=== PATIENT | male | born 1940 | race Caucasian/White ===

== ENCOUNTER 2023-05-05 08:45 | Outpatient (OUT) | payer MEDICARE, SELFPAY ==
--- NOTE | 2023-05-05 | US_ITS ---
The [place] [id number] Patient Name: ILYA BENITEZ MRN: [id number] date: 1940 Sex: M Assigned Patient Location: Current Patient Location: Accession/Order Number: [id number] Exam Date: 05/05/2023 09:15 Report Date: 05/06/2023 00:21 At the request of: MONSTER OMAYRAClaude Procedure: US right upper quadrant EXAMINATION: US right upper quadrant HISTORY: Abnormal Weight Loss , night sweats COMPARISON: No relevant comparison available. TECHNIQUE: Transabdominal evaluation of the right upper quadrant. FINDINGS: LIVER: Normal size and echotexture. Color Doppler demonstrates patent hepatic veins. PORTAL VEIN: Duplex Doppler demonstrates normal hepatopetal flow pattern with flow velocity averaging 41 cm/s. GALLBLADDER: No visible gallstones, wall thickening, or pericholecystic free fluid. Negative sonographic Chang's sign. BILIARY: No abnormal dilation or stones. Common bile duct diameter is within normal limits. PANCREASE: Not well seen due to overlying bowel gas. No visible mass, abnormal atrophy, or duct dilation. KIDNEY: No hydronephrosis. No visible mass or stones. Size: 11.3 x 5.6 x 5.8 cm US/US right upper quadrant IMPRESSION: 1. No suspicious findings to account for patient's symptoms. 2. Mild renal cortical atrophy, likely age related. Electronically authenticated by: ANUEL COVINGTON Date: 05/06/2023 00:21
--- NOTE | 2023-05-05 09:21 | XR_ITS ---
The [address] [address] Patient Name: ILYA BENITEZ MRN: [id number] date: 1940 Sex: M Assigned Patient Location: [place] Current Patient Location: [place] Accession/Order Number: [id number] Exam Date: 05/05/2023 09:15 Report Date: 05/05/2023 09:45 At the request of: MONSTER BENITEZ Procedure: XR chest 2V EXAM: XR chest 2V HISTORY: Generalized Hyerhidrosis , Weight Loss R63.4 COMPARISON: None. TECHNIQUE: PA and lateral views of the chest. FINDINGS: The cardiomediastinal silhouette is normal. Airspace disease of the right middle lobe. Probable 6 mm pulmonary nodule of the right upper lobe and 8 mm pulmonary nodule of the left lower lobe. There is no pneumothorax. No pleural effusion is noted. The osseous structures are intact. XR/XR chest 2V IMPRESSION: Atelectasis or pneumonia at the right middle lobe. Pulmonary nodules as above. Further evaluation with CT is recommended. Electronically authenticated by: MESHA FUNES Date: 05/05/2023 09:45
== END 2023-05-05 08:46 | disposition home or self-care (01) ==
LOC: US 08:45
PROVIDERS: PCP Family Medicine; Visit Provider Family Medicine
DX: R61 Generalized hyperhidrosis (principal); R63.4 Abnormal weight loss; R91.8 Other nonspecific abnormal finding of lung field
CPT/HCPCS: 71046; 76705

== ENCOUNTER 2023-05-20 07:17 | Outpatient (OUT) | payer MEDICARE, SELFPAY ==
--- NOTE | 2023-05-20 | CT_ITS ---
[address] [address] Patient Name: ILYA BENITEZ MRN: [id number] date: 1940 Sex: M Assigned Patient Location: LAB Current Patient Location: LAB Accession/Order Number: [id number] Exam Date: 05/20/2023 07:50 Report Date: 05/20/2023 08:50 At the request of: MONSTER CUTLERClaude Procedure: CT chest w con EXAM: CT chest w con HISTORY: Lung nodules R 91.9, Prostate Cancer C 61 COMPARISON: 05/05/2023 TECHNIQUE: Axial CT images were obtained of the chest without and with intravenous contrast. Multiplanar reconstructions were performed. CHEST FINDINGS: Lungs/Pleura: The lungs are clear. There is a prominent solid pulmonary nodule with central calcification and cavitation measuring 2.2 x 1.8 x 1.6 cm in the right middle lobe. There is atelectasis or scarring adjacent to the lesion. A small calcified pulmonary nodules present in the right upper and left upper lobes, likely due to remote granulomatous disease. No pleural effusion or pneumothorax. Cardiovascular: Heart is enlarged. There are mild coronary artery calcifications. There are mild scattered atherosclerotic calcifications in the thoracic aorta. Pericardium: No effusion. Mediastinum: Unremarkable. Lymph Nodes: No lymph node enlargement by CT size criteria. Calcified mediastinal and hilar lymph nodes are present, likely due to remote granulomatous disease. Bones: No acute osseous abnormality. Multilevel degenerative changes are present in the visualized spine with flowing anterior enthesophytes. Soft tissues: Unremarkable. Upper Abdomen: Unremarkable. CT/CT chest w con IMPRESSION: 1. Prominent nodule in the right middle lobe measuring up to 2.2 cm with central calcification and cavitation. The lesion is favored to represent a benign entity such as a postinfectious lesion, however, a 3 month follow-up CT is recommended in the absence of prior imaging for comparison. 2. Evidence of remote granulomatous disease. 3. Cardiomegaly. Electronically authenticated by: BRIGHT CAPONE Date: 05/20/2023 08:50
--- OUTSIDE RECORDS SUMMARY | 2023-05-20 07:20 | XMS_ITS | CCD ---
Author Name Unknown Address [address] [place] [address] Organization [facility] Care Team Providers Care Medical Housekeeper Name Role Phone MONSTER LOPEZ Unavailable Unavailable NO FAMILY DOCTOR, NO FAMILY DOCTOR Unavailable Unavailable Monster Lopez Unavailable John, DO Monster Primary Care Provider John, DO Monster Attending Provider Kuns, DO Monster Primary Care Provider [phone] Andrewss, DO Monster Attending Provider Kuns, DO [place] Primary Care Provider [phone] Kuns, DO Monster Attending Provider LAKSHMIPATHY ., NARENDRANATH Consulting Josiane vailable DR MONSTER LOPEZ Primary Care Unavailable LAKSHMIPATHY ., NARENDRANATH Attending Josiane vailable LAKSHMIPATHY ., NARENDRANATH Admitting Josiane vailable LAKSHMIPATHY ., NARENDRANATH Admitting Josiane vailable DR MONSTER LOPEZ Primary Care Unavailable DR ANUEL COVINGTON Consulting Unavailable LAKSHMIPATHY ., NARENDRANATH Attending Josiane vailable LAKSHMIPATHY ., NARENDRANATH Consulting Josiane vailable LAKSHMIPATHY ., NARENDRANATH Admitting Josiane vailable DR MONSTER LOPEZ Primary Care Unavailable DR SERENA GILL V Consulting Unavailable LAKSHMIPATHY ., NARENDRANATH Attending Josiane vailable LAKSHMIPATHY ., NARENDRANATH Consulting Josiane vailable LAKSHMIPATHY ., NARENDRANATH Admitting Josiane vailable DR MONSTER LOPEZ Primary Care Unavailable LAKSHMIPATHY ., NARENDRANATH Consulting Josiane vailable LAKSHMIPATHY ., NARENDRANATH Attending Josiane vailable Monster Lopez Primary Care Unavailable John, Monster Admitting Unavailable Monster Lopez Attending Unavailable Monster Lopez Primary Care Unavailable Monster Lopez Admitting Unavailable Monster Lopez Attending Unavailable John, Monster Primary Care Unavailable John, Monster Admitting Unavailable John, Monster Attending Unavailable Medications Current Medications Medication Drug Class(es) Dates Sig (Normalized) Sig (Original) [id number] 200 actuat albuterol 0.09 mg/actuat metered dose inhaler (3 sources) beta2-Adrenergic Agonist Start: 9 take 1 puff(s) by inhalation every four to six hours Albuterol Sulfate (Proair Hfa) 90 mcg/actuation Hfa Aerosol Inhaler Active 2 PUFF INHALATION EVERY 4-6 HOURS July 29, 2018 1:00am amLODIPine 5 mg oral tablet (14 sources) Dihydropyridine Calcium Channel Brittanie Start: 8 take 1 tablet by mouth every twenty-four hours amLODIPine Besylate 5 MG 1 tablet Orally Once a day Oct, Active aspirin 81 mg delayed release oral tablet (3 sources) Platelet Aggregation Inhibitor, Nonsteroidal Anti-inflammatory Drug Start: 9 take 1 tablet by mouth once daily Aspirin (Aspir-81) 81 mg Tablet,Delayed Release (Dr/Ec) Active 81 MG PO Daily July 29, 2018 1:00am atorvastatin 10 mg oral tablet (14 sources) HMG-CoA Reductase Inhibitor Start: 7 take 1 tablet by mouth every twenty-four hours Atorvastatin Calcium 10 MG 1 tablet Orally Once a day Jan, Active azithromycin 250 mg oral tablet (2 sources) Macrolide Antimicrobial Start: 2 Zithromax Z-Seven 250 MG as directed Orally Mar, Active baclofen 10 mg oral tablet (1 source) gamma-Aminobutyric Acid-ergic Agonist Baclofen 10 MG 1/2 tab to 1 full tab Orally Twice a day as needed Active cetirizine hydrochloride 10 mg oral tablet (14 sources) Histamine-1 Receptor Antagonist Start: 9 take 1 tablet by mouth once daily Cetirizine (Zyrtec) 10 mg Tablet Active 10 MG PO Daily July 29, 2018 1:00am chlorpheniramine maleate 4 mg oral tablet (13 sources) Histamine-1 Receptor Antagonist take 1 tablet by mouth every six hours Chlorpheniramine Maleate 4 MG 1 tablet as needed Orally every 6 hrs Active cyclobenzaprine hydrochloride 10 mg oral tablet (1 source) Muscle Relaxant Start: 3 take 1 tablet by mouth every twenty-four hours Cyclobenzaprine HCl 10 MG 1 tablet at bedtime as needed Orally Once a day for 90 days Dec, Active esomeprazole 20 mg delayed release oral capsule (17 sources) Proton Pump Inhibitor Start: 9 take 1 capsule by mouth once daily Esomeprazole Magnesium (Nexium) 20 mg Capsule,Delayed Release(Dr/Ec) Active 20 MG PO Daily July 29, 2018 1:00am NexIUM 22.3 mg 1 cap(s) By Mouth As Directed Active ezetimibe 10 mg oral tablet (14 sources) Dietary Cholesterol Absorption Inhibitor Start: 08-10-2017 take 1 tablet by mouth every twenty-four hours Zetia 10 MG 1 tablet Orally Once a day Jul, Active ezetimibe 10 mg / simvastatin 20 mg oral tablet (3 sources) HMG-CoA Reductase Inhibitor, Dietary Cholesterol Absorption Inhibitor Start: 07-29-2018 take 1 tablet by mouth once daily Ezetimibe-Simvas tatin (Vytorin 10-20) 10-20 mg Tablet Active 1 TAB PO Daily July 29, 2018 1:00am fluticasone propionate 0.05 mg/actuat metered dose nasal spray (16 sources) Corticosteroid Start: 07-29-2018 Fluticasone Propionate Active 1 SPRAY INTRANASAL Daily July 29, 2018 1:00am take 1 spray(s) nasal route once daily Flonase Allergy Relief 50 MCG/ACT 1 spray in each nostril Nasally Once a day Active take 1 spray(s) nasal route once daily Flonase Allergy Relief 50 MCG/ACT 1 spray in each nostril Nasally Once a day Active fluticasone / vilanterol (14 sources) Corticosteroid, beta2-Adrenergic Agonist Start: 01-15-2018 take 1 puff(s) by inhalation once daily as needed BREO ELLIPTA 100 mcg/25 mcg 1 puff Inhalation daily PRN Dec, Active hydrOXYzine hydrochloride 25 mg oral tablet (4 sources) Antihistamine Start: 05-16-2023 take 1-2 tablets by mouth once daily at bedtime as needed hydrOXYzine HCl 25 MG 1-2 tablet at bedtime as needed Orally Once a day September, Active losartan potassium 50 mg oral tablet (3 sources) Angiotensin 2 Receptor Brittanie Start: 07-29-2018 take 50 mg by mouth once daily Losartan Active 50 MG PO Daily July 29, 2018 1:00am methylPREDNISolone 4 mg oral tablet (14 sources) Corticosteroid Start: 03-10-2022 Medrol 4 MG as directed Orally Mar, Active Start: 03-28-2013 SOLU-MEDROL 41 - 125 mg Mar, 125 mg Multi For Him 1 (14 sources) Multi For Him 1 1 tab(s) p.o. Daily Active [place] 7-Byo-Bkw-Fish Oil (Fish Oil) 1,000 mg (120 mg-180 mg) Capsule (3 sources) Start: 07-29-2018 take 1 capsule by mouth once daily [place] 1-Tra-Qth-Fish Oil (Fish Oil) 1,000 mg (120 mg-180 mg) Capsule Active 1 CAP PO Daily July 29, 2018 12:00am Start: 07-29-2018 take 1 capsule by mo [facility] once daily [place] 7-Ohs-Rwj-Fish Oil (Fish Oil) 1,000 mg (120 mg-180 mg) Capsule Active 1 CAP PO Daily July 29, 2018 1:00am psyllium 3400 mg powder for oral suspension (17 sources) Start: 07-29-2018 Psyllium Husk (Metamucil) 3.4 gram/5.4 gram Powder Active 1 TBSP PO As Directed July 29, 2018 1:00am Metamucil 30.9 % as directed Orally PRN Not-Taking Metamucil 30.9 % as directed Orally PRN Active Completed/Discontinued Medications Medication Drug Class(es) Dates Sig (Normalized) Sig (Original) Aspir-81 81 MG (11 sources) take 1 tablet by sharlene once daily Aspir-81 81 MG 1 tablet Orally Once a day Not-Taking take 1 tablet by mouth once ami y Aspir-81 81 MG 1 tablet Orally Once a day Active 120 actuat budesonide 0.16 mg/actuat / formoterol fumarate 0.0045 mg/actuat metered dose inhaler (4 sources) Corticosteroid, beta2-Adrenergic Agonist Start: 08-10-2017 take 2 puff(s) by inhalation twice daily as needed Symbicort 160-4.5 MCG/ACT 2 puffs Inhalation Twice a day PRN Jul, Not-Taking celecoxib 200 mg oral capsule (7 sources) Nonsteroidal Anti-inflammatory Drug Start: 01-14-2022 take 1 capsule by mouth every other day at mealtime Celecoxib 200 MG 1 capsule with food Orally every other day Dec, Not-Taking Start: 01-14-2022 take 1 capsule by mo ut every twenty-four hours Celecoxib 200 MG 1 capsule with food Orally Once a day Dec, Active Ketorolac (20 sources) Nonsteroidal Anti-inflammatory Drug, Cyclooxygenase Inhibitor Start: 04-15-2016 Toradol p er 15 mg Apr, 2 cc Start: 04-29-2013 Toradol per 15 mg Apr, 2 mL Start: 04-19-2013 Toradol per 15 mg Apr, 2 mL Start: 04-16-2013 Toradol per 15 mg Apr, 2ml Start: 04-12-2013 Toradol per 15 mg Apr, 2 ml Start: 04-11-2013 Toradol per 15 mg Apr, 2 mL Start: 04-06-2013 Toradol per 15 mg Apr, 2 mL Start: 04-04-2013 Toradol per 15 mg Apr, 2 mL Start: 04-02-2013 Toradol per 15 mg Apr, 2 mL Start: 11-25-2011 Toradol per 15 mg Oct, Toradol 30 mg/ml (12 sources) Start: 02-07-2021 Toradol 30 mg/ ml Jan, 60 mg Problems Active Problems Problem Classification Problem Date Documented Date Episodic/Chronic Abdominal hernia (17 sources) Inguinal hernia; Translations: [Unilateral inguinal hernia, without obstruction or gangrene, not specified as recurrent] Onset: 05-21-2021 Resolved: 09-03-2021 Episodic Cancer of prostate (15 sources) Malignant tumor of prostate; Translations: [Malignant neoplasm of prostate] Chronic Deficiency and other anemia (6 sources) Anemia; Translations: [Anemia, unspecified] Episodic Diabetes mellitus without complication (6 sources) Hyperglycemia; Translations: [Hyperglycemia, unspecified] Episodic Disorders of lipid metabolism (20 sources) Hyperlipidemia; Translations: [Hyperlipidemia, unspecified] Onset: 05-21-2021 Resolved: 09-03-2021 Chronic Esophageal disorders (14 sources) Gastroesophageal reflux disease; Translations: [Gastro-esophageal reflux disease without esophagitis] Chronic Essential hypertension (20 sources) Essential (primary) hypertension; Translations: [Hypertensive disorder] Onset: 05-13-2017 Resolved: 09-03-2021 Chronic Essential hypertension (2 sources) Essential hypertension Onset: 05-13-2017 Fluid and electrolyte disorders (6 sources) Hyperkalemia; Translations: [Hyperkalemia] Episodic Nonspecific chest pain (2 sources) Chest pain at rest; Translations: [Chest pain, unspecified] Episodic Osteoarthritis (20 sources) Localized, primary osteoarthritis of the shoulder region; Translations: [Primary osteoarthritis, 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 Other bone disease and musculoskeletal deformities (4 sources) Somatic dysfunction of rib; Translations: [Segmental and somatic dysfunction of rib cage] Episodic Other bone disease and musculoskeletal deformities (4 sources) Somatic dysfunction of thoracic region; Translations: [Segmental and somatic dysfunction of thoracic region] Episodic Other connective tissue disease (14 sources) History of total replacement of right hip joint; Translations: [Presence of right artificial hip joint] Chronic Other diseases of kidney and ureters (7 sources) Renal impairment; Translations: [Disorder of kidney and ureter, unspecified] Episodic Other diseases of kidney and ureters (7 sources) Abnormal renal function; Translations: [Disorder of kidney and ureter, unspecified] Episodic Other diseases of kidney and ureters (3 sources) Disorder of kidney and ureter, unspecified; Translations: [Disorder of kidney and ureter, unspecified] Onset: 10-06-2022 Episodic Other lower respiratory disease (14 sources) Dyspnea; Translations: [Shortness of breath] Episodic Other lower respiratory disease (4 sources) Shortness of breath Onset: 04-30-2021 Resolved: 09-03-2021 Episodic Other lower respiratory disease (1 source) Other nonspecific abnormal finding of lung field Episodic Other nervous system disorders (11 sources) Chronic pain; Translations: [Other chronic pain] Chronic Other nervous system disorders (1 source) Other chronic pain; Translations: [OTHER CHRONIC PAIN] Onset: 09-21-2022 Chronic Other nervous system disorders (6 sources) Skin sensation disturbance; Translations: [Other disturbances of skin sensation] Episodic Other non-epithelial cancer of skin (14 sources) Squamous cell carcinoma of skin; Translations: [Squamous cell carcinoma of skin, unspecified] Episodic Other non-traumatic joint disorders (14 sources) Joint pain; Translations: [Pain in unspecified joint] Episodic Other non-traumatic joint disorders (2 sources) Shoulder joint pain; Translations: [Pain in left shoulder] Episodic Other non-traumatic joint disorders (4 sources) Pain in left shoulder; Translations: [Left shoulder pain] Episodic Other nutritional; endocrine; and metabolic disorders (3 sources) Weight loss; Translations: [Abnormal weight loss] Episodic Other nutritional; endocrine; and metabolic disorders (2 sources) Abnormal weight loss Episodic Other screening for suspected conditions (not mental disorders or infectious disease) (20 sources) Blood chemistry abnormal; Translations: [Other specified abnormal findings of blood chemistry] Onset: 05-21-2021 Resolved: 05-21-2021 Episodic Other skin disorders (14 sources) Actinic keratosis; Translations: [Actinic keratosis] Episodic Other skin disorders (1 source) Generalized hyperhidrosis Episodic Other upper respiratory disease (10 sources) Seasonal allergic rhinitis; Translations: [Other seasonal allergic rhinitis] Chronic Other upper respiratory disease (2 sources) Congestion of nasal sinus; Translations: [Nasal congestion] Episodic Other upper respiratory disease (1 source) Nasal congestion Episodic Other upper respiratory disease (4 sources) Nasal discharge; Translations: [Other specified disorders of nose and nasal sinuses] Episodic Other upper respiratory disease (1 source) Other specified disorders of nose and nasal sinuses Episodic Peripheral and visceral atherosclerosis (14 sources) Peripheral vascular disease; Translations: [Peripheral vascular disease, unspecified] Chronic Residual codes; unclassified (4 sources) Edema; Translations: [Localized edema] Episodic Spondylosis; intervertebral disc disorders; other back problems (20 sources) Lumbosacral spondylosis without myelopathy; Translations: [Spondylosis without myelopathy or radiculopathy, lumbar region] Onset: 09-16-2022 Chronic Spondylosis; intervertebral disc disorders; other back problems (20 sources) Neck pain; Translations: [Cervicalgia] Onset: 09-03-2021 Resolved: 09-03-2021 Episodic Substance-related disorders (9 sources) Tobacco dependence syndrome; Translations: [Nicotine dependence, other tobacco product, with unspecified nicotine-induced disorders] Chronic Unclassified (1 source) Chest pain, unspecified / R07.9(ICD-9) Onset: 05-13-2017 Unclassified (1 source) Shortness of breath / R06.02(ICD-9) Onset: 05-13-2017 Unclassified (1 source) Pure hypercholesterolemia, unspecified / E78.00(ICD-9) Onset: 05-13-2017 Unclassified (1 source) Palpitations / R00.2(ICD-9) Onset: 05-13-2017 Unclassified (1 source) Nicotine dependence, unspecified, uncomplicated / F17.200(ICD-9) Onset: 05-13-2017 Viral infection (14 sources) Postherpetic neuralgia; Translations: [Other postherpetic nervous system involvement] Episodic Past or Other Problems Problem Classification Problem Date Documented Da te Episodic/Chronic Diseases of mouth; excluding dental (1 source) Diseases of lips Onset: 09-03-2021 Resolved: 09-03-2021 Episodic Other bone disease and musculoskeletal deformities (1 source) Segmental and somatic dysfunction of thoracic region Onset: 09-03-2021 Resolved: 09-03-2021 Episodic Other bone disease and musculoskeletal deformities (1 source) Segmental and somatic dysfunction of rib cage Onset: 09-03-2021 Resolved: 09-03-2021 Episodic Other skin disorders (1 source) Xerosis cutis Onset: 09-03-2021 Resolved: 09-03-2021 Episodic Results Test Name Value Interpretation Reference Range Facil ity Complete Blood Count Auto Di ffon 04-17-2023 Basophils (Bld) [#/Vol] 0.1 10*3/uL Normal 0.0-0.2 [facility] Comment on above: Order Comment: Reaso n for Exam Hyperlipidemia Result Comment: PERF ORMED BY: [place] [address] PATHOLOGIST GENERAL MANAGER FARM SERGEI HERNANDEZ M.D. Performed By: #### C BC #### [facility] [address] [place] [address] [place] Basophils/100 WBC (Bld) 0.9 % Normal . [facility] Comment on above: Order Comment: Reaso n for Exam Hyperlipidemia Performed By: #### C BC #### [facility] [address] [place] [id number] [place] Eosinophils (Bld) [#/Vol] 0.2 10*3/uL Normal 0.0-0.45 [facility] Comment on above: Order Comment: Reaso n for Exam Hyperlipidemia Performed By: #### C BC #### [facility] [address] [place] [address] [place] Eosinophils/100 WBC (Bld) 2.2 % Normal . [facility] Comment on above: Order Comment: Reaso n for Exam Hyperlipidemia Performed By: #### C BC #### [address] Erythrocyte distribution wid th (RBC) [Ratio] 13.6 % Normal 12.0-14.8 [facility] Comment on above: Order Comment: Reaso n for Exam Hyperlipidemia Performed By: #### C BC #### [address] Hematocrit (Bld) [Volume fraction] 43.3 % Normal 38.8-50.0 [facility] Comment on above: Order Comment: Reaso n for Exam Hyperlipidemia Performed By: #### C BC #### [address] Hemoglobin (Bld) [Mass/Vol] 14.4 g/dL Normal 13.0-17. 0 [facility] Comment on above: Order Comment: Reaso n for Exam Hyperlipidemia Performed By: #### C BC #### [address] Lymphocytes (Bld) [#/Vol] 2.0 10*3/uL Normal 1.00-4.8 [facility] Comment on above: Order Comment: Reaso n for Exam Hyperlipidemia Performed By: #### C BC #### [place] [address] [place] Lymphocytes/100 WBC (Bld) 28.0 % Normal . [facility] Comment on above: Order Comment: Reaso n for Exam Hyperlipidemia Performed By: #### C BC #### [address] MCH (RBC) [Entitic mass] 33.2 pg Normal 27.5-35.2 [facility] Comment on above: Order Comment: Reaso n for Exam Hyperlipidemia Performed By: #### C BC #### [facility] [address] MCV (RBC) [Entitic vol] 99.6 fL Normal 83.5-101 [facility] Comment on above: Order Comment: Reaso n for Exam Hyperlipidemia Performed By: #### C BC #### [address] Mean Corpuscular HGB Conc 33.3 g/dL Normal 32.5-35.6 [facility] Comment on above: Order Comment: Reaso n for Exam Hyperlipidemia Performed By: #### C BC #### [address] Monocytes (Bld) [#/Vol] 1.0 10*3/uL High 0.0-0.8 [facility] Comment on above: Order Comment: Reaso n for Exam Hyperlipidemia Performed By: #### C BC #### [place] [address] [place] Monocytes/100 WBC (Bld) 13.8 % Normal . [facility] Comment on above: Order Comment: Reaso n for Exam Hyperlipidemia Performed By: #### C BC #### [place] [address] [place] Neutrophils (Bld) [#/Vol] 3.9 10*3/uL Normal 1.8-7.7 [facility] Comment on above: Order Comment: Reaso n for Exam Hyperlipidemia Performed By: #### C BC #### [place] [address] [place] Neutrophils/100 WBC (Bld) 55.1 % Normal . [facility] Comment on above: Order Comment: Reaso n for Exam Hyperlipidemia Performed By: #### C BC #### [place] [address] [place] NRBC% 0.2 /100{WBC} Normal 0-0.5 [facility] Comment on above: Order Comment: Reaso n for Exam Hyperlipidemia Performed By: #### C BC #### [place] [id number] [place] Platelet mean volume (Bld) [Entitic vol] 8.8 fL Normal 6.6-10.1 [facility] Comment on above: Order Comment: Reaso n for Exam Hyperlipidemia Performed By: #### C BC #### [facility] [address] Platelets (Bld) [#/Vol] 293 10*3/uL Normal 150-450 [facility] Comment on above: Order Comment: Reaso n for Exam Hyperlipidemia Performed By: #### C BC #### [address] RBC (Bld) [#/Vol] 4.35 10*6/uL Normal 3.90-5.60 [facility] Comment on above: Order Comment: Reaso n for Exam Hyperlipidemia Performed By: #### C BC #### [address] WBC (Bld) [#/Vol] 7.0 10*3/uL Normal 4.1-10.5 [facility] Comment on above: Order Comment: Reaso n for Exam Hyperlipidemia Performed By: #### C BC #### [address] Comprehensive Metabolic Pane yovani 04-17-2023 Albumin [Mass/Vol] 4.1 g/dL Normal 3.5-5.7 [facility] Comment on above: Order Comment: Reaso n for Exam Hyperlipidemia Performed By: #### T SH3, LIPID, CMP #### [address] Albumin/Globulin [Mass ratio] 1.5 {ratio} Normal [facility] Comment on above: Order Comment: Reaso n for Exam Hyperlipidemia Performed By: #### T SH3, LIPID, CMP #### [address] ALP [Catalytic activity/Vol] 79 U/L Normal 34-104 [facility] Comment on above: Order Comment: Reaso n for Exam Hyperlipidemia Performed By: #### T SH3, LIPID, CMP #### [facility] [address] [place] [address] [place] ALT [Catalytic activity/Vol] 28 U/L Normal 7-52 [facility] Comment on above: Order Comment: Reaso n for Exam Hyperlipidemia Performed By: #### T SH3, LIPID, CMP #### [facility] [address] Anion gap [Moles/Vol] 10.9 mmol/L Normal 6.0-15.0 [facility] Comment on above: Order Comment: Reaso n for Exam Hyperlipidemia Performed By: #### T SH3, LIPID, CMP #### [facility] [address] AST [Catalytic activity/Vol] 32 U/L Normal 13-39 [facility] Comment on above: Order Comment: Reaso n for Exam Hyperlipidemia Performed By: #### T SH3, LIPID, CMP #### [facility] [address] [place] [address] Bilirubin [Mass/Vol] 0.8 mg/dL Normal 0.3-1.0 [facility] Comment on above: Order Comment: Reaso n for Exam Hyperlipidemia Performed By: #### T SH3, LIPID, CMP #### [facility] [address] [place] [address] [place] Calcium [Mass/Vol] 9.4 mg/dL Normal 8.6-10.3 [facility] Comment on above: Order Comment: Reaso n for Exam Hyperlipidemia Performed By: #### T SH3, LIPID, CMP #### [facility] [address] [place] [address] [place] Chloride [Moles/Vol] 105 mmol/L Normal 98-107 [facility] Comment on above: Order Comment: Reaso n for Exam Hyperlipidemia Performed By: #### T SH3, LIPID, CMP #### [facility] [address] [place] [address] [place] CO2 [Moles/Vol] 28.4 mmol/L Normal 21.0-31.0 [facility] Comment on above: Order Comment: Reaso n for Exam Hyperlipidemia Performed By: #### T SH3, LIPID, CMP #### [facility] [address] Creatinine [Mass/Vol] 1.49 mg/dL High 0.70-1.30 [facility] Comment on above: Order Comment: Reaso n for Exam Hyperlipidemia Performed By: #### T SH3, LIPID, CMP #### [address] GFR/1.73 sq M.predicted MDRD (S/P/Bld) [Vol rate/Area] 46.566 mL/min/{1.73_m2} Normal [facility] Comment on above: Order Comment: Reaso n for Exam Hyperlipidemia Performed By: #### T SH3, LIPID, CMP #### [address] Globulin (S) [Mass/Vol] 2.7 g/dL Normal [facility] Comment on above: Order Comment: Reaso n for Exam Hyperlipidemia Performed By: #### T SH3, LIPID, CMP #### [address] Glucose [Mass/Vol] 96 mg/dL Normal 70-100 [facility] Comment on above: Order Comment: Reaso n for Exam Hyperlipidemia Result Comment: [place] Glucose Reference Range is dependent on time and content of last meal. Glucose of more than 200 mg/dL in a nonstressed, ambulatory subject supports the diagnosis of Diabetes Mellitus. ADA recommended reference range Performed By: #### T SH3, LIPID, CMP #### [facility] [address] [place] [address] Potassium [Moles/Vol] 4.3 mmol/L Normal 3.5-5.1 [facility] Comment on above: Order Comment: Reaso n for Exam Hyperlipidemia Performed By: #### T SH3, LIPID, CMP #### [address] Protein [Mass/Vol] 6.8 g/dL Normal 6.4-8.9 [facility] Comment on above: Order Comment: Reaso n for Exam Hyperlipidemia Performed By: #### T SH3, LIPID, CMP #### [address] [place] [address] [place] Sodium [Moles/Vol] 140 mmol/L Normal 136-145 [facility] Comment on above: Order Comment: Reaso n for Exam Hyperlipidemia Performed By: #### T SH3, LIPID, CMP #### [facility] [address] [place] [address] [place] Urea nitrogen [Mass/Vol] 22 mg/dL Normal 7-25 [facility] Comment on above: Order Comment: Reaso n for Exam Hyperlipidemia Performed By: #### T SH3, LIPID, CMP #### [facility] [address] [id number] [facility] Lipid Panelon 04-17-2023 Cholesterol [Mass/Vol] 179 mg/dL Normal 140-200 [facility] Comment on above: Order Comment: Reaso n for Exam Hyperlipidemia Result Comment: Chol less than 200 mg/dl low risk Chol 201-239 mg/dl borderline risk Chol 240 mg/dl and greater high risk Performed By: #### T SH3, LIPID, CMP #### [facility] [address] [id number] [place] Cholesterol in HDL [Mass/Vol] 66 mg/dL Normal 23-92 [facility] Comment on above: Order Comment: Reaso n for Exam Hyperlipidemia Result Comment: HDL CHOL ATP-III CLASSIFICATION Cardiovascular Risk HDL > or equal to 60 mg/dL LOW HDL < 40 mg/dL HIGH Performed By: #### T SH3, LIPID, CMP #### [facility] [address] [id number] [place] Cholesterol.total/Cholestero l in HDL [Mass ratio] 2.7 {ratio} Normal <5.0 [facility] Comment on above: Order Comment: Reaso n for Exam Hyperlipidemia Performed By: #### T SH3, LIPID, CMP #### [facility] [address] [id number] [place] LDL Cholesterol,Calculated 97 mg/dL Normal 0-100 [facility] Comment on above: Order Comment: Reaso n for Exam Hyperlipidemia Result Comment: LDL ATP III CLASSIFICATION LDL less than 100 mg/dL Optimal LDL 100-129 mg/dL Near or above optimal LDL 130-159 mg/dL Borderline high LDL 160-189 mg/dL High LDL greater than 189 mg/dL Very high Performed By: #### T SH3, LIPID, CMP #### [facility] [address] Triglyceride w/Reflex 79 mg/dL Normal 0-149 [facility] Comment on above: Order Comment: Reaso n for Exam Hyperlipidemia Result Comment: TRIG ATP III CLASSIFICATION TRIG less than 150 mg/dL Normal TRIG 150-199 mg/dL Borderline high TRIG 200-500 mg/dL High TRIG greater than 500 mg/dL Very high Standard traceable to the Center for Disease Conrtrol and Prevention (CDC) test method. Performed By: #### T SH3, LIPID, CMP #### [address] VLDL CHOLESTEROL 15 mg/dL Normal [facility] Comment on above: Order Comment: Reaso n for Exam Hyperlipidemia Performed By: #### T SH3, LIPID, CMP #### [facility] [address] [place] [address] Thyroid Stimulating Hormoneo n 04-17-2023 TSH Qn 2.20 m[IU]/L Normal 0.45-5.33 [facility] Comment on above: Order Comment: Reaso n for Exam Hyperlipidemia Result Comment: PERF ORMED BY: [place] [address] PATHOLOGIST GENERAL MANAGER [employer] SERGEI HERNANDEZ M.D. Performed By: #### T SH3, LIPID, CMP #### [facility] [address] [place] [address] MRI LSPINE WO CONon 10-09-19 23 MRI LSPINE WO CON EXAMINATION: MRI LSP INE WO CON HISTORY: Lumbar post-laminectomy syndrome COMPARISON: No relevant comparison available. TECHNIQUE: A variety of imaging planes and parameters were utilized for visualization of suspected pathology. FINDINGS: For the purposes of numbering, sagittal T2 image # 9 extends from the T10 vertebral body superiorly to the S2-S3 level inferiorly. PARASPINAL AREA: Normal with no visible mass. BONES: Right sided L4-L5 transpedicular fusion with interbody spacer and resultant metallic susceptibility artifact. Heterogeneous marrow signal L2 and L3 vertebral bodies likely age-related changes. Moderate diffuse spondylosis and facet osteoarthropathy CORD/CAUDA EQUINA: Normal caliber, contour, and signal intensity. DISC LEVELS: 12-L1: Disc space narrowing and desiccation. No significant disc bulge or herniation. No central or foraminal stenosis L1-L2: Disc desiccation. Mild diffuse disc bulge. No central or foraminal stenosis L2-L3: Disc collapse. Moderate diffuse disc/osteophyte complex and facet osteoarthropathy. Mild central canal stenosis. Moderate bilateral foraminal stenosis L3-L4: Disc desiccation. Mild diffuse disc bulge. Severe ligamentum flavum hypertrophy and facet osteophytes arthropathy. Moderate to severe narrowing of the central canal down to 5 mm in AP dimension. Moderate right and no left foraminal stenosis L4-L5: Interbody spacer. Moderate left foraminal disc/osteophyte complex. No central canal or right foraminal stenosis. Mild to moderate narrowing of the left neural foramen L5-S1: Disc space narrowing and disc desiccation. Moderate diffuse disc/osteophyte complex. Facet osteoarthropathy. No central canal stenosis. Mild bilateral foraminal stenosis IMPRESSION: Right L4-L5 transpedicular fusion with interbody spacer Moderate diffuse degenerative changes with central and foraminal stenosis most significant at L3-L4 Electronically authenticated by: SERENA GILL Date: 2022-10-08 13:32 Normal [facility] Alanine aminotransferase [En zymatic activity/volume] in Serum or PlasmaOrdered By: Monster Lopez on 10-06-2022 ALT [Catalytic activity/Vol] 30 U/L 7-52 [facility] Albumin [Mass/volume] in Ser um or Plasma by Bromocresol green (BCG) dye binding methoOrdered By: Monster Lopez on 10-06-2022 Albumin BCG dye [Mass/Vol] 4.2 g/dL 3.5-5.7 [facility] Alkaline phosphatase [Enzyma tic activity/volume] in Serum or PlasmaOrdered By: Monster Lopez on 10-06-2022 ALP [Catalytic activity/Vol] 68 U/L 34-104 [facility] Aspartate aminotransferase [ Enzymatic activity/volume] in Serum or PlasmaOrdered By: Monster Lopez on 10-06-2022 AST [Catalytic activity/Vol] 34 U/L 13-39 [facility] Bilirubin.total [Mass/volume ] in Serum or PlasmaOrdered By: Monster Lopez on 10-06-2022 Bilirubin [Mass/Vol] 1.0 mg/dL 0.3-1.0 [facility] Calcium [Mass/volume] in Ser um or PlasmaOrdered By: Monster Lopez on 10-06-2022 Calcium [Mass/Vol] 9.1 mg/dL 8.6-10.3 [facility] Carbon dioxide, total [Moles /volume] in Serum or PlasmaOrdered By: Monster Lopez on 10-06-2022 CO2 [Moles/Vol] 30.8 mmol/L 21.0-31.0 [facility] Chloride [Moles/volume] in S bautista or PlasmaOrdered By: Monster Lopez on 10-06-2022 Chloride [Moles/Vol] 104 mmol/L 98-107 [facility] Comprehensive Metabolic Pane yovani 10-06-2022 Albumin [Mass/Vol] 4.2 g/dL Normal 3.5-5.7 [facility] Comment on above: Order Comment: Reaso n for Exam Abnormal renal function Performed By: #### C MP #### [facility] [address] Albumin/Globulin [Mass ratio] 1.7 {ratio} Normal [facility] Comment on above: Order Comment: Reaso n for Exam Abnormal renal function Performed By: #### C MP #### [facility] [address] [id number] [place] ALP [Catalytic activity/Vol] 68 U/L Normal 34-104 [facility] Comment on above: Order Comment: Reaso n for Exam Abnormal renal function Result Comment: PERF ORMED BY: [facility] [address] [place] [address] PATHOLOGIST GENERAL MANAGER [employer] HERNANDEZ M.D. Performed By: #### C MP #### [facility] [address] [id number] [place] ALT [Catalytic activity/Vol] 30 U/L Normal 7-52 [facility] Comment on above: Order Comment: Reaso n for Exam Abnormal renal function Performed By: #### C MP #### [facility] [address] Anion gap [Moles/Vol] 9.8 mmol/L Normal 6.0-15.0 [facility] Comment on above: Order Comment: Reaso n for Exam Abnormal renal function Performed By: #### C MP #### [facility] [address] AST [Catalytic activity/Vol] 34 U/L Normal 13-39 [facility] Comment on above: Order Comment: Reaso n for Exam Abnormal renal function Performed By: #### C MP #### [facility] [address] [place] [address] Bilirubin [Mass/Vol] 1.0 mg/dL Normal 0.3-1.0 [facility] Comment on above: Order Comment: Reaso n for Exam Abnormal renal function Performed By: #### C MP #### [facility] [address] [place] [address] Calcium [Mass/Vol] 9.1 mg/dL Normal 8.6-10.3 [facility] Comment on above: Order Comment: Reaso n for Exam Abnormal renal function Performed By: #### C MP #### [facility] [address] [place] [address] Chloride [Moles/Vol] 104 mmol/L Normal 98-107 [facility] Comment on above: Order Comment: Reaso n for Exam Abnormal renal function Performed By: #### C MP #### [facility] [address] [place] [address] CO2 [Moles/Vol] 30.8 mmol/L Normal 21.0-31.0 [facility] Comment on above: Order Comment: Reaso n for Exam Abnormal renal function Performed By: #### C MP #### [facility] [address] [place] [address] Creatinine [Mass/Vol] 1.48 mg/dL High 0.70-1.30 [facility] Comment on above: Order Comment: Reaso n for Exam Abnormal renal function Performed By: #### C MP #### [facility] [address] [place] [address] [place] GFR/1.73 sq M.predicted MDRD (S/P/Bld) [Vol rate/Area] 47.237 mL/min/{1.73_m2} Normal [facility] Comment on above: Order Comment: Reaso n for Exam Abnormal renal function Performed By: #### C MP #### [facility] [address] [id number] [place] Globulin (S) [Mass/Vol] 2.5 g/dL Normal [facility] Comment on above: Order Comment: Reaso n for Exam Abnormal renal function Performed By: #### C MP #### [facility] [address] Glucose [Mass/Vol] 92 mg/dL Normal 70-100 [facility] Comment on above: Order Comment: Reaso n for Exam Abnormal renal function Result Comment: [facility] Glucose Reference Range is dependent on time and content of last meal. Glucose of more than 200 mg/dL in a nonstressed, ambulatory subject supports the diagnosis of Diabetes Mellitus. ADA recommended reference range Performed By: #### C MP #### [facility] [address] [id number] [place] Potassium [Moles/Vol] 4.6 mmol/L Normal 3.5-5.1 [facility] Comment on above: Order Comment: Reaso n for Exam Abnormal renal function Performed By: #### C MP #### [facility] [address] [place] [address] [place] Protein [Mass/Vol] 6.7 g/dL Normal 6.4-8.9 [facility] Comment on above: Order Comment: Reaso n for Exam Abnormal renal function Performed By: #### C MP #### [facility] [address] [id number] [place] Sodium [Moles/Vol] 140 mmol/L Normal 136-145 [facility] Comment on above: Order Comment: Reaso n for Exam Abnormal renal function Performed By: #### C MP #### [facility] [address] [id number] [place] Urea nitrogen [Mass/Vol] 23 mg/dL Normal 7-25 [facility] Comment on above: Order Comment: Reaso n for Exam Abnormal renal function Performed By: #### C MP #### [facility] [address] Creatinine [Mass/volume] in Serum or PlasmaOrdered By: Monster Lopez on 10-06-2022 Creatinine [Mass/Vol] 1.48 mg/dL 0.70-1.30 [facility] Globulin Calc (S) [Mass/Vol] Ordered By: Monster Lopez on 10-06-2022 Globulin (S) [Mass/Vol] 2.5 g/dL [facility] Glucose [Mass/volume] in Ser um or PlasmaOrdered By: Monster Lopez on 10-06-2022 Glucose [Mass/Vol] 92 mg/dL 70-100 [facility] Comment on above: ADA recommended refe rence rangeRandom Glucose Reference Range is dependent on time and content of last meal. Glucose of more than 200 mg/dL in a nonstressed, ambulatory subject supports the diagnosis of Diabetes Mellitus. No Panel InformationOrdered By: Monster Lopez on 10-06-2022 Estimated GFR (CKD-EPI) 47.237 mL/Min [facility] Creatinine Clearanc e (Chem N/A [facility] Potassium [Moles/volume] in Serum or PlasmaOrdered By: Monster Lopez on 10-06-2022 Potassium [Moles/Vol] 4.6 mmol/L 3.5-5.1 [facility] Protein [Mass/volume] in Ser um or PlasmaOrdered By: Monster Lopez on 10-06-2022 Protein [Mass/Vol] 6.7 g/dL 6.4-8.9 [facility] Serum or plasma albumin/glob ulin mass ratioOrdered By: Monster Lopez on 10-06-2022 Albumin/Globulin [Mass ratio] 1.7 {ratio} [facility] Serum or plasma anion gap de terminationOrdered By: Monster Lopez on 10-06-2022 Anion gap [Moles/Vol] 9.8 mmol/L 6.0-15.0 [facility] Sodium [Moles/volume] in Ser um or PlasmaOrdered By: Monster Lopez on 10-06-2022 Sodium [Moles/Vol] 140 mmol/L 136-145 [facility] Urea nitrogen [Mass/volume] in Serum or PlasmaOrdered By: Monster Lopez on 10-06-2022 Urea nitrogen [Mass/Vol] 23 mg/dL 7-25 [facility] XR LSPINE 2_3 VIEWSon 2022 XR LSPINE 2_3 VIEWS EXAMINATION: XR LSPI NE 2_3 VIEWS HISTORY: Post-laminectomy syndrome COMPARISON: No relevant comparison available. FINDINGS: BONES: Posterior mechanical fusion L4-L5 via pedicle screws and erica (on right side only). Mild right convex curvature of thoracolumbar spine. Grade 1 retrolisthesis of L2 on 3. Multilevel degenerative endplate changes. Moderate degenerative facet arthropathy L2-L3 through L5-S1. DISC SPACES: Moderate narrowing L1-L2, L2-L3, L5-S1. Intervertebral spacer at L4-L5. PARASPINOUS: Negative. No paraspinous abnormality is seen. OTHER: Right hip replacement. IMPRESSION: 1. Moderate-marked degenerative changes of lumbar spine. 2. Surgical changes without evidence of hardware failure. Electronically authenticated by: ANUEL COVINGTON Date: 2022-09-16 16:02 Normal [facility] l Albumin [Mass/volume] in Ser um or PlasmaOrdered By: Monster Lopez on 07-09-2022 Albumin [Mass/Vol] 3.7 g/dL 3.2-5.5 [facility] Basophils Auto (Bld) [#/Vol] Ordered By: Monster Lopez on 07-09-2022 Basophils (Bld) [#/Vol] 0.0 10*3/uL 0.0-0.2 [facility] Basophils/100 WBC Auto (Bld) Ordered By: Monster Lopez on 07-09-2022 Basophils/100 WBC (Bld) 0.5 % . [facility] Cholesterol [Mass/volume] in Serum or PlasmaOrdered By: Monster Lopez on 07-09-2022 Cholesterol [Mass/Vol] 175 mg/dL 140-200 [facility] Comment on above: Chol less than 200 m g/dl low riskChol 201-239 mg/dl borderline riskChol 240 mg/dl and greater high risk Cholesterol in LDL Calc [Mas s/Vol]Ordered By: Monster Lopez on 07-09-2022 Cholesterol in LDL [Mass/Vol] 105 mg/dL 0-100 [facility] Comment on above: LDL ATP III CLASSIFI CATIONLDL less than 100 mg/dL OptimalLDL 100-129 mg/dL Near or above optimalLDL 130-159 mg/dL Borderline highLDL 160-189 mg/dL HighLDL greater than 189 mg/dL Very high Cholesterol in VLDL Calc [Ma ss/Vol]Ordered By: Monster Lopez on 07-09-2022 Cholesterol in VLDL [Mass/Vol] 14 mg/dL [facility] Complete Blood Count Auto Di ffon 07-09-2022 Basophils (Bld) [#/Vol] 0.0 10*3/uL Normal 0.0-0.2 [facility] Comment on above: Order Comment: Reaso n for Exam Hyperlipidemia Result Comment: PERF ORMED BY: [address] [place] [address] PATHOLOGIST GENERAL MANAGER [employer] HERNANDEZ M.D. Performed By: #### C BC #### [facility] [address] Basophils/100 WBC (Bld) 0.5 % Normal . [facility] Comment on above: Order Comment: Reaso n for Exam Hyperlipidemia Performed By: #### C BC #### [facility] [address] [place] [address] [place] Eosinophils (Bld) [#/Vol] 0.2 10*3/uL Normal 0.0-0.45 [facility] Comment on above: Order Comment: Reaso n for Exam Hyperlipidemia Performed By: #### C BC #### [facility] [address] [place] [address] [place] Eosinophils/100 WBC (Bld) 2.2 % Normal . [facility] Comment on above: Order Comment: Reaso n for Exam Hyperlipidemia Performed By: #### C BC #### [facility] [address] [place] [address] [place] Erythrocyte distribution wid th (RBC) [Ratio] 13.0 % Normal 12.0-14.8 [facility] Comment on above: Order Comment: Reaso n for Exam Hyperlipidemia Performed By: #### C BC #### [facility] [address] [place] [address] Hematocrit (Bld) [Volume fraction] 45.2 % Normal 38.8-50.0 [facility] Comment on above: Order Comment: Reaso n for Exam Hyperlipidemia Performed By: #### C BC #### [address] Hemoglobin (Bld) [Mass/Vol] 14.8 g/dL Normal 13.0-17. 0 [facility] Comment on above: Order Comment: Reaso n for Exam Hyperlipidemia Performed By: #### C BC #### [address] Lymphocytes (Bld) [#/Vol] 2.5 10*3/uL Normal 1.00-4.8 [facility] Comment on above: Order Comment: Reaso n for Exam Hyperlipidemia Performed By: #### C BC #### [address] Lymphocytes/100 WBC (Bld) 34.8 % Normal . [facility] Comment on above: Order Comment: Reaso n for Exam Hyperlipidemia Performed By: #### C BC #### [address] MCH (RBC) [Entitic mass] 32.4 pg Normal 27.5-35.2 [facility] Comment on above: Order Comment: Reaso n for Exam Hyperlipidemia Performed By: #### C BC #### [place] [address] [place] MCV (RBC) [Entitic vol] 98.9 fL Normal 83.5-101 [facility] Comment on above: Order Comment: Reaso n for Exam Hyperlipidemia Performed By: #### C BC #### [address] Mean Corpuscular HGB Conc 32.8 g/dL Normal 32.5-35.6 [facility] Comment on above: Order Comment: Reaso n for Exam Hyperlipidemia Performed By: #### C BC #### [facility] [address] [place] [address] [place] Monocytes (Bld) [#/Vol] 0.7 10*3/uL Normal 0.0-0.8 [facility] Comment on above: Order Comment: Reaso n for Exam Hyperlipidemia Performed By: #### C BC #### [facility] [address] [place] [address] [place] Monocytes/100 WBC (Bld) 10.3 % Normal . [facility] Comment on above: Order Comment: Reaso n for Exam Hyperlipidemia Performed By: #### C BC #### [facility] [address] [place] [address] Neutrophils (Bld) [#/Vol] 3.7 10*3/uL Normal 1.8-7.7 [facility] Comment on above: Order Comment: Reaso n for Exam Hyperlipidemia Performed By: #### C BC #### [address] Neutrophils/100 WBC (Bld) 52.2 % Normal . [facility] Comment on above: Order Comment: Reaso n for Exam Hyperlipidemia Performed By: #### C BC #### [address] NRBC% 0.1 /100{WBC} Normal 0-0.5 [facility] Comment on above: Order Comment: Reaso n for Exam Hyperlipidemia Performed By: #### C BC #### [place] [address] [place] Platelet mean volume (Bld) [Entitic vol] 8.8 fL Normal 6.6-10.1 [facility] Comment on above: Order Comment: Reaso n for Exam Hyperlipidemia Performed By: #### C BC #### [place] [address] [place] Platelets (Bld) [#/Vol] 279 10*3/uL Normal 150-450 [facility] Comment on above: Order Comment: Reaso n for Exam Hyperlipidemia Performed By: #### C BC #### [facility] [address] RBC (Bld) [#/Vol] 4.57 10*6/uL Normal 3.90-5.60 [facility] Comment on above: Order Comment: Reaso n for Exam Hyperlipidemia Performed By: #### C BC #### [facility] [address] [place] [address] WBC (Bld) [#/Vol] 7.2 10*3/uL Normal 4.1-10.5 [facility] Comment on above: Order Comment: Reaso n for Exam Hyperlipidemia Performed By: #### C BC #### [facility] [address] [place] [address] Comprehensive Metabolic Pane yovani 07-09-2022 Albumin [Mass/Vol] 3.7 g/dL Normal 3.2-5.5 [facility] Comment on above: Order Comment: Reaso n for Exam Hyperlipidemia Performed By: #### T SH3, CMP, LIPID #### [facility] [address] [place] [address] Albumin/Globulin [Mass ratio] 1.5 {ratio} Normal [facility] Comment on above: Order Comment: Reaso n for Exam Hyperlipidemia Performed By: #### T SH3, CMP, LIPID #### [address] ALP [Catalytic activity/Vol] 62 U/L Normal 32-92 [facility] Comment on above: Order Comment: Reaso n for Exam Hyperlipidemia Performed By: #### T SH3, CMP, LIPID #### [facility] [address] [place] [address] ALT [Catalytic activity/Vol] 29 U/L Normal 10-60 [facility] Comment on above: Order Comment: Reaso n for Exam Hyperlipidemia Performed By: #### T SH3, CMP, LIPID #### [facility] [address] [place] [address] Anion gap [Moles/Vol] 11.6 mmol/L Normal 6.0-15.0 [facility] Comment on above: Order Comment: Reaso n for Exam Hyperlipidemia Performed By: #### T SH3, CMP, LIPID #### [facility] [address] AST [Catalytic activity/Vol] 32 U/L Normal 10-42 [facility] Comment on above: Order Comment: Reaso n for Exam Hyperlipidemia Performed By: #### T SH3, CMP, LIPID #### [facility] [address] [place] [address] [place] Bilirubin [Mass/Vol] 0.8 mg/dL Normal 0.3-1.2 [facility] Comment on above: Order Comment: Reaso n for Exam Hyperlipidemia Performed By: #### T SH3, CMP, LIPID #### [facility] [address] Calcium [Mass/Vol] 9.5 mg/dL Normal 8.2-10.2 [facility] Comment on above: Order Comment: Reaso n for Exam Hyperlipidemia Performed By: #### T SH3, CMP, LIPID #### [facility] [address] Chloride [Moles/Vol] 103 mmol/L Normal 95-114 [facility] Comment on above: Order Comment: Reaso n for Exam Hyperlipidemia Performed By: #### T SH3, CMP, LIPID #### [facility] [address] CO2 [Moles/Vol] 29.0 mmol/L Normal 22.0-30.0 [facility] Comment on above: Order Comment: Reaso n for Exam Hyperlipidemia Performed By: #### T SH3, CMP, LIPID #### [facility] [address] [place] [address] [place] Creatinine [Mass/Vol] 1.61 mg/dL High 0.64-1.27 [facility] Comment on above: Order Comment: Reaso n for Exam Hyperlipidemia Performed By: #### T SH3, CMP, LIPID #### [facility] [address] [place] [address] [place] Estimated GFR ( [place] 50 Normal [facility] Comment on above: Order Comment: Reaso n for Exam Hyperlipidemia Result Comment: GFR estimated reference range: According to KDOQI guidelines, <60 ml/min/1.73m2 is sufficient to diagnose a patient with chronic kidney disease. Performed By: #### T SH3, CMP, LIPID #### [facility] [address] [place] [address] [place] Estimated GFR (Non- Am 41 Normal [facility] Comment on above: Order Comment: Reaso n for Exam Hyperlipidemia Performed By: #### T SH3, CMP, LIPID #### [facility] [address] Globulin (S) [Mass/Vol] 2.5 g/dL Normal [facility] Comment on above: Order Comment: Reaso n for Exam Hyperlipidemia Performed By: #### T SH3, CMP, LIPID #### [address] Glucose [Mass/Vol] 86 mg/dL Normal 70-100 [facility] [facility] Comment on above: Order Comment: Reaso n for Exam Hyperlipidemia Result Comment: [place] Glucose Reference Range is dependent on time and content of last meal. Glucose of more than 200 mg/dL in a nonstressed, ambulatory subject supports the diagnosis of Diabetes Mellitus. ADA recommended reference range Performed By: #### T SH3, CMP, LIPID #### [facility] [address] [place] [address] Potassium [Moles/Vol] 4.6 mmol/L Normal 3.5-5.1 [facility] Comment on above: Order Comment: Reaso n for Exam Hyperlipidemia Performed By: #### T SH3, CMP, LIPID #### [address] Protein [Mass/Vol] 6.2 g/dL Normal 6.1-7.9 [facility] Comment on above: Order Comment: Reaso n for Exam Hyperlipidemia Performed By: #### T SH3, CMP, LIPID #### [address] Sodium [Moles/Vol] 139 mmol/L Normal 136-146 [facility] Comment on above: Order Comment: Reaso n for Exam Hyperlipidemia Performed By: #### T SH3, CMP, LIPID #### [facility] [address] [id number] [place] Urea nitrogen [Mass/Vol] 21 mg/dL Normal 9-23 [facility] Comment on above: Order Comment: Shaio n for Exam Hyperlipidemia Performed By: #### T SH3, CMP, LIPID #### [facility] [address] [id number] [facility] Creatinine and Glomerular fi ltration rate.predicted panel (S/P/Bld)Ordered By: Monster Lopez on 07-09-2022 Creatinine [Mass/Vol] 1.61 mg/dL 0.64-1.27 [facility] Eosinophils Auto (Bld) [#/Vo l]Ordered By: Monster Lopez on 07-09-2022 Eosinophils (Bld) [#/Vol] 0.2 10*3/uL 0.0-0.45 [facility] Eosinophils/100 WBC Auto (Bl d)Ordered By: Monster Lopez on 07-09-2022 Eosinophils/100 WBC (Bld) 2.2 % . [facility] Erythrocyte distribution wid th Auto (RBC) [Ratio]Ordered By: Monster Lopez on 07-09-2022 Erythrocyte distribution wid th (RBC) [Ratio] 13.0 % 12.0-14.8 [facility] Estimated glomerular filtrat ion rate (GFR) non- AmericanOrdered By: Monster Lopez on 07-09-2022 GFR/1.73 sq M.predicted joseph g non-blacks MDRD (S/P/Bld) [Vol rate/Area] 41 mL/Min [facility] Globulin Calc (S) [Mass/Vol] Ordered By: Monster Lopez on 07-09-2022 Globulin (S) [Mass/Vol] 2.5 g/dL [facility] Hematocrit Auto (Bld) [Volum e fraction]Ordered By: Monster Lopez on 07-09-2022 Hematocrit (Bld) [Volume fraction] 45.2 % 3 8.8-50.0 [facility] Hemoglobin [Mass/volume] in BloodOrdered By: Monster Lopez on 07-09-2022 Hemoglobin (Bld) [Mass/Vol] 14.8 g/dL 13.0-17. 0 [facility] Leukocytes [#/volume] correc joseph for nucleated erythrocytes in Blood by Automated counOrdered By: Monster Lopez on 07-09-2022 WBC corrected for nucl RBC A uto (Bld) [#/Vol] 7.2 10*3/uL 4.1-10.5 [facility] Lipid Panelon 07-09-2022 Cholesterol [Mass/Vol] 175 mg/dL Normal 140-200 [facility] Comment on above: Order Comment: Reaso n for Exam Hyperlipidemia Result Comment: Chol less than 200 mg/dl low risk Chol 201-239 mg/dl borderline risk Chol 240 mg/dl and greater high risk Performed By: #### T SH3, CMP, LIPID #### [facility] [address] [id number] [facility] Cholesterol in HDL [Mass/Vol] 56 mg/dL Normal 29-71 [facility] Comment on above: Order Comment: Reaso n for Exam Hyperlipidemia Result Comment: HDL CHOL ATP-III CLASSIFICATION Cardiovascular Risk HDL > or equal to 60 mg/dL LOW HDL < 40 mg/dL HIGH Performed By: #### T SH3, CMP, LIPID #### [facility] [address] [place] [address] [place] Cholesterol.total/Cholestero l in HDL [Mass ratio] 3.1 {ratio} Normal <5.0 [facility] Comment on above: Order Comment: Reaso n for Exam Hyperlipidemia Performed By: #### T SH3, CMP, LIPID #### [facility] [address] [place] [address] [place] LDL Cholesterol,Calculated 105 mg/dL High 0-100 [facility] Comment on above: Order Comment: Reaso n for Exam Hyperlipidemia Result Comment: LDL ATP III CLASSIFICATION LDL less than 100 mg/dL Optimal LDL 100-129 mg/dL Near or above optimal LDL 130-159 mg/dL Borderline high LDL 160-189 mg/dL High LDL greater than 189 mg/dL Very high Performed By: #### T SH3, CMP, LIPID #### [facility] [address] [place] [address] [place] Triglyceride w/Reflex 70 mg/dL Normal 35-149 [facility] Comment on above: Order Comment: Reaso n for Exam Hyperlipidemia Result Comment: TRIG ATP III CLASSIFICATION TRIG less than 150 mg/dL Normal TRIG 150-199 mg/dL Borderline high TRIG 200-500 mg/dL High TRIG greater than 500 mg/dL Very high Standard traceable to the Center for Disease Conrtrol and Prevention (CDC) test method. Performed By: #### T SH3, CMP, LIPID #### [facility] [address] VLDL CHOLESTEROL 14 mg/dL Normal [facility] Comment on above: Order Comment: Reaso n for Exam Hyperlipidemia Performed By: #### T SH3, CMP, LIPID #### [facility] [address] [phone] [place] Lymphocytes Auto (Bld) [#/Vo l]Ordered By: Monster Lopez on 07-09-2022 Lymphocytes (Bld) [#/Vol] 2.5 10*3/uL 1.00-4.8 [facility] Lymphocytes/100 WBC Auto (Bl d)Ordered By: Monster Lopez on 07-09-2022 Lymphocytes/100 WBC (Bld) 34.8 % . [facility] MCH Auto (RBC) [Entitic mass ]Ordered By: Monster Lopez on 07-09-2022 MCH (RBC) [Entitic mass] 32.4 pg 27.5-35.2 [facility] MCHC Auto (RBC) [Mass/Vol]Or dered By: Monster Lopez on 07-09-2022 MCHC (RBC) [Mass/Vol] 32.8 g/dL 32.5-35.6 [facility] MCV Auto (RBC) [Entitic vol] Ordered By: Monster Lopez on 07-09-2022 MCV (RBC) [Entitic vol] 98.9 fL 83.5-101 [facility] Monocytes Auto (Bld) [#/Vol] Ordered By: Monster Lopez on 07-09-2022 Monocytes (Bld) [#/Vol] 0.7 10*3/uL 0.0-0.8 [facility] Monocytes/100 WBC Auto (Bld) Ordered By: Monster Lopez on 07-09-2022 Monocytes/100 WBC (Bld) 10.3 % . [facility] Neutrophils Auto (Bld) [#/Vo l]Ordered By: Monster Lopez on 07-09-2022 Neutrophils (Bld) [#/Vol] 3.7 10*3/uL 1.8-7.7 [facility] Neutrophils/100 WBC Auto (Bl d)Ordered By: Monster Lopez on 07-09-2022 Neutrophils/100 WBC (Bld) 52.2 % . [facility] No Panel InformationOrdered By: Monster Lopez on 07-09-2022 Estimated GFR () 50 mL/Min [facility] Comment on above: GFR estimated refere nce range: According to KDOQI guidelines, <60 ml/min/1.73m2 is sufficient to diagnose a patient with chronic kidney disease. Pharmacy Creatinine Clearanc e (Chem N/A [facility] Prostate Specific Antigen Screen < 0.008 ng/mL 0.000-4.000 [facility] Nucleated erythrocytes [Pres ence] in Blood by Automated countOrdered By: Monster Lopez on 07-09-2022 Nucleated RBC Auto Ql (Bld) 0.1 /100{WBC} 0-0.5 [facility] PSA Screen (Yearly Only)on 0 07-09-2022 PSA Screen (Yearly Only) < 0.008 Normal 0.000-4.000 [facility] Comment on above: Order Comment: Reaso n for Exam Screening for prostate cancer Is patient <50 yrs? Medicare does not pay <50.: N What is the date of the last PSA Screen?: [id number] Is Medicare the insurance?: Y Did you verify eligibility (Dx Time) check TestViewGp: YES TO ALL Result Comment: PERF ORMED BY: [place] [address] PATHOLOGIST GENERAL MANAGER [employer]I HERNANDEZ M.D. Performed By: #### P SAS #### [address] Platelet mean volume Auto (B ld) [Entitic vol]Ordered By: Monster Lopez on 07-09-2022 Platelet mean volume (Bld) [Entitic vol] 8.8 fL 6.6-10.1 [facility] Platelets Auto (Bld) [#/Vol] Ordered By: Monster Lopez on 07-09-2022 Platelets (Bld) [#/Vol] 279 10*3/uL 150-450 [facility] Protein [Mass/volume] in Ser um or PlasmaOrdered By: Monster Lopez on 07-09-2022 Protein [Mass/Vol] 6.2 g/dL 6.1-7.9 [facility] RBC Auto (Bld) [#/Vol]Ordere d By: Monster Lopez on 07-09-2022 RBC (Bld) [#/Vol] 4.57 10*6/uL 3.90-5.60 [facility] Serum or plasma alanine vasques otransferase measurement without P-5'-P (enzymatic activiOrdered By: Monster Lopez on 07-09-2022 ALT No additional P-5'-P [Ca talytic activity/Vol] 29 U/L 10-60 [facility] Serum or plasma albumin/glob ulin mass ratioOrdered By: Monster Lopez on 07-09-2022 Albumin/Globulin [Mass ratio] 1.5 {ratio} [facility] Serum or plasma alkaline oliver sphatase measurement (enzymatic activity/volume)Ordered By: Monster Lopez on 07-09-2022 ALP [Catalytic activity/Vol] 62 U/L 32-92 [facility] Serum or plasma anion gap de terminationOrdered By: Monster Lopez on 07-09-2022 Anion gap [Moles/Vol] 11.6 mmol/L 6.0-15.0 [facility] Serum or plasma aspartate am inotransferase measurement (enzymatic activity/volume)Ordered By: Monster Lopez on 07-09-2022 AST [Catalytic activity/Vol] 32 U/L 10-42 [facility] Serum or plasma calcium alexis urement (mass/volume)Ordered By: Monster Lopez on 07-09-2022 Calcium [Mass/Vol] 9.5 mg/dL 8.2-10.2 [facility] Serum or plasma chloride damaris surement (moles/volume)Ordered By: Monster Lopez on 07-09-2022 Chloride [Moles/Vol] 103 mmol/L 95-114 [facility] Serum or plasma glucose alexis urement (mass/volume)Ordered By: Monster Lopez on 07-09-2022 Glucose [Mass/Vol] 86 mg/dL 70-100 [facility] Comment on above: ADA recommended refe rence rangeRandom Glucose Reference Range is dependent on time and content of last meal. Glucose of more than 200 mg/dL in a nonstressed, ambulatory subject supports the diagnosis of Diabetes Mellitus. Serum or plasma high density lipoprotein (HDL) cholesterol measurementOrdered By: Monster Lopez on 07-09-2022 Cholesterol in HDL [Mass/Vol] 56 mg/dL 29-71 [facility] Comment on above: HDL CHOL ATP-III CLA SSIFICATION Cardiovascular RiskHDL > or equal to 60 mg/dL LOWHDL < 40 mg/dL HIGH Serum or plasma potassium me asurement (moles/volume)Ordered By: Monster Lopez on 07-09-2022 Potassium [Moles/Vol] 4.6 mmol/L 3.5-5.1 [facility] Serum or plasma sodium measu rement (moles/volume)Ordered By: Monster Lopez on 07-09-2022 Sodium [Moles/Vol] 139 mmol/L 136-146 [facility] Serum or plasma total biliru bin measurement (mass/volume)Ordered By: Monster Lopez on 07-09-2022 Bilirubin [Mass/Vol] 0.8 mg/dL 0.3-1.2 [facility] Serum or plasma total carbon dioxide measurement (moles/volume)Ordered By: Monster Lopez on 07-09-2022 CO2 [Moles/Vol] 29.0 mmol/L 22.0-30.0 [facility] Serum or plasma total choles terol/high density lipoprotein (HDL) cholesterol mass ratOrdered By: Monster Lopez on 07-09-2022 Cholesterol.total/Cholestero l in HDL [Mass ratio] 3.1 {ratio} <5.0 [facility] Serum or plasma urea nitroge n measurement (mass/volume)Ordered By: Monster Lopez on 07-09-2022 Urea nitrogen [Mass/Vol] 21 mg/dL 9- [facility] TSH DL <= 0.005 mIU/L QnOrde red By: Monster Lopez on 07-09-2022 TSH Qn 2.82 m[IU]/L 0.45-5.33 [facility] Thyroid Stimulating Hormoneo n 07-09-2022 TSH Qn 2.82 m[IU]/L Normal 0.45-5.33 [facility] Comment on above: Order Comment: Reaso n for Exam Hyperlipidemia Result Comment: PERF ORMED BY: [place] [address] PATHOLOGIST GENER[employer] MANAGER [employer] HERNANDEZ M.D. Performed By: #### T SH3, CMP, LIPID #### [address] Triglyceride [Mass/volume] i n Serum or PlasmaOrdered By: Monster Lopez on 07-09-2022 Triglyceride [Mass/Vol] 70 mg/dL 35-149 [facility] Comment on above: TRIG ATP III CLASSIF ICATIONTRIG less than 150 mg/dL NormalTRIG 150-199 mg/dL Borderline highTRIG 200-500 mg/dL High TRIG greater than 500 mg/dL Very highStandard traceable to the Center for Disease Conrtrol and Prevention (CDC) test method. WBC Auto (Bld) [#/Vol]Ordere d By: Monster Lopez on 07-09-2022 WBC (Bld) [#/Vol] 7.2 10*3/uL 4.1-10.5 [facility] COVID Quick Testingon 2021 Result Negative [facility] [employer] Other Basophils Auto (Bld) [#/Vol] Ordered By: Monster Lopez on 01-06-2022 Basophils (Bld) [#/Vol] 0.0 10*3/uL 0.0-0.2 [facility] Basophils/100 WBC Auto (Bld) Ordered By: Monster Lopez on 01-06-2022 Basophils/100 WBC (Bld) 0.8 % . [facility] Blood hemoglobin measurement (mass/volume)Ordered By: Monster Lopez on 01-06-2022 Hemoglobin (Bld) [Mass/Vol] 14.7 g/dL 13.0-17. 0 [facility] Blood leukocytes automated c ount (number/volume)Ordered By: Monster Lopez on 01-06-2022 WBC (Bld) [#/Vol] 6.1 10*3/uL 4.5-11.0 [facility] Body fluid albumin measureme nt (mass/volume)Ordered By: Monster Lopez on 01-06-2022 Albumin (Body fld) [Mass/Vol] 3.7 g/dL 3.2-5. 5 [facility] Cholesterol [Mass/volume] in Serum or PlasmaOrdered By: Monster Lopez on 01-06-2022 Cholesterol [Mass/Vol] 170 mg/dL 140-200 [facility] Comment on above: Chol less than 200 m g/dl low risk Chol 201-239 mg/dl borderline risk Chol 240 mg/dl and greater high risk Cholesterol in LDL Calc [Mas s/Vol]Ordered By: Monster Lopez on 01-06-2022 Cholesterol in LDL [Mass/Vol] 98 mg/dL 0-100 [facility] Comment on above: LDL ATP III CLASSIFI CATION LDL less than 100 mg/dL Optimal LDL 100-129 mg/dL Near or above optimal LDL 130-159 mg/dL Borderline high LDL 160-189 mg/dL High LDL greater than 189 mg/dL Very high Cholesterol in VLDL Calc [Ma ss/Vol]Ordered By: Monster Lopez on 01-06-2022 Cholesterol in VLDL [Mass/Vol] 9 mg/dL [facility] Creatinine and Glomerular fi ltration rate.predicted panel (S/P/Bld)Ordered By: Monster Lopez on 01-06-2022 Creatinine [Mass/Vol] 1.41 mg/dL 0.64-1.27 [facility] Eosinophils Auto (Bld) [#/Vo l]Ordered By: Monster Lopez on 01-06-2022 Eosinophils (Bld) [#/Vol] 0.2 10*3/uL 0.0-0.45 [facility] Eosinophils/100 WBC Auto (Bl d)Ordered By: Monster Lopez on 01-06-2022 Eosinophils/100 WBC (Bld) 3.8 % . [facility] Erythrocyte distribution wid th Auto (RBC) [Ratio]Ordered By: Monster Lopez on 01-06-2022 Erythrocyte distribution wid th (RBC) [Ratio] 13.8 % 12.0-14.8 [facility] Estimated glomerular filtrat ion rate (GFR) non- AmericanOrdered By: Monster Lopez on 01-06-2022 GFR/1.73 sq M.predicted joseph g non-blacks MDRD (S/P/Bld) [Vol rate/Area] 48 mL/Min [facility] Globulin Calc (S) [Mass/Vol] Ordered By: Monster Lopez on 01-06-2022 Globulin (S) [Mass/Vol] 2.7 g/dL [facility] Hematocrit Auto (Bld) [Volum e fraction]Ordered By: Monster Lopez on 01-06-2022 Hematocrit (Bld) [Volume fraction] 44.7 % 3 8.8-50.0 [facility] Laboratory - Hematology and Cell countsOrdered By: Monster Lopez on 01-06-2022 Nucleated RBC/100 WBC (Bld) [Ratio] 0.2 % 0-0.5 [facility] Lymphocytes Auto (Bld) [#/Vo l]Ordered By: Monster Lopez on 01-06-2022 Lymphocytes (Bld) [#/Vol] 1.6 10*3/uL 1.00-4.8 [facility] Lymphocytes/100 WBC Auto (Bl d)Ordered By: Monster Lopez on 01-06-2022 Lymphocytes/100 WBC (Bld) 25.9 % . [facility] MCH Auto (RBC) [Entitic mass ]Ordered By: Monster Lopez on 01-06-2022 MCH (RBC) [Entitic mass] 32.6 pg 27.5-35.2 [facility] MCHC Auto (RBC) [Mass/Vol]Or dered By: Monster Lopez on 01-06-2022 MCHC (RBC) [Mass/Vol] 33.0 g/dL 32.5-35.6 [facility] MCV Auto (RBC) [Entitic vol] Ordered By: Monster Lopez on 01-06-2022 MCV (RBC) [Entitic vol] 98.7 fL 83.5-101 [facility] Monocytes Auto (Bld) [#/Vol] Ordered By: Monster Lopez on 01-06-2022 Monocytes (Bld) [#/Vol] 0.8 10*3/uL 0.0-0.8 [facility] Monocytes/100 WBC Auto (Bld) Ordered By: Monster Lopez on 01-06-2022 Monocytes/100 WBC (Bld) 14.0 % . [facility] Neutrophils Auto (Bld) [#/Vo l]Ordered By: Monster Lopez on 01-06-2022 Neutrophils (Bld) [#/Vol] 3.4 10*3/uL 1.8-7.7 [facility] Neutrophils/100 WBC Auto (Bl d)Ordered By: Monster Lopez on 01-06-2022 Neutrophils/100 WBC (Bld) 55.5 % . [facility] No Panel InformationOrdered By: Monster Lopez on 01-06-2022 Estimated GFR () 59 mL/Min [facility] Comment on above: GFR estimated refere nce range: According to KDOQI guidelines, <60 ml/min/1.73m2 is sufficient to diagnose a patient with chronic kidney disease. Pharmacy Creatinine Clearance (Chem N/A [facility] Platelet mean volume Auto (B ld) [Entitic vol]Ordered By: Monster Lopez on 01-06-2022 Platelet mean volume (Bld) [Entitic vol] 9.3 fL 6.6-10.1 [facility] Platelets Auto (Bld) [#/Vol] Ordered By: Monster Lopez on 01-06-2022 Platelets (Bld) [#/Vol] 277 10*3/uL 150-450 [facility] Protein [Mass/volume] in Ser um or PlasmaOrdered By: Monster Lopez on 01-06-2022 Protein [Mass/Vol] 6.4 g/dL 6.1-7.9 [facility] RBC Auto (Bld) [#/Vol]Ordere d By: Monster Lopez on 01-06-2022 RBC (Bld) [#/Vol] 4.53 10*6/uL 3.90-5.60 [facility] Serum or plasma alanine vasques otransferase measurement without P-5'-P (enzymatic activiOrdered By: Monster Lopez on 01-06-2022 ALT No additional P-5'-P [Ca talytic activity/Vol] 28 U/L 10-60 [facility] Serum or plasma albumin/glob ulin mass ratioOrdered By: Monster Lopez on 01-06-2022 Albumin/Globulin [Mass ratio] 1.4 {ratio} [facility] Serum or plasma alkaline oliver sphatase measurement (enzymatic activity/volume)Ordered By: Monster Lopez on 01-06-2022 ALP [Catalytic activity/Vol] 59 U/L 32-92 [facility] Serum or plasma aspartate am inotransferase measurement (enzymatic activity/volume)Ordered By: Monster Lopez on 01-06-2022 AST [Catalytic activity/Vol] 31 U/L 10-42 [facility] Serum or plasma calcium alexis urement (mass/volume)Ordered By: Monster Lopez on 01-06-2022 Calcium [Mass/Vol] 9.5 mg/dL 8.2-10.2 [facility] Serum or plasma chloride damaris surement (moles/volume)Ordered By: Monster Lopez on 01-06-2022 Chloride [Moles/Vol] 101 mmol/L 95-114 [facility] Serum or plasma glucose alexis urement (mass/volume)Ordered By: Monster Lopez on 01-06-2022 Glucose [Mass/Vol] 94 mg/dL 70-100 [facility] Comment on above: ADA recommended refe rence range Random Glucose Reference Range is dependent on time and content of last meal. Glucose of more than 200 mg/dL in a nonstressed, ambulatory subject supports the diagnosis of Diabetes Mellitus. Serum or plasma high density lipoprotein (HDL) cholesterol measurementOrdered By: Monster Lopez on 01-06-2022 Cholesterol in HDL [Mass/Vol] 63 mg/dL 29-71 [facility] Comment on above: HDL CHOL ATP-III CLA SSIFICATION Cardiovascular Risk HDL > or equal to 60 mg/dL LOW HDL < 40 mg/dL HIGH Serum or plasma potassium me asurement (moles/volume)Ordered By: Monster Lopez on 01-06-2022 Potassium [Moles/Vol] 4.2 mmol/L 3.5-5.1 [facility] Serum or plasma sodium measu rement (moles/volume)Ordered By: Monster Lopez on 01-06-2022 Sodium [Moles/Vol] 138 mmol/L 136-146 [facility] Serum or plasma total biliru bin measurement (mass/volume)Ordered By: Monster Lopez on 01-06-2022 Bilirubin [Mass/Vol] 0.9 mg/dL 0.3-1.2 [facility] Serum or plasma total carbon dioxide measurement (moles/volume)Ordered By: Monster Lopez on 01-06-2022 CO2 [Moles/Vol] 26.1 mmol/L 22.0-30.0 [facility] Serum or plasma total choles terol/high density lipoprotein (HDL) cholesterol mass ratOrdered By: Monster Lopez on 01-06-2022 Cholesterol.total/Cholestero l in HDL [Mass ratio] 2.7 {ratio} <5.0 [facility] Serum or plasma urea nitroge n measurement (mass/volume)Ordered By: Monster Lopez on 01-06-2022 Urea nitrogen [Mass/Vol] 15 mg/dL 9-23 [facility] TSH DL <= 0.005 mIU/L QnOrde red By: Monster Lopez on 01-06-2022 TSH Qn 2.18 m[IU]/L 0.45-5.33 [facility] Triglyceride [Mass/volume] i n Serum or PlasmaOrdered By: Monster Lopez on 01-06-2022 Triglyceride [Mass/Vol] 47 mg/dL 35-149 [facility] Comment on above: TRIG ATP III CLASSIF ICATION TRIG less than 150 mg/dL Normal TRIG 150-199 mg/dL Borderline high TRIG 200-500 mg/dL High TRIG greater than 500 mg/dL Very high Standard traceable to the Center for Disease Conrtrol and Prevention (CDC) test method. RAD - MISCon 08-12-2021 RAD - MISC [id number] D:127 Normal [facility] Ambulatory Visit Summaryon 0 08-06-2021 Ambulatory Visit Summary ILYA LOPEZ :1940 Visit Date:08/06/2021 Ambulatory Visit Instructions Your Care Team Attending Physician - Chung LATIF MD Primary Care Physician - MONSTER LOPEZ DO This Is Your Medications List Contact prescribing physician if questions or concerns amlodipine (amLODIPine 5 mg Tab) aspirin (aspirin 81 mg Oral EC Tab) atorvastatin (atorvastatin 10 mg Tab) cetirizine (cetirizine 10 mg Tab) esomeprazole (Nexium 20 mg Cap-DR) ezetimibe (Zetia 10 mg Tab) fluticasone nasal (Flonase 0.05 mg/inh nasal spray) fluticasone-vilanterol (Breo Ellipta 100 mcg-25 mcg inhalation powder) multivitamin (Multi Vitamins oral tablet) Procedures Performed Colonoscopy (11/2010), Arthroplasty of right hip joint, Excision of lesion of ear, History of lumbar spine surgery, Prostate, Repair of right inguinal hernia. Discharge Vitals Temperature (Temporal Artery) 36.3 ?C Heart Rate (Peripheral) 72 Respiratory Rate 16 Blood Pressure 126/62 Height 175.26 cm Height 175.3 cm Weight 97.5 kg Weight 97.5 kg BMI 31.74 Medications What How Much When Instructions Unchanged amlodipine (amLODIPine 5 mg Tab) 1 Tablets By Mouth Every day Contact prescribing physician if questions or concerns Unchanged aspirin (aspirin 81 mg Oral EC Tab) 1 Tablets By Mouth Every day Contact prescribing physician if questions or concerns Unchanged atorvastatin (atorvastatin 10 mg Tab) 1 Tablets By Mouth Every day Contact prescribing physician if questions or concerns Unchanged cetirizine (cetirizine 10 mg Tab) 1 Tablets By Mouth Every day Contact prescribing physician if questions or concerns Unchanged esomeprazole (Nexium 20 mg Cap-DR) 1 Capsules By Mouth Every day Contact prescribing physician if questions or concerns Unchanged ezetimibe (Zetia 10 mg Tab) 1 Tablets By Mouth Every day Contact prescribing physician if questions or concerns Unchanged fluticasone nasal (Flonase 0.05 mg/ inh nasal spray) 1 Sprays Nasal Inhalation 2 times a day Contact prescribing physician if questions or concerns Unchanged fluticasone-vilanterol (Breo Ellipta 100 mcg-25 mcg inhalation powder) 1 Puffs Inhalation Every day Contact prescribing physician if questions or concerns Unchanged multivitamin (Multi Vitamins oral tablet) 1 Tablets By Mouth Every day Contact prescribing physician if questions or concerns Medications and Immunizations Administered Not Given influenza virus vaccine, inactivated, Patient Refuses Allergies No Known Allergies No Known Medication Allergies Problems Ongoing - Any problem that you are currently receiving treatment for. Anemia BMI 31.0-31.9,adult GERD (gastroesophageal reflux disease) History of prostate cancer History of squamous cell carcinoma HTN (hypertension) Hyperglycemia Hyperkalemia Hyperlipidemia Lumbar spondylosis PVD (peripheral vascular disease) Renal insufficiency [facility] Historical Records Officeon 07-26-2021 Historical Records Office [id number]:127 Normal [facility] Physician Referralon 022 Physician Referral [id number]:127 Normal [facility] Vital Signs Date Time Vital Sign Value Performing Clinician Facility 04-21-2023 09:00-0500 Body height 175.26 cm Monster Lopez Other [facility] Other 04-21-2023 09:00-0500 Body mass index (BMI) [Ratio] 30.48 kg/m2 Monster Lopez Other [facility] Other 04-21-2023 09:00-0500 Body weight 93.62 kg Monster Lopez Other [facility] Other 04-21-2023 09:00-0500 Diastolic blood pressure 64 mm[Hg] Monster Lopez Other [facility] Other 04-21-2023 09:00-0500 Respiratory rate 16 /min Monster Lopez Other [facility] Other 04-21-2023 09:00-0500 SaO2% (BldA) [Mass fraction] 96 % Monster Kuns Other [facility] Other 04-21-2023 09:00-0500 Systolic blood pressure 112 mm[Hg] Monster Kuns Other [facility] Other 07-17-2022 10:00-0500 Body height 175.26 cm Monster Kuns Other [facility] Other 07-17-2022 10:00-0500 Body mass index (BMI) [Ratio] 31.45 kg/m2 Monster Kuns Other [facility] Other 07-17-2022 10:00-0500 Body weight 96.62 kg Monster Kuns Other [facility] Other 07-17-2022 10:00-0500 Diastolic blood pressure 82 mm[Hg] Monster Kuns Other [facility] Other 07-17-2022 10:00-0500 Respiratory rate 16 /min Monster Kuns Other [facility] Other 07-17-2022 10:00-0500 SaO2% (BldA) [Mass fraction] 98 % Monster Kuns Other [facility] Other 07-17-2022 10:00-0500 Systolic blood pressure 128 mm[Hg] Monster Kuns Other [facility] Other 09-03-2021 10:30-0400 Body height 175.26 cm Monster Kuns Other [facility] Other 09-03-2021 10:30-0400 Body mass index (BMI) [Ratio] 31.45 kg/m2 Monster Kuns Other [facility] Other 09-03-2021 10:30-0400 Body weight 96.62 kg Monster Kuns Other [facility] Other 09-03-2021 10:30-0400 Diastolic blood pressure 70 mm[Hg] Monster Kuns Other [facility] Other 09-03-2021 10:30-0400 Respiratory rate 16 /min Monster Kuns Other [facility] Other 09-03-2021 10:30-0400 SaO2% (BldA) [Mass fraction] 97 % Monster Kuns Other [facility] Other 09-03-2021 10:30-0400 Systolic blood pressure 116 mm[Hg] Monster Kuns Other [facility] Other 05-21-2021 11:30-0500 Body height 175.26 cm Monster Kuns Other [facility] Other 05-21-2021 11:30-0500 Body mass index (BMI) [Ratio] 31.16 kg/m2 Monster Kuns Other [facility] Other 05-21-2021 11:30-0500 Body weight 95.71 kg Monster Kuns Other [facility] Other 05-21-2021 11:30-0500 Diastolic blood pressure 76 mm[Hg] Monster Kuns Other [facility] Other 05-21-2021 11:30-0500 Respiratory rate 16 /min Monster Kuns Other [facility] Other 05-21-2021 11:30-0500 SaO2% (BldA) [Mass fraction] 96 % Monster Kuns Other [facility] Other 05-21-2021 11:30-0500 Systolic blood pressure 152 mm[Hg] Monster Kuns Other [facility] Other Encounters Encounter Date Encounter Type Care Provider Facility Start: 05-14-2023 End: 05-14-2023 ambulatory Monster Kuns Other [facility] Other Start: 05-14-2023 Telephone encounter [facility] Kuns [facility] Start: 05-06-2023 End: 05-06-2023 ambulatory Monster Kuns Other [facility] Other Start: 05-06-2023 Telephone encounter Monster Kuns [facility] Start: 04-21-2023 End: 04-21-2023 ambulatory Monster Kuns Other [facility] Other Start: 04-21-2023 Office outpatient visit 25 minutes Monster Kuns [facility] Start: 04-17-2023 End: 04-17-2023 ambulatory Monster Kuns Facility:[facility] Start: 02-16-2023 End: 02-16-2023 ambulatory Monster Kuns Other [facility] Other Start: 02-16-2023 Telephone encounter Monster Kuns [facility] [place] Start: 10-14-2022 End: 10-15-2022 ambulatory NARENDRANATH LAKSHMIPATHY . Facility: Start: 10-08-2022 End: 10-09-2022 ambulatory NARENDRANATH LAKSHMIPATHY . Facility:[facility] Start: 10-06-2022 End: 10-06-2022 ambulatory Monster Kuns Facility:[facility] Start: 10-06-2022 End: 10-06-2022 ambulatory DO Monster Kuns Work Phone: [facility] Work Phone: Start: 10-06-2022 End: 10-06-2022 Patient encounter procedure DO Monster Kuns Work Phone: [facility] [place] Work Phone: Start: 10-02-2022 End: 10-02-2022 ambulatory Monster Kuns Other [facility] Other Start: 10-02-2022 Telephone encounter Monster Kuns [facility] Start: 09-16-2022 End: 09-17-2022 ambulatory NARENDRANATH LAKSHMIPATHY . Facility: Start: 09-16-2022 End: 09-17-2022 ambulatory NARENDRANATH LAKSHMIPATHY . Facility: Start: 08-22-2022 End: 08-22-2022 ambulatory Monster Kuns Other [facility] Other Start: 08-22-2022 Telephone encounter Monster Kuns [facility] Start: 07-17-2022 End: 07-17-2022 ambulatory Monster Kuns Other [facility] Other Start: 07-17-2022 Patient encounter procedure Monster Kuns [facility] Start: 07-09-2022 End: 07-09-2022 ambulatory Monster Kuns Facility:[facility] Start: 07-09-2022 End: 07-09-2022 ambulatory DO Monster Kuns Work Phone: [facility] Work Phone: Start: 07-09-2022 End: 07-09-2022 Patient encounter procedure DO Monster Kuns Work Phone: [facility] [place] Work Phone: Start: 05-07-2022 End: 05-07-2022 ambulatory Monster Kuns Other [facility] Other Start: 05-07-2022 Telephone encounter Monster Kuns [facility] [place] Start: 03-10-2022 End: 03-10-2022 ambulatory Monster Kuns Other [facility] Other Start: 03-10-2022 Nursing evaluation o f patient and report Monster Kuns [facility] [place] Start: 03-10-2022 Telephone encounter Monster Kuns [facility] [place] Start: 01-06-2022 End: 01-06-2022 Patient encounter procedure DO Monster Kuns Work Phone: [facility] [place] Start: 09-03-2021 End: 09-03-2021 ambulatory Monster Kuns Other [facility] Other Start: 09-03-2021 Office outpatient visit 25 minutes Monster Kuns [facility] [place] Start: 07-25-2021 End: 07-25-2021 ambulatory Monster Kuns Other [facility] Other Start: 07-25-2021 Telephone encounter Monster Kuns [facility] [place] Start: 05-21-2021 End: 05-21-2021 ambulatory Monster Kuns Other [facility] Other Start: 05-21-2021 Annual wellness visit Monster Bowers ns Other [facility] Other Start: 05-21-2021 Patient encounter procedure Monster Kuns [facility] Start: 04-30-2021 End: 04-30-2021 ambulatory Monster Kuns Other [facility] Other Start: 04-30-2021 Telephone encounter Monster Lopez [facility] Start: 05-13-2017 Ambulatory MONSTER KUNS Facility:[id number] Start: 05-13-2017 Ambulatory Facility:[id number] Immunizations Immunization Date Immunization Notes Care Provider Fa cility 04-17-2022 influenza, seasonal, injectable Monster Kuns Other [facility] Other 05-20-2021 COVID-19 Vaccine Moderna - Documentation Purposes Only Monster Kuns Other [facility] Other 05-20-2021 influenza, seasonal, injectable Monster Kuns Other [facility] Other 03-20-2020 zoster vaccine recombinant Monster Kuns Other [facility] Other 03-20-2020 influenza, seasonal, injectable Monster Kuns Other [facility] Other 12-27-2019 zoster vaccine recombinant Monster Kuns Other [facility] Other 12-27-2019 pneumococcal conjugate vaccine, 13 valent Monster Kuns Other [facility] Other 12-27-2019 tetanus toxoid, reduced diphtheria toxoid, and acellular pertussis vaccine, adsorbed Monster Kuns Other [facility] Other 05-09-2019 influenza, seasonal, injectable Monster Kuns Other [facility] Other 05-17-2018 influenza, high dose seasonal, preservative-free Monster Kuns Other [facility] Other 04-09-2017 influenza, high dose seasonal, preservative-free Monster Kuns Other [facility] Other 04-03-2016 influenza, high dose seasonal, preservative-free Monster Kuns Other [facility] Other 05-21-2015 influenza, seasonal, injectable Monster Kuns Other [facility] Other 03-18-2010 pneumococcal polysaccharide vaccine, 23 valent Monster Kuns Other [facility] Other 03-14-1999 pneumococcal polysaccharide vaccine, 23 valent Monster Kuns Other [facility] Other NEGATED: Highlighted row has not occurred! 9 pneumococcal polysaccharide vaccine, 23 valent Patient Objection Monster Kuns Other [facility] Other NEGATED: Highlighted row has not occurred! 9 pneumococcal conjugate vaccine, 13 valent Patient Objection Monster Kuns Other [facility] Other NEGATED: Highlighted row has not occurred! 9 pneumococcal polysaccharide vaccine, 23 valent Patient Objection Monster Kuns Other [facility] Other Payers Date Payer Category Payer Self-pay [id number] Private Health Insurance [id number] 1940 Unknown [id number] 2.16.84 [id number] 1940 Unknown [id number] 2.16.84 [id number] 1940 Unknown [id number] 2.16.84 [id number] 1941 Unknown [id number] 2.16.84 [id number] Unknown [id number] 2.16.8 [id number] Unknown [id number] 2.16.8 [id number] Unknown [id number] 2.16.8 [id number] Social History Date Type Detail Facility Unknown if ever smoked [facility] Other Sex Assigned At Sex Assigned At Bir th [facility] Other Start: 1940 Sex Assigned At Male F [facility] Clinical Notes 11-04-2011 to 05-06-2023 Note Date & Type Note Facility 05-06-2023 Evaluation note Encounter Date Diagnosis Assessment Notes May, Lung nodules (ICD-10 - R91.8) May, Prostate CA (ICD-10 - C61) May, 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 Pt is to continue with the above medication and we will continue to monitor. Apr, Hyperlipidemia (ICD-10 - E78.5) Cholesterol findings are stable upon review of blood work results. Pt is to continue with the above medication and continue watching their diet and increase their exercise regimen. Apr, Nasal drainage (ICD-10 - J34.89) I am in agreement the patients nasal spray would work better if he uses it.He reports nasal drainage keeps waking him up. Encouraged to continue current medication regimen. Apr, Abnormal renal function (ICD-10 - N28.9) Kidney functions are up a little bit although improved compared to previous findings. We will continue to monitor. Apr, Night sweats (ICD-10 - R61) The patient complains of intermittent night sweats over the summer months, he is asymptomatic at this time. Blood work results reviewed with normal blood counts. The patient advised if symptoms come back to return to the office, and we will further evaluate with imaging to rule out cancer.The patient has also had weight loss therefore at this time I recommend a chest x-ray and abdominal ultrasound. The patient is in agreement and prefers [facility], orders faxed. The patient advised he may call the office for results. Apr, Weight loss (ICD-10 - R63.4) [facility] Other 09-18-2023 Evaluation note* Encounter Date Diagnosis Assessment Notes Treatment Notes Treatment Clinical Notes Jan, Hyperlipidemia (ICD-10 - E78.5) [facility] Other 04-18-2023 NoteCONSULTATION CONSULTATION DATE: 09/16/2022 TO: Monster Lopez D.O. CHIEF COMPLAINT: Includes severe left groin pain. HISTORY OF PRESENT ILLNESS: Review of systems, past medical/surgical history were obtained and documented on the health questionnaire and is available upon request. He is an 82-year-old male who reports having pain in the above mentioned area, starting two years ago. This occurred spontaneously and increased gradually to its present state. Since the onset of symptoms, he has tried various nonsteroidal agents, most recently Aleve. He takes two pills three times a day. He has been doing some type of nonsteroidal therapy for the last six months or longer. He has also undergone activity modification, and he has been ruled out for what appears to be an inguinal hernia. He reports, in general, the pain is rated 5-7/10 pain, sharp in character, increases with activities such as standing, walking and performing transitioning maneuvers. He feels most comfortable in the semi-recumbent position. He has been complaining of progressive weakness of his left lower extremity with numbness as well, mainly in his left thigh. EXAM: His examination is notable for the patient having depressed left patella reflex, weakness of his left psoas muscle, hypoesthesia along the left L1-L2 dermatome, possibly in the left T12 dermatome. He has associated myofascial spasm of the lumbar paravertebral muscles on the left side, as well as severe pain with lumbar facet joint loading maneuvers on the left side as well. 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 RECOMMENDATIONS: I have recommended he obtain lumbosacral spine films, flexion/extension views. Also, obtain lumbosacral MRI without contrast to determine if there is a mechanical etiology to his neurogenic symptoms. I have placed him on baclofen, 10 mg pills, half a pill to one pill b.i.d. as tolerated and aquatic therapy. We will see the patient back in the office in four weeks' time or sooner if needed. As part of providing excellent, safe, comprehensive care, the following was completed at our patient's visit: 1. A medication reconciliation and review to ensure accurate knowledge of current/active medications, including asking our patients to inform us about any [id number] medications or herbal remedies/nutritional supplements/alternative remedies. 2. A review to specifically ensure our patients have had annual screening for: elevated body mass index (BMI, see intake chart for exact total), tobacco use, screening for depression, and screening for unhealthy alcohol use. When screening is concerning, patients are provided with education and the specific recommendation to discuss the concerning health issue and treatment options with their primary care provider.[id number] note * Encounter Date Diagnosis Assessment Notes Treatment Notes Treatment Clinical Notes Jul, Medicare annual wellness visit, subsequent (ICD-10 - Z00.00) Personalized health advice was given to the beneficiary including a written plan for screenings discussed and provided. Advanced care planning reviewed and/or information given as requested. The above visit was performed by Paola Woodruff LPN, under direct supervision of Dr. Monster Lopez. Document reviewed and amended by provider signed below. Jul, Left inguinal hernia (ICD-10 - K40.90) The patient complains that his hernia has been bothering him more frequently. A general surgeon referral was initiated today to re-evaluate. Jul, Hyperlipidemia (ICD-10 - E78.5) Cholesterol findings appear to be stable upon review of blood work results. Pt is to continue with the above medication and continue watching their diet and increase their exercise regimen. Jul, Hypertension (ICD-10 - I10) Blood pressure is within normal limits today in the office. Pt is to continue with the above medication and we will continue to monitor. Jul, Screening for colon cancer (ICD-10 - Z12.11) The patient advised to discuss if a screening colnoscopy would be recommended with the general surgeon we refered him to today. The patient voices understanding. The patient does have a history of diverticulitis , denies any recent bowel problems or changes. Previous colonoscopy was in 2010. Jul, Shortness of breath (ICD-10 - R06.02) Pt is to continue with the above medication and we will continue to monitor. Jul, Screening for prostate cancer (ICD-10 - Z12.5) Review of PSA level which was WNL, therefore, we will continue to monitor. Pt denies any urinary issues at this time. Jul, Abnormal renal function (ICD-10 - N28.9) Kidney functions are elevated upon review of blood work results. Upon review of medications discussion was has Celebrex could be the cause of the elevation. The patient is unsure if he is taking this . I recommend he check his medications when he gets home and if he is taking the medication to decrease it to every other day and we will recheck blood work in three months. Jul, Osteoarthritis, unspecified osteoarthritis type, unspecified site (ICD-10 - M19.90) The patient advised to decrease the above medication to every other day due to decreased renal functions. Blood work ordered to re-evaluate in three months. 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 Discussed risks of smoking and health benefits of quitting. Provided patient with all possible options for tobacco cessation. Encouraged patient to continue with their efforts. [facility] Other 12-07-2022 Evaluation note* Encounter Date Diagnosis Assessment Notes Treatment Notes Treatment Clinical Notes May, Hypertension (ICD-10 - I10) [facility] Other 10-10-2022 Evaluation note* Encounter Date Diagnosis Assessment Notes Treatment Notes Treatment Clinical Notes Mar, Sinus congestion (ICD-10 - R09.81) In house covid test was negative. [facility] Other 04-05-2022 Evaluation note* Encounter Date Diagnosis Assessment Notes Treatment Notes Treatment Clinical Notes Aug, Hypertension (ICD-10 - I10) Blood pressure appears to be well controlled at this time. Pt is to continue with the above medication and we will continue to monitor. Aug, Inguinal hernia (ICD-10 - K40.90) Per patient he consulted with general surgeon , hernia surgery is not recommended at this time. The patient states he was advised the increased pain may be related to sciatica pain irritating the nerve roots. Aug, Shortness of breath (ICD-10 - R06.02) Pt is to continue with the above medication and we will continue to monitor. Aug, Lumbar pain (ICD-10 - M54.5) The patient has a history of lumbar sugery with hardware in place. Aug, Dry skin (ICD-10 - L85.3) I recommend he apply OTC 1 % Hydrocortisone cream to the cracks in the skin of his hands. Aug, Chapped lips (ICD-10 - K13.0) Aug, Pain in thoracic spine (ICD-10 - M54.6) I did provide a gentle OMT to the thoracic spine region with little movement , the patient is very tight today . Discussion was had his pain is likely arthritis related . The patient advised I will avoid the lumbar region due to surgery history. Physical therapy referral offered, the patient states now that the weather is warming up pain is more tolerable then it was in May /June. The patient encourted to continue Tylenol/Motrin regimen. Aug, Hyperlipidemia (ICD-10 - E78.5) Aug, Somatic dysfunction of thoracic region (ICD-10 - M99.02) Aug, Somatic dysfunction of rib cage region (ICD-10 - M99.08) [facility] Other 03-08-2022 NoteChief Complaint consultation for [facility] HPI Staff 81 year old male presents on consultation from Dr. Lopez for left inguinal hernia. CT ABD/pelvis completed 05/2016 with small fat containing hernia. 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 on baby asa daily, no NSAIDs. no tobacco use. Review of Systems PHQ Score Initial Depression Screen Score: 0 ROS - Provider Constitutional: no fever, no sweats, no weight loss. Eyes: no glasses, no blurred vision, no visual loss. ENMT: no dentures, no hoarseness, no swallowing difficulties, no hearing loss, no ear infection(s),no nose bleeds. Cardiovascular: normal blood pressure, no chest pain, regular heartbeat, no heart murmur. Respiratory: no shortness of breath, no cough, no asthma, no wheezing. Gastrointestinal: no nausea, no vomiting, no diarrhea, no constipation, no blood in stool, no change in bowel habits, yes abdominal pain, no hepatitis. Genitourinary: no kidney stones, no urine infection, no dysuria. Musculoskeletal: no pain, no weakness. Skin: no changing moles, no rash, no skin lumps. Neurologic: no seizures, no epilepsy, no headache. Psychiatric: no emotional or psychiatric problem. Heme/Lymph: no bleeding problems, no anemia, no blood clots, no transfusions. Allergy/Immunologic: no swollen lymph nodes/glands, no IV drug abuse. Other: Additional ROS info: Except as noted in the above Review of Systems and in the History of Present Illness, all other systems have been reviewed and are negative or noncontributory. Physical Exam Vitals & Measurements T: 36.3 ?C(Temporal Artery) HR: 72(Peripheral) RR: 16 BP: 126/62 HT: 175.26 cm HT: 175.3 cm WT: 97.5 kg WT: 97.5 kg BMI: 31.74 HEENT: normal conjunctiva, sclera clear, no scleral icterus, EOM intact, PERRLA, oral mucosa moist without lesions. Neck: trachea midline, no mass, symmetric, no thyromegaly or nodules, no adenopathy Respiratory: lungs CTA, respirations non labored. Cardiovascular: regular rate and rhythm, no murmur, no pedal edema or varicosities. Gastrointestinal: obese, soft, non distended,well-healed RLQ and umbilical scars; mild tenderness, left inguinal area, no skin changes; no masses, small reducible left inguinal hernia, diastasis recti no, no hepatosplenomegaly; normal bs Lymphatic: no cervical adenopathy, no inguinal adenopathy. Musculoskeletal: normal gait, digits and nails without infection, nodes, cyanosis, clubbing. Skin: no rashes, no lesions, no ulcers, no subcutaneous nodules, induration. Psychiatric/Neuro: oriented to time, place, person, judgement normal, affect appropriate for age, insight intact, no focal deficits. Tests: review of old records completed, Discussed surgical options, risks, and possible complications with patient. Assessment/Plan 1. Inguinal hernia, left (K40.90: Unilateral inguinal hernia, without obstruction or gangrene, not specified as recurrent) small, reducible, unlikely to be causing patient's pain; suspect arthritis or lower back issues; recommend evaluation by pain management, possible injection; monitor hernia for increase in size, if enlarges, or develops bowel involvement, would recommend repair; call with problems/questions. signs/symptoms of incarceration/strangulation of hernia explained in detail, and patient understands that he should seek prompt medical evaluation if they were to occur. 2. Left groin pain (R10.32: Left lower quadrant pain) see # 1 Follow-up No qualifying data available Problem List/Past Medical History Ongoing Anemia BMI 31.0-31.9,adult GERD (gastroesophageal reflux disease) History of prostate cancer History of squamous cell carcinoma HTN (hypertension) Hyperglycemia Hyperkalemia Hyperlipidemia Inguinal hernia, left Left groin pain Lumbar spondylosis PVD (peripheral vascular disease) Renal insufficiency Historical No qualifying data Procedure/Surgical History Colonoscopy (11/2010), Arthroplasty of right hip joint, Excision of lesion of ear, History of lumbar spine surgery, Prostate, Repair of right inguinal hernia. Medications amLODIPine 5 mg Tab, 5 mg= 1 tab(s), Oral, Daily aspirin 81 mg Oral EC Tab, 81 mg= 1 tab(s), Oral, Daily atorvastatin 10 mg Tab, 10 mg= 1 tab(s), Oral, Daily Breo Ellipta 100 mcg-25 mcg inhalation powder, 1 pu (more content not included)...[facility] HospitalComment on above:Result Comment: Electronically Signed By: SALOMON RODRIGUEZ, Chung Ervin\Date and Time Signed: 08/06/21 17:01 [id number] Evaluation note* Encounter Date Diagnosis Assessment Notes Treatment Notes Treatment Clinical Notes May, Medicare annual wellness visit, initial (ICD-10 - Z00.00) Personalized health advice was given to the beneficiary including a written plan for screenings discussed and provided. Advanced care planning reviewed and/or information given as requested. Additional counseling was provided here today . The above visit was performed by ( Zhanna Vance LPN), under direct supervision of ( Monster Lopez). Document reviewed and amended by provider signed below. May, Hyperlipidemia (ICD-10 - E78.5) Blood work reviewed with the patient. No signs of anemia or leukemia. Kidney functions have improved , liver enzymes are within normal limtis. Cholesterol has stayed essentially the same. Pt is to continue with the above medication and continue watching their diet and increase their exercise regimen. May, Hypertension (ICD-10 - I10) Blood pressure is slightly elevated in the office today .I recommend he check his blood pressure on ocassion at home and keep a log of the findings. Pt is to continue with the above medication and we will continue to monitor. May, Screening for prostate cancer (ICD-10 - Z12.5) Review of PSA level which was WNL, therefore, we will continue to monitor. Pt denies any urinary issues at this time. May, Inguinal hernia (ICD-10 - K40.90) The patient complains of increased and more frequent pain in his left sided inguinal hernia . The patient consults with general surgeon who has recommended surgery , per patient he will likely contact after the first of the year. May, Shortness of breath (ICD-10 - R06.02) Pt is to continue with the above medication and we will continue to monitor. [facility] Other 11-30-2021 Evaluation note* Encounter Date Diagnosis Assessment Notes Treatment Notes Treatment Clinical Notes Apr, Shortness of breath (ICD-10 - R06.02) [facility] Other 06-05-2012 History general Narrative - Reported* Type Description Date Medical History Path Report (11-04-11) Medical History Colonoscopy - dr reveles (11/2010 ) Medical History X-ray lumbar (03/2013) Medical History stress test, echocardiogram 12/31 015 Medical History 11/2016 AAA, Carotid Medical History 12/13/2019 PSA ( .008) Surgical History RIGHT HIP SURGERY Surgical History PROSTATE SURGERY Surgical History lumbar surgery 04/2013 Surgical History right ear lesion excision with flap closure 08/02/18 Hospitalization History SEE ABOVE [facility] Other Evaluation noteNo InformationNort Nugget[place] Other Evaluation noteNo assessment information available [facility] Work Phone: Summary Purpose Family History No Family History Records FoundNo Family History Records FoundNo Family History Records FoundNo Family History Records FoundNo Family History Records Found Advance Directives Advance Directive Response Recorded Date/ Time Advance Directives Yes July 31 3:41pm Advance Directive Response Recorded Date/ Time Advance Directives Yes July 31 2:41pm Chief Complaint and Reason for Visit Chief Complaint Hyperlipidemia Reason for Referral Reason 07/28/22 @ 10:00am consult and treat with Dr.Todd Sinclair in [place] Diagnosis 1 Left inguinal hernia (K40.90) Referral Organization [facility] Referring Provider First Name Monster Referring Provider Last Name John Referring Provider Specialty Family Prac tomás Referred Organization [facility] Referred Provider Julien Sinclair Referred Address [address] [place], [place],[address] Referred Provider Specialty Surgery Referral Priority Routine Referral Appointment Date 2022-07-28 General Notes Jackelyn Huerta 023 10:32:29 AM >Received today and waiting for office notes to be locked before sending referral Jackelyn Huerta 07/18/2022 10:58:26 AM >Referral was fax. They will review and call patient [facility] 07/25/2022 08:58:28 AM >Fax letter for appt update [facility] 07/25/2022 10:00:37 AM >Received letter back with appt [facility] 07/30/2022 09:59:04 AM >Fax letter for appt update or consult notes [facility] 07/30/2022 12:53:38 PM >Received consult notes Clinical Notes Office [phone] Additional Source Comments (unrecognized sect ion and content) No Status Records FoundNo Status Records FoundNo Status Records FoundNo Status Records FoundNo Status Records Found INFORMATION SOURCE (unrecogn ized section and content) DATE CREATED AUTHOR 11/24/2017 [facility] DATE CREATED AUTHOR AUTHOR'S ORGANIZ ATION 11/24/2017 [facility] DATE CREATED AUTHOR AUTHOR'S ORGANIZ ATION 08/18/2021 [facility] DATE CREATED AUTHOR AUTHOR'S ORGANIZ ATION 10/15/2022 [facility] DATE CREATED AUTHOR AUTHOR'S ORGANIZ ATION 04/22/2023 [facility] REASON FOR VISIT (unrecogniz ed section and content) refillmedicare wellnessClini cal4 month f/u HTNClinicalCOVID test-[employer] congestion,cough,sore throatRefillmedicare wellness SUBreferralmedical recordsRefillsreview labs- lipidsimagingclinical Care Teams (unrecognized sec tion and content) Team Status: Active Member Role Status Dates Monster Lopez DO Primary Care Provider Active Team Status: Inactive Member Role Status Dates Monster Lopez DO Primary Care Provider, Attending [employer] Active Goals (unrecognized section and content) Goals may be documented in a n alternate section FOR RECORDS PERTAINING TO PATIENTS WHO ARE OR HAVE BEEN ENROLLED IN A CHEMICAL DEPENDENCY/SUBSTANCEABUSE PROGRAM, SOME INFORMATION MAY BE OMITTED. This clinical summary was aggregated from multiple sources. Caution should be exercised in using it in the provision of clinical care. This summary normalizes information from multiple sources, and as a consequence, information in this document may materially change the coding, format and clinical context of patient data. In addition, data may be omitted in some cases. CLINICAL DECISIONS SHOULD BE BASED ON THE PRIMARY CLINICAL RECORDS. [facility] [employer] [facility]. provides no warranty or guarantee of the accuracy or completeness of information in this document.
[2023-05-20 07:44] LABS: Alanine Aminotransferase 40 U/L (16-63); Albumin Level 3.6 g/dL (3.4-5.0); Alkaline Phosphatase 86 U/L (46-116); Anion Gap 13.4; Aspartate Amino Transferase 31 U/L (15-37); BUN Creatinine Ratio 16.9; Bilirubin Total 0.7 mg/dL (0.2-1.0); Calcium 9.3 mg/dL (8.5-10.1); Carbon Dioxide 30.2 mmol/L (21.0-32.0); Chloride 102 mmol/L (98-107); Estimated GFR (African America 46 (>=60); Estimated GFR (Non-African Ame 38 (>=60); Globulin 3.5 g/dL; Glucose 97 mg/dL (74-106); Potassium 4.6 mmol/L (3.5-5.1); Sodium 141 mmol/L (136-145); Total Protein 7.1 g/dL (6.4-8.2)
== END 2023-05-20 07:18 | disposition home or self-care (01) ==
LOC: LAB 07:17
PROVIDERS: PCP Family Medicine; Visit Provider Family Medicine
DX: R91.8 Other nonspecific abnormal finding of lung field (principal); C61 Malignant neoplasm of prostate; F17.299 Nicotine dependence, other tobacco product, with unspecified nicotine-induced disorders; R63.4 Abnormal weight loss; I51.7 Cardiomegaly
CPT/HCPCS: 36415; 71260; 80053; Q9966

== ENCOUNTER 2024-01-13 09:21 | Outpatient (OUT) | payer MEDICARE, SELFPAY ==
--- OUTSIDE RECORDS SUMMARY | 2024-01-13 09:44 | XMS_ITS | CCD ---
Author Organization [facility] [place] Care Team Providers Care Ground Instructor Advanced Name Role Phone MONSTER LOPEZ Unavailable Unavailable NO FAMILY DOCTOR, NO FAMILY DOCTOR Unavailable Unavailable Monster Lopez Unavailable Kuns, DO Monster Primary Care Provider Kunсветлана, DO Hook Attending Provider Kuns, DO Monster Primary Care Provider Kuns, DO Monster Attending Provider [phone] Kuns, DO Hook Primary Care Provider [phone] Kunсветлана, DO Hook Attending Provider [phone] LAKSHMIPATHY ., NARENDRANATH Consulting Josiane vailable DR MONSTER LOPEZ Primary Care Unavailable LAKSHMIPATHY ., NARNATALYATH Attending Josiane vailable LAKSHMIPATHY ., NARENDRANATH Admitting Josiane vailable LAKSHMIPATHY ., NARENDRANATH Admitting Josiane vailable JOHN, DR HOOK Primary Care Unavailable DR ANUEL COVINGTON Consulting Unavailable LAKSHMIPATHY ., NARENDRANATH Attending Josiane vailable LAKSHMIPATHY ., NARENDRANATH Consulting Josiane vailable LAKSHMIPATHY ., NARENDRANATH Admitting Josiane vailable JOHN, DR HOOK Primary Care Unavailable BRIDGET, DR SERENA Lima Consulting Unavailable LAKSHMIPATHY ., NARENDRANATH Attending Josiane vailable LAKSHMIPATHY ., NARENDRANATH Consulting Josiane vailable LAKSHMIPATHY ., NARENDRANATH Admitting Josiane vailable JOHN, DR HOOK Primary Care Unavailable LAKSHMIPATHY ., NARENDRANATH Consulting Josiane vailable LAKSHMIPATHY ., NARENDJUSTINATH Attending Josiane vailable KunDO Monster sotomayor Primary Care Provider [phone] DO Monster Lopez Attending Provider MD Clovis Singh Attending Provider MD Omayra Ricketts Referring Provider SHANNON ZAPATA Attending Unavailable MIKEY ZHU Referring Unavailable SHANNON ZAPATA Attending Unavailable Monster Lopez Primary Care Unavailable Omayra Ricketts Referring Unavailable Clovis Singh Admitting Unavai lable Francisco, Clovis Pinto Attending Unavai labMonster Colbert Admitting Unavailable Monster Lopez Primary Care Unavailable Monster Lopez Attending Unavailable Monster Lopez Primary Care Unavailable Monster Lopez Attending Unavailable Monster Lopez Admitting Unavailable Monster Lopez Primary Care Unavailable Clovis Singh Admitting Unavai lable Korommiguel, Clovis Pinto Attending Josianevakenyon labbing Medications Current Medications Medication Drug Class(es) Dates Sig (Normalized) Sig (Original) amLODIPine 5 mg oral tablet (20 sources) Dihydropyridine Calcium Channel Brittanie Start: 07-22-2023 End: 07-22-2023 take 1 tablet by mouth once daily Amlodipine Active 5 MG PO Daily July 22, 2023 10:20am FreeTextSi tablet Orally Once a day; Note: Source Status: Taking; Provider: John Fry Start: 11-03-2017 take 1 tablet by sharlene th every twenty-four hours amLODIPine Besylate 5 MG 1 tablet Orally Once a day Oct, Active atorvastatin 10 mg oral tablet (20 sources) HMG-CoA Reductase Inhibitor Start: 10-05-2023 take 1 tablet by mouth two times weekly Atorvastatin Active 10 MG PO Daily October 05, 2023 11:24am takes one tablet twice weekly Start: 07-22-2023 End: 10-05-2023 take 1 tablet by mouth once daily Atorvastatin Discontinued 1 TAB PO Daily July 22, 2023 1:00am October 05, 2023 11:26am FreeTextSi tablet Orally Once a day; Note: Source Status: Taking; Provider: John Fry Start: 02-03-2017 take 1 tablet by sharlene th every twenty-four hours Atorvastatin Calcium 10 MG 1 tablet Orally Once a day Jan, Active azithromycin 250 mg oral tablet (2 sources) Macrolide Antimicrobial Start: 03-10-2022 Zithromax Z-Seven 250 MG as directed Orally Mar, Active baclofen 10 mg oral tablet (1 source) gamma-Aminobutyric Acid-ergic Agonist Baclofen 10 MG 1/2 tab to 1 full tab Orally Twice a day as needed Active augmented betamethasone 0.0005 mg/mg topical ointment (7 sources) Corticosteroid Start: 08-20-2023 Betamethasone, Augmented (Diprolene (Augmented)) 0.05 % ointment Active 1 APPLIC TOPICAL Daily August 20, 2023 12:00am cetirizine hydrochloride 10 mg oral capsule (20 sources) Histamine-1 Receptor Antagonist Start: 10-05-2023 take 1 capsule by mouth once daily Cetirizine (Zyrtec) 10 mg capsule Active 10 MG PO Daily October 05, 2023 12:00am Start: 07-29-2018 End: 07-22-2023 take 1 tablet by mouth once daily Cetirizine (Zyrtec) 10 mg Tablet Discontinued 10 MG PO Daily July 29, 2018 1:00am July 22, 2023 9:10am cyclobenzaprine hydrochloride 10 mg oral tablet (1 source) Muscle Relaxant Start: 01-15-2023 take 1 tablet by mouth every twenty-four hours Cyclobenzaprine HCl 10 MG 1 tablet at bedtime as needed Orally Once a day for 90 days Dec, Active esomeprazole 20 mg delayed release oral capsule (20 sources) Proton Pump Inhibitor Start: 07-29-2018 End: 07-22-2023 take 1 capsule by mouth once daily Esomeprazole Magnesium (Nexium) 20 mg capsule,delayed release(DR/EC) Active 20 MG PO Daily July 22, 2023 1:00am FreeTextSi cap(s) By Mouth As Directed; Note: Source Status: Taking; Provider: John Fry NexIUM 22.3 mg 1 cap(s) By Mouth As Directed Active ezetimibe 10 mg oral tablet (20 sources) Dietary Cholesterol Absorption Inhibitor Start: 10-05-2023 take 1 tablet by mouth two times weekly Ezetimibe (Zetia) 10 mg tablet Active 10 MG PO Daily October 05, 2023 11:24am takes one tablet twice weekly Start: 07-22-2023 End: 10-05-2023 take 1 tablet by mouth once daily Ezetimibe (Zetia) 10 mg tablet Discontinued 1 TAB PO Daily July 22, 2023 1:00am October 05, 2023 11:26am FreeTextSi tablet Orally Once a day; Note: Source Status: Taking; Refills: 3; Qty: 90 Tablet; Provider: John Fry Start: 08-10-2017 take 1 tablet by sharlene every twenty-four hours Zetia 10 MG 1 tablet Orally Once a day Jul, Active fluticasone propionate 0.05 mg/actuat metered dose nasal spray (20 sources) Corticosteroid Start: 07-29-2018 End: 07-22-2023 take 1 spray(s) nasal route once daily Fluticasone Propionate (Flonase Allergy Relief) 50 mcg/actuation spray,suspension Active 1 SPRAY INTRANASAL Daily July 22, 2023 1:00am FreeTextSi spray in each nostril Nasally Once a day; Note: Source Status: Taking; Provider: John Fry take 1 spray(s) nasal route once daily Flonase Allergy Relief 50 MCG/ACT 1 spray in each nostril Nasally Once a day Active take 1 spray(s) nasal route once daily Flonase Allergy Relief 50 MCG/ACT 1 spray in each nostril Nasally Once a day Active 24 hr metoprolol succinate 25 mg extended release oral tablet (5 sources) beta-Adrenergic Brittanie Start: 10-05-2023 take 1 tablet by mouth once daily Metoprolol Succinate Active 25 MG PO Daily October 05, 2023 12:00am FreeTextSig: Take 1 tablet by mouth once daily; Note: Source Status: Start; Refills: 2; Qty: 30 Tablet; Provider: Jamarcus Cutler ( ) Multi For Him 1 (16 sources) Multi For Him 1 1 tab(s) p.o. Daily Active Multivitamin preparation (7 sources) Start: 07-22-2023 take 1 tablet by mouth once daily Multivitamin Active 1 TAB PO Daily July 22, 2023 1:00am psyllium 3400 mg powder for oral suspension (20 sources) Start: 07-29-2018 Psyllium Husk (Metamucil) 3.4 gram/5.4 gram Powder Active 1 TBSP PO As Directed July 29, 2018 1:00am Metamucil 30.9 % as directed Orally PRN Not-Taking Metamucil 30.9 % as directed Orally PRN Active rivaroxaban 20 mg oral tablet (5 sources) Factor Xa Inhibitor Start: 10-05-2023 take 1 tablet by mouth once daily at dinner Rivaroxaban (Xarelto) 20 mg tablet Active 20 MG PO Every evening October 05, 2023 12:00am must administer with evening meal Completed/Discontinued Medications Medication Drug Class(es) Dates Sig (Normalized) Sig (Original) [id number] 200 actuat albuterol 0.09 mg/actuat metered dose inhaler (10 sources) beta2-Adrenergic Agonist Start: 07-29-2018 End: 07-22-2023 take 1 puff(s) by inhalation every four to six hours Albuterol Sulfate (Proair Hfa) 90 mcg/actuation Hfa Aerosol Inhaler Discontinued 2 PUFF INHALATION EVERY 4-6 HOURS July 29, 2018 1:00am July 22, 2023 9:09am Aspir-81 81 MG (11 sources) take 1 tablet by mouth once daily Aspir-81 81 MG 1 tablet Orally Once a day Not-Taking take 1 tablet by mouth once ami y Aspir-81 81 MG 1 tablet Orally Once a day Active aspirin 81 mg delayed release oral tablet (10 sources) Platelet Aggregation Inhibitor, Nonsteroidal Anti-inflammatory Drug Start: 07-29-2018 End: 07-22-2023 take 1 tablet by mouth once daily Aspirin (Aspir-81) 81 mg Tablet,Delayed Release (Dr/Ec) Discontinued 81 MG PO Daily July 29, 2018 1:00am July 22, 2023 9:09am 120 actuat budesonide 0.16 mg/actuat / formoterol fumarate 0.0045 mg/actuat metered dose inhaler (4 sources) Corticosteroid, beta2-Adrenergic Agonist Start: 08-10-2017 take 2 puff(s) by inhalation twice daily as needed Symbicort 160-4.5 MCG/ACT 2 puffs Inhalation Twice a day PRN Jul, Not-Taking celecoxib 200 mg oral capsule (7 sources) Nonsteroidal Anti-inflammatory Drug Start: 08-16-2022 take 1 capsule by mouth every other day at mealtime Celecoxib 200 MG 1 capsule with food Orally every other day Dec, Not-Taking Start: 01-14-2022 take 1 capsule by mo [facility] every twenty-four hours Celecoxib 200 MG 1 capsule with food Orally Once a day Dec, Active chlorpheniramine maleate 4 mg oral tablet (20 sources) Histamine-1 Receptor Antagonist Start: 07-22-2023 End: 08-20-2023 take 4 mg by mouth every four hours Chlorpheniramine Maleate Discontinued 4 MG PO Every 4 hours July 22, 2023 1:00am August 20, 2023 10:17am [facility] Chlorpheniramine Maleate 4 MG 1 tablet a s needed Orally every 6 hrs Active ezetimibe 10 mg / simvastatin 20 mg oral tablet (10 sources) HMG-CoA Reductase Inhibitor, Dietary Cholesterol Absorption Inhibitor Start: 07-29-2018 End: 07-22-2023 take 1 tablet by mouth once daily Ezetimibe-Simvastatin (Vytorin 10-20) 10-20 mg Tablet Discontinued 1 TAB PO Daily July 29, 2018 1:00am July 22, 2023 9:09am 30 actuat fluticasone furoate 0.1 mg/actuat / vilanterol 0.025 mg/actuat dry powder inhaler (20 sources) Corticosteroid, beta2-Adrenergic Agonist Start: 08-26-2023 End: 11-03-2023 Fluticasone Furoate-Vilanterol (Breo Ellipta) 100-25 mcg/dose blister with device Discontinued 1 EACH INHALATION Daily 60 August 26, 2023 12:56pm November 03, 2023 11:45am Start: 07-22-2023 End: 08-26-2023 take 1 puff(s) by inhalation once daily Fluticasone Furoate-Vilanterol (Breo Ellipta) 100-25 mcg/dose blister with device Discontinued 1 PUFF INHALATION Daily July 22, 2023 1:00am August 26, 2023 12:57pm FreeTextSi puff Inhalation daily; Note: Source Status: TakingPRN; Refills: 3; Provider: John Fry Start: 01-15-2018 take 1 puff(s) by in halation once daily as needed BREO ELLIPTA 100 mcg/25 mcg 1 puff Inhalation daily PRN Dec, Active hydrOXYzine hydrochloride 25 mg oral tablet (13 sources) Antihistamine Start: 07-22-2023 End: 08-20-2023 take 1-2 tablets by mouth once daily at bedtime as needed Hydroxyzine Hcl Discontinued MG PO July 22, 2023 1:00am August 20, 2023 10:17am FreeTextSi-2 tablet at bedtime as needed Orally Once a day; Note: Source Status: Taking; Refills: 0; Provider: John Fry Start: 10-14-2022 take 1-2 tablets by mouth once daily at bedtime as needed hydrOXYzine HCl 25 MG 1-2 tablet at bedtime as needed Orally Once a day September, Active Ketorolac (20 sources) Nonsteroidal Anti-inflammatory Drug, [...] Start: 11-25-2011 Toradol per 15 mg Oct, losartan potassium 50 mg oral tablet (10 sources) Angiotensin 2 Receptor Brittanie Start: 07-29-2018 End: 07-22-2023 take 50 mg by mouth once daily Losartan Discontinued 50 MG PO Daily July 29, 2018 1:00am July 22, 2023 9:11am methylPREDNISolone 4 mg oral tablet (20 sources) Corticosteroid Start: 08-20-2023 End: 10-05-2023 take 1 tablet by mouth once Methylprednisolone (Medrol (Seven)) 4 mg tablets,dose pack Discontinued 0 PO per package directions August 20, 2023 12:00am October 05, 2023 11:25am orally per package directions; PO PER PKG DIR Start: 03-10-2022 Medrol 4 MG as directed Orally Mar, Active Start: 03-28-2013 SOLU-MEDROL 41 - 125 mg Mar, 125 mg [place] 1-Fkc-Lxq-Fish Oil (Fish Oil) 1,000 mg (120 mg-180 mg) Capsule (10 sources) Start: 07-29-2018 End: 07-22-2023 take 1 capsule by mouth once daily [place] 3-Lvp-Mjc-Fish Oil (Fish Oil) 1,000 mg (120 mg-180 mg) Capsule Discontinued 1 CAP PO Daily July 29, 2018 1:00am July 22, 2023 9:11am Start: 07-29-2018 take 1 capsule by mo ut once daily [place] 8-Blv-Ypg-Fish Oil (Fish Oil) 1,000 mg (120 mg-180 mg) Capsule Active 1 CAP PO Daily July 29, 2018 12:00am Start: 07-29-2018 take 1 capsule by mo ut once daily [place] 3-Tui-Iny-Fish Oil (Fish Oil) 1,000 mg (120 mg-180 mg) Capsule Active 1 CAP PO Daily July 29, 2018 1:00am Toradol 30 mg/ml (14 sources) Start: 02-07-2021 Toradol 30 mg/ ml Jan, 60 mg Problems Active Problems Problem Classification Problem Date Documented Date Episodic/Chronic Abdominal hernia (19 sources) Inguinal hernia; Translations: [Unilateral inguinal hernia, without obstruction or gangrene, not specified as recurrent] Onset: 1 Resolved: 2 Episodic Anxiety disorders (9 sources) Anxiety; Translations: [Other specified anxiety disorders] Chronic Cancer of prostate (20 sources) Malignant tumor of prostate; Translations: [Malignant neoplasm of prostate] Chronic Cardiac dysrhythmias (14 sources) Atrial fibrillation; Translations: [Unspecified atrial fibrillation] Onset: 4 10-05-2023 Chronic Deficiency and other anemia (6 sources) Anemia; Translations: [Anemia, unspecified] Episodic Diabetes mellitus without complication (6 sources) Hyperglycemia; Translations: [Hyperglycemia, unspecified] Episodic Diseases of white blood cells (6 sources) Granulomatous disorder; 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] 10-08-2023 Chronic Disorders of lipid metabolism (20 sources) Hyperlipidemia; Translations: [Hyperlipidemia, unspecified] Onset: 1 Resolved: 2 Chronic Esophageal disorders (20 sources) Gastroesophageal reflux disease; Translations: [Gastro-esophageal reflux disease without esophagitis] 08-19-2023 Chronic Essential hypertension (20 sources) Essential (primary) hypertension; Translations: [Hypertensive disorder] Onset: 7 Resolved: 2 Chronic Essential hypertension (2 sources) Essential hypertension Onset: 7 Fluid and electrolyte disorders (6 sources) Hyperkalemia; Translations: [Hyperkalemia] Episodic Nonspecific chest pain (17 sources) Chest pain at rest; Translations: [Chest pain, unspecified] Onset: 4 10-05-2023 Episodic Osteoarthritis (20 sources) Localized, primary osteoarthritis of the shoulder region; Translations: [Primary osteoarthritis, 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 Other and ill-defined heart disease (7 sources) Cardiomegaly; Translations: [Cardiomegaly] 08-20-2023 Chronic Other and ill-defined heart disease (8 sources) Cardiomegaly; Translations: [Cardiomegaly] Onset: 4 08-20-2023 Chronic Other bone disease and musculoskeletal deformities (13 sources) Somatic dysfunction of rib; Translations: [Segmental and somatic dysfunction of rib cage] 08-19-2023 Episodic Other bone disease and musculoskeletal deformities (13 sources) Somatic dysfunction of thoracic region; Translations: [Segmental and somatic dysfunction of thoracic region] 08-19-2023 Episodic Other connective tissue disease (16 sources) History of total replacement of right hip joint; Translations: [Presence of right artificial hip joint] Chronic Other diseases of kidney and ureters (7 sources) Renal impairment; Translations: [Disorder of kidney and ureter, unspecified] Episodic Other diseases of kidney and ureters (16 sources) Abnormal renal function; Translations: [Disorder of kidney and ureter, unspecified] 08-19-2023 Episodic Other diseases of kidney and ureters (3 sources) Disorder of kidney and ureter, unspecified Episodic Other lower respiratory disease (16 sources) Dyspnea; Translations: [Shortness of breath] Episodic Other lower respiratory disease (15 sources) Shortness of breath; Translations: [Shortness of breath] Onset: 1 Resolved: 2 Episodic Other lower respiratory disease (7 sources) Other nonspecific abnormal finding of lung field; Translations: [Ground glass opacity present on imaging of lung] Episodic Other lower respiratory disease (7 sources) Dyspnea on exertion; Translations: [Shortness of breath] 08-20-2023 Episodic Other lower respiratory disease (7 sources) Nodule of lung; Translations: [Solitary pulmonary nodule] 08-20-2023 Episodic Other lower respiratory disease (11 sources) Solitary pulmonary nodule; Translations: [Solitary pulmonary nodule] Onset: 4 08-20-2023 Episodic Other nervous system disorders (20 sources) Chronic pain; Translations: [Other chronic pain] 08-19-2023 Chronic Other nervous system disorders (1 source) Other chronic pain; Translations: [OTHER CHRONIC PAIN] Onset: 3 Chronic Other nervous system disorders (6 sources) Skin sensation disturbance; Translations: [Other disturbances of skin sensation] Episodic Other non-epithelial cancer of skin (20 sources) Squamous cell carcinoma of skin; Translations: [Squamous cell carcinoma of skin, unspecified] 08-19-2023 Episodic Other non-traumatic joint disorders (16 sources) Joint pain; Translations: [Pain in unspecified joint] Episodic Other non-traumatic joint disorders (2 sources) Shoulder joint pain; Translations: [Pain in left shoulder] Episodic Other non-traumatic joint disorders (6 sources) Pain in left shoulder; Translations: [Left shoulder pain] Episodic Other nutritional; endocrine; and metabolic disorders (5 sources) Weight loss; Translations: [Abnormal weight loss] Episodic Other nutritional; endocrine; and metabolic disorders (2 sources) Abnormal weight loss Episodic Other screening for suspected conditions (not mental disorders or infectious disease) (20 sources) Blood chemistry abnormal; Translations: [Other specified abnormal findings of blood chemistry] Onset: 1 Resolved: 1 Episodic Other skin disorders (16 sources) Actinic keratosis; Translations: [Actinic keratosis] Episodic Other skin disorders (1 source) Generalized hyperhidrosis Episodic Other skin disorders (7 sources) Eruption; Translations: [Rash and other nonspecific skin eruption] 08-20-2023 Episodic Other skin disorders (7 sources) Rash and other nonspecific skin eruption; Translations: [Rash and other nonspecific skin eruption] 08-20-2023 Episodic Other upper respiratory disease (12 sources) Seasonal allergic rhinitis; Translations: [Other seasonal allergic rhinitis] Chronic Other upper respiratory disease (2 sources) Congestion of nasal sinus; Translations: [Nasal congestion] Episodic Other upper respiratory disease (8 sources) Nasal congestion; Translations: [Other disease of nasal cavity and sinuses] Episodic Other upper respiratory disease (6 sources) Nasal discharge; Translations: [Other specified disorders of nose and nasal sinuses] Episodic Other upper respiratory disease (1 source) Other specified disorders of nose and nasal sinuses Episodic Other upper respiratory disease (7 sources) Nasal congestion; Translations: [Nasal congestion] 08-20-2023 Episodic Peripheral and visceral atherosclerosis (20 sources) Peripheral vascular disease; Translations: [Peripheral vascular disease, unspecified] 08-19-2023 Chronic Residual codes; unclassified (6 sources) Edema; Translations: [Localized edema] Episodic Residual codes; unclassified (7 sources) Edema of lower extremity; Translations: [Localized edema] 08-19-2023 Episodic Spondylosis; intervertebral disc disorders; other back problems (20 sources) Lumbosacral spondylosis without myelopathy; Translations: [Spondylosis without myelopathy or radiculopathy, lumbar region] Onset: 3 Chronic Spondylosis; intervertebral disc disorders; other back problems (20 sources) Neck pain; Translations: [Cervicalgia] Onset: 2 Resolved: 2 Episodic Substance-related disorders (18 sources) Tobacco dependence syndrome; Translations: [Nicotine dependence, other tobacco product, with unspecified nicotine-induced disorders] Chronic Unclassified (1 source) Chest pain, unspecified / R07.9(ICD-9) Onset: 7 Unclassified (1 source) Shortness of breath / R06.02(ICD-9) Onset: 7 Unclassified (1 source) Pure hypercholesterolemia, unspecified / E78.00(ICD-9) Onset: 7 Unclassified (1 source) Palpitations / R00.2(ICD-9) Onset: 7 Unclassified (1 source) Nicotine dependence, unspecified, uncomplicated / F17.200(ICD-9) Onset: 7 Viral infection (20 sources) Postherpetic neuralgia; Translations: [Other postherpetic nervous system involvement] 08-19-2023 Episodic Past or Other Problems Problem Classification [...] Results Test Name Value Interpretation Reference Range Facility NM lesvia perf SPECT rest stron 10-23-2023 NM lesvia perf SPECT rest str [facility] [place] [address] Nuclear Medicine Report Signed Patient: Ilya Lopez MR#: [id number] 6 : 1940 Acct:[id number] Age/Sex: 83 / M ADM Date: 10/22/23 Loc: Room: Type: [facility] Attending Dr: Clovis Singh MD Copies to: MD Omayra Sanchez MD Ordering Provider: Clovis Singh MD Date of Service: 10/22/23 NM/NM lesvia perf SPECT rest str: CHEST PAIN NUCLEAR MYOCARDIAL PERFUSION DATE OF PROCEDURE: 10/23/2023 PROCEDURE: The patient received a stress dose of Lexiscan and was then injected with 28.8 millicuries of Technetium 99M Sestamibi. For rest images the patient was injected with 28.1 millicuries of Technetium 99M Sestamibi. FINDINGS: The raw cine images were reviewed. The post stress and rest perfusion images were reviewed as well as the computer quantification.? There was uniform uptake of the radiotracer with no perfusion defects identified.? On the gated portion of the study, there was uniform thickening with an overall ejection fraction calculated at 55%.? TID score was within normal limits (0.89). CONCLUSION: 1. Gated spect Sestamibi study is within normal limits. 2. Left ventricular function was preserved. Impression dictated by: Omayra Ricketts M.D.10/23/2023 4:03 PM Dictation Location: [place] [address] Transcribed By: [facility] 10/23/23 1603 Dictated By: Omayra Ricketts MD 10/23/23 1559 Signed By: 10/23/23 1601 Normal [facility] echo transthoracicon [facility] echo transthoracic [facility] [place] [address] Echocardiogram Signed Patient: Ilya Lopez MR#: [id number] 6 : 1940 Acct:[id number] Age/Sex: 83 / M ADM Date: 10/22/23 Loc: Room: Type: [facility] Attending Dr: Clovis Singh MD Ordering Provider: Clovis Singh MD Date of Service: 10/22/23 [facility] transthoracic: R07.9 - Chest pain, unspecified Copies to: Clovis Singh MD P 11:38 AM Patient Location: : 1940 Gender: Male (MM/DD/YYYY) Age: 83 Years Ordering Physician: Clovis Singh Height: 70 in Referring Physician: Omayra Ricketts Weight: 200 lb Performed By: BRITTANY Madrigal BSA: 2.09 m2 BP: 147 / 83 mmHg HR: 77 bpm Reason For Study: R07.9 - Chest pain, unspecified History: HTN, HLD, Smokes a pipe, COPD + + Interpretation Summary Ejection Fraction = 55-60%. Mild to moderate concentric left ventricular hypertrophy. A variety of Doppler measurements indicate normal left ventricular diastolic function. The left atrium appears mildly dilated. The right atrium is mildly dilated. There is mild to moderate tricuspid regurgitation. There is no comparison study available. Procedure/Quality: A two-dimensional transthoracic echocardiogram with color flow, Doppler and injection of contrast agent Definity was performed. The study was technically good in quality. Left Ventricle: The left ventricular size is normal. Mild to moderate concentric left ventricular hypertrophy. Ejection Fraction = 55-60%. A variety of Doppler measurements indicate normal left ventricular diastolic function. Left Atrium: The left atrium appears mildly dilated. Right Atrium: The right atrium is mildly dilated. Right Ventricle: The right ventricle is normal in size and function. Aortic Valve: The aortic valve is trileaflet. The aortic valve is normal in structure. No hemodynamically significant valvular aortic stenosis. No aortic regurgitation is present. Mitral Valve: The mitral valve is normal in structure. No significant mitral valve stenosis. There is no mitral regurgitation noted. Tricuspid Valve: The tricuspid valve is normal in structure. There is mild to moderate tricuspid regurgitation. Pulmonic Valve: The pulmonic valve is not well visualized. Mild pulmonic valvular regurgitation. Arteries: Mild aortic root dilatation. Pericardium/Pleura: No pericardial effusion seen. There is no pleural effusion. IVC/Hepatic Veins: The inferior vena cava is normal in size, with a normal collapsibility index. MMode/2D Measurements Calculations IVSd (0.7-1.1 cm): 1.56 cm LVIDd (3.7-5.4 cm): 4.5 cm LVPWd (0.7-1.1 cm): 1.36 cm LVIDs (2.3-3.6 cm): 2.8 cm LA dimension (2.3-4.0 cm): 5.0 Ao root diam (2.0-3.2 cm): 3.6 cm cm FS: 36.6 % Ao root area: 10.4 cm2 EDV(Teich): 90.8 ml LVOT diam: 2.32 cm ESV(Teich): 30.4 ml LVOT area: 4.2 cm2 EF(Teich): 66.5 % LAV(MOD-sp2): 69.0 ml LAV(MOD-sp4): 45.7 ml LA A2 area: 23.3 cm2 LA A4 area: 18.3 cm2 LA length (vol): 5.8 cm LA vol: 62.0 ml LA vol index: 29.7 ml/m2 Doppler Measurements Calculations MV E max dilan: 105.0 cm/sec Ao V2 max: 241.3 cm/sec MV A max dilan: 56.1 cm/sec Ao max P.3 mmHg MR max dilan: 466.3 cm/sec Ao mean P.8 mmHg MV dec time: 0.26 sec Ao V2 mean: 175.5 cm/sec MV dec slope: 409.7 cm/sec?? Ao V2 VTI: 57.9 cm E/E' lat: 6.5 JULIEN(I,D): 1.90 cm2 E/E' med: 8.9 JULIEN(V,D): 2.22 cm2 TV max P.0 mmHg LV V1 max: 127.3 cm/sec TR max dilan: 370.9 cm/sec LV V1 max P.5 mmHg TR max P.0 mmHg LV V1 mean: 84.7 cm/sec RAP systole: 10.0 mmHg LV V1 mean P.4 mmHg LV V1 VTI: 26.2 cm + + + + + ------+ + : Electronically : : signed by: Clovis : : : : Francisco : : : : on: 10/23/2023, : : : : 12:23 AM : + ------+ + Transcribed By: DIDIER Performed At: 10/22/23 1138 Signed By: Clovis Singh MD 10/23/23 0023 Normal [facility] FPG ECG *OFFICE ONLY*on FPG ECG *OFFICE ONLY* [facility] [place] [address] Electrocardiograph Report Signed Patient: Ilya Lopez MR#: [id number] 6 : 1940 Acct:[id number] Age/Sex: 83 / M ADM Date: 10/05/23 Loc: EKGCARDIO Room: Type: [facility] Attending Dr: Clovis Singh MD Ordering Provider: Clovis Singh MD Date of Service: 10/05/2311/22/1121 ECG/FPG ECG *OFFICE ONLY*: I51.7 - Cardiomegaly Copies to: Test Reason : Blood Pressure : / mmHG Vent. Rate : 081 BPM Atrial Rate : 000 BPM P-R Int : 000 ms QRS Dur : 114 ms QT Int : 402 ms P-R-T Axes : 000 -69 092 degrees QTc Int : 466 ms Atrial fibrillation with premature ventricular or aberrantly conducted complexes Left anterior fascicular block Minimal voltage criteria for LVH, may be normal variant ( [place] product ) Septal infarct , age undetermined Abnormal ECG When compared with ECG of 14-APR-2013 08:51, Atrial fibrillation has replaced Sinus rhythm QRS duration has increased Septal infarct is now present Confirmed by Clovis Singh ([id number]) on 10/05/2023 1:19:00 PM Referred By: Electronically Signed By:Clovis Singh Transcribed By: MUS Signed By Clovis Singh MD 10/05/23 1319 Normal [facility] CT chest w conon 09-04-2023 CT chest w con [facility] Main [address] [address] [address] Scan Report Signed Patient: Ilya Lopez MR#: [id number] 6 : 1940 Acct:[id number] Age/Sex: 83 / M ADM Date: 09/04/23 Loc: CT Room: Type: [facility] Attending Dr: Monster Lopez DO Copies to: Monster Lopez DO Ordering Provider: Monster Lopez DO Date of Service: 09/04/23 CT/CT chest w con: R91.1 - Solitary pulmonary nodule CT CHEST WITH INTRAVENOUS CONTRAST: CLINICAL HISTORY: Follow-up lung nodule COMPARISON: Chest 02/20/2021. CT chest 12/27/2010 TECHNIQUE: Spiral images were obtained through the chest following intravenous administration of IV contrast. This CT exam was performed using one or more following dose reduction techniques: Automated exposure control, adjustment of the mA and/or kV according to patient size, or use of iterative reconstruction technique. FINDINGS: Mediastinum:Thoracic aorta appears normal in caliber. Pulmonary trunk appears dilated at 4.6 cm suspicious for underlying pulmonary hypertension. No pericardial effusion. Calcified mediastinal and right hilar lymph nodes. The esophagus is grossly unremarkable. Lungs:Calcified granulomas. There appears to be consolidative changes surrounding a calcified granuloma involving the right middle lobe new since 2010. Additional area of new groundglass is seen involving the lingula. No pneumothorax. No pleural effusion. Abd:No acute findings. Soft tissues/Bones: Soft tissues demonstrate no acute findings. Osseous structures demonstrate degenerative change. CT/CT chest w con IMPRESSION: Consolidative changes are seen surrounding a calcified granuloma involving the right middle lobe new since 2010. Additional new area of groundglass are seen involving the lingula. Findings may relate to an infectious or inflammatory process. Repeat CT is recommended after therapy to ensure resolution. Evidence of old granulomatous disease. No suspicious pulmonary nodule is noted. Impression dictated by: Kaleb Aguilar Jr., DTacosOTacos09/04/2023 10:16 AM Dictation Location: [place] [address] Transcribed By: [facility] 09/04/23 1016 Dictated By: Kaleb Aguilar Jr, DO 09/04/23 1002 Signed By: 09/04/23 1016 Normal [facility] ISTAT XRay CREon 09-04-2023 ISTAT GFR 39.752 Normal [facility] Comment on above: Result Comment: PERF ORMED BY: [place] [address] PATHOLOGIST TECHNICAL MARKETING CONSULTANT SERGEI HERNANDEZ M.D. Performed By: #### I SCRE #### [address] No Panel InformationOrdered By: Monster Lopez on 09-04-2023 Bedside Estimated GFR (eGFR) 39.752 [facility] Whole blood creatinine measu rementOrdered By: Monster Lopez on 09-04-2023 Creatinine [Mass/Vol] 1.7 mg/dL High 0.6-1.3 [facility] Comment on above: ER/ESD physician is notified/shown all ISTAT results.Critical values may be confirmed by laboratory testing ifdeemed necessary by ER attending doctor. Result Comment: ER/E SD physician is notified/shown all ISTAT results. Critical values may be confirmed by laboratory testing if deemed necessary by ER attending doctor. Performed By: #### I SCRE #### [address] Comprehensive Metabolic Pane yovani 05-20-2023 Albumin [Mass/Vol] 3.522792 g/dL Normal 3.4-5.0 g/dL N [facility] [employer] Other ALP [Catalytic activity/Vol] 86 U/L Normal 46-116 U/L [employer] Other ALT [Catalytic activity/Vol] 40 U/L Normal 16-63 U/L [facility] [employer] Other Anion gap [Moles/Vol] 13.4 mmol/L No rt [employer] Other AST [Catalytic activity/Vol] 31 U/L Normal 15-37 U/L [facility] Other Bilirubin [Mass/Vol] 0.5970170 mg/dL Normal 0.2- 1.0 mg/dL [facility] [employer] Other Calcium [Mass/Vol] 9.1514616 mg/dL Normal 8.5-10 .1 mg/dL [employer] [employer] Other Chloride [Moles/Vol] 102 mmol/L Normal 98-107 mmol/L [employer] Other CO2 [Moles/Vol] 30.45297232 mmol/L Normal 21.0-3 2.0 mmol/L [place] [employer] Other Creatinine [Mass/Vol] 1.31244677 mg/dL High 0. 70-1.30 mg/dL [place] [facility] Other Glucose [Mass/Vol] 97 mg/dL Normal 74-106 mg/dL [place] [facility] Other Potassium [Moles/Vol] 4.91463494 mmol/L Normal 3 .5-5.1 mmol/L [place] [employer] Other Protein [Mass/Vol] 7.441707 g/dL Normal 6.4-8.2 g/dL N [facility] [employer] Other Sodium [Moles/Vol] 141 mmol/L Normal 136-145 mmol/L [employer] Other Urea nitrogen [Mass/Vol] 29.9496850 mg/dL High 7.0-18.0 mg/dL [employer] Other Urea nitrogen/Creatinine [Mass ratio] 16.9 mg/mg [employer] [employer] Other Comprehensive Metabolic Panel 3.5 g/dL [facility] [employer] Other Comprehensive Metabolic Panel 1.0 [facility] [employer] Other Comprehensive Metabolic Panel see note [employer] Other Comprehensive Metabolic Panel 38 Low >=60 [employer] Other Comprehensive Metabolic Panel 46 Low >=60 [employer] [employer] Other Complete Blood Count Auto Di ffon 04-17-2023 Basophils (Bld) [#/Vol] 0.1 10*3/uL Normal 0.0-0.2 [facility] Comment on above: Order Comment: Reaso n for Exam Hyperlipidemia Result Comment: PERF ORMED BY: [place] [address] PATHOLOGIST TECHNICAL MARKETING CONSULTANT SERGEI HERNANDEZ M.D. Performed By: #### C BC #### [address] Basophils/100 WBC (Bld) 0.9 % Normal . T he [facility] Comment on above: Order Comment: Reaso n for Exam Hyperlipidemia Performed By: #### C BC #### [place] [address] [place] Eosinophils (Bld) [#/Vol] 0.2 10*3/uL Normal 0.0-0.45 [facility] Comment on above: Order Comment: Reaso n for Exam Hyperlipidemia Performed By: #### C BC #### [place] [address] [place] Eosinophils/100 WBC (Bld) 2.2 % Normal . The [facility] Comment on above: Order Comment: Reaso n for Exam Hyperlipidemia Performed By: #### C BC #### [place] [address] [place] Erythrocyte distribution width (RBC) [Ratio] 13.6 % Normal 12.0-14.8 [facility] Comment on above: Order Comment: Reaso n for Exam Hyperlipidemia Performed By: #### C BC #### [place] [address] [place] Hematocrit (Bld) [Volume fraction] 43.3 % Normal 38.8-50.0 [facility] Comment on above: Order Comment: Reaso n for Exam Hyperlipidemia Performed By: #### C BC #### [place] [address] [place] Hemoglobin (Bld) [Mass/Vol] 14.4 g/dL Normal 13.0-17.0 The [facility] Comment on above: Order Comment: Reaso n for Exam Hyperlipidemia Performed By: #### C BC #### [place] [address] [place] Lymphocytes (Bld) [#/Vol] 2.0 10*3/uL Normal 1.00-4.8 The [facility] Comment on above: Order Comment: Reaso n for Exam Hyperlipidemia Performed By: #### C BC #### [address] Lymphocytes/100 WBC (Bld) 28.0 % Normal . [facility] Comment on above: Order Comment: Reaso n for Exam Hyperlipidemia Performed By: #### C BC #### [address] MCH (RBC) [Entitic mass] 33.2 pg Normal 27.5-35.2 [facility] Comment on above: Order Comment: Reaso n for Exam Hyperlipidemia Performed By: #### C BC #### [address] MCV (RBC) [Entitic vol] 99.6 fL Normal 83.5-101 [facility] Comment on above: Order Comment: Reaso n for Exam Hyperlipidemia Performed By: #### C BC #### [address] Mean Corpuscular HGB Conc 33.3 g/dL Normal 32.5-35.6 [facility] Comment on above: Order Comment: Reaso n for Exam Hyperlipidemia Performed By: #### C BC #### [address] Monocytes (Bld) [#/Vol] 1.0 10*3/uL High 0.0-0.8 [facility] Comment on above: Order Comment: Reaso n for Exam Hyperlipidemia Performed By: #### C BC #### [place] [address] [place] Monocytes/100 WBC (Bld) 13.8 % Normal . T [facility] Comment on above: Order Comment: Reaso n for Exam Hyperlipidemia Performed By: #### C BC #### [address] Neutrophils (Bld) [#/Vol] 3.9 10*3/uL Normal 1.8-7.7 [facility] Comment on above: Order Comment: Reaso n for Exam Hyperlipidemia Performed By: #### C BC #### [facility] [address] Neutrophils/100 WBC (Bld) 55.1 % Normal . [facility] Comment on above: Order Comment: Reaso n for Exam Hyperlipidemia Performed By: #### C BC #### [facility] [address] NRBC% 0.2 /100{WBC} Normal 0-0.5 The [facility] Comment on above: Order Comment: Reaso n for Exam Hyperlipidemia Performed By: #### C BC #### [address] Platelet mean volume (Bld) [Entitic vol] 8.8 fL Normal 6.6-10.1 The [facility] Comment on above: Order Comment: Reaso n for Exam Hyperlipidemia Performed By: #### C BC #### [address] Platelets (Bld) [#/Vol] 293 10*3/uL Normal 150-450 [facility] Comment on above: Order Comment: Reaso n for Exam Hyperlipidemia Performed By: #### C BC #### [address] RBC (Bld) [#/Vol] 4.35 10*6/uL Normal 3.90-5.60 The [facility] Comment on above: Order Comment: Reaso n for Exam Hyperlipidemia Performed By: #### C BC #### [address] WBC (Bld) [#/Vol] 7.0 10*3/uL Normal 4.1-10.5 The [facility] Comment on above: Order Comment: Reaso n for Exam Hyperlipidemia Performed By: #### C BC #### [address] Comprehensive Metabolic Pane yovani 04-17-2023 Albumin [Mass/Vol] 4.1 g/dL Normal 3.5-5.7 The [facility] Comment on above: Order Comment: Reaso n for Exam Hyperlipidemia Performed By: #### T SH3, LIPID, CMP #### [facility] [address] [place] [address] [place] Albumin/Globulin [Mass ratio] 1.5 {ratio} Normal [facility] Comment on above: Order Comment: Reaso n for Exam Hyperlipidemia Performed By: #### T SH3, LIPID, CMP #### [facility] [address] [place] [id number] [place] ALP [Catalytic activity/Vol] 79 U/L Normal 34-104 [facility] Comment on above: Order Comment: Reaso n for Exam Hyperlipidemia Performed By: #### T SH3, LIPID, CMP #### [address] ALT [Catalytic activity/Vol] 28 U/L Normal 7-52 [facility] Comment on above: Order Comment: Reaso n for Exam Hyperlipidemia Performed By: #### T SH3, LIPID, CMP #### [address] Anion gap [Moles/Vol] 10.9 mmol/L Normal 6.0-15.0 Th [facility] Comment on above: Order Comment: Reaso n for Exam Hyperlipidemia Performed By: #### T SH3, LIPID, CMP #### [place] [id number] [place] AST [Catalytic activity/Vol] 32 U/L Normal 13-39 The [facility] Comment on above: Order Comment: Reaso n for Exam Hyperlipidemia Performed By: #### T SH3, LIPID, CMP #### [facility] [address] [place], [place] [id number] [place] Bilirubin [Mass/Vol] 0.8 mg/dL Normal 0.3-1.0 The [facility] Comment on above: Order Comment: Reaso n for Exam Hyperlipidemia Performed By: #### T SH3, LIPID, CMP #### [place] [address] [place] Calcium [Mass/Vol] 9.4 mg/dL Normal 8.6-10.3 The [facility] Comment on above: Order Comment: Reaso n for Exam Hyperlipidemia Performed By: #### T SH3, LIPID, CMP #### [facility] [address] [place] [address] [place] Chloride [Moles/Vol] 105 mmol/L Normal 98-107 The [facility] Comment on above: Order Comment: Reaso n for Exam Hyperlipidemia Performed By: #### T SH3, LIPID, CMP #### [facility] [address] [place] [address] [place] CO2 [Moles/Vol] 28.4 mmol/L Normal 21.0-31.0 The [facility] Comment on above: Order Comment: Reaso n for Exam Hyperlipidemia Performed By: #### T SH3, LIPID, CMP #### [place] [address] [place] Creatinine [Mass/Vol] 1.49 mg/dL High 0.70-1.30 The [facility] Comment on above: Order Comment: Reaso n for Exam Hyperlipidemia Performed By: #### T SH3, LIPID, CMP #### [address] GFR/1.73 sq M.predicted MDRD (S/P/Bld) [Vol rate/Area] 46.566 mL/min/{1.73_m2} Normal The [facility] Comment on above: Order Comment: Reaso n for Exam Hyperlipidemia Performed By: #### T SH3, LIPID, CMP #### [facility] [address] [place] [address] [place] Globulin (S) [Mass/Vol] 2.7 g/dL Normal T [facility] Comment on above: Order Comment: Reaso n for Exam Hyperlipidemia Performed By: #### T SH3, LIPID, CMP #### [facility] [address] [place] [address] [place] Glucose [Mass/Vol] 96 mg/dL Normal 70-100 The [facility] Comment on above: Order Comment: Reaso n for Exam Hyperlipidemia Result Comment: [place] Glucose Reference Range is dependent on time and content of last meal. Glucose of more than 200 mg/dL in a nonstressed, ambulatory subject supports the diagnosis of Diabetes Mellitus. ADA recommended reference range Performed By: #### T SH3, LIPID, CMP #### [facility] [address] [place] [address] Potassium [Moles/Vol] 4.3 mmol/L Normal 3.5-5.1 The [facility] Comment on above: Order Comment: Reaso n for Exam Hyperlipidemia Performed By: #### T SH3, LIPID, CMP #### [address] Protein [Mass/Vol] 6.8 g/dL Normal 6.4-8.9 The [facility] Comment on above: Order Comment: Reaso n for Exam Hyperlipidemia Performed By: #### T SH3, LIPID, CMP #### [address] Sodium [Moles/Vol] 140 mmol/L Normal 136-145 The [facility] Comment on above: Order Comment: Reaso n for Exam Hyperlipidemia Performed By: #### T SH3, LIPID, CMP #### [address] Urea nitrogen [Mass/Vol] 22 mg/dL Normal 7-25 The [facility] Comment on above: Order Comment: Reaso n for Exam Hyperlipidemia Performed By: #### T SH3, LIPID, CMP #### [address] Lipid Panelon 04-17-2023 Cholesterol [Mass/Vol] 179 mg/dL Normal 140-200 Th e [facility] Comment on above: Order Comment: Reaso n for Exam Hyperlipidemia Result Comment: Chol less than 200 mg/dl low risk Chol 201-239 mg/dl borderline risk Chol 240 mg/dl and greater high risk Performed By: #### T SH3, LIPID, CMP #### [address] Cholesterol in HDL [Mass/Vol] 66 mg/dL Normal 23-92 The [facility] Comment on above: Order Comment: Reaso n for Exam Hyperlipidemia Result Comment: HDL CHOL ATP-III CLASSIFICATION Cardiovascular Risk HDL > or equal to 60 mg/dL LOW HDL < 40 mg/dL HIGH Performed By: #### T SH3, LIPID, CMP #### [address] [place] [address] [place] Cholesterol.total/[place] sterol in HDL [Mass ratio] 2.7 {ratio} Normal <5.0 The [facility] Comment on above: Order Comment: Reaso n for Exam Hyperlipidemia Performed By: #### T SH3, LIPID, CMP #### [facility] [address] LDL Cholesterol,Calculated 97 mg/dL Normal 0-100 [facility] Comment on above: Order Comment: Reaso n for Exam Hyperlipidemia Result Comment: LDL ATP III CLASSIFICATION LDL less than 100 mg/dL Optimal LDL 100-129 mg/dL Near or above optimal LDL 130-159 mg/dL Borderline high LDL 160-189 mg/dL High LDL greater than 189 mg/dL Very high Performed By: #### T SH3, LIPID, CMP #### [address] Triglyceride w/Reflex 79 mg/dL Normal 0-149 The [facility] Comment on above: Order Comment: Reaso n for Exam Hyperlipidemia Result Comment: TRIG ATP III CLASSIFICATION TRIG less than 150 mg/dL Normal TRIG 150-199 mg/dL Borderline high TRIG 200-500 mg/dL High TRIG greater than 500 mg/dL Very high Standard traceable to the Center for Disease Conrtrol and Prevention (CDC) test method. Performed By: #### T SH3, LIPID, CMP #### [address] VLDL CHOLESTEROL 15 mg/dL Normal The [facility] Comment on above: Order Comment: Reaso n for Exam Hyperlipidemia Performed By: #### T SH3, LIPID, CMP #### [address] Thyroid Stimulating Hormoneo n 04-17-2023 TSH Qn 2.20 m[IU]/L Normal 0.45-5.33 The [facility] Comment on above: Order Comment: Reaso n for Exam Hyperlipidemia Result Comment: PERF ORMED BY: [place] [address] PATHOLOGIST TECHNICAL MARKETING CONSULTANT SERGEI HERNANDEZ M.D. Performed By: #### T SH3, LIPID, CMP #### [facility] [address] [place] [address] [facility] MRI LSPINE WO CONon 10-09-19 MRI LSPINE WO CON EXAMINATION: MRI LSPINE WO CON HISTORY: Lumbar post-laminectomy syndrome COMPARISON: [...] by: SERENA GILL Date: 2022-10-08 13:[address] [facility] Alanine aminotransferase [En zymatic activity/volume] in Serum or PlasmaOrdered By: Monster Lopez on 10-06-2022 ALT [Catalytic activity/Vol] 30 U/L 7-52 [facility] Albumin [Mass/volume] in Ser um or Plasma by Bromocresol green (BCG) dye binding methoOrdered By: Monster Lopez on 10-06-2022 Albumin BCG dye [Mass/Vol] 4.2 g/dL 3.5-5.7 [facility] Alkaline phosphatase [Enzyma tic activity/volume] in Serum or PlasmaOrdered By: Monster Lopez on 10-06-2022 ALP [Catalytic activity/Vol] 68 U/L 34-104 [facility] Aspartate aminotransferase [ Enzymatic activity/volume] in Serum or PlasmaOrdered By: Monster Lopez on 10-06-2022 AST [Catalytic activity/Vol] 34 U/L 13-39 [facility] Bilirubin.total [Mass/volume ] in Serum or PlasmaOrdered By: Monster Lopez on 10-06-2022 Bilirubin [Mass/Vol] 1.0 mg/dL 0.3-1.0 [facility] Calcium [Mass/volume] in Ser um or PlasmaOrdered By: Monster Lopez on 10-06-2022 Calcium [Mass/Vol] 9.1 mg/dL 8.6-10.3 [facility] Carbon dioxide, total [Moles /volume] in Serum or PlasmaOrdered By: Monster Lopez on 10-06-2022 CO2 [Moles/Vol] 30.8 mmol/L 21.0-31.0 [facility] Chloride [Moles/volume] in S bautista or PlasmaOrdered By: Monster Lopez on 10-06-2022 Chloride [Moles/Vol] 104 mmol/L 98-107 [facility] Creatinine [Mass/volume] in Serum or PlasmaOrdered By: Monster Lopez on 10-06-2022 Creatinine [Mass/Vol] 1.48 mg/dL 0.70-1.30 [facility] Globulin Calc (S) [Mass/Vol] Ordered By: Monster Lopez on 10-06-2022 Globulin (S) [Mass/Vol] 2.5 g/dL [facility] Glucose [Mass/volume] in Ser um or PlasmaOrdered By: Monster Lopez on 10-06-2022 Glucose [Mass/Vol] 92 mg/dL 70-100 [facility] Comment on above: ADA recommended refe rence rangeRandom Glucose Reference Range is dependent on time and content of last meal. Glucose of more than 200 mg/dL in a nonstressed, ambulatory subject supports the diagnosis of Diabetes Mellitus. No Panel InformationOrdered By: Monster Lopez on 10-06-2022 Estimated GFR (CKD-EPI) 47.237 mL/Min [facility] Creatinine Clearance (Chem N/A [facility] Potassium [Moles/volume] in Serum or PlasmaOrdered By: Monster Lopez on 10-06-2022 Potassium [Moles/Vol] 4.6 mmol/L 3.5-5.1 [facility] Protein [Mass/volume] in Ser um or PlasmaOrdered By: Monster Lopez on 10-06-2022 Protein [Mass/Vol] 6.7 g/dL 6.4-8.9 [facility] Serum or plasma albumin/glob ulin mass ratioOrdered By: Monster Lopez on 10-06-2022 Albumin/Globulin [Mass ratio] 1.7 {ratio} [facility] Serum or plasma anion gap de terminationOrdered By: Monster Lopez on 10-06-2022 Anion gap [Moles/Vol] 9.8 mmol/L 6.0-15.0 [facility] Sodium [Moles/volume] in Ser um or PlasmaOrdered By: Monster Lopez on 10-06-2022 Sodium [Moles/Vol] 140 mmol/L 136-145 [facility] Urea nitrogen [Mass/volume] in Serum or PlasmaOrdered By: Monster Lopez on 10-06-2022 Urea nitrogen [Mass/Vol] 23 mg/dL 7-25 [facility] XR LSPINE 2_3 VIEWSon 2022 XR LSPINE 2_3 VIEWS EXAMINATION: XR LSPINE 2_3 VIEWS HISTORY: Post-laminectomy syndrome COMPARISON: No [...] by: ANUEL COVINGTON Date: 2022-09-16 16:[address] [facility] Albumin [Mass/volume] in Ser um or PlasmaOrdered By: Monster Lopez on 07-09-2022 Albumin [Mass/Vol] 3.7 g/dL 3.2-5.5 [facility] Basophils Auto (Bld) [#/Vol] Ordered By: Monster Lopez on 07-09-2022 Basophils (Bld) [#/Vol] 0.0 10*3/uL 0.0-0.2 [facility] Basophils/100 WBC Auto (Bld) Ordered By: Monster Lopez on 07-09-2022 Basophils/100 WBC (Bld) 0.5 % . [facility] Cholesterol [Mass/volume] in Serum or PlasmaOrdered By: Monster Lopez on 07-09-2022 Cholesterol [Mass/Vol] 175 mg/dL 140-200 [facility] Comment on above: Chol less than 200 m g/dl low riskChol 201-239 mg/dl borderline riskChol 240 mg/dl and greater high risk Cholesterol in LDL Calc [Mas s/Vol]Ordered By: Monster Lopez on 07-09-2022 Cholesterol in LDL [Mass/Vol] 105 mg/dL 0-100 [facility] Comment on above: LDL ATP III CLASSIFI CATIONLDL less than 100 mg/dL OptimalLDL 100-129 mg/dL Near or above optimalLDL 130-159 mg/dL Borderline highLDL 160-189 mg/dL HighLDL greater than 189 mg/dL Very high Cholesterol in VLDL Calc [Ma ss/Vol]Ordered By: Monster Lopez on 07-09-2022 Cholesterol in VLDL [Mass/Vol] 14 mg/dL [facility] Creatinine and Glomerular fi ltration rate.predicted panel (S/P/Bld)Ordered By: Monster Lopez on 07-09-2022 Creatinine [Mass/Vol] 1.61 mg/dL 0.64-1.27 [facility] Eosinophils Auto (Bld) [#/Vo l]Ordered By: Monster Lopez on 07-09-2022 Eosinophils (Bld) [#/Vol] 0.2 10*3/uL 0.0-0.45 [facility] Eosinophils/100 WBC Auto (Bl d)Ordered By: Monster Lopez on 07-09-2022 Eosinophils/100 WBC (Bld) 2.2 % . [facility] Erythrocyte distribution wid th Auto (RBC) [Ratio]Ordered By: Monster Lopez on 07-09-2022 Erythrocyte distribution width (RBC) [Ratio] 13.0 % 12.0-14.8 [facility] Estimated glomerular filtrat ion rate (GFR) non- AmericanOrdered By: Monster Lopez on 07-09-2022 GFR/1.73 sq M.predicted among non-blacks MDRD (S/P/Bld) [Vol rate/Area] 41 mL/Min [facility] Globulin Calc (S) [Mass/Vol] Ordered By: Monster Lopez on 07-09-2022 Globulin (S) [Mass/Vol] 2.5 g/dL [facility] Hematocrit Auto (Bld) [Volum e fraction]Ordered By: Monster Lopez on 07-09-2022 Hematocrit (Bld) [Volume fraction] 45.2 % 38.8-50.0 [facility] Hemoglobin [Mass/volume] in BloodOrdered By: Monster Lopez on 07-09-2022 Hemoglobin (Bld) [Mass/Vol] 14.8 g/dL 13.0-17.0 [facility] Leukocytes [#/volume] correc joseph for nucleated erythrocytes in Blood by Automated counOrdered By: Monster Lopez on 07-09-2022 WBC corrected for nucl RBC Auto (Bld) [#/Vol] 7.2 10*3/uL 4.1-10.5 [facility] Lymphocytes Auto (Bld) [#/Vo l]Ordered By: Monster Lopez on 07-09-2022 Lymphocytes (Bld) [#/Vol] 2.5 10*3/uL 1.00-4.8 [facility] Lymphocytes/100 WBC Auto (Bl d)Ordered By: Monster Lopez on 07-09-2022 Lymphocytes/100 WBC (Bld) 34.8 % . [facility] MCH Auto (RBC) [Entitic mass ]Ordered By: Monster Lopez on 07-09-2022 MCH (RBC) [Entitic mass] 32.4 pg 27.5-35.2 [facility] MCHC Auto (RBC) [Mass/Vol]Or dered By: Monster Lopez on 07-09-2022 MCHC (RBC) [Mass/Vol] 32.8 g/dL 32.5-35.6 [facility] MCV Auto (RBC) [Entitic vol] Ordered By: Monster Lopez on 07-09-2022 MCV (RBC) [Entitic vol] 98.9 fL 83.5-101 [facility] Monocytes Auto (Bld) [#/Vol] Ordered By: Monster Lopez on 07-09-2022 Monocytes (Bld) [#/Vol] 0.7 10*3/uL 0.0-0.8 [facility] Monocytes/100 WBC Auto (Bld) Ordered By: Monster Lopez on 07-09-2022 Monocytes/100 WBC (Bld) 10.3 % . [facility] Neutrophils Auto (Bld) [#/Vo l]Ordered By: Monster Lopez on 07-09-2022 Neutrophils (Bld) [#/Vol] 3.7 10*3/uL 1.8-7.7 [facility] Neutrophils/100 WBC Auto (Bl d)Ordered By: Monster Lopez on 07-09-2022 Neutrophils/100 WBC (Bld) 52.2 % . [facility] No Panel InformationOrdered By: Monster Lopez on 07-09-2022 Estimated GFR () 50 mL/Min [facility] Comment on above: GFR estimated refere nce range: According to KDOQI guidelines, <60 ml/min/1.73m2 is sufficient to diagnose a patient with chronic kidney disease. Pharmacy Creatinine Clearance (Chem N/A [facility] Prostate Specific Antigen Screen < 0.008 ng/mL 0.000-4.000 [facility] Nucleated erythrocytes [Pres ence] in Blood by Automated countOrdered By: Monster Lopez on 07-09-2022 Nucleated RBC Auto Ql (Bld) 0.1 /100{WBC} 0-0.5 [facility] Platelet mean volume Auto (B ld) [Entitic vol]Ordered By: Monster Lopez on 07-09-2022 Platelet mean volume (Bld) [Entitic vol] 8.8 fL 6.6-10.1 [facility] Platelets Auto (Bld) [#/Vol] Ordered By: Monster Lopez on 07-09-2022 Platelets (Bld) [#/Vol] 279 10*3/uL 150-450 [facility] Protein [Mass/volume] in Ser um or PlasmaOrdered By: Monster Lopez on 07-09-2022 Protein [Mass/Vol] 6.2 g/dL 6.1-7.9 [facility] RBC Auto (Bld) [#/Vol]Ordere d By: Monster Lopez on 07-09-2022 RBC (Bld) [#/Vol] 4.57 10*6/uL 3.90-5.60 [facility] Serum or plasma alanine vasques otransferase measurement without P-5'-P (enzymatic activiOrdered By: Monster Lopez on 07-09-2022 ALT No additional P-5'-P [Catalytic activity/Vol] 29 U/L 10-60 [facility] Serum or plasma albumin/glob ulin mass ratioOrdered By: Monster Lopez on 07-09-2022 Albumin/Globulin [Mass ratio] 1.5 {ratio} [facility] Serum or plasma alkaline oliver sphatase measurement (enzymatic activity/volume)Ordered By: Monster Lopez on 07-09-2022 ALP [Catalytic activity/Vol] 62 U/L 32-92 [facility] Serum or plasma anion gap de terminationOrdered By: Monster Lopez on 07-09-2022 Anion gap [Moles/Vol] 11.6 mmol/L 6.0-15.0 [facility] Serum or plasma aspartate am inotransferase measurement (enzymatic activity/volume)Ordered By: Monster Lopez on 07-09-2022 AST [Catalytic activity/Vol] 32 U/L 10-42 [facility] Serum or plasma calcium alexis urement (mass/volume)Ordered By: Monster Lopez on 07-09-2022 Calcium [Mass/Vol] 9.5 mg/dL 8.2-10.2 [facility] Serum or plasma chloride damaris surement (moles/volume)Ordered By: Monster Lopez on 07-09-2022 Chloride [Moles/Vol] 103 mmol/L 95-114 [facility] Serum or plasma glucose alexis urement (mass/volume)Ordered By: Monster Lopez on 07-09-2022 Glucose [Mass/Vol] 86 mg/dL 70-100 [facility] Comment on above: ADA recommended refe rence rangeRandom Glucose Reference Range is dependent on time and content of last meal. Glucose of more than 200 mg/dL in a nonstressed, ambulatory subject supports the diagnosis of Diabetes Mellitus. Serum or plasma high density lipoprotein (HDL) cholesterol measurementOrdered By: Monster Lopez on 07-09-2022 Cholesterol in HDL [Mass/Vol] 56 mg/dL 29-71 [facility] Comment on above: HDL CHOL ATP-III CLA SSIFICATION Cardiovascular RiskHDL > or equal to 60 mg/dL LOWHDL < 40 mg/dL HIGH Serum or plasma potassium me asurement (moles/volume)Ordered By: Monster Lopez on 07-09-2022 Potassium [Moles/Vol] 4.6 mmol/L 3.5-5.1 [facility] Serum or plasma sodium measu rement (moles/volume)Ordered By: Monster Lopez on 07-09-2022 Sodium [Moles/Vol] 139 mmol/L 136-146 [facility] Serum or plasma total biliru bin measurement (mass/volume)Ordered By: Monster Lopez on 07-09-2022 Bilirubin [Mass/Vol] 0.8 mg/dL 0.3-1.2 [facility] Serum or plasma total carbon dioxide measurement (moles/volume)Ordered By: Monster Lopez on 07-09-2022 CO2 [Moles/Vol] 29.0 mmol/L 22.0-30.0 [facility] Serum or plasma total choles terol/high density lipoprotein (HDL) cholesterol mass ratOrdered By: Monster Lopez on 07-09-2022 Cholesterol.total/Aubree sterol in HDL [Mass ratio] 3.1 {ratio} <5.0 [facility] Serum or plasma urea nitroge n measurement (mass/volume)Ordered By: Monster Lopez on 07-09-2022 Urea nitrogen [Mass/Vol] 21 mg/dL 9-23 [facility] TSH DL <= 0.005 mIU/L QnOrde red By: Monster Lopez on 07-09-2022 TSH Qn 2.82 m[IU]/L 0.45-5.33 [facility] Triglyceride [Mass/volume] i n Serum or PlasmaOrdered By: Monster Lopez on 07-09-2022 Triglyceride [Mass/Vol] 70 mg/dL 35-149 [facility] Comment on above: TRIG ATP III CLASSIF ICATIONTRIG less than 150 mg/dL NormalTRIG 150-199 mg/dL Borderline highTRIG 200-500 mg/dL High TRIG greater than 500 mg/dL Very highStandard traceable to the Center for Disease Conrtrol and Prevention (CDC) test method. WBC Auto (Bld) [#/Vol]Ordere d By: Monster Lopez on 07-09-2022 WBC (Bld) [#/Vol] 7.2 10*3/uL 4.1-10.5 [facility] COVID Quick Testingon 2021 Result Negative [facility] [facility] Other Basophils Auto (Bld) [#/Vol] Ordered By: Monster Lopez on 01-06-2022 Basophils (Bld) [#/Vol] 0.0 10*3/uL 0.0-0.2 [facility] Basophils/100 WBC Auto (Bld) Ordered By: Monster Lopez on 01-06-2022 Basophils/100 WBC (Bld) 0.8 % . [facility] Blood hemoglobin measurement (mass/volume)Ordered By: Monster Lopez on 01-06-2022 Hemoglobin (Bld) [Mass/Vol] 14.7 g/dL 13.0-17.0 [facility] Blood leukocytes automated c ount (number/volume)Ordered By: Monster Lopez on 01-06-2022 WBC (Bld) [#/Vol] 6.1 10*3/uL 4.5-11.0 [facility] Body fluid albumin measureme nt (mass/volume)Ordered By: Monster Lopez on 01-06-2022 Albumin (Body fld) [Mass/Vol] 3.7 g/dL 3.2-5.5 [facility] Cholesterol [Mass/volume] in Serum or PlasmaOrdered By: Monster Lopez on 01-06-2022 Cholesterol [Mass/Vol] 170 mg/dL 140-200 [facility] Comment on above: Chol less than 200 m g/dl low risk Chol 201-239 mg/dl borderline risk Chol 240 mg/dl and greater high risk Cholesterol in LDL Calc [Mas s/Vol]Ordered By: Monster Lopez on 01-06-2022 Cholesterol in LDL [Mass/Vol] 98 mg/dL 0-100 [facility] Comment on above: LDL ATP III CLASSIFI CATION LDL less than 100 mg/dL Optimal LDL 100-129 mg/dL Near or above optimal LDL 130-159 mg/dL Borderline high LDL 160-189 mg/dL High LDL greater than 189 mg/dL Very high Cholesterol in VLDL Calc [Ma ss/Vol]Ordered By: Monster Lopez on 01-06-2022 Cholesterol in VLDL [Mass/Vol] 9 mg/dL [facility] Creatinine and Glomerular fi ltration rate.predicted panel (S/P/Bld)Ordered By: Monster Lopez on 01-06-2022 Creatinine [Mass/Vol] 1.41 mg/dL 0.64-1.27 [facility] Eosinophils Auto (Bld) [#/Vo l]Ordered By: Monster Lopez on 01-06-2022 Eosinophils (Bld) [#/Vol] 0.2 10*3/uL 0.0-0.45 [facility] Eosinophils/100 WBC Auto (Bl d)Ordered By: Monster Lopez on 01-06-2022 Eosinophils/100 WBC (Bld) 3.8 % . [facility] Erythrocyte distribution wid th Auto (RBC) [Ratio]Ordered By: Monster Lopez on 01-06-2022 Erythrocyte distribution width (RBC) [Ratio] 13.8 % 12.0-14.8 [facility] Estimated glomerular filtrat ion rate (GFR) non- AmericanOrdered By: Monster Lopez on 01-06-2022 GFR/1.73 sq M.predicted among non-blacks MDRD (S/P/Bld) [Vol rate/Area] 48 mL/Min [facility] Globulin Calc (S) [Mass/Vol] Ordered By: Monster Lopez on 01-06-2022 Globulin (S) [Mass/Vol] 2.7 g/dL [facility] Hematocrit Auto (Bld) [Volum e fraction]Ordered By: Monster Lopez on 01-06-2022 Hematocrit (Bld) [Volume fraction] 44.7 % 38.8-50.0 [facility] Laboratory - Hematology and Cell countsOrdered By: Monster Lopez on 01-06-2022 Nucleated RBC/100 WBC (Bld) [Ratio] 0.2 % 0-0.5 [facility] Lymphocytes Auto (Bld) [#/Vo l]Ordered By: Monster Lopez on 01-06-2022 Lymphocytes (Bld) [#/Vol] 1.6 10*3/uL 1.00-4.8 [facility] Lymphocytes/100 WBC Auto (Bl d)Ordered By: Monster Lopez on 01-06-2022 Lymphocytes/100 WBC (Bld) 25.9 % . [facility] MCH Auto (RBC) [Entitic mass ]Ordered By: Monster Lopez on 01-06-2022 MCH (RBC) [Entitic mass] 32.6 pg 27.5-35.2 [facility] MCHC Auto (RBC) [Mass/Vol]Or dered By: Monster Lopez on 01-06-2022 MCHC (RBC) [Mass/Vol] 33.0 g/dL 32.5-35.6 [facility] MCV Auto (RBC) [Entitic vol] Ordered By: Monster Lopez on 01-06-2022 MCV (RBC) [Entitic vol] 98.7 fL 83.5-101 [facility] Monocytes Auto (Bld) [#/Vol] Ordered By: Monster Lopez on 01-06-2022 Monocytes (Bld) [#/Vol] 0.8 10*3/uL 0.0-0.8 [facility] Monocytes/100 WBC Auto (Bld) Ordered By: Monster Lopez on 01-06-2022 Monocytes/100 WBC (Bld) 14.0 % . [facility] Neutrophils Auto (Bld) [#/Vo l]Ordered By: Monster Lopez on 01-06-2022 Neutrophils (Bld) [#/Vol] 3.4 10*3/uL 1.8-7.7 [facility] Neutrophils/100 WBC Auto (Bl d)Ordered By: Monster Lopez on 01-06-2022 Neutrophils/100 WBC (Bld) 55.5 % . [facility] No Panel InformationOrdered By: Monster Lopez on 01-06-2022 Estimated GFR () 59 mL/Min [facility] Comment on above: GFR estimated refere nce range: According to KDOQI guidelines, <60 ml/min/1.73m2 is sufficient to diagnose a patient with chronic kidney disease. Pharmacy Creatinine Clearance (Chem N/A [facility] Platelet mean volume Auto (B ld) [Entitic vol]Ordered By: Monster Lopez on 01-06-2022 Platelet mean volume (Bld) [Entitic vol] 9.3 fL 6.6-10.1 [facility] Platelets Auto (Bld) [#/Vol] Ordered By: Monster Lopez on 01-06-2022 Platelets (Bld) [#/Vol] 277 10*3/uL 150-450 [facility] Protein [Mass/volume] in Ser um or PlasmaOrdered By: Monster Lopez on 01-06-2022 Protein [Mass/Vol] 6.4 g/dL 6.1-7.9 [facility] RBC Auto (Bld) [#/Vol]Ordere d By: Monster Lopez on 01-06-2022 RBC (Bld) [#/Vol] 4.53 10*6/uL 3.90-5.60 [facility] Serum or plasma alanine vasques otransferase measurement without P-5'-P (enzymatic activiOrdered By: Monster Lopez on 01-06-2022 ALT No additional P-5'-P [Catalytic activity/Vol] 28 U/L 10-60 [facility] Serum or plasma albumin/glob ulin mass ratioOrdered By: Monster Lopez on 01-06-2022 Albumin/Globulin [Mass ratio] 1.4 {ratio} [facility] Serum or plasma alkaline oliver sphatase measurement (enzymatic activity/volume)Ordered By: Monster Lopez on 01-06-2022 ALP [Catalytic activity/Vol] 59 U/L 32-92 [facility] Serum or plasma aspartate am inotransferase measurement (enzymatic activity/volume)Ordered By: Monster Lopez on 01-06-2022 AST [Catalytic activity/Vol] 31 U/L 10-42 [facility] Serum or plasma calcium alexis urement (mass/volume)Ordered By: Monster Lopez on 01-06-2022 Calcium [Mass/Vol] 9.5 mg/dL 8.2-10.2 [facility] Serum or plasma chloride damaris surement (moles/volume)Ordered By: Monster Lopez on 01-06-2022 Chloride [Moles/Vol] 101 mmol/L 95-114 [facility] Serum or plasma glucose alexis urement (mass/volume)Ordered By: Monster Lopez on 01-06-2022 Glucose [Mass/Vol] 94 mg/dL 70-100 [facility] Comment on above: ADA recommended refe rence range Random Glucose Reference Range is dependent on time and content of last meal. Glucose of more than 200 mg/dL in a nonstressed, ambulatory subject supports the diagnosis of Diabetes Mellitus. Serum or plasma high density lipoprotein (HDL) cholesterol measurementOrdered By: Monster Lopez on 01-06-2022 Cholesterol in HDL [Mass/Vol] 63 mg/dL 29-71 [facility] Comment on above: HDL CHOL ATP-III CLA SSIFICATION Cardiovascular Risk HDL > or equal to 60 mg/dL LOW HDL < 40 mg/dL HIGH Serum or plasma potassium me asurement (moles/volume)Ordered By: Monster Lopez on 01-06-2022 Potassium [Moles/Vol] 4.2 mmol/L 3.5-5.1 [facility] Serum or plasma sodium measu rement (moles/volume)Ordered By: Monster Lopez on 01-06-2022 Sodium [Moles/Vol] 138 mmol/L 136-146 [facility] Serum or plasma total biliru bin measurement (mass/volume)Ordered By: Monster Lopez on 01-06-2022 Bilirubin [Mass/Vol] 0.9 mg/dL 0.3-1.2 [facility] Serum or plasma total carbon dioxide measurement (moles/volume)Ordered By: Monster Lopez on 01-06-2022 CO2 [Moles/Vol] 26.1 mmol/L 22.0-30.0 [facility] Serum or plasma total choles terol/high density lipoprotein (HDL) cholesterol mass ratOrdered By: Monster Lopez on 01-06-2022 Cholesterol.total/Aubree sterol in HDL [Mass ratio] 2.7 {ratio} <5.0 [facility] Serum or plasma urea nitroge n measurement (mass/volume)Ordered By: Monster Lopez on 01-06-2022 Urea nitrogen [Mass/Vol] 15 mg/dL 9-23 [facility] TSH DL <= 0.005 mIU/L QnOrde red By: Monster Lopez on 01-06-2022 TSH Qn 2.18 m[IU]/L 0.45-5.33 [facility] Triglyceride [Mass/volume] i n Serum or PlasmaOrdered By: Monster Lopez on 01-06-2022 Triglyceride [Mass/Vol] 47 mg/dL 35-149 [facility] Comment on above: TRIG ATP III CLASSIF ICATION TRIG less than 150 mg/dL Normal TRIG 150-199 mg/dL Borderline high TRIG 200-500 mg/dL High TRIG greater than 500 mg/dL Very high Standard traceable to the Center for Disease Conrtrol and Prevention (CDC) test method. RAD - MISCon 08-12-2021 RAD - MISC [id number]# 1.00CD:127 Normal [facility] Ambulatory Visit Summaryon 0 08-06-2021 Ambulatory Visit Summary ILYA LOPEZ :1940 Visit Date:08/06/2021 Ambulatory Visit Instructions Your Care Team Attending Physician - SALOMON RODRIGUEZ, Chung [place] Primary Care Physician - MONSTER LOPEZ DO This Is Your Medications List Contact prescribing physician if questions or concerns amlodipine (amLODIPine 5 mg Tab) aspirin (aspirin 81 mg Oral EC Tab) atorvastatin (atorvastatin 10 mg Tab) cetirizine (cetirizine 10 mg Tab) esomeprazole (Nexium 20 mg Cap-DR) ezetimibe (Zetia 10 mg Tab) fluticasone nasal (Flonase 0.05 mg/inh nasal spray) fluticasone-vilantero l (Breo Ellipta 100 mcg-25 mcg inhalation powder) [...] prescribing physician if questions or concerns Unchanged fluticasone-vilantero l (Breo Ellipta 100 mcg-25 mcg inhalation powder) [...] PVD (peripheral vascular disease) Renal insufficiency Normal [facility] Historical Records Officeon 07-26-2021 Historical Records Office [id number] .[id number]:127 Normal [facility] Physician Referralon Physician Referral [id number] .00CD:127 Normal [facility] Vital Signs Date Time Vital Sign Value Performing Clinician Facility 11-03-2023 11:47-0400 Body height 177.8 cm DO [employer] Work Phone: [facility] 11-03-2023 11:47-0400 Body mass index (BMI) [Ratio] 29.4 kg/m2 DO [employer] Work Phone: [facility] 11-03-2023 11:47-0400 Body weight 92.98 kg DO [employer] Work Phone: [facility] 11-03-2023 11:47-0400 Diastolic blood pressure 70 mm[Hg] DO [employer] Work Phone: [facility] 11-03-2023 11:47-0400 Heart rate 83 /min DO [employer] Work Phone: [facility] 11-03-2023 11:47-0400 Respiratory rate 18 /min DO [employer] Work Phone: [facility] 11-03-2023 11:47-0400 SaO2% (BldA) [Mass fraction] 97 % DO [employer] Work Phone: [facility] 11-03-2023 11:47-0400 Systolic blood pressure 136 mm[Hg] DO [employer] Work Phone: [facility] 10-22-2023 10:18-0400 Diastolic blood pressure 88 mm[Hg] DO [employer] Work Phone: [facility] 10-22-2023 10:18-0400 Heart rate 70 /min DO [employer] Work Phone: [facility] 10-22-2023 10:18-0400 Systolic blood pressure 144 mm[Hg] DO [employer] Work Phone: [facility] 10-22-2023 10:16-0400 Body height 177.8 cm DO [employer] Work Phone: [facility] 10-22-2023 10:16-0400 Body weight 90.71 kg DO [employer] Work Phone: [facility] 10-08-2023 14:13-0400 Body height 175.26 cm DO [employer] Work Phone: [facility] 10-08-2023 14:13-0400 Body mass index (BMI) [Ratio] 30.4 kg/m2 DO [employer] Work Phone: [facility] 10-08-2023 14:13-0400 Body weight 93.44 kg DO [employer] Work Phone: [facility] 10-08-2023 14:13-0400 Diastolic blood pressure 80 mm[Hg] DO [employer] Work Phone: [facility] 10-08-2023 14:13-0400 Heart rate 79 /min DO [employer] Work Phone: [facility] 10-08-2023 14:13-0400 Respiratory rate 20 /min DO [employer] Work Phone: [facility] 10-08-2023 14:13-0400 SaO2% (BldA) [Mass fraction] 96 % DO [employer] Work Phone: [facility] 10-08-2023 14:13-0400 Systolic blood pressure 130 mm[Hg] DO [employer] Work Phone: [facility] 10-05-2023 11:29-0400 Body height 175.26 cm DO [employer] Work Phone: [facility] 10-05-2023 11:29-0400 Body mass index (BMI) [Ratio] 30.2 kg/m2 DO [employer] Work Phone: [facility] 10-05-2023 11:29-0400 Body weight 92.98 kg DO [employer] Work Phone: [facility] 10-05-2023 11:29-0400 Diastolic blood pressure 82 mm[Hg] DO [employer] Work Phone: [facility] 10-05-2023 11:29-0400 Heart rate 81 /min DO [employer] Work Phone: [facility] 10-05-2023 11:29-0400 Respiratory rate 18 /min DO [employer] Work Phone: [facility] 10-05-2023 11:29-0400 SaO2% (BldA) [Mass fraction] 98 % DO [employer] Work Phone: [facility] 10-05-2023 11:29-0400 Systolic blood pressure 138 mm[Hg] DO [employer] Work Phone: [facility] 08-20-2023 10:15-0400 Body height 175.26 cm [facility] 08-20-2023 10:15-0400 Body mass index (BMI) [Ratio] 30.5 kg/m2 [facility] 08-20-2023 10:15-0400 Body weight 93.89 kg [facility] 08-20-2023 10:15-0400 Diastolic blood pressure 84 mm[Hg] [facility] 08-20-2023 10:15-0400 Heart rate 86 /min [facility] 08-20-2023 10:15-0400 Respiratory rate 16 /min [facility] 08-20-2023 10:15-0400 SaO2% (BldA) [Mass fraction] 96 % [facility] 08-20-2023 10:15-0400 Systolic blood pressure 138 mm[Hg] [facility] 04-21-2023 09:00-0500 Body height 175.26 cm [employer] Other [facility] [employer] Other 04-21-2023 09:00-0500 Body mass index (BMI) [Ratio] 30.48 kg/m2 [employer] Other [facility] [facility] Other 04-21-2023 09:00-0500 Body weight 93.62 kg [employer] Other [facility] Other 04-21-2023 09:00-0500 Diastolic blood pressure 64 mm[Hg] [employer] Other [facility] [facility] Other 04-21-2023 09:00-0500 Respiratory rate 16 /min [employer] Other [facility] [facility] Other 04-21-2023 09:00-0500 SaO2% (BldA) [Mass fraction] 96 % [employer] Other [facility] [facility] Other 04-21-2023 09:00-0500 Systolic blood pressure 112 mm[Hg] [employer] Other [facility] Other 07-17-2022 10:00-0500 Body height 175.26 cm [employer] Other [facility] Other 07-17-2022 10:00-0500 Body mass index (BMI) [Ratio] 31.45 kg/m2 [employer] Other [facility] Other 07-17-2022 10:00-0500 Body weight 96.62 kg [employer] Other [facility] Other 07-17-2022 10:00-0500 Diastolic blood pressure 82 mm[Hg] [employer] Other [facility] Other 07-17-2022 10:00-0500 Respiratory rate 16 /min [employer] Other [facility] Other 07-17-2022 10:00-0500 SaO2% (BldA) [Mass fraction] 98 % [employer] Other [facility] Other 07-17-2022 10:00-0500 Systolic blood pressure 128 mm[Hg] [employer] Other [facility] Other 09-03-2021 10:30-0400 Body height 175.26 cm [employer] Other [facility] Other 09-03-2021 10:30-0400 Body mass index (BMI) [Ratio] 31.45 kg/m2 [employer] Other [facility] Other 09-03-2021 10:30-0400 Body weight 96.62 kg [employer] Other [facility] Other 09-03-2021 10:30-0400 Diastolic blood pressure 70 mm[Hg] [employer] Other [facility] Other 09-03-2021 10:30-0400 Respiratory rate 16 /min [employer] Other [facility] [facility] Other 09-03-2021 10:30-0400 SaO2% (BldA) [Mass fraction] 97 % [employer] Other [facility] [facility] Other 09-03-2021 10:30-0400 Systolic blood pressure 116 mm[Hg] [employer] Other [facility] Other 05-21-2021 11:30-0500 Body height 175.26 cm [employer] Other [facility] [facility] Other 05-21-2021 11:30-0500 Body mass index (BMI) [Ratio] 31.16 kg/m2 [employer] Other [facility] [facility] Other 05-21-2021 11:30-0500 Body weight 95.71 kg Monster Kuns Other [facility] Other 05-21-2021 11:30-0500 Diastolic blood pressure 76 mm[Hg] Monster Kuns Other [facility] Other 05-21-2021 11:30-0500 Respiratory rate 16 /min Monster Kuns Other [facility] Other 05-21-2021 11:30-0500 SaO2% (BldA) [Mass fraction] 96 % Monster Kuns Other [facility] Other 05-21-2021 11:30-0500 Systolic blood pressure 152 mm[Hg] Monster Kuns Other [facility] Other Encounters Encounter Date Encounter Type Care Provider Facility Start: 11-13-2023 End: 11-13-2023 ambulatory SHANNON ZAPATA Not Available Start: 11-03-2023 End: 11-03-2023 ambulatory DO Monster Kuns Work Phone: [facility] Work Phone: Start: 11-03-2023 End: 11-03-2023 Patient encounter procedure DO Monster Kuns Work Phone: [facility] Work Phone: Start: 10-27-2023 End: 10-27-2023 ambulatory SHANNON ZAPATA Not Available Start: 10-22-2023 End: 10-22-2023 Patient encounter procedure DO Monster Kuns Work Phone: [facility] Work Phone: Start: 10-22-2023 End: 10-22-2023 ambulatory DO Monster Kuns Work Phone: [facility] Work Phone: Start: 10-08-2023 End: 10-08-2023 ambulatory DO Monster Kuns Work Phone: [facility] Work Phone: Start: 10-08-2023 End: 10-08-2023 Patient encounter procedure DO Monster Kuns Work Phone: [facility] [place] Work Phone: Start: 10-05-2023 End: 10-05-2023 ambulatory DO Monster Kuns Work Phone: [facility] Work Phone: Start: 10-05-2023 End: 10-05-2023 Patient encounter procedure DO Monster Kuns Work Phone: [facility] Work Phone: Start: 09-04-2023 End: 09-04-2023 Patient encounter procedure DO Monster Kuns Work Phone: [facility] [place] Work Phone: Start: 09-04-2023 End: 09-04-2023 ambulatory DO Monster Kuns Work Phone: [facility] Work Phone: Start: 08-20-2023 End: 08-20-2023 ambulatory [facility] Work Phone: Start: 08-20-2023 End: 08-20-2023 Patient encounter procedure [facility] Family [facility] Work Phone: Start: 07-22-2023 Non-patient / Non-visit [facility] Work Phone: Start: 06-02-2023 End: 06-02-2023 ambulatory Monster Kuns Other [facility] Other Start: 06-02-2023 Telephone encounter Monster Kuns [facility] Start: 05-15-2023 End: 05-15-2023 ambulatory Monster Kuns Other [facility] Other Start: 05-15-2023 Telephone encounter Monster Kuns [facility] Start: 05-14-2023 End: 05-14-2023 ambulatory Monster Kuns Other [facility] Other Start: 05-14-2023 Telephone encounter Monster Kuns [facility] Start: 05-06-2023 End: 05-06-2023 ambulatory Monster Kuns Other [facility] Other Start: 05-06-2023 Telephone encounter Monster Kuns [facility] Start: 04-21-2023 End: 04-21-2023 ambulatory Monster Kuns Other [facility] Other Start: 04-21-2023 Office outpatient visit 25 minutes Monster Kuns [facility] Start: 04-17-2023 End: 04-17-2023 ambulatory Monster Kuns Facility:[facility] Start: 02-16-2023 End: 02-16-2023 ambulatory Monster Kuns Other [facility] Other Start: 02-16-2023 Telephone encounter Monster Kuns [facility] Start: 10-14-2022 End: 10-15-2022 ambulatory NARENDRANATH LAKSHMIPATHY . Facility:[facility] Start: 10-08-2022 End: 10-09-2022 ambulatory NARENDRANATH LAKSHMIPATHY . Facility:[facility] Start: 10-06-2022 End: 10-06-2022 ambulatory DO Monster Kuns Work Phone: [facility] Work Phone: Start: 10-06-2022 End: 10-06-2022 Patient encounter procedure DO Monster Kuns Work Phone: [facility] [place] Work Phone: Start: 10-02-2022 End: 10-02-2022 ambulatory Monster Kuns Other [facility] Other Start: 10-02-2022 Telephone encounter Monster Kuns [facility] Start: 09-16-2022 End: 09-17-2022 ambulatory NARENDRANATH LAKSHMIPATHY . Facility:[facility] Start: 09-16-2022 End: 09-17-2022 ambulatory NARENDRANATH LAKSHMIPATHY . Facility:[facility] Start: 08-22-2022 End: 08-22-2022 ambulatory Monster Kuns Other [facility] Other Start: 08-22-2022 Telephone encounter Monster Kuns [facility] Start: 07-17-2022 End: 07-17-2022 ambulatory Monster Kuns Other [facility] Other Start: 07-17-2022 Patient encounter procedure Monster Kuns [facility] Start: 07-09-2022 End: 07-09-2022 ambulatory DO Monster Kuns Work Phone: [facility] Work Phone: Start: 07-09-2022 End: 07-09-2022 Patient encounter procedure DO Monster Kuns Work Phone: [facility] [place] Work Phone: Start: 05-07-2022 End: 05-07-2022 ambulatory Monster Kuns Other [facility] Other Start: 05-07-2022 Telephone encounter Monster Kuns [facility] Start: 03-10-2022 End: 03-10-2022 ambulatory Monster Kuns Other [facility] Other Start: 03-10-2022 Nursing evaluation o f patient and report Monster Kuns [facility] Start: 03-10-2022 Telephone encounter [facility] Start: 01-06-2022 End: 01-06-2022 Patient encounter procedure DO Monster Kuns Work Phone: [facility] [place] Start: 09-03-2021 End: 09-03-2021 ambulatory Monster Kuns Other [facility] Other Start: 09-03-2021 Office outpatient visit 25 minutes Monster Kuns [facility] Start: 07-25-2021 End: 07-25-2021 ambulatory Monster Lopez Other [facility] Other Start: 07-25-2021 Telephone encounter Monstermalachi Lopez [facility] Start: 05-21-2021 End: 05-21-2021 ambulatory Monster Lopez Other [facility] Other Start: 05-21-2021 Annual wellness visit Monster Robinson sotomayor Other [facility] Other Start: 05-21-2021 Patient encounter procedure Monstermalachi Lopez [facility] Start: 04-30-2021 End: 04-30-2021 ambulatory Monster Lopez Other [facility] Other Start: 04-30-2021 Telephone encounter Monstermalachi Lopez [facility] Start: 05-13-2017 Ambulatory MONSTER LOPEZ Facility:[id number] Start: 05-13-2017 Ambulatory Facility:[id number] Procedures Date Procedure Procedure Detail Performing Clinician Start: 10-22-2023 Radionuclide myocard ial perfusion stress study DO Monster Lopez Work Phone: Start: 09-04-2023 CT of thorax with contrast DO Monster Lopez Work Phone: Plan of Treatment Date Care Activity Detail Author Start: 10-22-2023 Radionuclide myocard ial perfusion stress study NM lesvia perf SPECT rest & str [facility] Start: 10-22-2023 SPECT Heart perfusio n at rest and W stress and W radionuclide IV [facility] Start: 10-05-2023 [facility] Start: 08-20-2023 Patient referral [facility] Work Phone: Comprehensive metabo lic 2000 panel - Serum or Plasma [facility] CT Chest W contrast IV [facility] Patient referral [facility] Work Phone: US Heart Transthoracic [facility] XR Chest 2 Views [facility] Immunizations Immunization Date Immunization Notes Care Provider Fa cility 04-17-2022 COVID-19 mRNA Bivalent Booster (Moderna) DO Monster Kuns Work Phone: [facility] 04-17-2022 influenza, injectable, quadrivalent, preservative free DO Monster Kuns Work Phone: [facility] 04-17-2022 influenza, seasonal, injectable Monster Kuns Other [facility] 05-20-2021 COVID-19 Vaccine Moderna - Documentation Purposes Only Monster Kuns Other [facility] 05-20-2021 Influenza vaccine, quadrivalent, adjuvanted DO Monster Kuns Work Phone: [facility] 05-20-2021 influenza, seasonal, injectable Monster Kuns Other [facility] 08-03-2020 COVID-19 mRNA-1273 (Moderna) DO Monster Kuns Work Phone: [facility] 07-06-2020 COVID-19 mRNA-1273 (Moderna) DO Monster Kuns Work Phone: [facility] 03-20-2020 Influenza vaccine, quadrivalent, adjuvanted DO Monster Kuns Work Phone: [facility] 03-20-2020 zoster vaccine recombinant Monster Kuns Other [facility] 03-20-2020 influenza, seasonal, injectable Monster Kuns Other [facility] 12-27-2019 zoster vaccine recombinant Monster Kuns Other [facility] 12-27-2019 pneumococcal conjugate vaccine, 13 valent Monster Kuns Other [facility] 12-27-2019 tetanus toxoid, reduced diphtheria toxoid, and acellular pertussis vaccine, adsorbed Monster Kuns Other [facility] 05-09-2019 influenza, seasonal, injectable Monster Kuns Other [facility] 05-17-2018 influenza virus vaccine, unspecified formulation [facility] 05-17-2018 influenza, high dose seasonal, preservative-free Monster Kuns Other [facility] 04-09-2017 influenza virus vaccine, unspecified formulation [facility] 04-09-2017 influenza, high dose seasonal, preservative-free Monster Kuns Other [facility] 04-03-2016 influenza virus vaccine, unspecified formulation [facility] 04-03-2016 influenza, high dose seasonal, preservative-free Monster Kuns Other [facility] 05-21-2015 influenza, seasonal, injectable Monster Kuns Other [facility] 03-18-2010 pneumococcal polysaccharide vaccine, 23 valent Monster Kuns Other [facility] 03-14-1999 pneumococcal polysaccharide vaccine, 23 valent Monster Kuns Other [facility] 03-14-1999 TD(adult) unspecifie d formulation DO Monster Kuns Work Phone: [facility] NEGATED: Highlighted row has not occurred!04-05-2019 pneumococcal polysaccharide vaccine, 23 valent Patient Objection Monster Kuns Other [facility] NEGATED: Highlighted row has not occurred!11-16-2018 pneumococcal conjugate vaccine, 13 valent Patient Objection Monster Kuns Other [facility] NEGATED: Highlighted row has not occurred!11-16-2018 pneumococcal polysaccharide vaccine, 23 valent Patient Objection Monster Kuns Other [facility] Payers Date Payer Category Payer Self-pay [id number] 1958 Private Health Insurance [id number] 1940 Unknown [id number] 2.16.84 [id number] 1940 Unknown [id number] 2.16.84 [id number] 1941 Unknown [id number] 2.16.84 [id number] 1941 Unknown [id number] 2.16.84 [id number] 1941 Unknown [id number] 2.16.84 [id number] 1941 Unknown [id number] 2.16.84 [id number] Unknown [id number] 2.16.8 [id number] Unknown [id number] 2.16.8 [id number] Unknown [id number] 2.16.8 [id number] Unknown [id number] 2.16.8 [id number] Social History Date Type Detail Facility Unknown if ever smoked [facility] Other Sex Assigned At Sex Assigned At Bir th [facility] Other Start: 1940 Sex Assigned At Male F [facility] Start: 07-17-2018 End: 11-03-2023 Tobacco smoking status NHIS Smoker (finding) [facility] Clinical Notes 11-04-2011 to 08-20-2023 Note Date & Type Note Facility 08-20-2023 Evaluation note Authored August 20, 2023 11:06am The above note written by Lona Woodruff LPN, acting as human recorder, note dictated by Dr. Monster Lopez. [facility] Work Phone: 1(943) 865-143603-21-2024 Evaluation note* Author Paola Woodruff [facility] Authored August 20, 2023 11: 06am The above note written by Lona Woodruff LPN, acting as human recorder, note dictated by Dr. Monster Lopez. Author Rhona Babb [facility] Authored October 08, 2023 3:04pm Sooner if needed, ER if conc erns. The above note was written by Rhona Babb LPN , acting as human recorder, note dictated by Dr. Monster Lopez. [facility] Work Phone: 1(314) 282-166001-02-2024 Evaluation note* Encounter Date Diagnosis Assessment Notes Treatment Notes Treatment Clinical Notes Jun, Situational anxiety (ICD-10 - F41.8) [facility] Other 12-15-2023 Evaluation note* Encounter Date Diagnosis Assessment Notes Treatment Notes Treatment Clinical Notes May, Renal insufficiency (ICD-10 - N28.9) [facility] Other 12-06-2023 Evaluation note* Encounter Date Diagnosis Assessment Notes Treatment Notes Treatment Clinical Notes May, Lung nodules (ICD-10 - R91.8) May, Prostate CA (ICD-10 - C61) May, 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 The patient advised he may call the office for results. Apr, Weight loss (ICD-10 - R63.4) [facility] Other 09-18-2023 Evaluation note* Encounter Date Diagnosis Assessment Notes Treatment Notes Treatment Clinical Notes Jan, Hyperlipidemia (ICD-10 - E78.5) [facility] Other 04-18-2023 NoteCONSULTATION CONSULTATION DATE: 09/16/2022 TO: [...] our patients to inform us about any [id number] medications or herbal remedies/nutritional supplements/alternative remedies. 2. [...] treatment options with their primary care provider.[id number] Evaluation note * Encounter Date Diagnosis Assessment Notes Treatment Notes Treatment Clinical Notes Jul, Medicare annual wellness visit, subsequent (ICD-10 - Z00.00) Personalized health advice was given to the beneficiary including a written plan for screenings discussed and provided. Advanced care planning reviewed and/or information given as requested. The above visit was performed by Paoal Woodruff LPN, under direct supervision of Dr. [...] Encouraged patient to continue with their efforts. [facility] Other 12-07-2022 Evaluation note* Encounter Date Diagnosis Assessment Notes Treatment Notes Treatment Clinical Notes May, Hypertension (ICD-10 - I10) [facility] Other 10-10-2022 Evaluation note* Encounter Date Diagnosis Assessment Notes Treatment Notes Treatment Clinical Notes Mar, Sinus congestion (ICD-10 - R09.81) In house covid test was negative. [facility] Other 04-05-2022 Evaluation note* Encounter Date Diagnosis [...] is more tolerable then it was in May. The patient encourted to continue Tylenol/Motrin regimen. 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 [facility] Other 11-30-2021 Evaluation note* Encounter Date Diagnosis Assessment Notes Treatment Notes Treatment Clinical Notes Apr, Shortness of breath (ICD-10 - R06.02) [facility] Other 06-05-2012 History general Narrative - Reported* [...] flap closure 08/02/18 Hospitalization History SEE ABOVE [facility] Other Evaluation noteNo InformationNortCro[facility] Other Evaluation noteNo assessment information available [facility] Work Phone: Evaluation note* Author Paola Woodruff [facility] Authored August 20, 2023 11: 06am The above note written by Lona Woodruff LPN, acting as human recorder, note dictated by Dr. Monster Lopez. [facility] Work Phone: Hospital Discharge instructionsAmbulatory Orders* Referral to Cardiology Location: None Selected [facility] Work Phone: Summary Purpose Family History No Family History Records Found Relationship Condition Age at Onset Recorded Date/T jaycee father Multiple myeloma Unknown Unknown Not Specified Unknown Relationship Condition Age at Onset Recorded Date/T jaycee father Multiple myeloma Unknown Unknown Not Specified Unknown Heart disease Unknown Advance Directives No Advanced Directives Records Found Advance Directive Response Recorded Date/ Time Advance Directives Yes July 31 3:41pm Advance Directive Response Recorded Date/ Time Advance Directives Yes July 31 2:41pm Advance Directive Response Recorded Date/ Time Advance Directives Yes June 23, 2023 11:52am Chief Complaint and Reason for Visit Chief Complaint Hyperlipidemia Chief Complaint Amb Documentation review ct scan Reason for Visit Cardiomegaly Exertional shortness of breath Lung nodule Nasal congestion Rash and other nonspecific skin eruption Chief Complaint Amb Documentation review ct scan r91.1 Reason for Visit Cardiomegaly Exertional shortness of breath Lung nodule Nasal congestion Rash and other nonspecific skin eruption Chief Complaint Amb Documentation review ct scan r91.1 SOB, Cardiomegaly Reason for Visit Cardiomegaly Exertional shortness of breath Lung nodule Nasal congestion Rash and other nonspecific skin eruption Chief Complaint Amb Documentation review ct scan r91.1 SOB, Cardiomegaly Reason for Visit Cardiomegaly Exertional shortness of breath Lung nodule Nasal congestion Rash and other nonspecific skin eruption Atypical chest pain Essential (primary) hypertension New onset atrial fibrillation Chief Complaint Amb Documentation review ct scan r91.1 SOB, Cardiomegaly 6 week f/u Reason for Visit Cardiomegaly Exertional shortness of breath Lung nodule Nasal congestion Rash and other nonspecific skin eruption Atypical chest pain Essential (primary) hypertension New onset atrial fibrillation Essential (primary) hypertension Exertional shortness of breath Granulomatous disease Ground glass opacity present on imaging of lung Hyperlipidemia Lung nodule New onset atrial fibrillation Chief Complaint review ct scan r91.1 SOB, Cardiomegaly 6 week f/u R06.02 Reason for Visit Cardiomegaly Exertional shortness of breath Lung nodule Nasal congestion Rash and other nonspecific skin eruption Atypical chest pain Essential (primary) hypertension New onset atrial fibrillation Essential (primary) hypertension Exertional shortness of breath Granulomatous disease Ground glass opacity present on imaging of lung Hyperlipidemia Lung nodule New onset atrial fibrillation Chief Complaint review ct scan r91.1 SOB, Cardiomegaly 6 week f/u R06.02 1 month Reason for Visit Cardiomegaly Exertional shortness of breath Lung nodule Nasal congestion Rash and other nonspecific skin eruption Atypical chest pain Essential (primary) hypertension New onset atrial fibrillation Essential (primary) hypertension Exertional shortness of breath Granulomatous disease Ground glass opacity present on imaging of lung Hyperlipidemia Lung nodule New onset atrial fibrillation Atypical chest pain Essential (primary) hypertension New onset atrial fibrillation Reason for Referral Reason 07/28/22 @ 10:00am consult and treat with Dr.Todd Sinclair in [place] Diagnosis 1 Left inguinal hernia (K40.90) Referral Organization [facility] [place] Referring Provider First Name Monster Referring Provider Last Name John Referring Provider Specialty Family Prac tomás Referred Organization [facility] Referred Provider Julien Sinclair Referred Address [address] [place], [place],[address] Referred Provider Specialty Surgery Referral Priority Routine Referral Appointment Date 2022-07-28 General Notes Nasra Huertan 023 10:32:29 AM >Received today and waiting for office notes to be locked before sending referral Jackelyn Huerta 07/18/2022 10:58:26 AM >[facility] was fax. [facility] 08:58:28 AM >Fax letter for appt update [facility] 07/25/2022 10:00:37 AM >[facility] 07/30/2022 09:59:04 AM >Fax letter for appt update or consult notes [facility] Jackelyn 07/30/2022 12:53:38 PM >Received consult notes Clinical Notes Office [phone] Additional Source Comments (unrecognized sect ion and content) No Status Records FoundNo Status Records FoundNo Status Records FoundNo Status Records FoundNo Status Records FoundNo Status Records Found INFORMATION SOURCE (unrecogn ized section and content) DATE CREATED AUTHOR 11/24/2017 [facility] DATE CREATED AUTHOR AUTHOR'S ORGANIZ ATION 11/24/2017 [facility] DATE CREATED AUTHOR AUTHOR'S ORGANIZ ATION 08/18/2021 [facility] DATE CREATED AUTHOR AUTHOR'S ORGANIZ ATION 10/15/[address] [facility] DATE CREATED AUTHOR AUTHOR'S ORGANIZ ATION 11/14/2023 [facility] DATE CREATED AUTHOR AUTHOR'S ORGANIZ ATION 11/18/2023 [facility] REASON FOR VISIT (unrecogniz ed section and content) refillmedicare wellnessClini cal4 month f/u HTNClinicalCOVID test-[employer] STAFF [employer]BMAR[employer] OFFICER congestion,cough,sore throatRefillmedicare wellness SUBreferralmedical recordsRefillsreview labs- lipidsimagingclinicalClinicalClinical Care Teams (unrecognized sec tion and content) Team Status: Active Member Role Status James Lopez DO Primary Care Provider Active Team Status: Active Member Role Status James Lopez DO Primary Care Provider Active Sta rt: July 22, 2023 MONA De León Attending Provider Active Start: July 22, 2023 Team Status: Inactive Member Role Status James Lopez DO Primary Care Provide r, Attending Provider Active Start: August 20, 2023 End: August 20, 2023 Team Status: Inactive Member Role Status James Lopez DO Primary Care Provider, Attending Provi viki Active Team Status: Inactive Member Role Status James Lopez DO Primary Care Provide r, Attending Provider Active Start: September 04, 2023 End: September 04, 2023 Team Status: Inactive Member Role Status James Lopez DO Primary Care Provide r, Referring Provider Active Start: October 05, 2023 End: October 05, 2023 Clovis Singh MD Attending Provider Activ e Start: October 05, 2023 End: October 05, 2023 Team Status: Active Member Role Status James Lopez DO Primary Care Provider Active Sta rt: October 05, 2023 Clovis Singh MD Attending Provider Activ e Start: October 05, 2023 Team Status: Inactive Member Role Status James Lopez DO Primary Care Provider Active Sta rt: October 05, 2023 End: October 05, 2023 Clovis Singh MD Attending Provider Activ e Start: October 05, 2023 End: October 05, 2023 Team Status: Active Member Role Status James Singh MD Specialist Active Monster Lopez DO Primary Care Provider Active Team Status: Inactive Member Role Status James Lopez DO Primary Care Provide r, Attending Provider Active Start: October 08, 2023 End: October 08, 2023 Team Status: Inactive Member Role Status James Lopez DO Primary Care Provider Active Sta rt: October 22, 2023 End: October 22, 2023 Clovis Singh MD Attending Provider Activ e Start: October 22, 2023 End: October 22, 2023 Omayra Ricketts MD Referring Provider Active Sta rt: October 22, 2023 End: October 22, 2023 Team Status: Active Member Role Status Dates Clovis Singh MD Dehairing Machine Tender Active Monster Lopez DO Primary Care Provider Active Team Status: Inactive Member Role Status Dates Monster Lopez DO Primary Care Provider Active Sta rt: November 03, 2023 End: November 03, 2023 Clovis Singh MD Attending Provider Activ e Start: November 03, 2023 End: November 03, 2023 Goals (unrecognized section and content) Goals may [...] BE BASED ON THE PRIMARY CLINICAL RECORDS. [facility]. provides no warranty or guarantee of the accuracy or completeness of information in this document.
--- NOTE | 2024-01-13 09:47 | XR_ITS ---
The [address] [address] Patient Name: ILYA BENITEZ MRN: [id number] date: 1940 Sex: M Assigned Patient Location: [facility] Current Patient Location: Accession/Order Number: [id number] Exam Date: 01/13/2024 09:40 Report Date: 01/14/2024 10:23 At the request of: MONSTER BENITEZ Procedure: XR chest 2V PROCEDURE: XR chest 2V DATE: 01/13/2024 8:40 AM CDT COMPARISONS: Chest x-ray from 05/05/2023. CT chest from 05/20/2023 CLINICAL INDICATION: 83 years Male Granulomatous Disease D71 FINDINGS: The heart is mildly prominent and stable. Scattered subcentimeter granulomas are again identified. There is a mass of the right middle lobe not as well-visualized today as on the previous CT.. On the previous CT of the chest from 05/20/2023 this was felt to possibly be a chronic process because of some ossification. A follow-up CT was recommended. There is no evidence of a follow-up CT was carried out. There is no evidence of pleural effusion or pneumothorax. XR/XR chest 2V IMPRESSION: Mass of the right middle lobe appears smaller on today's exam than on 05/05/2023. This mass was well documented on the CT of 05/20/2023. Based on the recommendation of that CT, I feel follow-up CT is appropriate to further characterize this 2.2 cm mass. Electronically authenticated by: RICK ALEXANDRA Date: 01/14/2024 10:23
== END 2024-01-13 09:22 | disposition home or self-care (01) ==
LOC: RAD 09:24
PROVIDERS: PCP Family Medicine; Visit Provider Family Medicine
DX: D71 Functional disorders of polymorphonuclear neutrophils (principal); E78.5 Hyperlipidemia, unspecified; R91.8 Other nonspecific abnormal finding of lung field
CPT/HCPCS: 71046

== ENCOUNTER 2024-02-15 07:03 | Outpatient (OUT) | payer MEDICARE, SELFPAY ==
--- NOTE | 2024-02-15 | CT_ITS ---
[address] [address] Patient Name: ILYA BENITEZ MRN: [id number] date: 1940 Sex: M Assigned Patient Location: LAB Current Patient Location: Accession/Order Number: [id number] Exam Date: 02/15/2024 08:00 Report Date: 02/16/2024 08:08 At the request of: MONSTER OMAYRAClaude Procedure: CT chest w con EXAMINATION: CT chest w con HISTORY: Granulomatous disease, lung nodule COMPARISON: No relevant comparison available. TECHNIQUE: Multi-planar CT images were created with IV contrast. Axial, Coronal, and Sagittal images. Dose reduction techniques were achieved by using automated exposure control and/or adjustment of mA and/or kV according to patient size and/or use of iterative reconstruction technique. FINDINGS: LUNGS: Stable spiculated centrally calcified 2.2 cm right upper lobe nodule with a tail extending to the pleura best seen on axial image #63, stable. Additional scattered calcified pulmonary nodules throughout both lungs stable both in number and size from the prior exam. Minimal biapical pleural parenchymal scarring. PLEURA: No mass, effusion, or pneumothorax. VASCULATURE: Prominent pulmonary trunk with rapid tapering, stable. No filling defect to suggest a pulmonary embolus SHAJI: Calcified right hilar lymph nodes MEDIASTINUM: Calcified subcarinal lymph nodes CARDIAC: Moderate global cardiomegaly. No pericardial effusion Coronary arteries: Mild calcifications AORTA: No aneurysm or dissection. CHEST WALL: No mass or axillary adenopathy. BONES: No bone lesion or fracture. LIMITED ABDOMEN: No suspicious findings. Limited images of the upper abdomen. OTHER: Negative. CT/CT chest w con IMPRESSION: Stable exam with scattered calcified lung nodules and calcified lymphadenopathy Electronically authenticated by: SERENA GILL Date: 02/16/2024 08:08
--- OUTSIDE RECORDS SUMMARY | 2024-02-15 07:07 | XMS_ITS | CCD ---
Author Organization [facility] Care Team Providers Care Treasury Associate Name Role Phone MONSTER BENITEZ Unavailable Unavailable NO FAMILY DOCTOR, NO FAMILY DOCTOR Unavailable Unavailable Monster Benitez Unavailable Kunсветлана, DO Monster Primary Care Provider [phone] John, DO Monster Attending Provider Kuns, DO Monster Primary Care Provider [phone] Kuns, DO Monster Attending Provider Kuns, DO Thorpe Primary Care Provider Kuns, DO Monster Attending Provider [phone] LAKSHMIPATHY ., NARENDRANATH Consulting Josiane vailable DR MONSTER BENITEZ Primary Care Unavailable LAKSHMIPATHY ., NARENDRANATH Attending Josiane vailable LAKSHMIPATHY ., NARENDRANATH Admitting Josiane vailable LAKSHMIPATHY ., NARENDRANATH Admitting Josiane vailable DR MONSTER BENITEZ Primary Care Unavailable DR ANUEL COVINGTON Consulting Unavailable LAKSHMIPATHY ., NARENDRANATH Attending Josiane vailable LAKSHMIPATHY ., NARENDRANATH Consulting Josiane vailable LAKSHMIPATHY ., NARENDRANATH Admitting Josiane vailable DR MONSTER BENITEZ Primary Care Unavailable DR SERENA GILL V Consulting Unavailable LAKSHMIPATHY ., NARENDRANATH Attending Josiane vailable LAKSHMIPATHY ., NARENDRANATH Consulting Josiane vailable LAKSHMIPATHY ., NARENDRANATH Admitting Josiane vailable DR MONSTER BENITEZ Primary Care Unavailable LAKSHMIPATHY ., NARENDRANATH Consulting Josiane vailable LAKSHMIPATHY ., NARENDRANATH Attending Josiane vailable DO Monster Benitez Primary Care Provider [phone] DO Monster Benitez Attending Provider [phone] MD Clovis Singh Attending Provider MD Omayra Ricketts Referring Provider [phone] SHANNON ZAPATA Attending Unavailable MIKEY ZHU Referring Unavailable SHANNON ZAPATA Attending Unavailable DO Monster Benitez Primary Care Provider DO Monster Benitez Attending Provider Andrewss, Monster Attending Unavailable Kuns, Monster Admitting Unavailable Kuns, Monster Primary Care Unavailable Andrewss, Monster Primary Care Unavailable Andrewss, Monster Attending Unavailable Andrewss, Monster Admitting Unavailable Kuns, Monster Attending Unavailable Andrewss, Monster Admitting Unavailable Andrewss, Monster Primary Care Unavailable Clovis Singh Admitting Unavai mariam Singh, Clovis Pinto Attending Unavai Monster Craft Primary Care Unavailable Omayra Ricketts Referring Unavailable Clovis Singh Admitting Unavai labbing Singh, Clovis Pinto Attending Unavai labbing Benitez, Monster Primary Care Unavailable Medications Current Medications Medication Drug Class(es) [...] Start: 02-03-2017 take 1 tablet by sharlene every twenty-four hours Atorvastatin Calcium 10 MG [...] Active augmented betamethasone 0.0005 mg/mg topical ointment (9 sources) Corticosteroid Start: 08-20-2023 Betamethasone, Augmented (Diprolene (Augmented)) 0.05 % ointment Active 1 APPLIC TOPICAL Daily 50 August 20, 2023 12:00am cefdinir 300 mg oral capsule (1 source) Cephalosporin Antibacterial Start: 01-27-2024 take 300 mg by mouth twice daily Cefdinir Active 300 MG PO Twice daily 20 03January 27, 2024 12:00am cetirizine hydrochloride 10 mg oral capsule [...] daily Esomeprazole Magnesium (Nexium) 20 mg capsule,delayed release(/EC) Active 20 MG PO Daily July 22, [...] Start: 08-10-2017 take 1 tablet by sharlene th every twenty-four hours Zetia 10 MG 1 [...] succinate 25 mg extended release oral tablet (9 sources) beta-Adrenergic Brittanie Start: 10-05-2023 End: 11-03-2023 take 1 tablet by mouth once daily Metoprolol Succinate Active 25 MG PO Daily 90 90 November 03, 2023 12:14pm FreeTextSig: Take 1 tablet by mouth once daily; Note: Source Status: Start; Refills: 2; Qty: 30 Tablet; Provider: Jamarcus Cutler ( ) Multi For Him 1 (16 sources) Multi For Him 1 1 tab(s) p.o. Daily Active Multivitamin preparation (9 sources) Start: 07-22-2023 take 1 tablet by [...] PRN Active rivaroxaban 20 mg oral tablet (9 sources) Factor Xa Inhibitor Start: 10-05-2023 End: 11-03-2023 take 1 tablet by mouth once daily at dinner Rivaroxaban (Xarelto) 20 mg tablet Active 20 MG PO Every evening 90 90 November 03, 2023 12:14pm must administer with evening meal Completed/Discontinued Medications Medication Drug Class(es) Dates Sig (Normalized) Sig (Original) [id number] 200 actuat albuterol 0.09 mg/actuat metered dose inhaler (12 sources) beta2-Adrenergic Agonist Start: 07-29-2018 End: 07-22-2023 [...] aspirin 81 mg delayed release oral tablet (12 sources) Platelet Aggregation Inhibitor, Nonsteroidal Anti-inflammatory Drug [...] Start: 01-14-2022 take 1 capsule by mo [facility] every twenty-four hours Celecoxib 200 MG 1 capsule with food Orally Once a day Dec, Active chlorpheniramine maleate 4 mg oral tablet (20 sources) Histamine-1 Receptor Antagonist Start: 07-22-2023 End: 08-20-2023 take 4 mg by mouth every four hours Chlorpheniramine Maleate Discontinued 4 MG PO Every 4 hours July 22, 2023 1:00am August 20, 2023 10:17am take 1 tablet by sharlene every six hours Chlorpheniramine Maleate 4 MG 1 tablet a s needed Orally every 6 hrs Active ezetimibe 10 mg / simvastatin 20 mg oral tablet (12 sources) HMG-CoA Reductase Inhibitor, Dietary Cholesterol Absorption [...] Active hydrOXYzine hydrochloride 25 mg oral tablet (15 sources) Antihistamine Start: 07-22-2023 End: 08-20-2023 take [...] Oct, losartan potassium 50 mg oral tablet (12 sources) Angiotensin 2 Receptor Brittanie Start: 07-29-2018 [...] 41 - 125 mg Mar, 125 mg [place] 9-Pud-Nnv-Fish Oil (Fish Oil) 1,000 mg (120 mg-180 mg) Capsule (12 sources) Start: 07-29-2018 End: 07-22-2023 take 1 capsule by mouth once daily [place] 1-Gin-Ipb-Fish Oil (Fish Oil) 1,000 mg (120 mg-180 mg) Capsule Discontinued 1 CAP PO Daily July 29, 2018 1:00am July 22, 2023 9:11am Start: 07-29-2018 take 1 capsule by [facility] once daily [place] 9-Ufh-Pif-Fish Oil (Fish Oil) 1,000 mg (120 mg-180 mg) Capsule Active 1 CAP PO Daily July 29, 2018 12:00am Start: 07-29-2018 take 1 capsule by [facility] once daily [place] 4-Ocz-Emx-Fish Oil (Fish Oil) 1,000 mg (120 mg-180 [...] Onset: 1 Resolved: 2 Episodic Anxiety disorders (11 sources) Anxiety; Translations: [Other specified anxiety disorders] Chronic Cancer of prostate (20 sources) Malignant tumor of prostate; Translations: [Malignant neoplasm of prostate] Chronic Cardiac dysrhythmias (19 sources) Atrial fibrillation; Translations: [Unspecified atrial fibrillation] Onset: 4 10-05-2023 Chronic Deficiency and other anemia (6 sources) Anemia; Translations: [Anemia, unspecified] Episodic Diabetes mellitus without complication (6 sources) Hyperglycemia; Translations: [Hyperglycemia, unspecified] Episodic Diseases of white blood cells (9 sources) Granulomatous disorder; Translations: [Functional disorders of [...] Hyperkalemia; Translations: [Hyperkalemia] Episodic Nonspecific chest pain (20 sources) Chest pain at rest; Translations: [Chest pain, unspecified] Onset: 4 10-05-2023 Episodic Osteoarthritis (20 sources) Localized, primary osteoarthritis of the shoulder region; Translations: [Primary osteoarthritis, 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 Other and ill-defined heart disease (9 sources) Cardiomegaly; Translations: [Cardiomegaly] 08-20-2023 Chronic Other and ill-defined heart disease (9 sources) Cardiomegaly; Translations: [Cardiomegaly] Onset: 4 08-20-2023 Chronic Other bone disease and musculoskeletal deformities (15 sources) Somatic dysfunction of rib; Translations: [Segmental and somatic dysfunction of rib cage] 08-19-2023 Episodic Other bone disease and musculoskeletal deformities (15 sources) Somatic dysfunction of thoracic region; Translations: [Segmental and somatic dysfunction of thoracic region] 08-19-2023 Episodic Other connective tissue disease (16 sources) History of total replacement of right hip joint; Translations: [Presence of right artificial hip joint] Chronic Other diseases of kidney and ureters (7 sources) Renal impairment; Translations: [Disorder of kidney and ureter, unspecified] Episodic Other diseases of kidney and ureters (18 sources) Abnormal renal function; Translations: [Disorder of kidney and ureter, unspecified] 08-19-2023 Episodic Other diseases of kidney and ureters (4 sources) Disorder of kidney and ureter, unspecified; Translations: [Unspecified disorder of kidney and ureter] Episodic Other lower respiratory disease (16 sources) Dyspnea; Translations: [Shortness of breath] Episodic Other lower respiratory disease (15 sources) Shortness of breath; Translations: [Shortness of breath] Onset: 1 Resolved: 2 Episodic Other lower respiratory disease (10 sources) Other nonspecific abnormal finding of lung field; Translations: [Ground glass opacity present on imaging of lung] Episodic Other lower respiratory disease (9 sources) Dyspnea on exertion; Translations: [Shortness of breath] 08-20-2023 Episodic Other lower respiratory disease (9 sources) Nodule of lung; Translations: [Solitary pulmonary nodule] 08-20-2023 Episodic Other lower respiratory disease (12 sources) Solitary pulmonary nodule; Translations: [Solitary pulmonary [...] source) Generalized hyperhidrosis Episodic Other skin disorders (9 sources) Eruption; Translations: [Rash and other nonspecific [...] nasal sinuses Episodic Other upper respiratory disease (9 sources) Nasal congestion; Translations: [Nasal congestion] 08-20-2023 Episodic Peripheral and visceral atherosclerosis (20 sources) Peripheral vascular disease; Translations: [Peripheral vascular disease, unspecified] 08-19-2023 Chronic Residual codes; unclassified (6 sources) Edema; Translations: [Localized edema] Episodic Residual codes; unclassified (9 sources) Edema of lower extremity; Translations: [Localized edema] 08-19-2023 Episodic Spondylosis; intervertebral disc disorders; other back problems (20 sources) Lumbosacral spondylosis without myelopathy; Translations: [Spondylosis without myelopathy or radiculopathy, lumbar region] Onset: 3 Chronic Spondylosis; intervertebral disc disorders; other back problems (20 sources) Neck pain; Translations: [Cervicalgia] Onset: 2 Resolved: 2 Episodic Substance-related disorders (20 sources) Tobacco dependence syndrome; Translations: [Nicotine dependence, [...] Test Name Value Interpretation Reference Range Facility Alanine aminotransferase [En zymatic activity/volume] in Serum or PlasmaOrdered By: Monster Benitez on 01-15-2024 ALT [Catalytic activity/Vol] 30 U/L 7-52 [facility] Comment on above: Performed By: #### T SH3, LIPID, CMP #### [address] Albumin [Mass/volume] in Ser um or Plasma by Bromocresol green (BCG) dye binding methoOrdered By: Monster Benitez on 01-15-2024 Albumin BCG dye [Mass/Vol] 4.2 g/dL 3.5-5.7 [facility] Alkaline phosphatase [Enzyma tic activity/volume] in Serum or PlasmaOrdered By: Monster Benitez on 01-15-2024 ALP [Catalytic activity/Vol] 74 U/L 34-104 [facility] Comment on above: Performed By: #### T SH3, LIPID, CMP #### [address] Aspartate aminotransferase [ Enzymatic activity/volume] in Serum or PlasmaOrdered By: Monster Benitez on 01-15-2024 AST [Catalytic activity/Vol] 35 U/L 13-39 [facility] Comment on above: Performed By: #### T SH3, LIPID, CMP #### [address] Automated basophil %Ordered By: Monster Benitez on 01-15-2024 Basophils/100 WBC (Bld) 0.8 % . F [facility] Comment on above: Performed By: #### C BC, PSAS, TSH3, CMP, LIPID #### [address] Automated basophil countOrde red By: Monster Benitez on 01-15-2024 Basophils (Bld) [#/Vol] 0.1 10*3/uL 0.0-0.2 [facility] Comment on above: Result Comment: PERF ORMED BY: [place] [address] PATHOLOGIST BENZENE STILL UTILITY OPERATOR SERGEI HERNANDEZ M.D. Performed By: #### C BC, PSAS, TSH3, CMP, LIPID #### [address] Automated blood monocyte cou ntOrdered By: Monster Benitez on 01-15-2024 Monocytes (Bld) [#/Vol] 0.9 10*3/uL High 0.0-0.8 [facility] Comment on above: Performed By: #### C BC, PSAS, TSH3, CMP, LIPID #### [address] Automated eosinophil %Ordere d By: Monster Benitez on 01-15-2024 Eosinophils/100 WBC (Bld) 3.2 % . [facility] Comment on above: Performed By: #### C BC, PSAS, TSH3, CMP, LIPID #### [facility] [address] Automated eosinophil countOr dered By: Monster Benitez on 01-15-2024 Eosinophils (Bld) [#/Vol] 0.2 10*3/uL 0.0-0.45 [facility] Comment on above: Performed By: #### C BC, PSAS, TSH3, CMP, LIPID #### [address] Automated monocyte %Ordered By: Monster Benitez on 01-15-2024 Monocytes/100 WBC (Bld) 12.5 % . F [facility] Comment on above: Performed By: #### C BC, PSAS, TSH3, CMP, LIPID #### [address] Automated neutrophil %Ordere d By: Monster Benitez on 01-15-2024 Neutrophils/100 WBC (Bld) 42.3 % . [facility] Comment on above: Performed By: #### C BC, PSAS, TSH3, CMP, LIPID #### [address] Bilirubin.total [Mass/volume ] in Serum or PlasmaOrdered By: Monster Benitez on 01-15-2024 Bilirubin [Mass/Vol] 0.9 mg/dL 0.3-1.0 [facility] Comment on above: Performed By: #### T SH3, LIPID, CMP #### [address] Calcium [Mass/volume] in Ser um or PlasmaOrdered By: Monster Benitez on 01-15-2024 Calcium [Mass/Vol] 9.6 mg/dL 8.6-10.3 [facility] Comment on above: Performed By: #### T SH3, LIPID, CMP #### [address] Carbon dioxide, total [Moles /volume] in Serum or PlasmaOrdered By: Monster Benitez on 01-15-2024 CO2 [Moles/Vol] 29.5 mmol/L 21.0-31.0 [facility] Comment on above: Performed By: #### T SH3, LIPID, CMP #### [facility] [address] [place] [address] [place] Chloride [Moles/volume] in S bautista or PlasmaOrdered By: Monster Benitez on 01-15-2024 Chloride [Moles/Vol] 104 mmol/L 98-107 [facility] Comment on above: Performed By: #### T SH3, LIPID, CMP #### [facility] [address] [place] [address] [place] Cholesterol [Mass/volume] in Serum or PlasmaOrdered By: Monster Benitez on 01-15-2024 Cholesterol [Mass/Vol] 181 mg/dL 140-200 [facility] Comment on above: Chol less than 200 m g/dl low riskChol 201-239 mg/dl borderline riskChol 240 mg/dl and greater high risk Result Comment: Chol less than 200 mg/dl low risk Chol 201-239 mg/dl borderline risk Chol 240 mg/dl and greater high risk Performed By: #### T SH3, LIPID, CMP #### [facility] [address] Cholesterol in LDL Calc [Mas s/Vol]Ordered By: Monster Benitez on 01-15-2024 Cholesterol in LDL [Mass/Vol] 105 mg/dL High 0-100 [facility] Comment on above: LDL ATP III CLASSIFI CATIONLDL less than 100 mg/dL OptimalLDL 100-129 mg/dL Near or above optimalLDL 130-159 mg/dL Borderline highLDL 160-189 mg/dL HighLDL greater than 189 mg/dL Very high Cholesterol in VLDL Calc [Ma ss/Vol]Ordered By: Monster Benitez on 01-15-2024 Cholesterol in VLDL [Mass/Vol] 16 mg/dL [facility] Complete Blood Count Auto Di ffon 01-15-2024 Mean Corpuscular HGB Conc 33.2 g/dL Normal 32.5-35.6 [facility] Comment on above: Performed By: #### C BC, PSAS, TSH3, CMP, LIPID #### [facility] [address] NRBC% 0.2 /100{WBC} Normal 0-0.5 [facility] Comment on above: Performed By: #### C BC, PSAS, TSH3, CMP, LIPID #### [address] Comprehensive Metabolic Pane yovani 01-15-2024 Albumin [Mass/Vol] 4.2 g/dL Normal 3.5-5.7 [facility] Comment on above: Performed By: #### T SH3, LIPID, CMP #### [address] GFR/1.73 sq M.predicted MDRD (S/P/Bld) [Vol rate/Area] 36.151 mL/min/{1.73_m2} Normal [facility] Comment on above: Performed By: #### T SH3, LIPID, CMP #### [address] Creatinine [Mass/volume] in Serum or PlasmaOrdered By: Monster Benitez on 01-15-2024 Creatinine [Mass/Vol] 1.84 mg/dL High 0.70-1.30 [facility] Comment on above: Performed By: #### T SH3, LIPID, CMP #### [address] Erythrocyte distribution wid th [Ratio] by Automated countOrdered By: Monster Benitez on 01-15-2024 Erythrocyte distribution width (RBC) [Ratio] 14.1 % 12.0-14.8 [facility] Comment on above: Performed By: #### C BC, PSAS, TSH3, CMP, LIPID #### [address] Erythrocytes [#/volume] in B lood by Automated countOrdered By: Monster Benitez on 01-15-2024 RBC (Bld) [#/Vol] 4.59 10*6/uL 3.90-5.60 [facility] Comment on above: Performed By: #### C BC, PSAS, TSH3, CMP, LIPID #### [facility] [address] Glucose [Mass/volume] in Ser um or PlasmaOrdered By: Monster Benitez on 01-15-2024 Glucose [Mass/Vol] 90 mg/dL 70-100 [facility] Comment on above: ADA recommended refe rence rangeRandom Glucose Reference Range is dependent on time and content of last meal. Glucose of more than 200 mg/dL in a nonstressed, ambulatory subject supports the diagnosis of Diabetes Mellitus. Result Comment: [place] om Glucose Reference Range is dependent on time and content of last meal. Glucose of more than 200 mg/dL in a nonstressed, ambulatory subject supports the diagnosis of Diabetes Mellitus. ADA recommended reference range Performed By: #### T SH3, LIPID, CMP #### [address] Hematocrit [Volume Fraction] of Blood by Automated countOrdered By: Monster Benitez on 01-15-2024 Hematocrit (Bld) [Volume fraction] 45.2 % 38.8-50.0 [facility] Comment on above: Performed By: #### C BC, PSAS, TSH3, CMP, LIPID #### [address] Hemoglobin [Mass/volume] in BloodOrdered By: Monster Benitez on 01-15-2024 Hemoglobin (Bld) [Mass/Vol] 15.0 g/dL 13.0-17.0 [facility] Comment on above: Performed By: #### C BC, PSAS, TSH3, CMP, LIPID #### [address] Leukocytes [#/volume] correc joseph for nucleated erythrocytes in Blood by Automated counOrdered By: Monster Benitez on 01-15-2024 WBC corrected for nucl RBC Auto (Bld) [#/Vol] 7.5 10*3/uL 4.1-10.5 [facility] Leukocytes [#/volume] in Blo od by Automated countOrdered By: Monster Benitez on 01-15-2024 WBC (Bld) [#/Vol] 7.5 10*3/uL 4.1-10.5 [facility] Comment on above: Performed By: #### C BC, PSAS, TSH3, CMP, LIPID #### [facility] [address] Lipid Panelon 01-15-2024 LDL Cholesterol,Calculated 105 mg/dL High 0-100 [facility] Comment on above: Result Comment: LDL ATP III CLASSIFICATION LDL less than 100 mg/dL Optimal LDL 100-129 mg/dL Near or above optimal LDL 130-159 mg/dL Borderline high LDL 160-189 mg/dL High LDL greater than 189 mg/dL Very high Performed By: #### T SH3, LIPID, CMP #### [address] Triglyceride w/Reflex 83 mg/dL Normal 0-149 [facility] Comment on above: Result Comment: TRIG ATP III CLASSIFICATION TRIG less than 150 mg/dL Normal TRIG 150-199 mg/dL Borderline high TRIG 200-500 mg/dL High TRIG greater than 500 mg/dL Very high Standard traceable to the Center for Disease Conrtrol and Prevention (CDC) test method. Performed By: #### T SH3, LIPID, CMP #### [address] VLDL CHOLESTEROL 16 mg/dL Normal [facility] Comment on above: Performed By: #### T SH3, LIPID, CMP #### [address] Lymphocytes [#/volume] in Bl ood by Automated countOrdered By: Monster Benitez on 01-15-2024 Lymphocytes (Bld) [#/Vol] 3.1 10*3/uL 1.00-4.8 [facility] Comment on above: Performed By: #### C BC, PSAS, TSH3, CMP, LIPID #### [place] [address] [place] Lymphocytes/100 leukocytes i n Blood by Automated countOrdered By: Monster Benitez on 01-15-2024 Lymphocytes/100 WBC (Bld) 41.2 % . [facility] Comment on above: Performed By: #### C BC, PSAS, TSH3, CMP, LIPID #### [facility] [address] MCH [Entitic mass] by Automa joseph countOrdered By: Monster Benitez on 01-15-2024 MCH (RBC) [Entitic mass] 32.6 pg 27.5-35.2 [facility] Comment on above: Performed By: #### C BC, PSAS, TSH3, CMP, LIPID #### [facility] [address] MCHC Auto (RBC) [Mass/Vol]Or dered By: Monster Benitez on 01-15-2024 MCHC (RBC) [Mass/Vol] 33.2 g/dL 32.5-35.6 [facility] MCV [Entitic volume] by Auto mated countOrdered By: Monster Benitez on 01-15-2024 MCV (RBC) [Entitic vol] 98.4 fL 83.5-[address] [facility] Comment on above: Performed By: #### C BC, PSAS, TSH3, CMP, LIPID #### [facility] [address] [place] [address] Neutrophils [#/volume] in Bl ood by Automated countOrdered By: Monster Benitez on 01-15-2024 Neutrophils (Bld) [#/Vol] 3.2 10*3/uL 1.8-7.7 [facility] Comment on above: Performed By: #### C BC, PSAS, TSH3, CMP, LIPID #### [facility] [address] [place] [address] No Panel InformationOrdered By: Monster Benitez on 01-15-2024 Estimated GFR (CKD-EPI) 36.151 mL/Min [facility] Creatinine Clearance (Chem N/A [facility] Nucleated erythrocytes [Pres ence] in Blood by Automated countOrdered By: Monster Benitez on 01-15-2024 Nucleated RBC Auto Ql (Bld) 0.2 /100{WBC} 0-0.5 [facility] PSA Screen (Yearly Only)on 0 01-15-2024 PSA Screen (Yearly Only) < 0.008 Normal 0.000-4.000 [facility] Comment on above: Order Comment: Reaso n for Exam Hyperlipidemia Result Comment: Seri al tumor marker results determined by assays using different manufacturers or methods may not be comparable. [facility] sales team member and method: [employer] DXI, CHEMILUMINESCENT IMMUNOASSAY. PERFORMED BY: [place] [address] PATHOLOGIST BENZENE STILL UTILITY OPERATOR SERGEI HERNANDEZ M.D. Performed By: #### T SH3, LIPID, CMP #### [place] [address] [place] Platelet mean volume [Entiti c volume] in Blood by Automated countOrdered By: Monster Benitez on 01-15-2024 Platelet mean volume (Bld) [Entitic vol] 9.1 fL 6.6-10.1 [facility] Comment on above: Performed By: #### C BC, PSAS, TSH3, CMP, LIPID #### [place] [address] [place] Platelets [#/volume] in Bloo d by Automated countOrdered By: Monster Benitez on 01-15-2024 Platelets (Bld) [#/Vol] 274 10*3/uL 150-450 [facility] Comment on above: Performed By: #### C BC, PSAS, TSH3, CMP, LIPID #### [place] [address] [place] Potassium [Moles/volume] in Serum or PlasmaOrdered By: Monster Benitez on 01-15-2024 Potassium [Moles/Vol] 4.9 mmol/L 3.5-5.1 [facility] Comment on above: Performed By: #### T SH3, LIPID, CMP #### [place] [address] [place] Prostate specific Ag [Mass/v olume] in Serum or PlasmaOrdered By: Monster Benitez on 01-15-2024 Prostate specific Ag [Mass/Vol] ng/mL 0.000-4.000 [facility] Comment on above: Serial tumor marker results determined by assays using different manufacturers or methods may not be comparable.[facility] sales team member and method:[employer] DXI, CHEMILUMINESCENT IMMUNOASSAY. Protein [Mass/volume] in Ser um or PlasmaOrdered By: Monster Benitez on 01-15-2024 Protein [Mass/Vol] 6.7 g/dL 6.4-8.9 [facility] Comment on above: Performed By: #### T SH3, LIPID, CMP #### [facility] [address] [place] [address] Serum globulin measurement b y calculation (mass/volume)Ordered By: Monster Benitez on 01-15-2024 Globulin (S) [Mass/Vol] 2.5 g/dL [facility] Comment on above: Performed By: #### T SH3, LIPID, CMP #### [address] Serum or plasma albumin/glob ulin mass ratioOrdered By: Monster Benitez on 01-15-2024 Albumin/Globulin [Mass ratio] 1.7 {ratio} [facility] Comment on above: Performed By: #### T SH3, LIPID, CMP #### [address] Serum or plasma anion gap de terminationOrdered By: Monster Benitez on 01-15-2024 Anion gap [Moles/Vol] 11.4 mmol/L 6.0-15.0 [facility] Comment on above: Performed By: #### T SH3, LIPID, CMP #### [facility] [address] [place] [address] Serum or plasma high density lipoprotein (HDL) cholesterol measurementOrdered By: Monster Benitez on 01-15-2024 Cholesterol in HDL [Mass/Vol] 59 mg/dL 23-92 [facility] Comment on above: HDL CHOL ATP-III CLA SSIFICATION Cardiovascular RiskHDL > or equal to 60 mg/dL LOWHDL < 40 mg/dL HIGH Result Comment: HDL CHOL ATP-III CLASSIFICATION Cardiovascular Risk HDL > or equal to 60 mg/dL LOW HDL < 40 mg/dL HIGH Performed By: #### T SH3, LIPID, CMP #### [facility] [address] [place] [address] Serum or plasma total choles terol/high density lipoprotein (HDL) cholesterol mass ratOrdered By: Monster Benitez on 01-15-2024 Cholesterol.total/Aubree sterol in HDL [Mass ratio] 3.1 {ratio} <5.0 [facility] Comment on above: Performed By: #### T SH3, LIPID, CMP #### [address] Sodium [Moles/volume] in Ser um or PlasmaOrdered By: Monster Benitez on 01-15-2024 Sodium [Moles/Vol] 140 mmol/L 136-145 [facility] Comment on above: Performed By: #### T SH3, LIPID, CMP #### [address] Thyrotropin [Units/volume] i n Serum or PlasmaOrdered By: Monster Benitez on 01-15-2024 TSH Qn 1.53 m[IU]/L 0.45-5.33 [facility] Comment on above: Result Comment: PERF ORMED BY: [place] [address] PATHOLOGIST [employer]ILITY OPERATOR SERGEI HERNANDEZ M.D. Performed By: #### T SH3, LIPID, CMP #### [address] Triglyceride [Mass/volume] i n Serum or PlasmaOrdered By: Monster Benitez on 01-15-2024 Triglyceride [Mass/Vol] 83 mg/dL 0-149 [facility] Comment on above: TRIG ATP III CLASSIF ICATIONTRIG less than 150 mg/dL NormalTRIG 150-199 mg/dL Borderline highTRIG 200-500 mg/dL High TRIG greater than 500 mg/dL Very highStandard traceable to the Center for Disease Conrtrol and Prevention (CDC) test method. Urea nitrogen [Mass/volume] in Serum or PlasmaOrdered By: Monster Benitez on 01-15-2024 Urea nitrogen [Mass/Vol] 24 mg/dL 7-25 [facility] Comment on above: Performed By: #### T SH3, LIPID, CMP #### [place] [id number] [place] lesvia perf SPECT rest stron 10-23-2023 [place] lesvia perf SPECT rest [place] [address] Nuclear Medicine Report Signed Patient: Ilya Benitez MR#: [id number] 6 : 1940 Acct:[id number] Age/Sex: 83 / M ADM Date: 10/22/23 Loc: Room: Type: [facility] Attending Dr: Clovis Singh MD Copies to: [...] Omayra Ricketts M.D.10/23/2023 4:03 PM Dictation Location: [place] [address] Transcribed By: [facility] 10/23/23 1603 Dictated By: Omayra Ricketts MD 10/23/23 1550 Signed By: 10/23/23 1603 Normal [facility] ECH echo transthoracicon ECH echo transthoracic [facility] [place] [address] Echocardiogram Signed Patient: Ilya Benitez MR#: [id number] 6 : 1940 Acct:[id number] Age/Sex: 83 / M ADM Date: 10/22/23 Loc: Room: Type: [facility] Attending Dr: Clovis Singh MD Ordering Provider: Clovis Singh MD Date of Service: 10/22/23 [facility] echo transthoracic: R07.9 - Chest pain, unspecified [...] V2 max: 241.3 cm/sec MV A max dialn: 56.1 cm/sec Ao max P.3 mmHg MR [...] AM : + ------+ + Transcribed By: SCV Performed At: 10/22/23 1138 Signed By: Clovis Singh MD 10/23/23 0023 Normal [facility] FPG ECG *OFFICE ONLY*on FPG ECG *OFFICE ONLY* [place] [address] Electrocardiograph Report Signed Patient: Ilya Benitez MR#: [id number] 6 : 1940 Acct:[id number] Age/Sex: 83 / M ADM Date: 10/05/23 Loc: EKGCARDIO Room: Type: [facility] Attending Dr: Clovis Singh MD Ordering Provider: [...] for LVH, may be normal variant ( Enoc product ) Septal infarct , age undetermined Abnormal ECG When compared with ECG of 14-APR-2013 08:51, Atrial fibrillation has replaced Sinus rhythm QRS duration has increased Septal infarct is now present Confirmed by Clovis Singh ([id number]) on 10/05/2023 1:19:00 PM Referred By: Electronically Signed By:Clovis Singh Transcribed By: MUS Signed By Clovis Singh MD 10/05/23 1319 Normal [facility] CT chest w conon 09-04-2023 CT chest w [place] [address] CT Scan Report Signed Patient: Ilya Benitez MR#: [id number] 6 : 1940 Acct:[id number] Age/Sex: 83 / M ADM Date: 09/04/23 Loc: [facility]: [facility] Dr: Monster Benitez DO Copies to: Monster Benitez DO Ordering Provider: Monster Benitez DO Date of Service: 09/04/23 CT/CT chest [...] noted. Impression dictated by: Kaleb Aguilar Jr., Alessandro09/04/2023 10:16 AM Dictation Location: [place] [address] Transcribed By: [facility] 09/04/23 1016 Dictated By: Kaleb Aguilar Jr, DO 09/04/23 1002 Signed By: 09/04/23 1016 Normal [facility] ISTAT XRay CREon 09-04-2023 ISTAT GFR 39.752 Normal [facility] Comment on above: Result Comment: PERF ORMED BY: [place] [address] PATHOLOGIST [employer]ENE [employer] UTILITY OPERATOR SERGEI HERNANDEZ M.D. Performed By: #### I SCRE #### [address] No Panel InformationOrdered By: Monster Benitez on 09-04-2023 Bedside Estimated GFR (eGFR) 39.752 [facility] Whole blood creatinine measu rementOrdered By: Monster Benitez on 09-04-2023 Creatinine [Mass/Vol] 1.7 mg/dL High 0.6-1.3 [facility] Comment on above: ER/ESD physician is notified/shown all ISTAT results.Critical values may be confirmed by laboratory testing ifdeemed necessary by ER attending doctor. Result Comment: ER/E SD physician is notified/shown all ISTAT results. Critical values may be confirmed by laboratory testing if deemed necessary by ER attending doctor. Performed By: #### I SCRE #### [facility] [address] Comprehensive Metabolic Pane [facility] 05-20-2023 Albumin [Mass/Vol] 3.784246 g/dL Normal 3.4-5.0 g/dL N [facility] [employer] Other ALP [Catalytic activity/Vol] 86 U/L Normal 46-116 U/L [place] [facility] [employer] Other ALT [Catalytic activity/Vol] 40 U/L Normal 16-63 U/L [place] [employer] Other Anion gap [Moles/Vol] 13.4 mmol/L [facility] Other AST [Catalytic activity/Vol] 31 U/L Normal 15-37 U/L [place] [employer] Other Bilirubin [Mass/Vol] 0.1231038 mg/dL Normal 0.2- 1.0 mg/dL [employer] Other Calcium [Mass/Vol] 9.6641398 mg/dL Normal 8.5-10 .1 mg/dL [employer] Other Chloride [Moles/Vol] 102 mmol/L Normal 98-107 mmol/L [employer] Other CO2 [Moles/Vol] 30.78059247 mmol/L Normal 21.0-3 2.0 mmol/L [employer] Other Creatinine [Mass/Vol] 1.34451973 mg/dL High 0. 70-1.30 mg/dL [employer] Other Glucose [Mass/Vol] 97 mg/dL Normal 74-106 mg/dL [place] [facility] Other Potassium [Moles/Vol] 4.43433630 mmol/L Normal 3 .5-5.1 mmol/L [employer] Other Protein [Mass/Vol] 7.811426 g/dL Normal 6.4-8.2 g/dL N [employer] Other Sodium [Moles/Vol] 141 mmol/L Normal 136-145 mmol/L [employer] Other Urea nitrogen [Mass/Vol] 29.4845324 mg/dL High 7.0-18.0 mg/dL [employer] Other Urea nitrogen/Creatinine [Mass ratio] 16.9 mg/mg [facility] Other Comprehensive Metabolic Panel 3.5 g/dL [facility] Other Comprehensive Metabolic Panel 1.0 [facility] Other Comprehensive Metabolic Panel see note [facility] Other Comprehensive Metabolic Panel 38 Low >=60 [facility] Other Comprehensive Metabolic Panel 46 Low >=60 [employer] Other Complete Blood Count Auto Di ffon 04-17-2023 Basophils (Bld) [#/Vol] 0.1 10*3/uL Normal 0.0-0.2 [facility] Comment on above: Order Comment: Reaso n for Exam Hyperlipidemia Result Comment: PERF ORMED BY: [facility] [address] [place] [address] PATHOLOGIST [employer]EN[employer] UTILITY OPERATOR SERGEI HERNANDEZ M.D. Performed By: #### C BC #### [facility] [address] [place] [id number] [place] Basophils/100 WBC (Bld) 0.9 % Normal . [facility] Comment on above: Order Comment: Reaso n for Exam Hyperlipidemia Performed By: #### C BC #### [facility] [address] [place] [address] [place] Eosinophils (Bld) [#/Vol] 0.2 10*3/uL Normal 0.0-0.45 [facility] Comment on above: Order Comment: Reaso n for Exam Hyperlipidemia Performed By: #### C BC #### [facility] [address] [place] [address] [place] Eosinophils/100 WBC (Bld) 2.2 % Normal . [facility] Comment on above: Order Comment: Reaso n for Exam Hyperlipidemia Performed By: #### C BC #### [address] Erythrocyte distribution width (RBC) [Ratio] 13.6 % Normal 12.0-14.8 [facility] Comment on above: Order Comment: Reaso n for Exam Hyperlipidemia Performed By: #### C BC #### [address] Hematocrit (Bld) [Volume fraction] 43.3 % Normal 38.8-50.0 [facility] Comment on above: Order Comment: Reaso n for Exam Hyperlipidemia Performed By: #### C BC #### [address] Hemoglobin (Bld) [Mass/Vol] 14.4 g/dL Normal 13.0-17.0 [facility] Comment on above: Order Comment: Reaso n for Exam Hyperlipidemia Performed By: #### C BC #### [place] [id number] [place] Lymphocytes (Bld) [#/Vol] 2.0 10*3/uL Normal 1.00-4.8 [facility] Comment on above: Order Comment: Reaso n for Exam Hyperlipidemia Performed By: #### C BC #### [place] [id number] [place] Lymphocytes/100 WBC (Bld) 28.0 % Normal . [facility] Comment on above: Order Comment: Reaso n for Exam Hyperlipidemia Performed By: #### C BC #### [place] [id number] [facility] MCH (RBC) [Entitic mass] 33.2 pg Normal 27.5-35.2 [facility] Comment on above: Order Comment: Reaso n for Exam Hyperlipidemia Performed By: #### C BC #### [address] MCV (RBC) [Entitic vol] 99.6 fL Normal 83.5-101 T [facility] Comment on above: Order Comment: Reaso n for Exam Hyperlipidemia Performed By: #### C BC #### [address] Mean Corpuscular HGB Conc 33.3 g/dL Normal 32.5-35.6 [facility] Comment on above: Order Comment: Reaso n for Exam Hyperlipidemia Performed By: #### C BC #### [address] Monocytes (Bld) [#/Vol] 1.0 10*3/uL High 0.0-0.8 [facility] Comment on above: Order Comment: Reaso n for Exam Hyperlipidemia Performed By: #### C BC #### [address] Monocytes/100 WBC (Bld) 13.8 % Normal . [facility] Comment on above: Order Comment: Reaso n for Exam Hyperlipidemia Performed By: #### C BC #### [address] Neutrophils (Bld) [#/Vol] 3.9 10*3/uL Normal 1.8-7.7 [facility] Comment on above: Order Comment: Reaso n for Exam Hyperlipidemia Performed By: #### C BC #### [place] [address] [place] Neutrophils/100 WBC (Bld) 55.1 % Normal . [facility] Comment on above: Order Comment: Reaso n for Exam Hyperlipidemia Performed By: #### C BC #### [address] NRBC% 0.2 /100{WBC} Normal 0-0.5 [facility] Comment on above: Order Comment: Reaso n for Exam Hyperlipidemia Performed By: #### C BC #### [facility] [address] Platelet mean volume (Bld) [Entitic vol] 8.8 fL Normal 6.6-10.1 [facility] Comment on above: Order Comment: Reaso n for Exam Hyperlipidemia Performed By: #### C BC #### [facility] [address] [place] [id number] [facility] Platelets (Bld) [#/Vol] 293 10*3/uL Normal 150-450 [facility] Comment on above: Order Comment: Reaso n for Exam Hyperlipidemia Performed By: #### C BC #### [address] RBC (Bld) [#/Vol] 4.35 10*6/uL Normal 3.90-5.60 [facility] Comment on above: Order Comment: Reaso n for Exam Hyperlipidemia Performed By: #### C BC #### [address] WBC (Bld) [#/Vol] 7.0 10*3/uL Normal 4.1-10.5 [facility] Comment on above: Order Comment: Reaso n for Exam Hyperlipidemia Performed By: #### C BC #### [address] Comprehensive Metabolic Pane yovani 04-17-2023 Albumin [Mass/Vol] 4.1 g/dL Normal 3.5-5.7 [facility] Comment on above: Order Comment: Reaso n for Exam Hyperlipidemia Performed By: #### T SH3, LIPID, CMP #### [address] Albumin/Globulin [Mass ratio] 1.5 {ratio} Normal [facility] Comment on above: Order Comment: Reaso n for Exam Hyperlipidemia Performed By: #### T SH3, LIPID, CMP #### [address] ALP [Catalytic activity/Vol] 79 U/L Normal 34-104 [facility] Comment on above: Order Comment: Reaso n for Exam Hyperlipidemia Performed By: #### T SH3, LIPID, CMP #### [facility] [address] [place] [address] [place] ALT [Catalytic activity/Vol] 28 U/L Normal 7-52 [facility] Comment on above: Order Comment: Reaso n for Exam Hyperlipidemia Performed By: #### T SH3, LIPID, CMP #### [facility] [address] [place] [address] Anion gap [Moles/Vol] 10.9 mmol/L Normal 6.0-15.0 [facility] Comment on above: Order Comment: Reaso n for Exam Hyperlipidemia Performed By: #### T SH3, LIPID, CMP #### [facility] [address] [place] [address] AST [Catalytic activity/Vol] 32 U/L Normal 13-39 [facility] Comment on above: Order Comment: Reaso n for Exam Hyperlipidemia Performed By: #### T SH3, LIPID, CMP #### [place] [address] [place] Bilirubin [Mass/Vol] 0.8 mg/dL Normal 0.3-1.0 [facility] Comment on above: Order Comment: Reaso n for Exam Hyperlipidemia Performed By: #### T SH3, LIPID, CMP #### [address] Calcium [Mass/Vol] 9.4 mg/dL Normal 8.6-10.3 [facility] Comment on above: Order Comment: Reaso n for Exam Hyperlipidemia Performed By: #### T SH3, LIPID, CMP #### [place] [address] [place] Chloride [Moles/Vol] 105 mmol/L Normal 98-107 [facility] Comment on above: Order Comment: Reaso n for Exam Hyperlipidemia Performed By: #### T SH3, LIPID, CMP #### [place] [address] [place] CO2 [Moles/Vol] 28.4 mmol/L Normal 21.0-31.0 [facility] Comment on above: Order Comment: Reaso n for Exam Hyperlipidemia Performed By: #### T SH3, LIPID, CMP #### [facility] [address] Creatinine [Mass/Vol] 1.49 mg/dL High 0.70-1.30 [facility] Comment on above: Order Comment: Reaso n for Exam Hyperlipidemia Performed By: #### T SH3, LIPID, CMP #### [address] GFR/1.73 sq M.predicted MDRD (S/P/Bld) [Vol rate/Area] 46.566 mL/min/{1.73_m2} Normal [facility] Comment on above: Order Comment: Reaso n for Exam Hyperlipidemia Performed By: #### T SH3, LIPID, CMP #### [address] Globulin (S) [Mass/Vol] 2.7 g/dL Normal [facility] Comment on above: Order Comment: Reaso n for Exam Hyperlipidemia Performed By: #### T SH3, LIPID, CMP #### [address] Glucose [Mass/Vol] 96 mg/dL Normal 70-100 [facility] Comment on above: Order Comment: Reaso n for Exam Hyperlipidemia Result Comment: [place] Glucose Reference Range is dependent on time and content of last meal. Glucose of more than 200 mg/dL in a nonstressed, ambulatory subject supports the diagnosis of Diabetes Mellitus. ADA recommended reference range Performed By: #### T SH3, LIPID, CMP #### [address] Potassium [Moles/Vol] 4.3 mmol/L Normal 3.5-5.1 [facility] Comment on above: Order Comment: Reaso n for Exam Hyperlipidemia Performed By: #### T SH3, LIPID, CMP #### [address] Protein [Mass/Vol] 6.8 g/dL Normal 6.4-8.9 [facility] Comment on above: Order Comment: Reaso n for Exam Hyperlipidemia Performed By: #### T SH3, LIPID, CMP #### [facility] [address] [place] [address] [place] Sodium [Moles/Vol] 140 mmol/L Normal 136-145 [facility] Comment on above: Order Comment: Reaso n for Exam Hyperlipidemia Performed By: #### T SH3, LIPID, CMP #### [facility] [address] [place] [address] [place] Urea nitrogen [Mass/Vol] 22 mg/dL Normal 7-25 [facility] Comment on above: Order Comment: Reaso n for Exam Hyperlipidemia Performed By: #### T SH3, LIPID, CMP #### [facility] [address] [place] [address] [facility] Lipid Panelon 04-17-2023 Cholesterol [Mass/Vol] 179 mg/dL Normal 140-200 [facility] Comment on above: Order Comment: Reaso n for Exam Hyperlipidemia Result Comment: Chol less than 200 mg/dl low risk Chol 201-239 mg/dl borderline risk Chol 240 mg/dl and greater high risk Performed By: #### T SH3, LIPID, CMP #### [facility] [address] [place] [id number] [place] Cholesterol in HDL [Mass/Vol] 66 mg/dL Normal 23-92 [facility] Comment on above: Order Comment: Reaso n for Exam Hyperlipidemia Result Comment: HDL CHOL ATP-III CLASSIFICATION Cardiovascular Risk HDL > or equal to 60 mg/dL LOW HDL < 40 mg/dL HIGH Performed By: #### T SH3, LIPID, CMP #### [facility] [address] [place] [address] [place] Cholesterol.total/Aubree sterol in HDL [Mass ratio] 2.7 {ratio} Normal <5.0 [facility] Comment on above: Order Comment: Reaso n for Exam Hyperlipidemia Performed By: #### T SH3, LIPID, CMP #### [facility] [address] [place] [id number] [place] LDL Cholesterol,Calculated 97 mg/dL Normal 0-100 [facility] Comment on above: Order Comment: Reaso n for Exam Hyperlipidemia Result Comment: LDL ATP III CLASSIFICATION LDL less than 100 mg/dL Optimal LDL 100-129 mg/dL Near or above optimal LDL 130-159 mg/dL Borderline high LDL 160-189 mg/dL High LDL greater than 189 mg/dL Very high Performed By: #### T SH3, LIPID, CMP #### [address] Triglyceride w/Reflex 79 mg/dL Normal 0-149 [facility] Comment on above: Order Comment: Reaso n for Exam Hyperlipidemia Result Comment: TRIG ATP III CLASSIFICATION TRIG less than 150 mg/dL Normal TRIG 150-199 mg/dL Borderline high TRIG 200-500 mg/dL High TRIG greater than 500 mg/dL Very high Standard traceable to the Center for Disease Conrtrol and Prevention (CDC) test method. Performed By: #### T SH3, LIPID, CMP #### [address] VLDL CHOLESTEROL 15 mg/dL Normal [facility] Comment on above: Order Comment: Reaso n for Exam Hyperlipidemia Performed By: #### T SH3, LIPID, CMP #### [address] Thyroid Stimulating Hormoneo n 04-17-2023 TSH Qn 2.20 m[IU]/L Normal 0.45-5.33 [facility] Comment on above: Order Comment: Reaso n for Exam Hyperlipidemia Result Comment: PERF ORMED BY: [place] [address] PATHOLOGIST BENZENE ST[employer] UTILITY OPERATOR SERGEI HERNANDEZ M.D. Performed By: #### T SH3, LIPID, CMP #### [address] MRI LSPINE WO CONon 10-09-19 23 MRI LSPINE WO CON EXAMINATION: MRI LSPINE [...] by: SERENA GILL Date: 2022-10-08 13:32 Normal [facility] Alanine aminotransferase [En zymatic activity/volume] in Serum or PlasmaOrdered By: Monster Benitez on 10-06-2022 ALT [Catalytic activity/Vol] 30 U/L 7-52 [facility] Albumin [Mass/volume] in Ser um or Plasma by Bromocresol green (BCG) dye binding methoOrdered By: Monster Benitez on 10-06-2022 Albumin BCG dye [Mass/Vol] 4.2 g/dL 3.5-5.7 [facility] Alkaline phosphatase [Enzyma tic activity/volume] in Serum or PlasmaOrdered By: Monster Benitez on 10-06-2022 ALP [Catalytic activity/Vol] 68 U/L 34-104 [facility] Aspartate aminotransferase [ Enzymatic activity/volume] in Serum or PlasmaOrdered By: Monster Benitez on 10-06-2022 AST [Catalytic activity/Vol] 34 U/L 13-39 [facility] Bilirubin.total [Mass/volume ] in Serum or PlasmaOrdered By: Monster Benitez on 10-06-2022 Bilirubin [Mass/Vol] 1.0 mg/dL 0.3-1.0 [facility] Calcium [Mass/volume] in Ser um or PlasmaOrdered By: Monster Benitez on 10-06-2022 Calcium [Mass/Vol] 9.1 mg/dL 8.6-10.3 [facility] Carbon dioxide, total [Moles /volume] in Serum or PlasmaOrdered By: Monster Benitez on 10-06-2022 CO2 [Moles/Vol] 30.8 mmol/L 21.0-31.0 [facility] Chloride [Moles/volume] in S bautista or PlasmaOrdered By: Monster Benitez on 10-06-2022 Chloride [Moles/Vol] 104 mmol/L 98-107 [facility] Creatinine [Mass/volume] in Serum or PlasmaOrdered By: Monster Benitez on 10-06-2022 Creatinine [Mass/Vol] 1.48 mg/dL 0.70-1.30 [facility] Globulin Calc (S) [Mass/Vol] Ordered By: Monster Benitez on 10-06-2022 Globulin (S) [Mass/Vol] 2.5 g/dL [facility] Glucose [Mass/volume] in Ser um or PlasmaOrdered By: Monster Benitez on 10-06-2022 Glucose [Mass/Vol] 92 mg/dL 70-100 [facility] Comment on above: ADA recommended refe rence rangeRandom Glucose Reference Range is dependent on time and content of last meal. Glucose of more than 200 mg/dL in a nonstressed, ambulatory subject supports the diagnosis of Diabetes Mellitus. No Panel InformationOrdered By: Monster Benitez on 10-06-2022 Estimated GFR (CKD-EPI) 47.237 mL/Min [facility] Creatinine Clearance (Chem N/A [facility] Potassium [Moles/volume] in Serum or PlasmaOrdered By: Monster Benitez on 10-06-2022 Potassium [Moles/Vol] 4.6 mmol/L 3.5-5.1 [facility] Protein [Mass/volume] in Ser um or PlasmaOrdered By: Monster Benitez on 10-06-2022 Protein [Mass/Vol] 6.7 g/dL 6.4-8.9 [facility] Serum or plasma albumin/glob ulin mass ratioOrdered By: Monster Benitez on 10-06-2022 Albumin/Globulin [Mass ratio] 1.7 {ratio} [facility] Serum or plasma anion gap de terminationOrdered By: Monster Benitez on 10-06-2022 Anion gap [Moles/Vol] 9.8 mmol/L 6.0-15.0 [facility] Sodium [Moles/volume] in Ser um or PlasmaOrdered By: Monster Benitez on 10-06-2022 Sodium [Moles/Vol] 140 mmol/L 136-145 [facility] Urea nitrogen [Mass/volume] in Serum or PlasmaOrdered By: Monster Benitez on 10-06-2022 Urea nitrogen [Mass/Vol] 23 mg/dL 7-25 [facility] XR LSPINE 2_3 VIEWSon 2022 XR LSPINE [...] ANUEL COVINGTON Date: 2022-09-16 16:02 Normal [facility] Albumin [Mass/volume] in Ser um or PlasmaOrdered By: Monster Benitez on 07-09-2022 Albumin [Mass/Vol] 3.7 g/dL 3.2-5.5 [facility] Basophils Auto (Bld) [#/Vol] Ordered By: Monster Benitez on 07-09-2022 Basophils (Bld) [#/Vol] 0.0 10*3/uL 0.0-0.2 [facility] Basophils/100 WBC Auto (Bld) Ordered By: Monster Benitez on 07-09-2022 Basophils/100 WBC (Bld) 0.5 % . F [facility] Cholesterol [Mass/volume] in Serum or PlasmaOrdered By: Monster Benitez on 07-09-2022 Cholesterol [Mass/Vol] 175 mg/dL 140-200 Fi [facility] Comment on above: Chol less than 200 m g/dl low riskChol 201-239 mg/dl borderline riskChol 240 mg/dl and greater high risk Cholesterol in LDL Calc [Mas s/Vol]Ordered By: Monster Benitez on 07-09-2022 Cholesterol in LDL [Mass/Vol] 105 mg/dL 0-100 [facility] Comment on above: LDL ATP III CLASSIFI CATIONLDL less than 100 mg/dL OptimalLDL 100-129 mg/dL Near or above optimalLDL 130-159 mg/dL Borderline highLDL 160-189 mg/dL HighLDL greater than 189 mg/dL Very high Cholesterol in VLDL Calc [Ma ss/Vol]Ordered By: Monster Benitez on 07-09-2022 Cholesterol in VLDL [Mass/Vol] 14 mg/dL [facility] Creatinine and Glomerular fi ltration rate.predicted panel (S/P/Bld)Ordered By: Monster Benitez on 07-09-2022 Creatinine [Mass/Vol] 1.61 mg/dL 0.64-1.27 [facility] Eosinophils Auto (Bld) [#/Vo l]Ordered By: Monster Benitez on 07-09-2022 Eosinophils (Bld) [#/Vol] 0.2 10*3/uL 0.0-0.45 [facility] Eosinophils/100 WBC Auto (Bl d)Ordered By: Monster Beintez on 07-09-2022 Eosinophils/100 WBC (Bld) 2.2 % . [facility] Erythrocyte distribution wid th Auto (RBC) [Ratio]Ordered By: Monster Benitez on 07-09-2022 Erythrocyte distribution width (RBC) [Ratio] 13.0 % 12.0-14.8 [facility] Estimated glomerular filtrat ion rate (GFR) non- AmericanOrdered By: Monster Benitez on 07-09-2022 GFR/1.73 sq M.predicted among non-blacks MDRD (S/P/Bld) [Vol rate/Area] 41 mL/Min [facility] Globulin Calc (S) [Mass/Vol] Ordered By: Monster Benitez on 07-09-2022 Globulin (S) [Mass/Vol] 2.5 g/dL F [facility] Hematocrit Auto (Bld) [Volum e fraction]Ordered By: Monster Benitez on 07-09-2022 Hematocrit (Bld) [Volume fraction] 45.2 % 38.8-50.0 [facility] Hemoglobin [Mass/volume] in BloodOrdered By: Monster Benitez on 07-09-2022 Hemoglobin (Bld) [Mass/Vol] 14.8 g/dL 13.0-17.0 [facility] Leukocytes [#/volume] correc joseph for nucleated erythrocytes in Blood by Automated counOrdered By: Monster Benitez on 07-09-2022 WBC corrected for nucl RBC Auto (Bld) [#/Vol] 7.2 10*3/uL 4.1-10.5 [facility] Lymphocytes Auto (Bld) [#/Vo l]Ordered By: Monster Benitez on 07-09-2022 Lymphocytes (Bld) [#/Vol] 2.5 10*3/uL 1.00-4.8 [facility] Lymphocytes/100 WBC Auto (Bl d)Ordered By: Monster Benitez on 07-09-2022 Lymphocytes/100 WBC (Bld) 34.8 % . [facility] MCH Auto (RBC) [Entitic mass ]Ordered By: Monster Benitez on 07-09-2022 MCH (RBC) [Entitic mass] 32.4 pg 27.5-35.2 [facility] MCHC Auto (RBC) [Mass/Vol]Or dered By: Monster Benitez on 07-09-2022 MCHC (RBC) [Mass/Vol] 32.8 g/dL 32.5-35.6 [facility] MCV Auto (RBC) [Entitic vol] Ordered By: Monster Benitez on 07-09-2022 MCV (RBC) [Entitic vol] 98.9 fL 83.5-[address] [facility] Monocytes Auto (Bld) [#/Vol] Ordered By: Monster Benitez on 07-09-2022 Monocytes (Bld) [#/Vol] 0.7 10*3/uL 0.0-0.8 [facility] Monocytes/100 WBC Auto (Bld) Ordered By: Monster Benitez on 07-09-2022 Monocytes/100 WBC (Bld) 10.3 % . F [facility] Neutrophils Auto (Bld) [#/Vo l]Ordered By: Monster Benitez on 07-09-2022 Neutrophils (Bld) [#/Vol] 3.7 10*3/uL 1.8-7.7 [facility] Neutrophils/100 WBC Auto (Bl d)Ordered By: Monster Benitez on 07-09-2022 Neutrophils/100 WBC (Bld) 52.2 % . [facility] No Panel InformationOrdered By: Monster Benitez on 07-09-2022 Estimated GFR () 50 mL/Min [facility] Comment on above: GFR estimated refere nce range: According to KDOQI guidelines, <60 ml/min/1.73m2 is sufficient to diagnose a patient with chronic kidney disease. Pharmacy Creatinine Clearance (Chem N/A [facility] Prostate Specific Antigen Screen < 0.008 ng/mL 0.000-4.000 [facility] Nucleated erythrocytes [Pres ence] in Blood by Automated countOrdered By: Monster Benitez on 07-09-2022 Nucleated RBC Auto Ql (Bld) 0.1 /100{WBC} 0-0.5 [facility] Platelet mean volume Auto (B ld) [Entitic vol]Ordered By: Monster Benitez on 07-09-2022 Platelet mean volume (Bld) [Entitic vol] 8.8 fL 6.6-10.1 [facility] Platelets Auto (Bld) [#/Vol] Ordered By: Monster Benitez on 07-09-2022 Platelets (Bld) [#/Vol] 279 10*3/uL 150-450 [facility] Protein [Mass/volume] in Ser um or PlasmaOrdered By: Monster Benitez on 07-09-2022 Protein [Mass/Vol] 6.2 g/dL 6.1-7.9 [facility] RBC Auto (Bld) [#/Vol]Ordere d By: Monster Benitez on 07-09-2022 RBC (Bld) [#/Vol] 4.57 10*6/uL 3.90-5.60 [facility] Serum or plasma alanine vasques otransferase measurement without P-5'-P (enzymatic activiOrdered By: Monster Benitez on 07-09-2022 ALT No additional P-5'-P [Catalytic activity/Vol] 29 U/L 10-60 [facility] Serum or plasma albumin/glob ulin mass ratioOrdered By: Monster Benitez on 07-09-2022 Albumin/Globulin [Mass ratio] 1.5 {ratio} [facility] Serum or plasma alkaline olvier sphatase measurement (enzymatic activity/volume)Ordered By: Monster Benitez on 07-09-2022 ALP [Catalytic activity/Vol] 62 U/L 32-92 [facility] Serum or plasma anion gap de terminationOrdered By: Monster Benitez on 07-09-2022 Anion gap [Moles/Vol] 11.6 mmol/L 6.0-15.0 [facility] Serum or plasma aspartate am inotransferase measurement (enzymatic activity/volume)Ordered By: Monster Benitez on 07-09-2022 AST [Catalytic activity/Vol] 32 U/L 10-42 [facility] Serum or plasma calcium alexis urement (mass/volume)Ordered By: Monster Benitez on 07-09-2022 Calcium [Mass/Vol] 9.5 mg/dL 8.2-10.2 [facility] Serum or plasma chloride damaris surement (moles/volume)Ordered By: Monster Benitez on 07-09-2022 Chloride [Moles/Vol] 103 mmol/L 95-114 [facility] Serum or plasma glucose alexis urement (mass/volume)Ordered By: Monster Benitez on 07-09-2022 Glucose [Mass/Vol] 86 mg/dL 70-100 [facility] Comment on above: ADA recommended refe rence rangeRandom Glucose Reference Range is dependent on time and content of last meal. Glucose of more than 200 mg/dL in a nonstressed, ambulatory subject supports the diagnosis of Diabetes Mellitus. Serum or plasma high density lipoprotein (HDL) cholesterol measurementOrdered By: Monster Benitez on 07-09-2022 Cholesterol in HDL [Mass/Vol] 56 mg/dL 29-71 [facility] Comment on above: HDL CHOL ATP-III CLA SSIFICATION Cardiovascular RiskHDL > or equal to 60 mg/dL LOWHDL < 40 mg/dL HIGH Serum or plasma potassium me asurement (moles/volume)Ordered By: Monster Benitez on 07-09-2022 Potassium [Moles/Vol] 4.6 mmol/L 3.5-5.1 [facility] Serum or plasma sodium measu rement (moles/volume)Ordered By: Monster Benitez on 07-09-2022 Sodium [Moles/Vol] 139 mmol/L 136-146 [facility] Serum or plasma total biliru bin measurement (mass/volume)Ordered By: Monster Benitez on 07-09-2022 Bilirubin [Mass/Vol] 0.8 mg/dL 0.3-1.2 [facility] Serum or plasma total carbon dioxide measurement (moles/volume)Ordered By: Monster Benitez on 07-09-2022 CO2 [Moles/Vol] 29.0 mmol/L 22.0-30.0 [facility] Serum or plasma total choles terol/high density lipoprotein (HDL) cholesterol mass ratOrdered By: Monster Benitez on 07-09-2022 Cholesterol.total/Aubree sterol in HDL [Mass ratio] 3.1 {ratio} <5.0 [facility] Serum or plasma urea nitroge n measurement (mass/volume)Ordered By: Monster Benitez on 07-09-2022 Urea nitrogen [Mass/Vol] 21 mg/dL 9-23 [facility] TSH DL <= 0.005 mIU/L QnOrde red By: Monster Benitez on 07-09-2022 TSH Qn 2.82 m[IU]/L 0.45-5.33 [facility] Triglyceride [Mass/volume] i n Serum or PlasmaOrdered By: Monster Benitez on 07-09-2022 Triglyceride [Mass/Vol] 70 mg/dL 35-[address] [facility] Comment on above: TRIG ATP III CLASSIF ICATIONTRIG less than 150 mg/dL NormalTRIG 150-199 mg/dL Borderline highTRIG 200-500 mg/dL High TRIG greater than 500 mg/dL Very highStandard traceable to the Center for Disease Conrtrol and Prevention (CDC) test method. WBC Auto (Bld) [#/Vol]Ordere d By: Monster Benitez on 07-09-2022 WBC (Bld) [#/Vol] 7.2 10*3/uL 4.1-10.5 [facility] COVID Quick Testingon 2021 Result Negative [employer] Other Basophils Auto (Bld) [#/Vol] Ordered By: Monster Benitez on 01-06-2022 Basophils (Bld) [#/Vol] 0.0 10*3/uL 0.0-0.2 [facility] Basophils/100 WBC Auto (Bld) Ordered By: Monster Benitez on 01-06-2022 Basophils/100 WBC (Bld) 0.8 % . F [facility] Blood hemoglobin measurement (mass/volume)Ordered By: Monster Benitez on 01-06-2022 Hemoglobin (Bld) [Mass/Vol] 14.7 g/dL 13.0-17.0 [facility] Blood leukocytes automated c ount (number/volume)Ordered By: Monster Benitez on 01-06-2022 WBC (Bld) [#/Vol] 6.1 10*3/uL 4.5-11.0 [facility] Body fluid albumin measureme nt (mass/volume)Ordered By: Monster Benitez on 01-06-2022 Albumin (Body fld) [Mass/Vol] 3.7 g/dL 3.2-5.5 [facility] Cholesterol [Mass/volume] in Serum or PlasmaOrdered By: Monster Benitez on 01-06-2022 Cholesterol [Mass/Vol] 170 mg/dL 140-200 [facility] Comment on above: Chol less than 200 m g/dl low risk Chol 201-239 mg/dl borderline risk Chol 240 mg/dl and greater high risk Cholesterol in LDL Calc [Mas s/Vol]Ordered By: Monster Benitez on 01-06-2022 Cholesterol in LDL [Mass/Vol] 98 mg/dL 0-100 [facility] Comment on above: LDL ATP III CLASSIFI CATION LDL less than 100 mg/dL Optimal LDL 100-129 mg/dL Near or above optimal LDL 130-159 mg/dL Borderline high LDL 160-189 mg/dL High LDL greater than 189 mg/dL Very high Cholesterol in VLDL Calc [Ma ss/Vol]Ordered By: Monster Benitez on 01-06-2022 Cholesterol in VLDL [Mass/Vol] 9 mg/dL [facility] Creatinine and Glomerular fi ltration rate.predicted panel (S/P/Bld)Ordered By: Monster Benitez on 01-06-2022 Creatinine [Mass/Vol] 1.41 mg/dL 0.64-1.27 [facility] Eosinophils Auto (Bld) [#/Vo l]Ordered By: Monster Benitez on 01-06-2022 Eosinophils (Bld) [#/Vol] 0.2 10*3/uL 0.0-0.45 [facility] Eosinophils/100 WBC Auto (Bl d)Ordered By: Monster Benitez on 01-06-2022 Eosinophils/100 WBC (Bld) 3.8 % . [facility] Erythrocyte distribution wid th Auto (RBC) [Ratio]Ordered By: Monster Benitez on 01-06-2022 Erythrocyte distribution width (RBC) [Ratio] 13.8 % 12.0-14.8 [facility] Estimated glomerular filtrat ion rate (GFR) non- AmericanOrdered By: Monster Benitez on 01-06-2022 GFR/1.73 sq M.predicted among non-blacks MDRD (S/P/Bld) [Vol rate/Area] 48 mL/Min [facility] Globulin Calc (S) [Mass/Vol] Ordered By: Monster Benitez on 01-06-2022 Globulin (S) [Mass/Vol] 2.7 g/dL F [facility] Hematocrit Auto (Bld) [Volum e fraction]Ordered By: Monster Benitez on 01-06-2022 Hematocrit (Bld) [Volume fraction] 44.7 % 38.8-50.0 [facility] Laboratory - Hematology and Cell countsOrdered By: Monster Benitez on 01-06-2022 Nucleated RBC/100 WBC (Bld) [Ratio] 0.2 % 0-0.5 [facility] Lymphocytes Auto (Bld) [#/Vo l]Ordered By: Monster Benitez on 01-06-2022 Lymphocytes (Bld) [#/Vol] 1.6 10*3/uL 1.00-4.8 [facility] Lymphocytes/100 WBC Auto (Bl d)Ordered By: Monster Benitez on 01-06-2022 Lymphocytes/100 WBC (Bld) 25.9 % . [facility] MCH Auto (RBC) [Entitic mass ]Ordered By: Monster Benitez on 01-06-2022 MCH (RBC) [Entitic mass] 32.6 pg 27.5-35.2 [facility] MCHC Auto (RBC) [Mass/Vol]Or dered By: Monster Benitez on 01-06-2022 MCHC (RBC) [Mass/Vol] 33.0 g/dL 32.5-35.6 [facility] MCV Auto (RBC) [Entitic vol] Ordered By: Monster Benitez on 01-06-2022 MCV (RBC) [Entitic vol] 98.7 fL 83.5-[address] [facility] Monocytes Auto (Bld) [#/Vol] Ordered By: Monster Benitez on 01-06-2022 Monocytes (Bld) [#/Vol] 0.8 10*3/uL 0.0-0.8 [facility] Monocytes/100 WBC Auto (Bld) Ordered By: Monster Benitez on 01-06-2022 Monocytes/100 WBC (Bld) 14.0 % . F [facility] Neutrophils Auto (Bld) [#/Vo l]Ordered By: Monster Benitez on 01-06-2022 Neutrophils (Bld) [#/Vol] 3.4 10*3/uL 1.8-7.7 [facility] Neutrophils/100 WBC Auto (Bl d)Ordered By: Monster Benitez on 01-06-2022 Neutrophils/100 WBC (Bld) 55.5 % . [facility] No Panel InformationOrdered By: Monster Benitez on 01-06-2022 Estimated GFR () 59 mL/Min [facility] Comment on above: GFR estimated refere nce range: According to KDOQI guidelines, <60 ml/min/1.73m2 is sufficient to diagnose a patient with chronic kidney disease. Pharmacy Creatinine Clearance (Chem N/A [facility] Platelet mean volume Auto (B ld) [Entitic vol]Ordered By: Monster Benitez on 01-06-2022 Platelet mean volume (Bld) [Entitic vol] 9.3 fL 6.6-10.1 [facility] Platelets Auto (Bld) [#/Vol] Ordered By: Monster Benitez on 01-06-2022 Platelets (Bld) [#/Vol] 277 10*3/uL 150-450 [facility] Protein [Mass/volume] in Ser um or PlasmaOrdered By: Monster Benitez on 01-06-2022 Protein [Mass/Vol] 6.4 g/dL 6.1-7.9 [facility] RBC Auto (Bld) [#/Vol]Ordere d By: Monster Benitez on 01-06-2022 RBC (Bld) [#/Vol] 4.53 10*6/uL 3.90-5.60 [facility] Serum or plasma alanine vasques otransferase measurement without P-5'-P (enzymatic activiOrdered By: Monster Benitez on 01-06-2022 ALT No additional P-5'-P [Catalytic activity/Vol] 28 U/L 10-60 [facility] Serum or plasma albumin/glob ulin mass ratioOrdered By: Monster Benitez on 01-06-2022 Albumin/Globulin [Mass ratio] 1.4 {ratio} [facility] Serum or plasma alkaline oliver sphatase measurement (enzymatic activity/volume)Ordered By: Monster Benitez on 01-06-2022 ALP [Catalytic activity/Vol] 59 U/L 32-92 [facility] Serum or plasma aspartate am inotransferase measurement (enzymatic activity/volume)Ordered By: Monster Benitez on 01-06-2022 AST [Catalytic activity/Vol] 31 U/L 10-42 [facility] Serum or plasma calcium alexis urement (mass/volume)Ordered By: Monster Benitez on 01-06-2022 Calcium [Mass/Vol] 9.5 mg/dL 8.2-10.2 [facility] Serum or plasma chloride damaris surement (moles/volume)Ordered By: Monster Benitez on 01-06-2022 Chloride [Moles/Vol] 101 mmol/L 95-114 [facility] Serum or plasma glucose alexis urement (mass/volume)Ordered By: Monster Benitez on 01-06-2022 Glucose [Mass/Vol] 94 mg/dL 70-100 [facility] Comment on above: ADA recommended refe rence range Random Glucose Reference Range is dependent on time and content of last meal. Glucose of more than 200 mg/dL in a nonstressed, ambulatory subject supports the diagnosis of Diabetes Mellitus. Serum or plasma high density lipoprotein (HDL) cholesterol measurementOrdered By: Monster Benitez on 01-06-2022 Cholesterol in HDL [Mass/Vol] 63 mg/dL 29-71 [facility] Comment on above: HDL CHOL ATP-III CLA SSIFICATION Cardiovascular Risk HDL > or equal to 60 mg/dL LOW HDL < 40 mg/dL HIGH Serum or plasma potassium me asurement (moles/volume)Ordered By: Monster Benitez on 01-06-2022 Potassium [Moles/Vol] 4.2 mmol/L 3.5-5.1 [facility] Serum or plasma sodium measu rement (moles/volume)Ordered By: Monster Benitez on 01-06-2022 Sodium [Moles/Vol] 138 mmol/L 136-146 [facility] Serum or plasma total biliru bin measurement (mass/volume)Ordered By: Monster Benitez on 01-06-2022 Bilirubin [Mass/Vol] 0.9 mg/dL 0.3-1.2 [facility] Serum or plasma total carbon dioxide measurement (moles/volume)Ordered By: Monster Benitez on 01-06-2022 CO2 [Moles/Vol] 26.1 mmol/L 22.0-30.0 [facility] Serum or plasma total choles terol/high density lipoprotein (HDL) cholesterol mass ratOrdered By: Monster Benitez on 01-06-2022 Cholesterol.total/Aubree sterol in HDL [Mass ratio] 2.7 {ratio} <5.0 [facility] Serum or plasma urea nitroge n measurement (mass/volume)Ordered By: Monster Benitez on 01-06-2022 Urea nitrogen [Mass/Vol] 15 mg/dL 9-23 [facility] TSH DL <= 0.005 mIU/L QnOrde red By: Monster Benitez on 01-06-2022 TSH Qn 2.18 m[IU]/L 0.45-5.33 [facility] Triglyceride [Mass/volume] i n Serum or PlasmaOrdered By: Monster Benitez on 01-06-2022 Triglyceride [Mass/Vol] 47 mg/dL 35-[address] [facility] Comment on above: TRIG ATP III CLASSIF ICATION TRIG less than 150 mg/dL Normal TRIG 150-199 mg/dL Borderline high TRIG 200-500 mg/dL High TRIG greater than 500 mg/dL Very high Standard traceable to the Center for Disease Conrtrol and Prevention (CDC) test method. RAD - MISCon 08-12-2021 RAD - MISC [id number]# 1.00CD:127 Normal [facility] Ambulatory Visit Summaryon 0 08-06-2021 Ambulatory Visit Summary ILYA BENITEZ :1940 Visit Date:08/06/2021 Ambulatory Visit Instructions Your Care Team Attending Physician - SALOMON RODRIGUEZ, Chung Fry Primary Care Physician - MONSTER BENITEZ DO This Is Your Medications List Contact [...] PVD (peripheral vascular disease) Renal insufficiency Normal [facility] Historical Records Officeon 07-26-2021 Historical Records Office [id number] .00CD:127 Normal [facility] Physician Referralon 022 Physician Referral [id number] .[id number]:127 Normal [facility] Vital Signs Date Time Vital Sign Value Performing Clinician Facility 01-27-2024 14:17-0400 Body height 177.8 cm DO Monster Kuns Work Phone: [facility] 01-27-2024 14:17-0400 Body mass index (BMI) [Ratio] 29.2 kg/m2 DO Monster Kuns Work Phone: [facility] 01-27-2024 14:17-0400 Body weight 92.53 kg DO Monster Kuns Work Phone: [facility] 01-27-2024 14:17-0400 Diastolic blood pressure 65 mm[Hg] DO Monster Kuns Work Phone: [facility] 01-27-2024 14:17-0400 Heart rate 71 /min DO Monster Kuns Work Phone: [facility] 01-27-2024 14:17-0400 Respiratory rate 16 /min DO Monster Kuns Work Phone: [facility] 01-27-2024 14:17-0400 SaO2% (BldA) [Mass fraction] 95 % DO Monster Kuns Work Phone: [facility] 01-27-2024 14:17-0400 Systolic blood pressure 120 mm[Hg] DO Monster Kuns Work Phone: [facility] 11-03-2023 11:47-0400 Body height 177.8 cm DO Monster Kuns Work Phone: [facility] 11-03-2023 11:47-0400 Body mass index (BMI) [Ratio] 29.4 kg/m2 DO Monster Kuns Work Phone: [facility] 11-03-2023 11:47-0400 Body weight 92.98 kg DO Monster Kuns Work Phone: [facility] 11-03-2023 11:47-0400 Diastolic blood pressure 70 mm[Hg] DO Monster Kuns Work Phone: [facility] 11-03-2023 11:47-0400 Heart rate 83 /min DO Monster Kuns Work Phone: [facility] 11-03-2023 11:47-0400 Respiratory rate 18 /min DO Monster Kuns Work Phone: [facility] 11-03-2023 11:47-0400 SaO2% (BldA) [Mass fraction] 97 % DO Monster Kuns Work Phone: [facility] 11-03-2023 11:47-0400 Systolic blood pressure 136 mm[Hg] DO Monster Kuns Work Phone: [facility] 10-22-2023 10:18-0400 Diastolic blood pressure 88 mm[Hg] DO Monster Kuns Work Phone: [facility] 10-22-2023 10:18-0400 Heart rate 70 /min DO Monster Kuns Work Phone: [facility] 10-22-2023 10:18-0400 Systolic blood pressure 144 mm[Hg] DO Monster Kuns Work Phone: [facility] 10-22-2023 10:16-0400 Body height 177.8 cm DO Monster Kuns Work Phone: [facility] 10-22-2023 10:16-0400 Body weight 90.71 kg DO Monster Kuns Work Phone: [facility] 10-08-2023 14:13-0400 Body height 175.26 cm DO Monster Kuns Work Phone: [facility] 10-08-2023 14:13-0400 Body mass index (BMI) [Ratio] 30.4 kg/m2 DO Monster Kuns Work Phone: [facility] 10-08-2023 14:13-0400 Body weight 93.44 kg DO Omnster Kuns Work Phone: [facility] 10-08-2023 14:13-0400 Diastolic blood pressure 80 mm[Hg] DO Monster Kuns Work Phone: [facility] 10-08-2023 14:13-0400 Heart rate 79 /min DO Monster Kuns Work Phone: [facility] 10-08-2023 14:13-0400 Respiratory rate 20 /min DO Mosnter Kuns Work Phone: [facility] 10-08-2023 14:13-0400 SaO2% (BldA) [Mass fraction] 96 % DO Monster Kuns Work Phone: [facility] 10-08-2023 14:13-0400 Systolic blood pressure 130 mm[Hg] DO Monster Kuns Work Phone: [facility] 10-05-2023 11:29-0400 Body height 175.26 cm DO Monster Kuns Work Phone: [facility] 10-05-2023 11:29-0400 Body mass index (BMI) [Ratio] 30.2 kg/m2 DO Monster Kuns Work Phone: [facility] 10-05-2023 11:29-0400 Body weight 92.98 kg DO Monster Kuns Work Phone: [facility] 10-05-2023 11:29-0400 Diastolic blood pressure 82 mm[Hg] DO Monster Kuns Work Phone: [facility] 10-05-2023 11:29-0400 Heart rate 81 /min DO Monster Kuns Work Phone: [facility] 10-05-2023 11:29-0400 Respiratory rate 18 /min DO Monster Kuns Work Phone: [facility] 10-05-2023 11:29-0400 SaO2% (BldA) [Mass fraction] 98 % DO [employer] Work Phone: [facility] 10-05-2023 11:29-0400 Systolic blood pressure 138 mm[Hg] DO Monster [employer] Work Phone: [facility] 08-20-2023 10:15-0400 Body height 175.26 cm [facility] 08-20-2023 10:15-0400 Body mass index (BMI) [Ratio] 30.5 kg/m2 [facility] 08-20-2023 10:15-0400 Body weight 93.89 kg [facility] 08-20-2023 10:15-0400 Diastolic blood pressure 84 mm[Hg] [facility] 08-20-2023 10:15-0400 Heart rate 86 /min [facility] 08-20-2023 10:15-0400 Respiratory rate 16 /min [facility] 08-20-2023 10:15-0400 SaO2% (BldA) [Mass fraction] 96 % [facility] 08-20-2023 10:15-0400 Systolic blood pressure 138 mm[Hg] [facility] 04-21-2023 09:00-0500 Body height 175.26 cm [employer] Other [facility] [employer] Other 04-21-2023 09:00-0500 Body mass index (BMI) [Ratio] 30.48 kg/m2 [employer] Other [facility] [employer] Other 04-21-2023 09:00-0500 Body weight 93.62 kg [employer] Other [employer] [facility] [employer] Other 04-21-2023 09:00-0500 Diastolic blood pressure 64 mm[Hg] [employer] Other [employer] [facility] [employer] Other 04-21-2023 09:00-0500 Respiratory rate 16 /min Monster Kuns Other [employer] Other 04-21-2023 09:00-0500 SaO2% (BldA) [Mass fraction] 96 % Monster Kuns Other [employer] Other 04-21-2023 09:00-0500 Systolic blood pressure 112 mm[Hg] Monster Kuns Other [employer] Other 07-17-2022 10:00-0500 Body height 175.26 cm Monster Kuns Other [employer] Other 07-17-2022 10:00-0500 Body mass index (BMI) [Ratio] 31.45 kg/m2 Monster Kuns Other [employer] Other 07-17-2022 10:00-0500 Body weight 96.62 kg Monster Kuns Other Voices Other 07-17-2022 10:00-0500 Diastolic blood pressure 82 mm[Hg] Monster Kuns Other Voices Other 07-17-2022 10:00-0500 Respiratory rate 16 /min Monster Kuns Other Voices Other 07-17-2022 10:00-0500 SaO2% (BldA) [Mass fraction] 98 % Monster Kuns Other Voices Other 07-17-2022 10:00-0500 Systolic blood pressure 128 mm[Hg] Monster Kuns Other Voices Other 09-03-2021 10:30-0400 Body height 175.26 cm Monster Kuns Other Voices Other 09-03-2021 10:30-0400 Body mass index (BMI) [Ratio] 31.45 kg/m2 Monster Kuns Other Voices Other 09-03-2021 10:30-0400 Body weight 96.62 kg Monster Kuns Other Voices Other 09-03-2021 10:30-0400 Diastolic blood pressure 70 mm[Hg] Monster Kuns Other Voices Other 09-03-2021 10:30-0400 Respiratory rate 16 /min Monster Kuns Other Voices Other 09-03-2021 10:30-0400 SaO2% (BldA) [Mass fraction] 97 % Monster Kuns Other Voices Other 09-03-2021 10:30-0400 Systolic blood pressure 116 mm[Hg] Monster Kuns Other Voices Other 05-21-2021 11:30-0500 Body height 175.26 cm Monster Kuns Other Voices Other 05-21-2021 11:30-0500 Body mass index (BMI) [Ratio] 31.16 kg/m2 Monster Kuns Other Voices Other 05-21-2021 11:30-0500 Body weight 95.71 kg Monster Kuns Other Voices Other 05-21-2021 11:30-0500 Diastolic blood pressure 76 mm[Hg] Monster Andrewss Other Voices Other 05-21-2021 11:30-0500 Respiratory rate 16 /min Monster Andrewss Other Voices Other 05-21-2021 11:30-0500 SaO2% (BldA) [Mass fraction] 96 % Monster Andrewss Other Voices Other 05-21-2021 11:30-0500 Systolic blood pressure 152 mm[Hg] Monster Kuns Other Voices Other Encounters Encounter Date Encounter Type Care Provider Facility Start: 01-27-2024 End: 01-27-2024 ambulatory DO Monster Kuns Work Phone: [facility] Work Phone: Start: 01-27-2024 End: 01-27-2024 Patient encounter procedure DO Monster Kuns Work Phone: [facility] [place] Work Phone: Start: 01-15-2024 End: 01-15-2024 Patient encounter procedure DO Monster Kuns Work Phone: [facility] [place] Work Phone: Start: 01-15-2024 End: 01-15-2024 ambulatory DO Monster Kuns Work Phone: [facility] Work Phone: Start: 11-13-2023 End: 11-13-2023 ambulatory SHANNON ZAPATA Not Available Start: 11-05-2023 Non-patient / Non-visit DO Monster Kuns Work Phone: [facility] Cardiology Work Phone: Start: 11-03-2023 End: 11-03-2023 ambulatory DO Monster Kuns Work Phone: [facility] Work Phone: Start: 11-03-2023 End: 11-03-2023 Patient encounter procedure DO Monster Kuns Work Phone: [facility] Work Phone: Start: 10-27-2023 End: 10-27-2023 ambulatory SHANNON ZAPATA Not Available Start: 10-22-2023 End: 10-22-2023 Patient encounter procedure DO Monster Kuns Work Phone: [facility]ro[facility] Work Phone: Start: 10-22-2023 End: 10-22-2023 ambulatory DO Monster Kuns Work Phone: [facility] Work Phone: Start: 10-22-2023 Non-patient / Non-visit DO Monster Kuns Work Phone: [facility] Card[facility] Work Phone: Start: 10-08-2023 End: 10-08-2023 ambulatory DO Monster Kuns Work Phone: [facility] Work Phone: Start: 10-08-2023 End: 10-08-2023 Patient encounter procedure DO Monster Kuns Work Phone: [facility] [place] Work Phone: Start: 10-05-2023 End: 10-05-2023 ambulatory DO Monster Kuns Work Phone: [facility] Work Phone: Start: 10-05-2023 End: 10-05-2023 Patient encounter procedure DO Monster Kuns Work Phone: [facility] Cardiology Work Phone: Start: 09-04-2023 End: 09-04-2023 Patient encounter procedure DO Monster Kuns Work Phone: [facility] [place] Work Phone: Start: 09-04-2023 End: 09-04-2023 ambulatory DO Monster Kuns Work Phone: [facility] Work Phone: Start: 08-20-2023 End: 08-20-2023 ambulatory [facility] Work Phone: Start: 08-20-2023 End: 08-20-2023 Patient encounter procedure [facility] [place] Work Phone: Start: 07-22-2023 Non-patient / Non-visit [facility] Work Phone: Start: 06-02-2023 End: 06-02-2023 ambulatory Monster Kuns Other Voices Other Start: 06-02-2023 Telephone encounter Monster Kuns [facility] [place] Start: 05-15-2023 End: 05-15-2023 ambulatory Monster Kuns Other Voices Other Start: 05-15-2023 Telephone encounter Monster Kuns [facility] [place] Start: 05-14-2023 End: 05-14-2023 ambulatory Monster Kuns Other Voices Other Start: 05-14-2023 Telephone encounter Monster Kuns [facility] [place] Start: 05-06-2023 End: 05-06-2023 ambulatory Monster Kuns Other Voices Other Start: 05-06-2023 Telephone encounter Monster Kuns [facility] Start: 04-21-2023 End: 04-21-2023 ambulatory Monster Kuns Other Voices Other Start: 04-21-2023 Office outpatient visit 25 minutes Monster Kuns [facility] Start: 04-17-2023 End: 04-17-2023 ambulatory Monster Kuns Facility:[facility] Start: 02-16-2023 End: 02-16-2023 ambulatory Monster Kuns Other Voices Other Start: 02-16-2023 Telephone encounter Monster Kuns [facility] Start: 10-14-2022 End: 10-15-2022 ambulatory NARENDRANATH LAKSHMIPATHY . Facility:[facility] Start: 10-08-2022 End: 10-09-2022 ambulatory NARENDRANATH LAKSHMIPATHY . Facility:[facility] Start: 10-06-2022 End: 10-06-2022 ambulatory DO Monster Kuns Work Phone: [facility] Work Phone: Start: 10-06-2022 End: 10-06-2022 Patient encounter procedure DO Monster Kuns Work Phone: [facility] [place] Work Phone: Start: 10-02-2022 End: 10-02-2022 ambulatory Monster Kuns Other Voices Other Start: 10-02-2022 Telephone encounter Monster Kuns [facility] Start: 09-16-2022 End: 09-17-2022 ambulatory NARENDRANATH LAKSHMIPATHY . Facility:[facility] Start: 09-16-2022 End: 09-17-2022 ambulatory NARENDRANATH LAKSHMIPATHY . Facility:[facility] Start: 08-22-2022 End: 08-22-2022 ambulatory Monster Kuns Other Voices Other Start: 08-22-2022 Telephone encounter Monster Kuns [facility] [place] Start: 07-17-2022 End: 07-17-2022 ambulatory Monster Kuns Other Voices Other Start: 07-17-2022 Patient encounter procedure Monster Kuns [facility] [place] Start: 07-09-2022 End: 07-09-2022 ambulatory DO Monster Kuns Work Phone: [facility] Work Phone: Start: 07-09-2022 End: 07-09-2022 Patient encounter procedure DO Monster Kuns Work Phone: [facility] [place] Work Phone: Start: 05-07-2022 End: 05-07-2022 ambulatory Monster Kuns Other Voices Other Start: 05-07-2022 Telephone encounter Monster Kuns [facility] [place] Start: 03-10-2022 End: 03-10-2022 ambulatory Monster Kuns Other Voices Other Start: 03-10-2022 Nursing evaluation o f patient and report Monster Kuns [facility] [place] Start: 03-10-2022 Telephone encounter Monster Kuns [facility] [place] Start: 01-06-2022 End: 01-06-2022 Patient encounter procedure DO Monster Kuns Work Phone: [facility] [place] Start: 09-03-2021 End: 09-03-2021 ambulatory Monster Kuns Other Voices Other Start: 09-03-2021 Office outpatient visit 25 minutes Monster Kuns [facility] [place] Start: 07-25-2021 End: 07-25-2021 ambulatory Monster Benitez Other Voices Other Start: 07-25-2021 Telephone encounter Monster Benitez [facility] Start: 05-21-2021 End: 05-21-2021 ambulatory Monster Benitez Other Voices Other Start: 05-21-2021 Annual wellness visit Monster Ku bran Other Voices Other Start: 05-21-2021 Patient encounter procedure Monstermalachi Benitez [facility] Start: 04-30-2021 End: 04-30-2021 ambulatory Monster Benitez Other Voices Other Start: 04-30-2021 Telephone encounter Monstermalachi Benitez [facility] Start: 05-13-2017 Ambulatory MONSTER BENITEZ Facility:[id number] Start: 05-13-2017 Ambulatory Facility:[id number] Procedures Date Procedure Procedure Detail Performing Clinician Start: 10-22-2023 Radionuclide myocard ial perfusion stress study DO Monster Benitez Work Phone: Start: 09-04-2023 CT of thorax with contrast DO Monster Benitez Work Phone: Plan of Treatment Date Care Activity Detail Author Start: 10-22-2023 Radionuclide myocard ial perfusion stress study NM lesvia perf SPECT rest & str [facility] Start: 10-22-2023 SPECT Heart perfusio n at rest and W stress and W radionuclide IV [facility] Start: 10-05-2023 [facility] Start: 08-20-2023 Patient referral [facility] Work Phone: Comprehensive metabo lic 1999 panel - Serum or Plasma [facility] Comprehensive metabo lic 1999 panel - Serum or Plasma [facility] CT Chest W contrast IV [facility] CT Chest W contrast IV [facility] Patient referral [facility] Work Phone: US Heart Transthoracic [facility] XR Chest 2 Views [facility] Immunizations Immunization Date Immunization Notes Care Provider Fa cility 04-17-2022 COVID-19 mRNA Bivalent Booster (Moderna) DO Monster Kuns Work Phone: [facility] 04-17-2022 influenza, injectable, quadrivalent, preservative free DO Monster Kuns Work Phone: [facility] 04-17-2022 influenza, seasonal, injectable Monster Kuns Other [facility] 05-20-2021 COVID-19 Vaccine Moderna - Documentation Purposes Only Monster Kuns Other [facility] 05-20-2021 Influenza vaccine, quadrivalent, adjuvanted DO Monster Kuns Work Phone: [facility] 05-20-2021 influenza, seasonal, injectable Monster Kuns Other [facility] 08-03-2020 COVID-19 mRNA-1273 (Moderna) DO Monster Kuns Work Phone: [facility] 07-06-2020 COVID-19 mRNA-1273 (Moderna) DO Monster Kuns Work Phone: [facility] 03-20-2020 Influenza vaccine, quadrivalent, adjuvanted DO Monster Kuns Work Phone: [facility] 03-20-2020 zoster vaccine recombinant Monster Kuns Other [facility] 03-20-2020 influenza, seasonal, injectable Monster Kuns Other [facility] 12-27-2019 zoster vaccine recombinant Monster Kuns Other [facility] 12-27-2019 pneumococcal conjugate vaccine, 13 valent Monster Kuns Other [facility] 12-27-2019 tetanus toxoid, reduced diphtheria toxoid, and acellular pertussis vaccine, adsorbed Monster Kuns Other [facility] 05-09-2019 influenza, seasonal, injectable Monster Kuns Other [facility] 05-17-2018 influenza virus vaccine, unspecified formulation [facility] 05-17-2018 influenza, high dose seasonal, preservative-free Monster Kuns Other [facility] 04-09-2017 influenza virus vaccine, unspecified formulation [facility] 04-09-2017 influenza, high dose seasonal, preservative-free Monster Kuns Other [facility] 04-03-2016 influenza virus vaccine, unspecified formulation [facility] 04-03-2016 influenza, high dose seasonal, preservative-free Monster Kuns Other [facility] 05-21-2015 influenza, seasonal, injectable Monster Kuns Other [facility] 03-18-2010 pneumococcal polysaccharide vaccine, 23 valent Monster Kuns Other [facility] 03-14-1999 pneumococcal polysaccharide vaccine, 23 valent Monster Kuns Other [facility] 03-14-1999 TD(adult) unspecifie d formulation DO Monster Kuns Work Phone: [facility] NEGATED: Highlighted row has not occurred!04-05-2019 pneumococcal polysaccharide vaccine, 23 valent Patient Objection Monster Kuns Other [facility] NEGATED: Highlighted row has not occurred!11-16-2018 pneumococcal conjugate vaccine, 13 valent Patient Objection Monster Kuns Other [facility] NEGATED: Highlighted row has not occurred!11-16-2018 pneumococcal polysaccharide vaccine, 23 valent Patient Objection Monster Kuns Other [facility] Payers Date Payer Category Payer Self-pay [id number] Private Health Insurance [id number] 1940 Unknown [id number] 2.16.84 [id number] 1940 Unknown [id number] 2.16.84 [id number] 1941 Unknown [id number] 2.16.84 [id number] 1941 Unknown [id number] 2.16.84 [id number] 1941 Unknown [id number] 2.16.84 [id number] 1941 Unknown [id number] 2.16.84 [id number] Unknown [id number] 2.16.8 [id number] Unknown [id number] 2.16.8 [id number] Unknown [id number] 2.16.8 [id number] Unknown [id number] 2.16.8 [id number] Unknown [id number] 2.16.8 [id number] Social History Date Type Detail Facility Unknown if ever smoked Voices Other Sex Assigned At Sex Assigned At Bir th Voices Other Start: 1940 Sex Assigned At Male F [facility] Start: 07-17-2018 End: 11-03-2023 Tobacco smoking status NHIS Smoker (finding) [facility] Clinical Notes 11-04-2011 to 08-20-2023 Note Date & Type Note Facility 08-20-2023 Evaluation note Authored August 20, 2023 11:06am The above note written by Lona Woodruff LPN, acting as human recorder, note dictated by Dr. Monster Benitez. [facility] Work Phone: 1(207) 248-261503-21-2024 Evaluation note* [facility] Authored August 20, 2023 11: 06am The above note written by Lona Woodruff LPN, acting as human recorder, note dictated by Dr. Monster Benitez. [facility] Authored October 08, 2023 3:04pm Sooner if needed, ER if conc erns. The above note was written by Rhona Babb LPN , acting as human recorder, note dictated by Dr. Monster Benitez. [facility] Work Phone: 1([phone]) 777-825601-02-2024 Evaluation note* Encounter Date Diagnosis Assessment Notes Treatment Notes Treatment Clinical Notes Jun, Situational anxiety (ICD-10 - F41.8) [place] [facility] Other 12-15-2023 Evaluation note* Encounter Date Diagnosis Assessment Notes Treatment Notes Treatment Clinical Notes May, Renal insufficiency (ICD-10 - N28.9) [place] [facility] Other 12-06-2023 Evaluation note* Encounter Date Diagnosis Assessment Notes Treatment Notes Treatment Clinical Notes May, Lung nodules (ICD-10 - R91.8) May, Prostate CA (ICD-10 - C61) May, 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 The patient advised he may call the office for results. Apr, Weight loss (ICD-10 - R63.4) Voices Other 09-18-2023 Evaluation note* Encounter Date Diagnosis Assessment Notes Treatment Notes Treatment Clinical Notes Jan, Hyperlipidemia (ICD-10 - E78.5) Voices Other 04-18-2023 NoteCONSULTATION CONSULTATION DATE: 09/16/2022 TO: Monster Benitez D.O. CHIEF COMPLAINT: Includes severe left groin [...] our patients to inform us about any xlac-mgm-ljuvfsn medications or herbal remedies/nutritional supplements/alternative remedies. 2. [...] treatment options with their primary care provider.The [id number] Evaluation note * Encounter Date Diagnosis Assessment Notes Treatment Notes Treatment Clinical Notes Jul, Medicare annual wellness visit, subsequent (ICD-10 - Z00.00) Personalized health advice was given to the beneficiary including a written plan for screenings discussed and provided. Advanced care planning reviewed and/or information given as requested. The above visit was performed by Paola Woodruff LPN, under direct supervision of Dr. Monster Benitez. Document reviewed and amended by provider signed [...] Encouraged patient to continue with their efforts. Voices Other 12-07-2022 Evaluation note* Encounter Date Diagnosis Assessment Notes Treatment Notes Treatment Clinical Notes May, Hypertension (ICD-10 - I10) Voices Other 10-10-2022 Evaluation note* Encounter Date Diagnosis Assessment Notes Treatment Notes Treatment Clinical Notes Mar, Sinus congestion (ICD-10 - R09.81) In house covid test was negative. Voices Other 04-05-2022 Evaluation note* Encounter Date Diagnosis [...] of rib cage region (ICD-10 - M99.08) Voices Other 03-08-2022 NoteChief Complaint consultation for [facility] HPI Staff 81 year old male presents on consultation from Dr. Benitez for left inguinal hernia. CT ABD/pelvis completed [...] no N/V; no bowel changes; no real warp changer past 5 years; pain is an ache/sharp [...] inhalation powder, 1 pu (more content not included)...[facility]Comment [facility]:Result Comment: Electronically Signed By: SALOMON RODRIGUEZ, Chung Ervin\Date and Time Signed: 08/06/21 17:01 [id number] Evaluation note* Encounter Date Diagnosis Assessment Notes [...] LPN), under direct supervision of ( Monster Benitez). Document reviewed and amended by provider signed [...] medication and we will continue to monitor. Voices Other 11-30-2021 Evaluation note* Encounter Date Diagnosis Assessment Notes Treatment Notes Treatment Clinical Notes Apr, Shortness of breath (ICD-10 - R06.02) [employer] [facility] Other 06-05-2012 History general Narrative - Reported* [...] flap closure 08/02/18 Hospitalization History SEE ABOVE Voices Other Evaluation noteNo InformationN[facility]St[facility] Other Evaluation noteNo assessment information available [facility] Work Phone: Evaluation note* Author Paola Woodruff [facility] Authored August 20, 2023 11: 06am The above note written by Lona Woodruff LPN, acting as human recorder, note dictated by Dr. Monster Benitez. [facility] Work Phone: Evaluation note* Diagnosis Onset Date Resolution Status Atypical chest pain acute Essential (primary) hypertension acute New onset atrial fibrillation acute [facility] Work Phone: Evaluation note* Author Britta Posada [facility] Authored January 27, 2024 2: 27pm The above note written by Rolando DUNN acting as human recorder, note dictated by Dr. Monster Benitez. [facility] Work Phone: Hospital Discharge instructionsAmbulatory Orders* Referral to Cardiology Location: None Selected [facility] Work Phone: Summary Purpose Family History Relationship Condition Age at Onset Recorded Date/T jaycee father Multiple myeloma Unknown Unknown Not Specified Unknown Relationship Condition Age at Onset Recorded Date/T jaycee father Multiple myeloma Unknown Unknown Not Specified Unknown Heart disease Unknown Relationship Condition Age at Onset Recorded Date/T jaycee father Multiple myeloma Unknown Unknown mother Unknown Heart disease Unknown Advance Directives Advance Directive Response Recorded Date/ [...] hypertension New onset atrial fibrillation Chief Complaint R06.02 1 month CC Heart Failure Follow Up Reason for Visit Atypical chest pain Essential (primary) hypertension New onset atrial fibrillation Chief Complaint 1 month CC Heart Failure Follow Up E78.5 R07.9 Z12.5 Subseq. MCW exam Reason for Visit Atypical chest pain Essential (primary) hypertension New onset atrial fibrillation Abnormal renal function Cardiomegaly Essential (primary) hypertension Granulomatous disease Ground glass opacity present on imaging of lung Hyperlipidemia Lung nodule New onset atrial fibrillation Screening for prostate cancer Medicare annual wellness visit, subsequent Reason for Referral Reason 07/28/22 @ 10:00am consult and treat with Dr.Todd Sinclair in [place] Diagnosis 1 Left inguinal hernia (K40.90) Referral Organization [facility] [place] Referring Provider First Name Monster Referring Provider Last Name John Referring Provider Specialty Family Prac tomás Referred Organization [facility] Referred Provider Julien Sinclair Referred Address [address] [place], [place],[address] Referred Provider Specialty Surgery Referral Priority Routine Referral Appointment Date 2022-07-28 General Notes Jackelyn Huerta 023 10:32:29 AM >Received today and waiting for office notes to be locked before sending referral Jackelyn Huerta 07/18/2022 10:58:26 AM >Referral was fax. They will review and call patient Fore, Jackelyn M 07/25/2022 08:58:28 AM >Fax letter for appt update Jackelyn Huerta 07/25/2022 10:00:37 AM >Received letter back with appt Jackelyn Huerta 07/30/2022 09:59:04 AM >Fax letter for appt update or consult notes Jackelyn Huerta 07/30/2022 12:53:38 PM >Received consult notes Clinical Notes Office [phone] Additional Source Comments (unrecognized sect ion and content) No Status Records FoundNo Status Records FoundNo Status Records FoundNo Status Records FoundNo Status Records FoundNo Status Records Found INFORMATION SOURCE (unrecogn ized section and content) DATE CREATED AUTHOR 11/24/2017 [facility] DATE CREATED AUTHOR AUTHOR'S ORGANIZ ATION 11/24/2017 [facility] DATE CREATED AUTHOR AUTHOR'S ORGANIZ ATION 08/18/2021 [facility] DATE CREATED AUTHOR AUTHOR'S ORGANIZ ATION 10/15/2022 [facility] DATE CREATED AUTHOR AUTHOR'S ORGANIZ ATION 11/14/2023 [facility] EPIC DATE CREATED AUTHOR AUTHOR'S ORGANIZ ATION 01/19/2024 [facility] REASON FOR VISIT (unrecogniz ed section and content) refillmedicare wellnessClini cal4 month f/u HTNClinicalCOVID test-RED [employer]VY [employer] BLOCKER congestion,cough,sore throatRefillmedicare wellness SUBreferralmedical recordsRefillsreview labs- lipidsimagingclinicalClinicalClinical Care Teams (unrecognized sec tion and content) Team Status: Active Member Role Status Dates Monstre Benitez DO Primary Care Provider Active Team Status: Active Member Role Status Dates Monster Benitez DO Primary Care Provider Active Sta rt: July 22, 2023 MONA De León Attending Provider Active Start: July 22, 2023 Team Status: Inactive Member Role Status Dates Monster Benitez DO Primary Care Provide r, Attending Provider Active Start: August 20, 2023 End: August 20, 2023 Team Status: Inactive Member Role Status Dates Monster Benitez DO Primary Care Provider, Attending Pro[employer] viki Active Team Status: Inactive Member Role Status James Benitez DO Primary Care Provide r, Attending Provider Active Start: September 04, 2023 End: September 04, 2023 Team Status: Inactive Member Role Status James Benitez DO Primary Care Provide r, Referring Provider Active Start: October 05, 2023 End: October 05, 2023 Clovis Singh MD Attending Provider Activ e Start: October 05, 2023 End: October 05, 2023 Team Status: Active Member Role Status James Benitez DO Primary Care Provider Active Sta rt: October 05, 2023 Clovis Singh MD Attending Provider Activ e Start: October 05, 2023 Team Status: Inactive Member Role Status James Benitez DO Primary Care Provider Active Sta rt: October 05, 2023 End: October 05, 2023 Clovis Singh MD Attending Provider Activ e Start: October 05, 2023 End: October 05, 2023 Team Status: Active Member Role Status James Singh MD Specialist Active Monster Benitez DO Primary Care Provider Active Team Status: Inactive Member Role Status James Benitez DO Primary Care Provide r, Attending Provider Active Start: October 08, 2023 End: October 08, 2023 Team Status: Inactive Member Role Status James Benitez DO Primary Care Provider Active Sta rt: October 22, 2023 End: October 22, 2023 Clovis Singh MD Attending Provider Activ e Start: October 22, 2023 End: October 22, 2023 Omayra Ricketts MD Referring Provider Active Sta rt: October 22, 2023 End: October 22, 2023 Team Status: Active Member Role Status James Singh MD Shake Packer Active Monster Benitez DO Primary Care Provider Active Team Status: Inactive Member Role Status James Benitez DO Primary Care Provider Active Sta rt: November 03, 2023 End: November 03, 2023 Clovis Singh MD Attending Provider Activ e Start: November 03, 2023 End: November 03, 2023 Team Status: Active Member Role Status James Benitez DO Primary Care Provider Active Sta rt: October 22, 2023 Clovis Singh MD Attending Provider, Other Provider Active Start: October 22, 2023 Omayra Ricketts MD Referring Provider Active Sta rt: October 22, 2023 Team Status: Active Member Role Status Dates Monster Benitez DO Primary Care Provider Active Sta rt: November 05, 2023 Clovis Singh MD Attending Provider Activ e Start: November 05, 2023 Team Status: Inactive Member Role Status Dates Monster Benitez DO Primary Care Provide r, Attending Provider Active Start: January 15, 2024 End: January 15, 2024 Team Status: Inactive Member Role Status Dates Monster Benitez DO Primary Care Provide r, Attending Provider Active Start: January 27, 2024 End: January 27, 2024 Goals (unrecognized section and content) Goals may [...] BE BASED ON THE PRIMARY CLINICAL RECORDS. [employer] [facility]. provides no warranty or guarantee of the accuracy or completeness of information in this document.
[2024-02-15 07:41] LABS: Estimated GFR (African America 48 (>=60); Estimated GFR (Non-African Ame 40 (>=60)
== END 2024-02-15 07:04 | disposition home or self-care (01) ==
LOC: LAB 07:03
PROVIDERS: PCP Family Medicine; Visit Provider Family Medicine
DX: R91.8 Other nonspecific abnormal finding of lung field (principal); D71 Functional disorders of polymorphonuclear neutrophils; R91.1 Solitary pulmonary nodule; I10 Essential (primary) hypertension
CPT/HCPCS: 36415; 71260; 82565; 84520; Q9966

== ENCOUNTER 2025-02-23 09:43 | Outpatient (OUT) | payer MEDICARE, SELFPAY ==
--- OUTSIDE RECORDS SUMMARY | 2020-08-03 12:00 | XMS_ITS | Continuity of Care Document ---
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 Name Role Phone Hector Gallegos Unavailable Unavailable Procedures Procedure Date Moderna COVID Vaccine Admin Dose 2 Moderna COVID-19 Vaccine Moderna COVID Vaccine Admin Dose 1 Moderna COVID-19 Vaccine Admin influenza virus vac FLU VACC PRSV FREE INC ANTIG FLU VACC PRSV FREE INC ANTIG OFFICE/OUTPATIENT VISIT, [facility] FLU VACC PRSV FREE INC ANTIG Admin influenza virus vac PNEUMOCOCCAL VACCINE Admin pneumococcal vaccine Advance Directives Directive Yes / No Effective Date File Name No Information Encounters Encounter Description Practice Location Reason(s) For Visit Diagnoses Date Provider Providers Copied on Encounter [facility], [address] [place] [address], [id number], tel:[phone] [facility] No Information Deepa Hernandez. [address] [place] [address], [id number] , [place]. tel:[phone] [facility], [address] [place] [address], [id number], tel:[phone] [facility] No Information Deepa Hernandez. [address] [place] [address], [id number] , [place]. tel:[phone] [facility], [address] [place] [address], [id number], tel:[phone] [facility] thoracic spine (chief complaint)t horacic spine (chief complaint) Segmental and somatic dysfunction of thoracic regionPain in thoracic spineSegmental and somatic dysfunction of lumbar regionOther intervertebral disc degeneration, lumbar region Jef Valladares. [address], [place], [id number] , [place]. tel:[phone] OFFICE/OUTPAT IENT VISIT, EST [facility], [address], [place], [id number], [place] tel:[phone] [facility] No Information Deepa Hernandez. [address], [place], [id number] , [place]. tel:[phone] [facility], [address] [place] [address], [id number], tel:[phone] [facility] No Information Sumitkenyon Hernandez. [address], [place], [id number] , [place]. tel:[phone] Family History Family Member Type Diagnosis Age At Onset No Information Immunizations Vaccine Date Status Comments Moderna COVID administered Source: New Im munization Record Moderna COVID administered Source: New Im munization Record Flu (High Dose) administered Source: New Immunization Record Payers Payer name Insurance type Covered green party ID Authoriza tion(s) [employer] Medicare PPS MB [id number] [employer] PPS MB [id number] Guadalupe Guerra Medicare Advantage [id number] Social History Type Description Quantity Date Captured Comments Alcohol Use Details Unknown Caffeine Use Details Unknown Tobacco Use Status No Information Smoking Status No Information Sex Male Sexual Orientation Straight or heterosexual Gender Identity Male Chief Complaint And Reason For Visit No Information Reason For Referral Reason For Referral No Information History Of Present Illness Encounter Date Complaint History Of Prese nt Illness thoracic spine thoracic spine C/O mid back and rib pain on the right in lower thoracic spine with onset 4 days ago.Sx are the result of regular ADL'S. No specific injury or trauma is noted. Pain is intrascapular on the right and extends to the scapular border.Pain is local, dull, and without radiation to the upper or lower extremities. No sensory or motor changes.Pain is not associated with meals. No abdominal or flank pain noted. Sx present with a pain scale of 4 (VAS = 1-10). Pain interferes with regular ADL's. Increase in pain with movement/ROM and ADL'S. Some decrease in symptoms with rest. No change in the pain pattern from the onset of Sx. Pain pattern is as prior times. Pt has history of lumbar fusion and right hip replacement in 2006Has been getting adjusted for 50 years. Functional Status Date Functional Assessmen t No Information Instructions Date Instruction Additional Infor mation No Information Assessments Type Assessment Date No Information Patient Care Teams Name Effective Dates (start - stop) Status Members No Information
--- OUTSIDE RECORDS SUMMARY | 2025-02-23 09:47 | XMS_ITS | Clinical Summary ---
Author Organization [facility] Address [address] [place] [address] Phone Care Team Providers Care Electrolysist Name Role Phone Unavailable Primary Care Provider Unavailabl e Social History Tobacco Use Types Packs/Day Years Used Date Smoking Tobacco: Never Assessed Sex and Gender Information Value Date Recorded Sex Assigned at Not on file Legal Sex Male 5:48 PM EST Gender Identity Not on file Sexual Orientation Not on file Plan of Treatment Not on file
--- OUTSIDE RECORDS SUMMARY | 2025-02-23 09:47 | XMS_ITS | Clinical Summary ---
Author Organization [facility] Healthcare Address [address] [facility] [place] [address] Care Team Providers Care Meter Readers Supervisor Name Role Phone Maurilio Lopez DO Primary Care Provider [phone] Allergies No known active allergies Medications amLODIPine (Norvasc) 5 MG tablet 3 Active atorvastatin (Lipitor) 10 MG tablet 1 (one) time each day at the same time. Active budesonide-formo terol (Symbicort) 160-4.5 MCG/ACT inhaler every 12 (twelve) hours. Active cyclobenzaprine (Flexeril) 10 MG tablet Take 10 mg by mouth as needed at bedtime. 3 Active esomeprazole (NexIUM) [address] capsule 1 capsule 1 (one) time each day at the same time. Active ezetimibe (Zetia) 10 MG tablet 3 Active Breo Ellipta 100-25 MCG/ACT aerosol powder 3 Active fentaNYL (Duragesic) 50 MCG/HR Place 1 patch on the skin every 3rd (third) day. Active fluticasone (Flonase) 50 MCG/ACT nasal spray 1 (one) time each day at the same time. Active hydrOXYzine HCl (Atarax) 25 MG tablet TAKE 1 OR 2 TABLETS BY MOUTH AT BEDTIME NEEDED 3 Active losartan (Cozaar) 50 MG tablet 1 (one) time each day at the same time. Active omega-3 (Fish Oil) 1000 MG capsule 1 capsule 1 (one) time each day at the same time. Active omeprazole (PriLOSEC) [address] capsule Take 20 mg by mouth in the morning. Active oxyCODONE-acetam inophen (Percocet) 5-325 MG tablet Take 2 tablets by mouth every 6 (six) hours if needed. 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 Take 1 capsule, by mouth, bid, 10 days 20 capsule 4 Active Additional Information Patient not taking.Reported on 08/04/2024 Active Problems Problem Noted Date Diagnosed Date Posterior vitreous detachment of left eye 2023 Dry eyes 04/05/2024 Blepharitis of upper and lower eyelids of both e yes 04/05/2024 Bilateral posterior capsular opacification 04/05 Pseudophakia 11/13/2023 Resolved Problems Problem Noted Date Diagnosed Date Resolved Date Age-related nuclear cataract of both eyes 10/27/2023 04/05/2024 Social History Tobacco Use Types Packs/Day Years Used Date Smoking Tobacco: Every Day Pipe Smokeless Tobacco: Never Tobacco Cessation:Ready to Q uit: Not Asked; Counseling Given: Not Answered Sex and Gender Information Value Date Recorded Sex Assigned at Not on file Legal Sex Male 8:33 PM EDT Gender Identity Not on file Sexual Orientation Not on file Last Filed Vital Signs Vital Sign Reading Time Taken Comments Blood Pressure 128/66 04/13/2024 2:37 PM EST Pulse - - Temperature - - Respiratory Rate - - Oxygen Saturation - - Inhaled Oxygen Concentration - - Weight 95.3 kg (210 lb) 03/01/2021 12:00 PM EDT Height 175.3 cm (5' 9 ) 01/28/2022 12:00 PM EDT Body Mass Index 31.01 03/01/2021 12:00 PM EDT Plan of Treatment Health Maintenance Due Date Last Done Comments Influenza Vaccine (#1) 2025 , 04/17/2022, 05/20/2021, Additional history exists Pneumococcal Vaccine: 65+ Years Completed 12/27/2019, 03/18/2010, 03/14/1999 Insurance [employer] Care Teams Meter Readers Supervisor Relationship Specialty Start Date End Date Maurilio Lopez DO PCP - General Family Medicine 10/27/23
--- OUTSIDE RECORDS SUMMARY | 2025-02-23 09:47 | XMS_ITS | Clinical Summary ---
Author Organization [facility] Address [address] [place] [address] Care Team Providers Care Supervisor Wood Room Name Role Phone Unavailable Primary Care Provider Unavailabl e Allergies No known active allergies Medications omeprazole 20 mg capsule Take 20 mg by mouth once daily. Active EZETIMIBE/SIMVA STATIN (VYTORIN 10-20 ORAL) Take by mouth. 2 tabs a week Active GLUCOSAMINE/CHO NDROITIN SULF A (GLUCOSAMINE-CH ONDROITIN ORAL) Take by mouth once daily. Active Aspirin 81 mg tab Take 81 mg by mouth once daily. Active Palmer-3 Fatty Acids-Vitamin E (FISH OIL) 1,000 mg cap Take 1 capsule by mouth once daily. Active MULTIVITAMIN (MULTIPLE VITAMINS ORAL) Take by mouth once daily. Active oxyCODONE-aceta minophen (ROXICET) 5-325 mg tablet Take 2 tablets by mouth every 6 hours as needed. Active fentaNYL 50 mcg/hr Apply 1 Patch as directed every 72 hours. Active Active Problems Problem Noted Date Diagnosed Date Hypercholesterolemia Overview (04/11/2013): borderline H/O prostate cancer Arthritis Spinal stenosis, lumbar Lumbar herniated disc Acid reflux Diverticulitis Family History Medical History Relation Comments Cancer Father multiple myeloma Relation Status Comments Father Social History Tobacco Use Types Packs/Day Years Used Date Smoking Tobacco: Former Cigarettes Pipe Comments:smokes a pipe once a night Alcohol Use Standard Drinks/Week Comments Yes 10 (1 standard drink = 0.6 oz pu re alcohol) Sex and Gender Information Value Date Recorded Sex Assigned at Not on file Legal Sex Male 11:41 AM EST Gender Identity Not on file Sexual Orientation Not on file Last Filed Vital Signs Vital Sign Reading Time Taken Comments Blood Pressure 124/78 04/11/2013 1:46 PM EST Pulse - - Temperature - - Respiratory Rate - - Oxygen Saturation - - Inhaled Oxygen Concentration - - Weight 94.3 kg (208 lb) 04/11/2013 1:46 PM EST Height 177.8 cm (5' 10 ) 04/11/2013 1:46 PM EST Body Mass Index 29.84 04/11/2013 1:46 PM EST Plan of Treatment Health Maintenance Due Date Last Done Comments Anxiety Screening 1958 Depression Screening 1958 DTaP,Tdap,Td Vaccine (1 - Tdap) 02/28/1960 Diabetes Screening 1986 Pneumococcal Vaccine: 50+ (1 of 1 - PCV) 1991 Shingrix Vaccine (1 of 2) 1991 RSV Vaccine (1 - 1-dose 75+ series) 02/28/2016 Advance Directive Discussion 06/01/2024 Influenza Vaccine (#1) 2025 Insurance [employer] PPO
--- OUTSIDE RECORDS SUMMARY | 2025-02-23 09:50 | XMS_ITS | CCD ---
Author Organization [facility] Care Team Providers Care Forex Trader Name Role Phone MONSTER BENITEZ Unavailable Unavailable NO FAMILY DOCTOR, NO FAMILY DOCTOR Unavailable Unavailable Monster Benitez Unavailable Kuns, DO Monster Primary Care Provider Kunсветлана, DO Monster Attending Provider Kuns, DO Monster Primary Care Provider Kuns, DO Monster Attending Provider Kuns, DO Monster Primary Care Provider Kuns, DO Monster Attending Provider LAKSHMIPATHY ., [...] vailable LAKSHMIPATHY ., NARENDRANATH Attending Josiane vailable Kuns, DO Monster Primary Care Provider [phone] Kuns, DO Monster Attending Provider MD Clovis Singh Attending Provider MD Omayra Ricketts Referring Provider Kuns, DO Monster Primary Care Provider Kuns, DO Monster Attending Provider Kuns DO, Monster R Primary Care Provider [phone] Kuns DO, Monster Primary Care Provider Kuns DO, Monster Attending Provider VIET BARRAZA Attending Unavailabl e SHANNON ALBERTS Attending Unavailable MIKEY PLATA Referring Unavailable SHANNON ALBERTS Attending Unavailable KEYONA JUSTICE Attending Unavailable SHANNON ALBERTS Attending Unavailable PRAVIN MACEDO Attending Unavailable Kuns DO, Monster Primary Care Provider [phone] Kuns DO, Monster Attending Provider [phone] Kuns DO, Monster Primary Care Provider Kuns DO, Monster Attending Provider Kuns, Monster Attending Unavailable Kuns, Monster Primary Care Unavailable Kuns, Monster Admitting Unavailable Kuns, Monster Attending Unavailable Kuns, Monster Primary Care Unavailable Kuns, Monster Admitting Unavailable Kuns, Monster Attending Unavailable Kuns, Monster Primary Care Unavailable Kuns, Monster Admitting Unavailable Kuns, Monster Attending Unavailable Kuns, Monster Primary Care Unavailable Kuns, Monster Admitting Unavailable Kuns DO, Monster Primary Care Provider Trudy Villanueva DO Attending Provider Kuns DO, Monster Primary Care Provider Kuns DO, Monster Attending Provider Bib Zuleta DO Attending Provider [phone] Medications Current Medications Medication Drug Class(es) Dates Sig (Normalized) Sig (Original) acetaminophen 325 mg / oxyCODONE hydrochloride 5 mg oral tablet (10 sources) Opioid Agonist take 2 tablets by mouth every six hours as needed oxyCODONE-acetam inophen (Percocet) 5-325 MG tablet Take 2 tablets by mouth every 6 (six) hours if needed. Active amLODIPine 5 mg oral tablet (20 sources) Dihydropyridine Calcium Channel Brittanie Start: 11-03-2017 End: 02-22-2025 take 1 tablet by mouth once daily Amlodipine 5 mg tablet Active 5 MG PO Daily February 22, 2025 1:11pm Complies with drug therapy amLODIPine (Norv asc) 10 MG tablet 1 (one) time each day at the same time Active atorvastatin 10 mg oral tablet (20 sources) HMG-CoA Reductase Inhibitor Start: 01-27-2024 take 1 tablet by mouth once daily Atorvastatin 10 mg tablet Active 10 MG PO Daily January 27, 2024 2:56pm Complies with drug therapy Start: 10-05-2023 End: 01-27-2024 take 1 tablet by mouth two times weekly Atorvastatin 10 mg tablet Discontinued 10 MG PO Daily October 05, 2023 11:24am January 27, 2024 2:57pm takes one tablet twice weekly Start: 02-03-2017 End: 10-05-2023 take 1 tablet by mouth once daily Atorvastatin 10 mg tablet Discontinued 1 TAB PO Daily July 22, 2023 1:00am October 05, 2023 11:26am FreeTextSi tablet Orally Once a day; Note: Source Status: Taking; Provider: John Fry baclofen 10 mg oral tablet (1 source) gamma-Aminobutyric Acid-ergic Agonist Baclofen 10 MG 1/2 tab to 1 full tab Orally Twice a day as needed Active augmented betamethasone 0.0005 mg/mg topical ointment (20 sources) Corticosteroid Start: 024 Betamethasone, Augmented (Diprolene (Augmented)) 0.05 % ointment Active 1 APPLIC TOPICAL Daily as needed for rash 50 August 20, 2023 12:00am Complies with drug therapy cetirizine hydrochloride 10 mg oral capsule (20 sources) Histamine-1 Receptor Antagonist Start: 024 take 1 capsule by mouth once daily as needed Cetirizine (Zyrtec) 10 mg capsule Active 10 MG PO Daily as needed October 05, 2023 12:00am Complies with drug therapy Start: 07-29-2018 End: 07-22-2023 take 1 tablet by mouth once daily Cetirizine (Zyrtec) 10 mg Tablet Discontinued 10 MG PO Daily July 29, 2018 1:00am July 22, 2023 9:10am cyclobenzaprine hydrochloride 10 mg oral tablet (11 sources) Muscle Relaxant Start: 01-15-2023 cyclobenzaprine (Flexeril) 10 MG tablet Take 10 mg by mouth as needed at bedtime. 01/15/2023 Active docosahexaenoic acid 120 mg / eicosapentaenoic acid 180 mg oral capsule (10 sources) omega-3 (Fish Oi l) 1000 MG capsule 1 capsule 1 (one) time each day at the same time. Active esomeprazole 20 mg delayed release oral capsule (20 sources) Proton Pump Inhibitor Start: 07-29-2018 End: 07-22-2023 take 1 capsule by mouth once daily Esomeprazole Magnesium (Nexium) 20 mg capsule,delayed release(DR/EC) Active 20 MG PO Daily July 22, 2023 1:00am FreeTextSi cap(s) By Mouth As Directed; Note: Source Status: Taking; Provider: John Fry Complies with drug therapy NexIUM 22.3 mg 1 cap(s) By Mouth As Directed Active ezetimibe 10 mg oral tablet (20 sources) Dietary Cholesterol Absorption Inhibitor Start: 03-15-2024 take 1 tablet by mouth once daily Ezetimibe (Zetia) 10 mg tablet Active 10 MG PO Daily March 15, 2024 8:39am Complies with drug therapy Start: 02-17-2023 End: 03-15-2024 take 1 tablet by mouth two times weekly Ezetimibe (Zetia) 10 mg tablet Discontinued 10 MG PO Daily March 14, 2024 7:15am March 15, 2024 8:39am takes one tablet twice weekly Start: 08-10-2017 End: 10-05-2023 take 1 tablet by mouth once daily Ezetimibe (Zetia) 10 mg tablet Discontinued 1 TAB PO Daily July 22, 2023 1:00am October 05, 2023 11:26am FreeTextSi tablet Orally Once a day; Note: Source Status: Taking; Refills: 3; Qty: 90 Tablet; Provider: John Fry 72 hr fentaNYL 0.05 mg/hr transdermal system (10 sources) Opioid Agonist apply 1 dose transdermal route every hour fentaNYL (Duragesic) 50 MCG/HR Place 1 patch on the skin every 3rd (third) day. Active fluticasone propionate 0.05 mg/actuat metered dose nasal spray (20 sources) Corticosteroid Start: End: take 1 spray(s) nasal route once daily Fluticasone Propionate (Flonase Allergy Relief) 50 mcg/actuation spray,suspension Active 1 SPRAY INTRANASAL Daily July 22, 2023 1:00am FreeTextSi spray in each nostril Nasally Once a day; Note: Source Status: Taking; Provider: John Fry Complies with drug therapy fluticasone (Grey nase) 50 MCG/ACT nasal spray 1 (one) time each day at the same time. Active take 1 spray(s) nasal route once daily Flonase Allergy Relief 50 MCG/ACT 1 spray in each nostril Nasally Once a day Active take 1 spray(s) nasal route once daily Flonase Allergy Relief 50 MCG/ACT 1 spray in each nostril Nasally Once a day Active Fluticasone Propion-Salmeter ol (5 sources) Corticosteroid, beta2-Adrenergic Agonist Start: 08-16-2024 Start: 08-16-2024 Fluticasone Pr opion-Salmeterol (Advair Diskus) 100-50 mcg/dose blister with device Active 1 INH INHALATION Twice daily 60 August 16, 2024 12:00am Complies with drug therapy Start: 08-16-2024 Fluticasone Pr opion-Salmeterol (Advair Diskus) 100-50 mcg/dose blister with device Active 1 INH INHALATION Twice daily August 16, 2024 12:00am Multi For Him 1 (16 sources) Multi For Him 1 1 tab(s) p.o. Daily Active Multivitamin preparation (9 sources) Start: 07-22-2023 take 1 tablet by mouth once daily Multivitamin Active 1 TAB PO Daily July 22, 2023 1:00am Multivitamin tablet (8 sources) Start: 07-22-2023 take 1 tablet by mouth once daily Start: 07-22-2023 take 1 tablet by sharlene th once daily Multivitamin tablet Active 1 TAB PO Daily July 22, 2023 1:00am Complies with drug therapy Start: 07-22-2023 take 1 tablet by sharlene th once daily Multivitamin tablet Active 1 TAB PO Daily July 22, 2023 1:00am Start: 07-22-2023 take 1 tablet by sharlene th once daily Multivitamin tablet Active 1 TAB PO Daily July 22, 2023 12:00am omeprazole 20 mg delayed release oral capsule (10 sources) Proton Pump Inhibitor take 1 capsule by mouth in the morning omeprazole (PriLOSEC) [address] capsule Take 20 mg by mouth in the morning. Active psyllium 3400 mg powder for oral suspension (20 sources) Start: 04-25-2024 Psyllium Husk (Metamucil) 3.4 gram/5.4 gram powder Active 1 TBSP PO Daily April 25, 2024 3:04pm Complies with drug therapy Start: 07-29-2018 End: 04-25-2024 Psyllium Husk (Metamucil) 3. 4 gram/5.4 gram Powder Discontinued 1 TBSP PO As Directed July 29, 2018 1:00am April 25, 2024 3:04pm psyllium (Metamu cil) 48.57 % powder Active Metamucil 30.9 % as directed Orally PRN Not-Taking Metamucil 30.9 % as directed Orally PRN Active Completed/Discontinued Medications Medication Drug Class(es) Dates Sig (Normalized) Sig (Original) [id number] 200 actuat albuterol 0.09 mg/actuat metered dose inhaler (20 sources) beta2-Adrenergic Agonist Start: 07-29-2018 End: 07-22-2023 take 1 puff(s) by inhalation every four to six hours as needed for wheezing Albuterol Sulfate (Proair Hfa) 90 mcg/actuation Hfa Aerosol Inhaler Discontinued 2 PUFF INHALATION EVERY 4-6 HOURS as needed for Shortness Of Breath Or Wheezing July 29, 2018 1:00am July 22, 2023 9:09am Aspir-81 81 MG (11 sources) take 1 tablet by mouth once daily Aspir-81 81 MG 1 tablet Orally Once a day Not-Taking take 1 tablet by mouth once ami y Aspir-81 81 MG 1 tablet Orally Once a day Active aspirin 81 mg delayed release oral tablet (20 sources) Platelet Aggregation Inhibitor, Nonsteroidal Anti-inflammatory Drug Start: 07-29-2018 End: 07-22-2023 take 1 tablet by mouth once daily Aspirin (Aspir-81) 81 mg Tablet,Delayed Release (Dr/Ec) Discontinued 81 MG PO Daily July 29, 2018 1:00am July 22, 2023 9:09am azithromycin 250 mg oral tablet (4 sources) Macrolide Antimicrobial Start: 12-26-2024 End: 02-16-2025 Azithromycin (Zithromax Z-Seven) 250 mg tablet Discontinued 0 PO .COMPLEX December 26, 2024 12:00am February 16, 2025 11:57am For 250 mg dose pack: take 500 mg today (day 1), then 250 mg for 4 days (days 2-5) PO Start: 03-10-2022 Zithromax Z-Pa k 250 MG as directed Orally Mar, Active 120 actuat budesonide 0.16 mg/actuat / formoterol fumarate 0.0045 mg/actuat metered dose inhaler (14 sources) Corticosteroid, beta2-Adrenergic Agonist Start: 08-10-2017 take 2 puff(s) by inhalation twice daily as needed Symbicort 160-4.5 MCG/ACT 2 puffs Inhalation Twice a day PRN Jul, Not-Taking budesonide-formo terol (Symbicort) 160-4.5 MCG/ACT inhaler every 12 (twelve) hours. Active cefdinir 300 mg oral capsule (9 sources) Cephalosporin Antibacterial Start: 01-27-2024 End: 04-14-2024 take 1 capsule by mouth twice daily Cefdinir 300 mg capsule Discontinued 300 MG PO Twice daily 20 03January 27, 2024 12:00am April 14, 2024 2:08pm celecoxib 200 mg oral capsule (7 sources) Nonsteroidal Anti-inflammatory Drug Start: 01-14-2022 take 1 capsule by mouth every other day at mealtime Celecoxib 200 MG 1 capsule with food Orally every other day Dec, Not-Taking Start: 01-14-2022 take 1 capsule by [facility] every twenty-four hours Celecoxib 200 MG 1 capsule with food Orally Once a day Dec, Active cephalexin 500 mg oral capsule (12 sources) Cephalosporin Antibacterial Start: 04-13-2024 End: 08-16-2024 take 1 capsule by mouth twice daily Cephalexin 500 mg capsule Discontinued 500 MG PO Twice daily April 14, 2024 1:00am August 16, 2024 9:56am chlorpheniramine maleate 4 mg oral tablet (20 sources) Histamine-1 Receptor Antagonist Start: 07-22-2023 End: 08-20-2023 take 1 tablet by mouth every four hours as needed Chlorpheniramine Maleate 4 mg tablet Discontinued 4 MG PO Every 4 hours as needed July 22, 2023 1:00am August 20, 2023 10:17am take 1 tablet by sharlene th every six hours Chlorpheniramine Maleate 4 MG 1 tablet a s needed Orally every 6 hrs Active ciprofloxacin 3 mg/ml / dexamethasone 1 mg/ml otic suspension (3 sources) Corticosteroid, Quinolone Antimicrobial Start: 04-14-2024 End: 04-14-2024 Ciprofloxacin-Dexamethasone 0.3-0.1 % drops,suspension Discontinued 4 DROPS OTIC Twice daily 7.5 April 14, 2024 1:00am April 14, 2024 3:15pm Ciprofloxacin-Dexa methasone 0.3-0.1 % drops,suspension (4 sources) Start: 04-14-2024 End: 04-14-2024 Ciprofloxacin-Dexamethasone 0.3-0.1 % drops,suspension Discontinued 4 DROPS OTIC Twice daily 7.April 14, 2024 1:00am April 14, 2024 3:15pm Start: 04-14-2024 Ciprofloxacin- Dexamethasone 0.3-0.1 % drops,suspension Active 4 DROPS OTIC Twice daily 7.5 April 14, 2024 12:00am ezetimibe 10 mg / simvastatin 20 mg oral tablet (20 sources) HMG-CoA Reductase Inhibitor, Dietary Cholesterol Absorption [...] TakingPRN; Refills: 3; Provider: John Fry Start: 02-17-2023 Breo Ellipta 1 00-25 MCG/ACT aerosol powder 02/17/2023 Active Start: 01-15-2018 take 1 puff(s) by in halation once daily as needed BREO ELLIPTA 100 mcg/25 mcg 1 puff Inhalation daily PRN Dec, Active furosemide 20 mg oral tablet (5 sources) Loop Diuretic Start: 08-16-2024 End: 11-17-2024 take 1 tablet by mouth once daily in the morning Furosemide 20 mg tablet Discontinued 20 MG PO Every morning 90 August 16, 2024 12:00am November 17, 2024 9:19am hydrocortisone 10 mg/ml / neomycin 3.5 mg/ml / polymyxin b [id number] unt/ml otic suspension (6 sources) Aminoglycoside Antibacterial, Polymyxin-class Antibacterial, Corticosteroid Start: 04-14-2024 End: 08-16-2024 Neomycin-Polymyxi n-Hc 3.5-10,000-1 mg/mL-unit/mL-% drops,suspension Discontinued 0 .ROUTE .COMPLEX April 14, 2024 3:14pm August 16, 2024 9:56am 2-3 drops QID hydrOXYzine hydrochloride 25 mg oral tablet (20 sources) Antihistamine Start: 10-14-2022 End: 08-20-2023 take 1-2 tablets by mouth once daily at bedtime as needed Hydroxyzine Hcl 25 mg tablet Discontinued MG PO July 22, 2023 1:00am August 20, 2023 10:17am FreeTextSi-2 tablet at bedtime as needed Orally Once a day; Note: Source Status: Taking; Refills: 0; Provider: John Fry Ketorolac (20 sources) Nonsteroidal Anti-inflammatory Drug, Cyclooxygenase Inhibitor Start: 04-15-2016 Toradol per 15 mg 15 Apr, 2016 2 cc Start: 04-29-2013 Toradol per 15 mg Apr, 2 mL Start: 04-19-2013 Toradol per 15 mg Apr, 2 mL Start: 04-16-2013 Toradol per 15 mg 16 Apr, 2013 2ml Start: 04-12-2013 Toradol per 15 mg Apr, 2 ml Start: 04-11-2013 Toradol per 15 mg Apr, 2 mL Start: 04-06-2013 Toradol per 15 mg Apr, 2 mL Start: 04-04-2013 Toradol per 15 mg Apr, 2 mL Start: 04-02-2013 Toradol per 15 mg Apr, 2 mL Start: 11-25-2011 Toradol per 15 mg Oct, losartan potassium 50 mg oral tablet (20 sources) Angiotensin 2 Receptor Brittanie Start: 07-29-2018 End: 07-22-2023 take 1 tablet by mouth once daily Losartan 50 mg Tablet Discontinued 50 MG PO Daily July 29, 2018 1:00am July 22, 2023 9:11am methylPREDNISolone 4 mg oral tablet (20 sources) Corticosteroid Start: 12-26-2024 End: 02-16-2025 take 1 tablet by mouth once Methylprednisolone (Medrol (Seven)) 4 mg tablets,dose pack Discontinued 0 PO per package directions December 26, 2024 12:00am February 16, 2025 11:57am PO PER PKG DIR Start: 08-20-2023 methylPREDNISo lone (Medrol Dospak) 4 MG tablets TAKE 6 TABLETS ON DAY 1 DIRECTED ON PACKAGE AND DECREASE BY 1 TAB EACH DAY FOR A TOTAL OF 6 DAYS 08/20/2023 Active Start: 08-20-2023 End: 10-05-2023 take 1 tablet by mouth once Methylprednisolone (Medrol (Seven)) 4 mg tablets,dose pack Discontinued 0 PO per package directions August 20, 2023 12:00am October 05, 2023 11:25am orally per package directions; PO PER PKG DIR Start: 03-10-2022 Medrol 4 MG as directed Orally Mar, Active Start: 03-28-2013 SOLU-MEDROL 41 - 125 mg Mar, 125 mg 24 hr metoprolol succinate 25 mg extended release oral tablet (20 sources) beta-Adrenergic Brittanie Start: 10-05-2023 End: 12-05-2024 take 1 tablet by mouth once daily Metoprolol Succinate 25 mg tablet extended release 24 hr Discontinued 25 MG PO Daily 90 90 November 03, 2023 12:14pm April 01, 2024 8:37am FreeTextSig: Take 1 tablet by mouth once daily; Note: Source Status: Start; Refills: 2; Qty: 30 Tablet; Provider: Jamarcus Cutler ( ) [place] 2-Ccc-Hts-Fish Oil (Fish Oil) 1,000 mg (120 mg-180 mg) Capsule (20 sources) Start: 07-29-2018 End: 07-22-2023 take 1 capsule by mouth once daily [place] 1-Eyf-Elz-Fish Oil (Fish Oil) 1,000 mg (120 mg-180 mg) Capsule Discontinued 1 CAP PO Daily July 29, 2018 12:00am July 22, 2023 8:11am Start: 07-29-2018 End: 07-22-2023 take 1 capsule by mouth once daily [place] 3-Skh-Qmb-Fish Oil (Fish Oil) 1,000 mg (120 mg-180 mg) Capsule Discontinued 1 CAP PO Daily July 29, 2018 1:00am July 22, 2023 9:11am Start: 07-29-2018 take 1 capsule by [facility] once daily [place] 5-Vvq-Xus-Fish Oil (Fish Oil) 1,000 mg (120 mg-180 mg) Capsule Active 1 CAP PO Daily July 29, 2018 12:00am Start: 07-29-2018 take 1 capsule by [facility] once daily [place] 5-Fwj-Kyd-Fish Oil (Fish Oil) 1,000 mg (120 mg-180 mg) Capsule Active 1 CAP PO Daily July 29, 2018 1:00am rivaroxaban 20 mg oral tablet (20 sources) Factor Xa Inhibitor Start: 10-05-2023 End: 01-27-2025 take 1 tablet by mouth once daily at dinner Rivaroxaban (Xarelto) 20 mg tablet Discontinued 20 MG PO Every evening 90 90 November 03, 2023 12:14pm May 04, 2024 6:18pm must administer with evening meal Toradol 30 mg/ml (14 sources) Start: 02-07-2021 Toradol 30 mg/ ml Jan, 60 mg Problems Active Problems Problem Classification Problem Date Documented Da te Episodic/Chronic Abdominal hernia (19 sources) Inguinal hernia; Translations: [Unilateral inguinal hernia, without obstruction or gangrene, not specified as recurrent] Onset: 1 Resolved: 2 Episodic Acquired foot deformities (2 sources) Hammer toe; Translations: [Other hammer toe(s) (acquired), right foot] 08-04-2024 Chronic Anxiety disorders (19 sources) Anxiety; Translations: [Other specified anxiety disorders] Chronic Cancer of prostate (20 sources) Malignant tumor of prostate; Translations: [Malignant neoplasm of prostate] Chronic Cancer; other and unspecified primary (2 sources) History of atypical nevus; Translations: [Personal history of other benign neoplasm] 03-31-2024 Episodic Cardiac dysrhythmias (20 sources) Atrial fibrillation; Translations: [Unspecified atrial fibrillation] 10-05-2023 Chronic Cataract (20 sources) Bilateral age-related nuclear cataracts; Translations: [Age-related nuclear cataract, bilateral] Onset: 4 Resolved: 4 10-27-2023 Chronic Deficiency and other anemia (6 sources) Anemia; Translations: [Anemia, unspecified] Episodic Diabetes mellitus without complication (6 sources) Hyperglycemia; Translations: [Hyperglycemia, unspecified] Episodic Diseases of white blood cells (20 sources) Granulomatous disorder; 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] 10-08-2023 Chronic Disorders of lipid metabolism (20 sources) Hyperlipidemia; Translations: [Hyperlipidemia, unspecified] Onset: 1 Resolved: 2 Chronic Esophageal disorders (20 sources) Gastroesophageal reflux disease; Translations: [Gastro-esophageal reflux disease without esophagitis] 08-19-2023 Chronic Essential hypertension (20 sources) Essential (primary) hypertension; Translations: [Hypertensive disorder] Onset: 7 Resolved: 2 Chronic Essential hypertension (2 sources) Essential hypertension Onset: Fluid and electrolyte disorders (6 sources) Hyperkalemia; Translations: [Hyperkalemia] Episodic Gastrointestinal hemorrhage (10 sources) Hematochezia; Translations: [Melena] 08-16-2024 Episodic Immunizations and screening for infectious disease (8 sources) Needs influenza immunization; Translations: [Encounter for immunization] 04-14-2024 Episodic Mycoses (2 sources) Onychomycosis; Translations: [Tinea unguium] 08-04-2024 Episodic Neoplasms of unspecified nature or uncertain behavior (2 sources) Neoplastic disease; Translations: [Neoplasm of unspecified behavior of bone, soft tissue, and skin] 03-31-2024 Episodic Nonspecific chest pain (20 sources) Chest pain at rest; Translations: [Chest pain, unspecified] Onset: 10-05-2023 Episodic Osteoarthritis (20 sources) Localized, primary osteoarthritis of the shoulder region; Translations: [Primary osteoarthritis, 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 Other and ill-defined heart disease (17 sources) Cardiomegaly; Translations: [Cardiomegaly] 08-20-2023 Chronic Other and ill-defined heart disease (10 sources) Cardiomegaly; Translations: [Cardiomegaly] 08-20-2023 Chronic Other bone disease and musculoskeletal deformities (20 sources) Somatic dysfunction of rib; Translations: [Segmental and somatic dysfunction of rib cage] 08-19-2023 Episodic Other bone disease and musculoskeletal deformities (20 sources) Somatic dysfunction of thoracic region; Translations: [Segmental and somatic dysfunction of thoracic region] 08-19-2023 Episodic Other connective tissue disease (16 sources) History of total replacement of right hip joint; Translations: [Presence of right artificial hip joint] Chronic Other connective tissue disease (2 sources) Pain of toes of bilateral feet; Translations: [Pain in right toe(s)] 08-04-2024 Episodic Other diseases of kidney and ureters (7 sources) Renal impairment; Translations: [Disorder of kidney and ureter, unspecified] Episodic Other diseases of kidney and ureters (20 sources) Abnormal renal function; Translations: [Disorder of kidney and ureter, unspecified] 08-19-2023 Episodic Other ear and sense organ disorders (7 sources) Otitis externa; Translations: [Otitis externa in other diseases classified elsewhere, left ear] 04-14-2024 Chronic Other ear and sense organ disorders (1 source) Otitis externa in other diseases classified elsewhere, left ear; Translations: [Other acute infections of external ear] 04-14-2024 Chronic Other ear and sense organ disorders (4 sources) Decreased hearing ; Translations: [Unspecified hearing loss, unspecified ear] 11-17-2024 Chronic Other eye disorders (7 sources) Posterior vitreous detachment of left eye; Translations: [Vitreous degeneration, left eye] Onset: 4 04-05-2024 Chronic Other lower respiratory disease (16 sources) Dyspnea; Translations: [Shortness of breath] Episodic Other lower respiratory disease (16 sources) Shortness of breath; Translations: [Shortness of breath] Onset: 1 Resolved: 2 Episodic Other lower respiratory disease (20 sources) Other nonspecific abnormal finding of lung field; Translations: [Ground glass opacity present on imaging of lung] Episodic Other lower respiratory disease (18 sources) Dyspnea on exertion; Translations: [Shortness of breath] 08-20-2023 Episodic Other lower respiratory disease (17 sources) Nodule of lung; Translations: [Solitary pulmonary nodule] 08-20-2023 Episodic Other lower respiratory disease (13 sources) Solitary pulmonary nodule; Translations: [Solitary pulmonary nodule] 08-20-2023 Episodic Other lower respiratory disease (3 sources) Cough; Translations: [Acute cough] 12-26-2024 Episodic Other nervous system disorders (20 sources) [...] Translations: [Squamous cell carcinoma of skin, unspecified] Onset: 5 08-19-2023 Episodic Other non-traumatic joint disorders (16 [...] blood chemistry] Onset: 1 Resolved: 1 Episodic Comment on above: 03/22/24 Other skin disorders (20 sources) Actinic keratosis; Translations: [Actinic keratosis] 03-31-2024 Episodic Other skin disorders (1 source) Generalized hyperhidrosis Episodic Other skin disorders (17 sources) Eruption; Translations: [Rash and other nonspecific skin eruption] 08-20-2023 Episodic Other skin disorders (7 sources) Rash and other nonspecific skin eruption; Translations: [Rash and other nonspecific skin eruption] 08-20-2023 Episodic Other skin disorders (2 sources) Seborrheic keratosis; Translations: [Other seborrheic keratosis] 03-31-2024 Episodic Other skin disorders (2 sources) Lentiginosis; Translations: [Other melanin hyperpigmentation] 03-31-2024 Episodic Other skin disorders (2 sources) Callosity; Translations: [Corns and callosities] 08-04-2024 Episodic Other upper respiratory disease (12 sources) [...] nasal sinuses Episodic Other upper respiratory disease (17 sources) Nasal congestion; Translations: [Nasal congestion] 08-20-2023 Episodic Peripheral and visceral atherosclerosis (20 sources) Peripheral vascular disease; Translations: [Peripheral vascular disease, unspecified] 08-19-2023 Chronic Residual codes; unclassified (6 sources) Edema; Translations: [Localized edema] Episodic Residual codes; unclassified (17 sources) Edema of lower extremity; Translations: [Localized edema] 08-19-2023 Episodic Residual codes; unclassified (2 sources) Localized edema; Translations: [Edema] 08-16-2024 Episodic Spondylosis; intervertebral disc disorders; other back [...] of lips Onset: 09-03-2021 Resolved: 09-03-2021 Episodic Inflammation; infection of eye (except that caused by tuberculosis or sexually transmitteddisease) (7 sources) Blepharitis of upper and lower eyelids of bilateral eyes; Translations: [Unspecified blepharitis right eye, upper and lower eyelids] Onset: 04-05-2024 04-05-2024 Episodic Other bone disease and musculoskeletal deformities (1 source) Segmental and somatic dysfunction of thoracic region Onset: 09-03-2021 Resolved: 09-03-2021 Episodic Other bone disease and musculoskeletal deformities (1 source) Segmental and somatic dysfunction of rib cage Onset: 09-03-2021 Resolved: 09-03-2021 Episodic Other diseases of kidney and ureters (10 sources) Disorder of kidney and ureter, unspecified; Translations: [Unspecified disorder of kidney and ureter] Onset: 08-08-2024 Episodic Other eye disorders (7 sources) Dry eyes; Translations: [Dry eye syndrome of bilateral lacrimal glands] Onset: 04-05-2024 04-05-2024 Episodic Other skin disorders (1 source) Xerosis cutis Onset: 09-03-2021 Resolved: 09-03-2021 Episodic Results Test Name Value Interpretation Reference Range Facility Laboratory - Chemistry and C hemistry - challengeOrdered By: Monster Benitez on 02-16-2025 Bilirubin Ql (U) Small [facility] Glucose (U) [Mass/Vol] Negative [facility] Ketones Ql (U) Trace [facility] pH (U) 5.5 [pH] [facility] Specific gravity (U) [Rel density] >=1.030 [facility] Urobilinogen (U) [Mass/Vol] 0.2 mg/dL [facility] Laboratory - UrinalysisOrder ed By: Monster Benitez on 02-16-2025 Leukocyte esterase Test strip Ql (U) Negative [facility] Nitrite Ql (U) Negative [facility] Protein Ql (U) >=300 [facility] No Panel InformationOrdered By: Monster Benitez on 02-16-2025 Urine Occult Blood Negative [facility] COVID CepheidOrdered By: Maddi Benitez on 12-26-2024 SARS-CoV-2 (COVID-19) RNA KATY+probe Ql (Unsp spec) Negative [facility] No Panel InformationOrdered By: Monster Benitez on 12-26-2024 POC Influenza A (PCR) Negative [facility] POC Influenza B (PCR) Negative [facility] Alanine aminotransferase [En zymatic activity/volume] in Serum or PlasmaOrdered By: Monster Benitez on 11-08-2024 ALT [Catalytic activity/Vol] Alanine aminotransferase [Enzymatic activity/volume] in Serum or Plasma [facility] Albumin [Mass/volume] in Ser um or Plasma by Bromocresol green (BCG) dye binding methoOrdered By: Monster Benitez on 11-08-2024 Albumin BCG dye [Mass/Vol] Albumin [Mass/volume] in Serum or Plasma by Bromocresol green (BCG) dye binding metho 3.5-5.7 [facility] Albumin BCG dye [Mass/Vol] 4.0 g/dL 3.5-5.7 [facility] Alkaline phosphatase [Enzyma tic activity/volume] in Serum or PlasmaOrdered By: Monster Benitez on 11-08-2024 ALP [Catalytic activity/Vol] Alkaline phosphatase [Enzymatic activity/volume] in Serum or Plasma 34-104 [facility] Aspartate aminotransferase [ Enzymatic activity/volume] in Serum or PlasmaOrdered By: Monster Benitez on 11-08-2024 AST [Catalytic activity/Vol] Aspartate aminotransferase [Enzymatic activity/volume] in Serum or Plasma 13-39 [facility] Basophils Auto (Bld) [#/Vol] Ordered By: Monster Benitez on 11-08-2024 Basophils (Bld) [#/Vol] Automated basoph il count 0.0-0.2 [facility] Basophils/100 WBC Auto (Bld) Ordered By: Monster Benitez on 11-08-2024 Basophils/100 WBC (Bld) Automated basophil % . [facility] Bilirubin.total [Mass/volume ] in Serum or PlasmaOrdered By: Monster Benitez on 11-08-2024 Bilirubin [Mass/Vol] Bilirubin.total [Mass/volume] in Serum or Plasma 0.3-1.0 [facility] Blood estimated average gluc ose determination by estimation from glycated hemoglobinOrdered By: Monster Benitez on 11-08-2024 Average glucose Estimated from glycated hemoglobin (Bld) [Mass/Vol] 114 mg/dL [facility] CMP with reflex to A1Con Albumin [Mass/Vol] 4.0 g/dL Normal 3.5-5.7 [facility] Comment on above: Performed By: #### C MP, CBC #### [address] Estimated GFR 43.797 mL/Min Normal [facility] Comment on above: Performed By: #### C MP, CBC #### [facility] [address] [place] [address] CMP with reflex to [id number] d By: Monster Benitez on 11-08-2024 Albumin/Globulin [Mass ratio] 1.5 {ratio} [facility] Comment on above: Performed By: #### C MP, CBC #### [facility] [address] [place] [address] ALP [Catalytic activity/Vol] 75 U/L 34-104 [facility] Comment on above: Result Comment: PERF ORMED BY: [place] [address] PATHOLOGIST B[employer] STRAIGHTENER CHANCE KNUTSON M.D. Performed By: #### C MP, CBC #### [address] ALT [Catalytic activity/Vol] 26 U/L 7-52 [facility] Comment on above: Performed By: #### C MP, CBC #### [address] Anion gap [Moles/Vol] 9.3 mmol/L 6.0-15.0 [facility] Comment on above: Performed By: #### C MP, CBC #### [address] AST [Catalytic activity/Vol] 32 U/L 13-39 [facility] Comment on above: Performed By: #### C MP, CBC #### [address] Bilirubin [Mass/Vol] 0.8 mg/dL 0.3-1.0 [facility] Comment on above: Performed By: #### C MP, CBC #### [address] Calcium [Mass/Vol] 9.4 mg/dL 8.6-10.3 [facility] Comment on above: Performed By: #### C MP, CBC #### [place] [address] [place] Chloride [Moles/Vol] 106 mmol/L 98-107 [facility] Comment on above: Performed By: #### C MP, CBC #### [facility] [address] CO2 [Moles/Vol] 29.3 mmol/L 21.0-31.0 [facility] Comment on above: Performed By: #### C MP, CBC #### [facility] [address] Creatinine [Mass/Vol] 1.56 mg/dL High 0.70-1.30 [facility] Comment on above: Performed By: #### C MP, CBC #### [facility] [address] Globulin (S) [Mass/Vol] 2.6 g/dL F [facility] Comment on above: Performed By: #### C MP, CBC #### [address] Glucose [Mass/Vol] 106 mg/dL High 70-100 [facility] Comment on above: Result Comment: ADA recommended reference range Performed By: #### C MP, CBC #### [address] ADA recommended refe rence range Potassium [Moles/Vol] 4.6 mmol/L 3.5-5.1 [facility] Comment on above: Performed By: #### C MP, CBC #### [address] Protein [Mass/Vol] 6.6 g/dL 6.4-8.9 [facility] Comment on above: Performed By: #### C MP, CBC #### [facility] [address] [place] [address] Sodium [Moles/Vol] 140 mmol/L 136-145 [facility] Comment on above: Performed By: #### C MP, CBC #### [facility] [address] [place] [address] Urea nitrogen [Mass/Vol] 26 mg/dL High 7-25 [facility] Comment on above: Performed By: #### C MP, CBC #### [facility] [address] Calcium [Mass/volume] in Ser um or PlasmaOrdered By: Monster Benitez on 11-08-2024 Calcium [Mass/Vol] Calcium [Mass/volume ] in Serum or Plasma 8.6-10.3 [facility] Carbon dioxide, total [Moles /volume] in Serum or PlasmaOrdered By: Monster Benitez on 11-08-2024 CO2 [Moles/Vol] Carbon dioxide, tota l [Moles/volume] in Serum or Plasma 21.0-31.0 [facility] Chloride [Moles/volume] in S bautista or PlasmaOrdered By: Monster Benitez on 11-08-2024 Chloride [Moles/Vol] Chloride [Moles/volume] in Serum or Plasma 98-107 [facility] Complete Blood Count Auto Di ffOrdered By: Monster Benitez on 11-08-2024 Basophils (Bld) [#/Vol] 0.1 10*3/uL 0.0-0.2 [facility] Comment on above: Result Comment: PERF ORMED BY: [place] [address] PATHOLOGIST [employer] CHANCE KNUTSON M.D. Performed By: #### C MP, CBC #### [facility] [address] [place] [address] [place] Basophils/100 WBC (Bld) 0.7 % . F [facility] Comment on above: Performed By: #### C MP, CBC #### [facility] [address] [place] [address] [place] Eosinophils (Bld) [#/Vol] 0.4 10*3/uL 0.0-0.45 [facility] Comment on above: Performed By: #### C MP, CBC #### [facility] [address] [place] [address] [place] Eosinophils/100 WBC (Bld) 5.7 % . [facility] Comment on above: Performed By: #### C MP, CBC #### [facility] [address] Erythrocyte distribution width (RBC) [Ratio] 14.4 % 12.0-14.8 [facility] Comment on above: Performed By: #### C MP, CBC #### [address] Hematocrit (Bld) [Volume fraction] 43.4 % 38.8-50.0 [facility] Comment on above: Performed By: #### C MP, CBC #### [facility] [address] [place] [address] Hemoglobin (Bld) [Mass/Vol] 14.5 g/dL 13.0-17.0 [facility] Comment on above: Performed By: #### C MP, CBC #### [address] Lymphocytes (Bld) [#/Vol] 2.6 10*3/uL 1.00-4.8 [facility] Comment on above: Performed By: #### C MP, CBC #### [address] Lymphocytes/100 WBC (Bld) 34.2 % . [facility] Comment on above: Performed By: #### C MP, CBC #### [address] MCH (RBC) [Entitic mass] 32.6 pg 27.5-35.2 [facility] Comment on above: Performed By: #### C MP, CBC #### [facility] [address] [place] [address] MCV (RBC) [Entitic vol] 97.7 fL 83.5-101 F [facility] Comment on above: Performed By: #### C MP, CBC #### [facility] [address] [place] [address] Monocytes (Bld) [#/Vol] 1.0 10*3/uL High 0.0-0.8 [facility] Comment on above: Performed By: #### C MP, CBC #### [facility] [address] [place] [address] [place] Monocytes/100 WBC (Bld) 13.4 % . F [facility] Comment on above: Performed By: #### C MP, CBC #### [facility] [address] Neutrophils (Bld) [#/Vol] 3.5 10*3/uL 1.8-7.7 [facility] Comment on above: Performed By: #### C MP, CBC #### [facility] [address] Neutrophils/100 WBC (Bld) 46.0 % . [facility] Comment on above: Performed By: #### C MP, CBC #### [facility] [address] Platelet mean volume (Bld) [Entitic vol] 9.1 fL 6.6-10.1 [facility] Comment on above: Performed By: #### C MP, CBC #### [facility] [address] [place] [address] [place] Platelets (Bld) [#/Vol] 242 10*3/uL 150-450 [facility] Comment on above: Performed By: #### C MP, CBC #### [facility] [address] [place] [address] [place] RBC (Bld) [#/Vol] 4.44 10*6/uL 3.90-5.60 [facility] Comment on above: Performed By: #### C MP, CBC #### [facility] [address] [place] [address] [place] WBC (Bld) [#/Vol] 7.7 10*3/uL 4.1-10.5 [facility] Comment on above: Performed By: #### C MP, CBC #### [facility] [address] [place] [address] Complete Blood Count Auto Di ffon 11-08-2024 Mean Corpuscular HGB Conc 33.3 g/dL Normal 32.5-35.6 [facility] Comment on above: Performed By: #### C MP, CBC #### [facility] [address] NRBC% 0.1 /100{WBC} Normal 0-0.5 [facility] Comment on above: Performed By: #### C MP, CBC #### [address] Creatinine [Mass/volume] in Serum or PlasmaOrdered By: Monster Benitez on 11-08-2024 Creatinine [Mass/Vol] Creatinine [Mass/volume] in Serum or Plasma High 0.70-1.30 [facility] EBS A1C with Estimated Ave G luon 11-08-2024 Glucose [Mass/Vol] 114 mg/dL Normal [facility] Comment on above: Result Comment: PERF ORMED BY: [place] [address] PATHOLOGIST [employer] CHANCE KNUTSON M.D. Performed By: #### C MP, CBC #### [address] EBS A1C with Estimated Ave G luOrdered By: Monster Benitez on 11-08-2024 HbA1c (Bld) [Mass fraction] 5.6 % 4.3-5.6 [facility] Comment on above: Result Comment: Incr eased risk for diabetes: 5.7 - 6.4 diabetes: >6.4 glycemic control for adults with diabetes: <7.0 Performed By: #### C MP, CBC #### [address] Increased risk for d iabetes: 5.7 - 6.4diabetes: >6.4glycemic control for adults with diabetes: <7.0 Eosinophils Auto (Bld) [#/Vo l]Ordered By: Monster Benitez on 11-08-2024 Eosinophils (Bld) [#/Vol] Automated eosinophil count 0.0-0.45 [facility] Eosinophils/100 WBC Auto (Bl d)Ordered By: Monster Benitez on 11-08-2024 Eosinophils/100 WBC (Bld) Automated eosinophil % . [facility] Erythrocyte distribution wid th Auto (RBC) [Ratio]Ordered By: Monster Benitez on 11-08-2024 Erythrocyte distribution width (RBC) [Ratio] Erythrocyte distribution width [Ratio] by Automated count 12.0-14.8 [facility] Globulin Calc (S) [Mass/Vol] Ordered By: Monster Benitez on 11-08-2024 Globulin (S) [Mass/Vol] Serum globulin measurement by calculation (mass/volume) [facility] Glucose [Mass/volume] in Ser um or PlasmaOrdered By: Monster Benitez on 11-08-2024 Glucose [Mass/Vol] Glucose [Mass/volume ] in Serum or Plasma High 70-100 [facility] Comment on above: ADA recommended refe rence range Hematocrit Auto (Bld) [Volum e fraction]Ordered By: Monster Benitez on 11-08-2024 Hematocrit (Bld) [Volume fraction] Hematocrit [Volume Fraction] of Blood by Automated count 38.8-50.0 [facility] Hemoglobin [Mass/volume] in BloodOrdered By: Monster Benitez on 11-08-2024 Hemoglobin (Bld) [Mass/Vol] Hemoglobin [Mass/volume] in Blood 13.0-17.0 [facility] Leukocytes [#/volume] correc joseph for nucleated erythrocytes in Blood by Automated counOrdered By: Monster Benitez on 11-08-2024 WBC corrected for nucl RBC Auto (Bld) [#/Vol] Leukocytes [#/volume] corrected for nucleated erythrocytes in Blood by Automated coun 4.1-10.5 [facility] WBC corrected for nucl RBC Auto (Bld) [#/Vol] 7.7 10*3/uL 4.1-10.5 [facility] Lymphocytes Auto (Bld) [#/Vo l]Ordered By: Monster Benitez on 11-08-2024 Lymphocytes (Bld) [#/Vol] Lymphocytes [#/volume] in Blood by Automated count 1.00-4.8 [facility] Lymphocytes/100 WBC Auto (Bl d)Ordered By: Monster Benitez on 11-08-2024 Lymphocytes/100 WBC (Bld) Lymphocytes/100 leukocytes in Blood by Automated count . [facility] MCH Auto (RBC) [Entitic mass ]Ordered By: Monster Benitez on 11-08-2024 MCH (RBC) [Entitic mass] MCH [Entitic mass] by Automated count 27.5-35.2 [facility] MCHC Auto (RBC) [Mass/Vol]Or dered By: Monster Benitez on 11-08-2024 MCHC (RBC) [Mass/Vol] MCHC [Mass/volume] by Automated count 32.5-35.6 [facility] MCHC (RBC) [Mass/Vol] 33.3 g/dL 32.5-35.6 [facility] MCV Auto (RBC) [Entitic vol] Ordered By: Monster Benitez on 11-08-2024 MCV (RBC) [Entitic vol] MCV [Entitic vol ume] by Automated count 83.5-101 [facility] Monocytes Auto (Bld) [#/Vol] Ordered By: Monster Benitez on 11-08-2024 Monocytes (Bld) [#/Vol] Automated blood monocyte count High 0.0-0.8 [facility] Monocytes/100 WBC Auto (Bld) Ordered By: Monster Benitez on 11-08-2024 Monocytes/100 WBC (Bld) Automated monocyte % . [facility] Neutrophils Auto (Bld) [#/Vo l]Ordered By: Monster Benitez on 11-08-2024 Neutrophils (Bld) [#/Vol] Neutrophils [#/volume] in Blood by Automated count 1.8-7.7 [facility] Neutrophils/100 WBC Auto (Bl d)Ordered By: Monster Benitez on 11-08-2024 Neutrophils/100 WBC (Bld) Automated neutrophil % . [facility] No Panel InformationOrdered By: Monster Benitez on 11-08-2024 Estimated GFR (CKD-EPI) 43.797 mL/Min [facility] Creatinine Clearance (Chem N/A [facility] Nucleated erythrocytes [Pres ence] in Blood by Automated countOrdered By: Monster Benitez on 11-08-2024 Nucleated RBC Auto Ql (Bld) Nucleated erythrocytes [Presence] in Blood by Automated count 0-0.5 [facility] Nucleated RBC Auto Ql (Bld) 0.1 /100{WBC} 0-0.5 [facility] Platelet mean volume Auto (B ld) [Entitic vol]Ordered By: Monster Benitez on 11-08-2024 Platelet mean volume (Bld) [Entitic vol] Platelet mean volume [Entitic volume] in Blood by Automated count 6.6-10.1 [facility] Platelets Auto (Bld) [#/Vol] Ordered By: Monster Benitez on 11-08-2024 Platelets (Bld) [#/Vol] Platelets [#/vol ume] in Blood by Automated count 150-450 [facility] Potassium [Moles/volume] in Serum or PlasmaOrdered By: Monster Benitez on 11-08-2024 Potassium [Moles/Vol] Potassium [Moles/volume] in Serum or Plasma 3.5-5.1 [facility] Protein [Mass/volume] in Ser um or PlasmaOrdered By: Monster Benitez on 11-08-2024 Protein [Mass/Vol] Protein [Mass/volume ] in Serum or Plasma 6.4-8.9 [facility] RBC Auto (Bld) [#/Vol]Ordere d By: Monster Benitez on 11-08-2024 RBC (Bld) [#/Vol] Erythrocytes [#/volume] in Blood by Automated count 3.90-5.60 [facility] Serum or plasma albumin/glob ulin mass ratioOrdered By: Monster Benitez on 11-08-2024 Albumin/Globulin [Mass ratio] Serum or plasma albumin/globulin mass ratio [facility] Serum or plasma anion gap de terminationOrdered By: Monster Benitez on 11-08-2024 Anion gap [Moles/Vol] Serum or plasma an ion gap determination 6.0-15.0 [facility] Sodium [Moles/volume] in Ser um or PlasmaOrdered By: Monster Benitez on 11-08-2024 Sodium [Moles/Vol] Sodium [Moles/volume ] in Serum or Plasma 136-145 [facility] Urea nitrogen [Mass/volume] in Serum or PlasmaOrdered By: Monster Benitez on 11-08-2024 Urea nitrogen [Mass/Vol] Urea nitrogen [Mass/volume] in Serum or Plasma High 7-25 [facility] WBC Auto (Bld) [#/Vol]Ordere d By: Monster Benitez on 11-08-2024 WBC (Bld) [#/Vol] Leukocytes [#/volume ] in Blood by Automated count 4.1-10.5 [facility] Alanine aminotransferase [En zymatic activity/volume] in Serum or PlasmaOrdered By: Monster Benitez on 08-08-2024 ALT [Catalytic activity/Vol] Alanine aminotransferase [Enzymatic activity/volume] in Serum or Plasma 7-52 [facility] Albumin [Mass/volume] in Ser um or Plasma by Bromocresol green (BCG) dye binding methoOrdered By: Monster Benitez on 08-08-2024 Albumin BCG dye [Mass/Vol] Albumin [Mass/volume] in Serum or Plasma by Bromocresol green (BCG) dye binding metho 3.5-5.7 [facility] Alkaline phosphatase [Enzyma tic activity/volume] in Serum or PlasmaOrdered By: Monster Benitez on 08-08-2024 ALP [Catalytic activity/Vol] Alkaline phosphatase [Enzymatic activity/volume] in Serum or Plasma 34-104 [facility] Aspartate aminotransferase [ Enzymatic activity/volume] in Serum or PlasmaOrdered By: Monster Benitez on 08-08-2024 AST [Catalytic activity/Vol] Aspartate aminotransferase [Enzymatic activity/volume] in Serum or Plasma 13-39 [facility] Basophils Auto (Bld) [#/Vol] Ordered By: Monster Benitez on 08-08-2024 Basophils (Bld) [#/Vol] Automated basoph il count 0.0-0.2 [facility] Basophils/100 WBC Auto (Bld) Ordered By: Monster Benitez on 08-08-2024 Basophils/100 WBC (Bld) Automated basophil % . [facility] Bilirubin.total [Mass/volume ] in Serum or PlasmaOrdered By: Monster Benitez on 08-08-2024 Bilirubin [Mass/Vol] Bilirubin.total [Mass/volume] in Serum or Plasma 0.3-1.0 [facility] Calcium [Mass/volume] in Ser um or PlasmaOrdered By: Monster Benitez on 08-08-2024 Calcium [Mass/Vol] Calcium [Mass/volume ] in Serum or Plasma 8.6-10.3 [facility] Carbon dioxide, total [Moles /volume] in Serum or PlasmaOrdered By: Monster Benitez on 08-08-2024 CO2 [Moles/Vol] Carbon dioxide, tota l [Moles/volume] in Serum or Plasma High 21.0-31.0 [facility] Chloride [Moles/volume] in S bautista or PlasmaOrdered By: Monster Benitez on 08-08-2024 Chloride [Moles/Vol] Chloride [Moles/volume] in Serum or Plasma 98-107 [facility] Complete Blood Count Auto Di ffon 08-08-2024 Basophils (Bld) [#/Vol] 0.1 10*3/uL Normal 0.0-0.2 [facility] Comment on above: Result Comment: PERF ORMED BY: [place] [address] PATHOLOGIST B[employer] STRAIGHTENER QUANG BERRIOS M.D. Performed By: #### C MP, CBC #### [address] Basophils/100 WBC (Bld) 1.1 % Normal . T josh [facility] Comment on above: Performed By: #### C MP, CBC #### [address] Eosinophils (Bld) [#/Vol] 0.3 10*3/uL Normal 0.0-0.45 [facility] Comment on above: Performed By: #### C MP, CBC #### [address] Eosinophils/100 WBC (Bld) 4.7 % Normal . [facility] Comment on above: Performed By: #### C MP, CBC #### [address] Erythrocyte distribution width (RBC) [Ratio] 13.8 % Normal 12.0-14.8 [facility] Comment on above: Performed By: #### C MP, CBC #### [place] [address] [place] Hematocrit (Bld) [Volume fraction] 43.2 % Normal 38.8-50.0 [facility] Comment on above: Performed By: #### C MP, CBC #### [address] Hemoglobin (Bld) [Mass/Vol] 14.3 g/dL Normal 13.0-17.0 [facility] Comment on above: Performed By: #### C MP, CBC #### [address] Lymphocytes (Bld) [#/Vol] 3.0 10*3/uL Normal 1.00-4.8 [facility] Comment on above: Performed By: #### C MP, CBC #### [address] Lymphocytes/100 WBC (Bld) 41.3 % Normal . [facility] Comment on above: Performed By: #### C MP, CBC #### [address] MCH (RBC) [Entitic mass] 32.4 pg Normal 27.5-35.2 [facility] Comment on above: Performed By: #### C MP, CBC #### [address] MCV (RBC) [Entitic vol] 97.7 fL Normal 83.5-101 T [facility] Comment on above: Performed By: #### C MP, CBC #### [address] Mean Corpuscular HGB Conc 33.1 g/dL Normal 32.5-35.6 [facility] Comment on above: Performed By: #### C MP, CBC #### [address] Monocytes (Bld) [#/Vol] 1.0 10*3/uL High 0.0-0.8 [facility] Comment on above: Performed By: #### C MP, CBC #### [address] Monocytes/100 WBC (Bld) 14.3 % Normal . T j[facility] Comment on above: Performed By: #### C MP, CBC #### [facility] [address] Neutrophils (Bld) [#/Vol] 2.8 10*3/uL Normal 1.8-7.7 [facility] Comment on above: Performed By: #### C MP, CBC #### [facility] [address] Neutrophils/100 WBC (Bld) 38.6 % Normal . [facility] Comment on above: Performed By: #### C MP, CBC #### [facility] [address] NRBC% 0.1 /100{WBC} Normal 0-0.5 [facility] Comment on above: Performed By: #### C MP, CBC #### [facility] [address] Platelet mean volume (Bld) [Entitic vol] 9.1 fL Normal 6.6-10.1 [facility] Comment on above: Performed By: #### C MP, CBC #### [facility] [address] [place] [address] [place] Platelets (Bld) [#/Vol] 284 10*3/uL Normal 150-450 [facility] Comment on above: Performed By: #### C MP, CBC #### [facility] [address] [place] [address] [place] RBC (Bld) [#/Vol] 4.42 10*6/uL Normal 3.90-5.60 [facility] Comment on above: Performed By: #### C MP, CBC #### [facility] [address] [place] [address] [place] WBC (Bld) [#/Vol] 7.3 10*3/uL Normal 4.1-10.5 [facility] Comment on above: Performed By: #### C MP, CBC #### [facility] [address] Comprehensive Metabolic Pane yovani 08-08-2024 Albumin [Mass/Vol] 4.1 g/dL Normal 3.5-5.7 [facility] Comment on above: Performed By: #### C MP, CBC #### [address] Albumin/Globulin [Mass ratio] 1.6 {ratio} Normal [facility] Comment on above: Performed By: #### C MP, CBC #### [address] ALP [Catalytic activity/Vol] 75 U/L Normal 34-104 [facility] Comment on above: Result Comment: PERF ORMED BY: [place] [address] PATHOLOGIST [employer] QUANG BERRIOS M.D. Performed By: #### C MP, CBC #### [address] ALT [Catalytic activity/Vol] 31 U/L Normal 7-52 [facility] Comment on above: Performed By: #### C MP, CBC #### [address] Anion gap [Moles/Vol] 6.8 mmol/L Normal 6.0-15.0 [facility] Comment on above: Performed By: #### C MP, CBC #### [address] AST [Catalytic activity/Vol] 39 U/L Normal 13-39 [facility] Comment on above: Performed By: #### C MP, CBC #### [place] [address] [place] Bilirubin [Mass/Vol] 0.9 mg/dL Normal 0.3-1.0 [facility] Comment on above: Performed By: #### C MP, CBC #### [address] Calcium [Mass/Vol] 9.7 mg/dL Normal 8.6-10.3 [facility] Comment on above: Performed By: #### C MP, CBC #### [facility] [address] [place] [address] [place] Chloride [Moles/Vol] 104 mmol/L Normal 98-107 [facility] Comment on above: Performed By: #### C MP, CBC #### [facility] [address] [place] [id number] [facility] CO2 [Moles/Vol] 31.8 mmol/L High 21.0-31.[address] [facility] Comment on above: Performed By: #### C MP, CBC #### [address] Creatinine [Mass/Vol] 1.55 mg/dL High 0.70-1.30 [facility] Comment on above: Performed By: #### C MP, CBC #### [address] Estimated GFR 44.137 mL/Min Normal The [facility] Comment on above: Performed By: #### C MP, CBC #### [address] Globulin (S) [Mass/Vol] 2.6 g/dL Normal T [facility] Comment on above: Performed By: #### C MP, CBC #### [address] Glucose [Mass/Vol] 94 mg/dL Normal 70-100 [facility] Comment on above: Result Comment: [facility] Glucose Reference Range is dependent on time and content of last meal. Glucose of more than 200 mg/dL in a nonstressed, ambulatory subject supports the diagnosis of Diabetes Mellitus. ADA recommended reference range Performed By: #### C MP, CBC #### [facility] [address] [place] [address] [place] Potassium [Moles/Vol] 4.6 mmol/L Normal 3.5-5.1 [facility] Comment on above: Performed By: #### C MP, CBC #### [address] Protein [Mass/Vol] 6.7 g/dL Normal 6.4-8.9 [facility] Comment on above: Performed By: #### C MP, CBC #### [facility] [address] Sodium [Moles/Vol] 138 mmol/L Normal 136-145 [facility] Comment on above: Performed By: #### C MP, CBC #### [facility] [address] Urea nitrogen [Mass/Vol] 25 mg/dL Normal 7-25 [facility] Comment on above: Performed By: #### C MP, CBC #### [facility] [address] [place] [address] [place] Creatinine [Mass/volume] in Serum or PlasmaOrdered By: Monster Benitez on 08-08-2024 Creatinine [Mass/Vol] Creatinine [Mass/volume] in Serum or Plasma High 0.70-1.30 [facility] Eosinophils Auto (Bld) [#/Vo l]Ordered By: Monster Benitez on 08-08-2024 Eosinophils (Bld) [#/Vol] Automated eosinophil count 0.0-0.45 [facility] Eosinophils/100 WBC Auto (Bl d)Ordered By: Monster Benitez on 08-08-2024 Eosinophils/100 WBC (Bld) Automated eosinophil % . [facility] Erythrocyte distribution wid th Auto (RBC) [Ratio]Ordered By: Monster Benitez on 08-08-2024 Erythrocyte distribution width (RBC) [Ratio] Erythrocyte distribution width [Ratio] by Automated count 12.0-14.8 [facility] Globulin Calc (S) [Mass/Vol] Ordered By: Monster Benitez on 08-08-2024 Globulin (S) [Mass/Vol] Serum globulin measurement by calculation (mass/volume) [facility] Glucose [Mass/volume] in Ser um or PlasmaOrdered By: Monster Benitez on 08-08-2024 Glucose [Mass/Vol] Glucose [Mass/volume ] in Serum or Plasma 70-100 [facility] Comment on above: ADA recommended refe rence rangeRandom Glucose Reference Range is dependent on time and content of last meal. Glucose of more than 200 mg/dL in a nonstressed, ambulatory subject supports the diagnosis of Diabetes Mellitus. Hematocrit Auto (Bld) [Volum e fraction]Ordered By: Monster Benitez on 08-08-2024 Hematocrit (Bld) [Volume fraction] Hematocrit [Volume Fraction] of Blood by Automated count 38.8-50.0 [facility] Hemoglobin [Mass/volume] in BloodOrdered By: Monster Benitez on 08-08-2024 Hemoglobin (Bld) [Mass/Vol] Hemoglobin [Mass/volume] in Blood 13.0-17.0 [facility] Leukocytes [#/volume] correc joseph for nucleated erythrocytes in Blood by Automated counOrdered By: Monster Benitez on 08-08-2024 WBC corrected for nucl RBC Auto (Bld) [#/Vol] Leukocytes [#/volume] corrected for nucleated erythrocytes in Blood by Automated coun 4.1-10.5 [facility] Lymphocytes Auto (Bld) [#/Vo l]Ordered By: Monster Benitez on 08-08-2024 Lymphocytes (Bld) [#/Vol] Lymphocytes [#/volume] in Blood by Automated count 1.00-4.8 [facility] Lymphocytes/100 WBC Auto (Bl d)Ordered By: Monster Benitez on 08-08-2024 Lymphocytes/100 WBC (Bld) Lymphocytes/100 leukocytes in Blood by Automated count . [facility] MCH Auto (RBC) [Entitic mass ]Ordered By: Monster Benitez on 08-08-2024 MCH (RBC) [Entitic mass] MCH [Entitic mass] by Automated count 27.5-35.2 [facility] MCHC Auto (RBC) [Mass/Vol]Or dered By: Monster Benitez on 08-08-2024 MCHC (RBC) [Mass/Vol] MCHC [Mass/volume] by Automated count 32.5-35.6 [facility] MCV Auto (RBC) [Entitic vol] Ordered By: Monster Benitez on 08-08-2024 MCV (RBC) [Entitic vol] MCV [Entitic vol ume] by Automated count 83.5-101 [facility] Monocytes Auto (Bld) [#/Vol] Ordered By: Monster Benitez on 08-08-2024 Monocytes (Bld) [#/Vol] Automated blood monocyte count High 0.0-0.8 [facility] Monocytes/100 WBC Auto (Bld) Ordered By: Monster Benitez on 08-08-2024 Monocytes/100 WBC (Bld) Automated monocyte % . [facility] Neutrophils Auto (Bld) [#/Vo l]Ordered By: Monster Benitez on 08-08-2024 Neutrophils (Bld) [#/Vol] Neutrophils [#/volume] in Blood by Automated count 1.8-7.7 [facility] Neutrophils/100 WBC Auto (Bl d)Ordered By: Monster Benitez on 08-08-2024 Neutrophils/100 WBC (Bld) Automated neutrophil % . [facility] No Panel InformationOrdered By: Monster Benitez on 08-08-2024 Estimated GFR (CKD-EPI) 44.137 mL/Min [facility] Creatinine Clearance (Chem N/A [facility] Nucleated erythrocytes [Pres ence] in Blood by Automated countOrdered By: Monster Benitez on 08-08-2024 Nucleated RBC Auto Ql (Bld) Nucleated erythrocytes [Presence] in Blood by Automated count 0-0.5 [facility] Platelet mean volume Auto (B ld) [Entitic vol]Ordered By: Monster Benitez on 08-08-2024 Platelet mean volume (Bld) [Entitic vol] Platelet mean volume [Entitic volume] in Blood by Automated count 6.6-10.1 [facility] Platelets Auto (Bld) [#/Vol] Ordered By: Monster Benitez on 08-08-2024 Platelets (Bld) [#/Vol] Platelets [#/vol ume] in Blood by Automated count 150-450 [facility] Potassium [Moles/volume] in Serum or PlasmaOrdered By: Monster Benitez on 08-08-2024 Potassium [Moles/Vol] Potassium [Moles/volume] in Serum or Plasma 3.5-5.1 [facility] Protein [Mass/volume] in Ser um or PlasmaOrdered By: Monster Benitez on 08-08-2024 Protein [Mass/Vol] Protein [Mass/volume ] in Serum or Plasma 6.4-8.9 [facility] RBC Auto (Bld) [#/Vol]Ordere d By: Monster Benitez on 08-08-2024 RBC (Bld) [#/Vol] Erythrocytes [#/volume] in Blood by Automated count 3.90-5.60 [facility] Serum or plasma albumin/glob ulin mass ratioOrdered By: Monster Benitez on 08-08-2024 Albumin/Globulin [Mass ratio] Serum or plasma albumin/globulin mass ratio [facility] Serum or plasma anion gap de terminationOrdered By: Monster Benitez on 08-08-2024 Anion gap [Moles/Vol] Serum or plasma an ion gap determination 6.0-15.0 [facility] Sodium [Moles/volume] in Ser um or PlasmaOrdered By: Monster Benitez on 08-08-2024 Sodium [Moles/Vol] Sodium [Moles/volume ] in Serum or Plasma 136-145 [facility] Urea nitrogen [Mass/volume] in Serum or PlasmaOrdered By: Monster Benitez on 08-08-2024 Urea nitrogen [Mass/Vol] Urea nitrogen [Mass/volume] in Serum or Plasma 7-25 [facility] WBC Auto (Bld) [#/Vol]Ordere d By: Monster Benitez on 08-08-2024 WBC (Bld) [#/Vol] Leukocytes [#/volume ] in Blood by Automated count 4.1-10.5 [facility] No Panel Informationon 04-13 [facility] No Panel Informationon 04-12 Consent obtained: written (The rationale for Mohs as well as the risks, benefits, and alternatives. The risks of infection, scarring, bleeding, prolonged wound healing, incomplete removal, allergy to anesthesia or meds, nerve injury, and recurrence were addressed.) [place] Protocol: Procedure explained and questions answered to patient or proxy's satisfaction: Yes Test results available and properly labeled: Yes Pathology report reviewed: Yes Photo or diagram used for site identification: Yes Site/side marked: Yes Anticoagulation: Is the patient taking prescription anticoagulant and/or aspirin prescribed/recommende d by a physician? Yes (Xarelto) Was the anticoagulation regimen changed prior to Mohs? No Anesthesia: Anesthesia method: local infiltration Local anesthetic: lidocaine 1% WITH epi and sodium bicarbonate Procedure Details: Biopsy accession number: [id number] Biopsy lab: [facility] Date of biopsy: 03/31/2024 Frozen section biopsy performed: Yes Specimen debulked: No Pre-Op diagnosis: basal cell carcinoma BCC subtype: nodular MohsAIQ Surgical site (if tumor spans multiple areas, please select predominant area): cheek (including jawline) Surgery side: right Surgical site (from skin exam): Right Preauricular Area Pre-operative length (cm): 0.8 Pre-operative width (cm): 0.7 Indications for Mohs surgery: anatomic location where tissue conservation is critical Previously treated? No Mohs Appropriate Use Criteria Score: 8 Details of micrographic surgery: Mohs accession number: [id number] Micrographic Surgery Details: Post-operative length (cm): 2 Post-operative width (cm): 1.5 Number of Mohs stages: 2 Stage 1 Comments: The area was prepped with Betadine, draped in a sterile fashion, and infiltrated with local anesthetic. Sterile technique was used throughout the procedure. The marked area of clinical tumor with a small rim of clinically normal surrounding skin was removed using Mohs technique with beveled edges. Hash sung were placed for orientation of the specimen. Hemostasis was achieved with electrodessication. After hemostasis, the defect was measured and recorded, a temporary sterile dressing was placed over the wound, and the patient was escorted to the waiting area. The specimen was oriented, mapped, and if necessary, divided into sections. A Mohs map was prepared. The specimen was placed in a labeled ric dish and was taken to the Mohs lab where it was chromacoded and processed. Mohs sections were prepared with serial tissue sections, stained, and evaluated by Dr. Macedo for interpretation of deep and peripheral margins. The Mohs map was marked accordingly. Amount of lidocaine used: 2.5 cc Estimated blood loss: < 1.0 cc Defect size: 1.6 x 1.5 cm Number of blocks per stage: 1 Number of positive blocks: 1 Tumor features identified on Mohs section: basal carcinoma Tumor features identified on Mohs section comment: nodular pattern Depth of defect after stage: dermis Stage 2 Comments: The patient returned to the procedure room, the dressing was removed, the tumor area was re-prepped and draped, and anesthesia was assessed and augmented as necessary. A layer of tissue around the positive margin(s) was removed, and the tissue was oriented, mapped, and processed in an identical fashion as for Stage 1. Hemostasis was achieved and dressing placed as in Stage 1. The patient was escorted to the waiting area. As with Stage 1, Mohs sections were prepared with serial tissue sections, stained, and evaluated by Dr. Macedo for interpretation of deep and peripheral margins. The Mohs map was updated. Assistants: Ena Thompson LPN Amount of lidocaine used: 2.5 cc Estimated blood loss: < 1.0 cc Defect size: 2.0 x 1.5 cm Number of blocks: 1 Number of positive blocks: 0. Tumor free margins were obtained and the Mohs procedure was considered complete. Tumor features identified on Mohs section: no tumor identified Depth of defect after stage: dermis Patient tolerance of procedure: tolerated well, no immediate complications Reconstruction: Was the defect reconstructed?: No Antibiotics: Were antibiotics given on the day of surgery? Yes When were antibiotics given? post-operative [facility] No Panel InformationOrdered By: Carmita Bryan on 04-12-2024 [facility] Alanine aminotransferase [En zymatic activity/volume] in Serum or PlasmaOrdered By: Monster Benitez on 04-07-2024 ALT [Catalytic activity/Vol] Alanine aminotransferase [Enzymatic activity/volume] in Serum or Plasma 7-52 [facility] Albumin [Mass/volume] in Ser um or Plasma by Bromocresol green (BCG) dye binding methoOrdered By: Monster Benitez on 04-07-2024 Albumin BCG dye [Mass/Vol] Albumin [Mass/volume] in Serum or Plasma by Bromocresol green (BCG) dye binding metho 3.5-5.7 [facility] Alkaline phosphatase [Enzyma tic activity/volume] in Serum or PlasmaOrdered By: Monster Benitez on 04-07-2024 ALP [Catalytic activity/Vol] Alkaline phosphatase [Enzymatic activity/volume] in Serum or Plasma 34-104 [facility] Aspartate aminotransferase [ Enzymatic activity/volume] in Serum or PlasmaOrdered By: Monster Benitez on 04-07-2024 AST [Catalytic activity/Vol] Aspartate aminotransferase [Enzymatic activity/volume] in Serum or Plasma 13-39 [facility] Basophils Auto (Bld) [#/Vol] Ordered By: Monster Benitez on 11-07-2024 Basophils (Bld) [#/Vol] Automated basoph il count 0.0-0.2 [facility] Basophils/100 WBC Auto (Bld) Ordered By: Monster Benitez on 04-07-2024 Basophils/100 WBC (Bld) Automated basophil % . [facility] Bilirubin.total [Mass/volume ] in Serum or PlasmaOrdered By: Monster Benitez on 04-07-2024 Bilirubin [Mass/Vol] Bilirubin.total [Mass/volume] in Serum or Plasma 0.3-1.0 [facility] Calcium [Mass/volume] in Ser um or PlasmaOrdered By: Monster Benitez on 04-07-2024 Calcium [Mass/Vol] Calcium [Mass/volume ] in Serum or Plasma 8.6-10.3 [facility] Carbon dioxide, total [Moles /volume] in Serum or PlasmaOrdered By: Monster Benitez on 04-07-2024 CO2 [Moles/Vol] Carbon dioxide, tota l [Moles/volume] in Serum or Plasma 21.0-31.0 [facility] Chloride [Moles/volume] in S bautista or PlasmaOrdered By: Monster Benitez on 04-07-2024 Chloride [Moles/Vol] Chloride [Moles/volume] in Serum or Plasma 98-107 [facility] Cholesterol [Mass/volume] in Serum or PlasmaOrdered By: Monster Benitez on 04-07-2024 Cholesterol [Mass/Vol] Cholesterol [Mass/volume] in Serum or Plasma 140-200 [facility] Comment on above: Chol less than 200 m g/dl low riskChol 201-239 mg/dl borderline riskChol 240 mg/dl and greater high risk Cholesterol in HDL [Mass/vol ume] in Serum or PlasmaOrdered By: Monster Benitez on 04-07-2024 Cholesterol in HDL [Mass/Vol] Serum or plasma high density lipoprotein (HDL) cholesterol measurement 23-92 [facility] Comment on above: HDL CHOL ATP-III CLA SSIFICATION Cardiovascular RiskHDL > or equal to 60 mg/dL LOWHDL < 40 mg/dL HIGH Cholesterol in LDL Calc [Mas s/Vol]Ordered By: Monster Benitez on 04-07-2024 Cholesterol in LDL [Mass/Vol] Cholesterol in LDL [Mass/volume] in Serum or Plasma by calculation 0-100 [facility] Comment on above: LDL ATP III CLASSIFI CATIONLDL less than 100 mg/dL OptimalLDL 100-129 mg/dL Near or above optimalLDL 130-159 mg/dL Borderline highLDL 160-189 mg/dL HighLDL greater than 189 mg/dL Very high Cholesterol in VLDL Calc [Ma ss/Vol]Ordered By: Monster Benitez on 04-07-2024 Cholesterol in VLDL [Mass/Vol] Cholesterol in VLDL [Mass/volume] in Serum or Plasma by calculation [facility] Complete Blood Count Auto Di ffon 04-07-2024 Basophils (Bld) [#/Vol] 0.0 10*3/uL Normal 0.0-0.2 [facility] Comment on above: Result Comment: PERF ORMED BY: [place] [address] PATHOLOGIST [employer] SERGEI HERNANDEZ M.D. Performed By: #### C BC, TSH3, CMP, LIPID #### [address] Basophils/100 WBC (Bld) 0.5 % Normal . [facility] Comment on above: Performed By: #### C BC, TSH3, CMP, LIPID #### [address] Eosinophils (Bld) [#/Vol] 0.3 10*3/uL Normal 0.0-0.45 [facility] Comment on above: Performed By: #### C BC, TSH3, CMP, LIPID #### [place] [address] [place] Eosinophils/100 WBC (Bld) 3.6 % Normal . [facility] Comment on above: Performed By: #### C BC, TSH3, CMP, LIPID #### [address] Erythrocyte distribution width (RBC) [Ratio] 13.8 % Normal 12.0-14.8 [facility] Comment on above: Performed By: #### C BC, TSH3, CMP, LIPID #### [address] Hematocrit (Bld) [Volume fraction] 44.0 % Normal 38.8-50.0 [facility] Comment on above: Performed By: #### C BC, TSH3, CMP, LIPID #### [address] Hemoglobin (Bld) [Mass/Vol] 14.6 g/dL Normal 13.0-17.0 [facility] Comment on above: Performed By: #### C BC, TSH3, CMP, LIPID #### [address] Lymphocytes (Bld) [#/Vol] 2.4 10*3/uL Normal 1.00-4.8 [facility] Comment on above: Performed By: #### C BC, TSH3, CMP, LIPID #### [address] Lymphocytes/100 WBC (Bld) 34.6 % Normal . [facility] Comment on above: Performed By: #### C BC, TSH3, CMP, LIPID #### [address] MCH (RBC) [Entitic mass] 33.3 pg Normal 27.5-35.2 [facility] Comment on above: Performed By: #### C BC, TSH3, CMP, LIPID #### [address] MCV (RBC) [Entitic vol] 100.0 fL Normal 83.5-101 [facility] Comment on above: Performed By: #### C BC, TSH3, CMP, LIPID #### [address] Mean Corpuscular HGB Conc 33.2 g/dL Normal 32.5-35.6 [facility] Comment on above: Performed By: #### C BC, TSH3, CMP, LIPID #### [address] Monocytes (Bld) [#/Vol] 0.9 10*3/uL High 0.0-0.8 [facility] Comment on above: Performed By: #### C BC, TSH3, CMP, LIPID #### [address] Monocytes/100 WBC (Bld) 13.5 % Normal . [facility] Comment on above: Performed By: #### C BC, TSH3, CMP, LIPID #### [address] Neutrophils (Bld) [#/Vol] 3.4 10*3/uL Normal 1.8-7.7 [facility] Comment on above: Performed By: #### C BC, TSH3, CMP, LIPID #### [address] Neutrophils/100 WBC (Bld) 47.8 % Normal . [facility] Comment on above: Performed By: #### C BC, TSH3, CMP, LIPID #### [address] NRBC% 0.1 /100{WBC} Normal 0-0.5 [facility] Comment on above: Performed By: #### C BC, TSH3, CMP, LIPID #### [address] Platelet mean volume (Bld) [Entitic vol] 8.9 fL Normal 6.6-10.1 [facility] Comment on above: Performed By: #### C BC, TSH3, CMP, LIPID #### [place] [address] [place] Platelets (Bld) [#/Vol] 258 10*3/uL Normal 150-450 [facility] Comment on above: Performed By: #### C BC, TSH3, CMP, LIPID #### [place] [address] [place] RBC (Bld) [#/Vol] 4.40 10*6/uL Normal 3.90-5.60 [facility] Comment on above: Performed By: #### C BC, TSH3, CMP, LIPID #### [address] WBC (Bld) [#/Vol] 7.0 10*3/uL Normal 4.1-10.5 [facility] Comment on above: Performed By: #### C BC, TSH3, CMP, LIPID #### [address] Comprehensive Metabolic Pane yovani 04-07-2024 Albumin [Mass/Vol] 4.2 g/dL Normal 3.5-5.7 [facility] Comment on above: Performed By: #### C BC, TSH3, CMP, LIPID #### [address] Albumin/Globulin [Mass ratio] 1.7 {ratio} Normal [facility] Comment on above: Performed By: #### C BC, TSH3, CMP, LIPID #### [address] ALP [Catalytic activity/Vol] 81 U/L Normal 34-104 [facility] Comment on above: Performed By: #### C BC, TSH3, CMP, LIPID #### [address] ALT [Catalytic activity/Vol] 25 U/L Normal 7-52 [facility] Comment on above: Performed By: #### C BC, TSH3, CMP, LIPID #### [address] Anion gap [Moles/Vol] 9.2 mmol/L Normal 6.0-15.0 [facility] Comment on above: Performed By: #### C BC, TSH3, CMP, LIPID #### [address] AST [Catalytic activity/Vol] 32 U/L Normal 13-39 [facility] Comment on above: Performed By: #### C BC, TSH3, CMP, LIPID #### [address] Bilirubin [Mass/Vol] 0.8 mg/dL Normal 0.3-1.0 [facility] Comment on above: Performed By: #### C BC, TSH3, CMP, LIPID #### [address] Calcium [Mass/Vol] 9.6 mg/dL Normal 8.6-10.3 [facility] Comment on above: Performed By: #### C BC, TSH3, CMP, LIPID #### [address] Chloride [Moles/Vol] 104 mmol/L Normal 98-107 [facility] Comment on above: Performed By: #### C BC, TSH3, CMP, LIPID #### [address] CO2 [Moles/Vol] 30.6 mmol/L Normal 21.0-31.[address] [facility] Comment on above: Performed By: #### C BC, TSH3, CMP, LIPID #### [address] Creatinine [Mass/Vol] 1.70 mg/dL High 0.70-1.30 [facility] Comment on above: Performed By: #### C BC, TSH3, CMP, LIPID #### [address] GFR/1.73 sq M.predicted MDRD (S/P/Bld) [Vol rate/Area] 39.505 mL/min/{1.73_m2} Normal [facility] Comment on above: Performed By: #### C BC, TSH3, CMP, LIPID #### [address] Globulin (S) [Mass/Vol] 2.5 g/dL Normal [facility] Comment on above: Performed By: #### C BC, TSH3, CMP, LIPID #### [address] Glucose [Mass/Vol] 95 mg/dL Normal 70-100 [facility] Comment on above: Result Comment: [place] Glucose Reference Range is dependent on time and content of last meal. Glucose of more than 200 mg/dL in a nonstressed, ambulatory subject supports the diagnosis of Diabetes Mellitus. ADA recommended reference range Performed By: #### C BC, TSH3, CMP, LIPID #### [address] Potassium [Moles/Vol] 4.8 mmol/L Normal 3.5-5.1 [facility] Comment on above: Performed By: #### C BC, TSH3, CMP, LIPID #### [address] Protein [Mass/Vol] 6.7 g/dL Normal 6.4-8.9 [facility] Comment on above: Performed By: #### C BC, TSH3, CMP, LIPID #### [address] Sodium [Moles/Vol] 139 mmol/L Normal 136-145 [facility] Comment on above: Performed By: #### C BC, TSH3, CMP, LIPID #### [address] Urea nitrogen [Mass/Vol] 27 mg/dL High 7-25 [facility] Comment on above: Performed By: #### C BC, TSH3, CMP, LIPID #### [address] Creatinine [Mass/volume] in Serum or PlasmaOrdered By: Monster Benitez on 04-07-2024 Creatinine [Mass/Vol] Creatinine [Mass/volume] in Serum or Plasma High 0.70-1.30 [facility] Eosinophils Auto (Bld) [#/Vo l]Ordered By: Monster Benitez on 04-07-2024 Eosinophils (Bld) [#/Vol] Automated eosinophil count 0.0-0.45 [facility] Eosinophils/100 WBC Auto (Bl d)Ordered By: Monster Benitez on 04-07-2024 Eosinophils/100 WBC (Bld) Automated eosinophil % . [facility] Erythrocyte distribution wid th Auto (RBC) [Ratio]Ordered By: Monster Benitez on 04-07-2024 Erythrocyte distribution width (RBC) [Ratio] Erythrocyte distribution width [Ratio] by Automated count 12.0-14.8 [facility] Globulin Calc (S) [Mass/Vol] Ordered By: Monster Benitez on 04-07-2024 Globulin (S) [Mass/Vol] Serum globulin measurement by calculation (mass/volume) [facility] Glucose [Mass/volume] in Ser um or PlasmaOrdered By: Monster Benitez on 04-07-2024 Glucose [Mass/Vol] Glucose [Mass/volume ] in Serum or Plasma 70-100 [facility] Comment on above: ADA recommended refe rence rangeRandom Glucose Reference Range is dependent on time and content of last meal. Glucose of more than 200 mg/dL in a nonstressed, ambulatory subject supports the diagnosis of Diabetes Mellitus. Hematocrit Auto (Bld) [Volum e fraction]Ordered By: Monster Benitez on 04-07-2024 Hematocrit (Bld) [Volume fraction] Hematocrit [Volume Fraction] of Blood by Automated count 38.8-50.0 [facility] Hemoglobin [Mass/volume] in BloodOrdered By: Monster Benitez on 04-07-2024 Hemoglobin (Bld) [Mass/Vol] Hemoglobin [Mass/volume] in Blood 13.0-17.0 [facility] Leukocytes [#/volume] correc joseph for nucleated erythrocytes in Blood by Automated counOrdered By: Monster Benitez on 04-07-2024 WBC corrected for nucl RBC Auto (Bld) [#/Vol] Leukocytes [#/volume] corrected for nucleated erythrocytes in Blood by Automated coun 4.1-10.5 [facility] Lipid Panelon 04-07-2024 Cholesterol [Mass/Vol] 174 mg/dL Normal 140-200 [facility] Comment on above: Result Comment: Chol less than 200 mg/dl low risk Chol 201-239 mg/dl borderline risk Chol 240 mg/dl and greater high risk Performed By: #### C BC, TSH3, CMP, LIPID #### [address] Cholesterol in HDL [Mass/Vol] 61 mg/dL Normal 23-92 [facility] Comment on above: Result Comment: HDL CHOL ATP-III CLASSIFICATION Cardiovascular Risk HDL > or equal to 60 mg/dL LOW HDL < 40 mg/dL HIGH Performed By: #### C BC, TSH3, CMP, LIPID #### [facility] [address] Cholesterol.total/Aubree sterol in HDL [Mass ratio] 2.9 {ratio} Normal <5.0 [facility] Comment on above: Performed By: #### C BC, TSH3, CMP, LIPID #### [facility] [address] LDL Cholesterol,Calculated 98 mg/dL Normal 0-100 [facility] Comment on above: Result Comment: LDL ATP III CLASSIFICATION LDL less than 100 mg/dL Optimal LDL 100-129 mg/dL Near or above optimal LDL 130-159 mg/dL Borderline high LDL 160-189 mg/dL High LDL greater than 189 mg/dL Very high Performed By: #### C BC, TSH3, CMP, LIPID #### [address] Triglyceride w/Reflex 76 mg/dL Normal 0-149 [facility] Comment on above: Result Comment: TRIG ATP III CLASSIFICATION TRIG less than 150 mg/dL Normal TRIG 150-199 mg/dL Borderline high TRIG 200-500 mg/dL High TRIG greater than 500 mg/dL Very high Standard traceable to the Center for Disease Conrtrol and Prevention (CDC) test method. Performed By: #### C BC, TSH3, CMP, LIPID #### [address] VLDL CHOLESTEROL 15 mg/dL Normal [facility] Comment on above: Performed By: #### C BC, TSH3, CMP, LIPID #### [address] Lymphocytes Auto (Bld) [#/Vo l]Ordered By: Monster Benitez on 04-07-2024 Lymphocytes (Bld) [#/Vol] Lymphocytes [#/volume] in Blood by Automated count 1.00-4.8 [facility] Lymphocytes/100 WBC Auto (Bl d)Ordered By: Monster Benitez on 04-07-2024 Lymphocytes/100 WBC (Bld) Lymphocytes/100 leukocytes in Blood by Automated count . [facility] MCH Auto (RBC) [Entitic mass ]Ordered By: Monster Benitez on 04-07-2024 MCH (RBC) [Entitic mass] MCH [Entitic mass] by Automated count 27.5-35.2 [facility] MCHC Auto (RBC) [Mass/Vol]Or dered By: Monster Benitez on 04-07-2024 MCHC (RBC) [Mass/Vol] MCHC [Mass/volume] by Automated count 32.5-35.6 [facility] MCV Auto (RBC) [Entitic vol] Ordered By: Monster Benitez on 04-07-2024 MCV (RBC) [Entitic vol] MCV [Entitic vol ume] by Automated count 83.5-101 [facility] Monocytes Auto (Bld) [#/Vol] Ordered By: Monster Benitez on 04-07-2024 Monocytes (Bld) [#/Vol] Automated blood monocyte count High 0.0-0.8 [facility] Monocytes/100 WBC Auto (Bld) Ordered By: Monster Benitez on 04-07-2024 Monocytes/100 WBC (Bld) Automated monocyte % . [facility] Neutrophils Auto (Bld) [#/Vo l]Ordered By: Monster Benitez on 04-07-2024 Neutrophils (Bld) [#/Vol] Neutrophils [#/volume] in Blood by Automated count 1.8-7.7 [facility] Neutrophils/100 WBC Auto (Bl d)Ordered By: Monster Benitez on 04-07-2024 Neutrophils/100 WBC (Bld) Automated neutrophil % . [facility] No Panel InformationOrdered By: Monster Benitez on 04-07-2024 Estimated GFR (CKD-EPI) 39.505 mL/Min [facility] Creatinine Clearance (Chem N/A [facility] Nucleated erythrocytes [Pres ence] in Blood by Automated countOrdered By: Monster Benitez on 04-07-2024 Nucleated RBC Auto Ql (Bld) Nucleated erythrocytes [Presence] in Blood by Automated count 0-0.5 [facility] Platelet mean volume Auto (B ld) [Entitic vol]Ordered By: Monster Benitez on 04-07-2024 Platelet mean volume (Bld) [Entitic vol] Platelet mean volume [Entitic volume] in Blood by Automated count 6.6-10.1 [facility] Platelets Auto (Bld) [#/Vol] Ordered By: Monster Benitez on 04-07-2024 Platelets (Bld) [#/Vol] Platelets [#/vol ume] in Blood by Automated count 150-450 [facility] Potassium [Moles/volume] in Serum or PlasmaOrdered By: Monster Benitez on 04-07-2024 Potassium [Moles/Vol] Potassium [Moles/volume] in Serum or Plasma 3.5-5.1 [facility] Protein [Mass/volume] in Ser um or PlasmaOrdered By: Monster Benitez on 04-07-2024 Protein [Mass/Vol] Protein [Mass/volume ] in Serum or Plasma 6.4-8.9 [facility] RBC Auto (Bld) [#/Vol]Ordere d By: Monster Benitez on 04-07-2024 RBC (Bld) [#/Vol] Erythrocytes [#/volume] in Blood by Automated count 3.90-5.60 [facility] Serum or plasma albumin/glob ulin mass ratioOrdered By: Monster Benitez on 04-07-2024 Albumin/Globulin [Mass ratio] Serum or plasma albumin/globulin mass ratio [facility] Serum or plasma anion gap de terminationOrdered By: Monster Benitez on 04-07-2024 Anion gap [Moles/Vol] Serum or plasma an ion gap determination 6.0-15.0 [facility] Serum or plasma total choles terol/high density lipoprotein (HDL) cholesterol mass ratOrdered By: Mnoster Benitez on 04-07-2024 Cholesterol.total/Aubree sterol in HDL [Mass ratio] Serum or plasma total cholesterol/high density lipoprotein (HDL) cholesterol mass rat <5.0 [facility] Sodium [Moles/volume] in Ser um or PlasmaOrdered By: Monster Benitez on 04-07-2024 Sodium [Moles/Vol] Sodium [Moles/volume ] in Serum or Plasma 136-145 [facility] Thyroid Stimulating Hormoneo n 04-07-2024 TSH Qn 1.98 m[IU]/L Normal 0.45-5.33 [facility] Comment on above: Result Comment: PERF ORMED BY: [facility] [address] [place] [address] PATHOLOGIST BAND STRAIGHTENER SERGEI HERNANDEZ M.D. Performed By: #### C BC, TSH3, CMP, LIPID #### [facility] [address] Thyrotropin [Units/volume] i n Serum or PlasmaOrdered By: Monster Benitez on 04-07-2024 TSH Qn Thyrotropin [Units/volume] in Serum or Plasma 0.45-5.33 [facility] Triglyceride [Mass/volume] i n Serum or PlasmaOrdered By: Monster Benitez on 04-07-2024 Triglyceride [Mass/Vol] Triglyceride [Mass/volume] in Serum or Plasma 0-149 [facility] Comment on above: TRIG ATP III CLASSIF ICATIONTRIG less than 150 mg/dL NormalTRIG 150-199 mg/dL Borderline highTRIG 200-500 mg/dL High TRIG greater than 500 mg/dL Very highStandard traceable to the Center for Disease Conrtrol and Prevention (CDC) test method. Urea nitrogen [Mass/volume] in Serum or PlasmaOrdered By: Monster Benitez on 04-07-2024 Urea nitrogen [Mass/Vol] Urea nitrogen [Mass/volume] in Serum or Plasma High 7-25 [facility] WBC Auto (Bld) [#/Vol]Ordere d By: Monster Benitez on 04-07-2024 WBC (Bld) [#/Vol] Leukocytes [#/volume ] in Blood by Automated count 4.1-10.5 [facility] No Panel Informationon 03-31 Type of biopsy: tangential Informed consent: discussed and consent obtained Informed consent comment: The risks and benefits of the biopsy were discussed. Risks include but are not limited to bleeding, infection, scarring, pain, and nerve damage. An opportunity to ask questions prior to the procedure was permitted and all questions were answered. Patient was prepped and draped in usual sterile fashion: area cleansed with alcohol. Anesthesia: the lesion was anesthetized in a standard fashion Anesthetic: 1% lidocaine w/ epinephrine 1-100,000 buffered w/ 8.4% NaHCO3 Instrument used: DermaBlade Hemostasis achieved with: electrodesiccation Outcome: patient tolerated procedure well Outcome comment: The specimen was placed in a prelabeled formalin container to be sent for pathology Post-procedure details: sterile dressing applied and wound care instructions given Post-procedure details comment: Emphasized need to contact clinic for any signs of infection, uncontrollable bleeding, or complications. Dressing type: bandage Additional details: Photo taken Amount of lidocaine used: 0.4 cc [facility] Type of biopsy: tangential Informed consent: discussed and consent obtained Informed consent comment: The risks and benefits of the biopsy were discussed. Risks include but are not limited to bleeding, infection, scarring, pain, and nerve damage. An opportunity to ask questions prior to the procedure was permitted and all questions were answered. Patient was prepped and draped in usual sterile fashion: area cleansed with alcohol. Anesthesia: the lesion was anesthetized in a standard fashion Anesthetic: 1% lidocaine w/ epinephrine 1-100,000 buffered w/ 8.4% NaHCO3 Instrument used: DermaBlade Hemostasis achieved with: electrodesiccation Outcome: patient tolerated procedure well Outcome comment: The specimen was placed in a prelabeled formalin container to be sent for pathology Post-procedure details: sterile dressing applied and wound care instructions given Post-procedure details comment: Emphasized need to contact clinic for any signs of infection, uncontrollable bleeding, or complications. Dressing type: bandage Additional details: Photo taken Amount of lidocaine used: 0.6 cc [facility] Estimated glomerular filtrat ion rate (GFR) non- Americanon 02-15-2024 GFR/1.73 sq M.predicted among non-blacks MDRD (S/P/Bld) [Vol rate/Area] Estimated glomerular filtration rate (GFR) non- Low >=60 [facility] Laboratory - Chemistry and C hemistry - challengeon 02-15-2024 Creatinine [Mass/Vol] 1.66 mg/dL High 0.70-1.30 [facility] GFR/1.73 sq M.predicted MDRD (S/P/Bld) [Vol rate/Area] 48 mL/min/{1.73_m2} Low >=60 [facility] Urea nitrogen [Mass/Vol] 20.0 mg/dL High 7.0-18.0 [facility] Alanine aminotransferase [En zymatic activity/volume] in Serum or PlasmaOrdered By: Monster Benitez on 01-15-2024 ALT [Catalytic activity/Vol] 30 U/L Normal 7-52 [facility] Comment on above: Performed By: #### C BC, PSAS, TSH3, CMP, LIPID #### [facility] [address] Albumin [Mass/volume] in Ser um or Plasma by Bromocresol green (BCG) dye binding methoOrdered By: Monster Benitez on 01-15-2024 Albumin BCG dye [Mass/Vol] 4.2 g/dL 3.5-5.7 [facility] Alkaline phosphatase [Enzyma tic activity/volume] in Serum or PlasmaOrdered By: Monster Benitez on 01-15-2024 ALP [Catalytic activity/Vol] 74 U/L Normal 34-104 [facility] Comment on above: Performed By: #### C BC, PSAS, TSH3, CMP, LIPID #### [place] [address] [place] Aspartate aminotransferase [ Enzymatic activity/volume] in Serum or PlasmaOrdered By: Monster Benitez on 01-15-2024 AST [Catalytic activity/Vol] 35 U/L Normal 13-39 [facility] Comment on above: Performed By: #### C BC, PSAS, TSH3, CMP, LIPID #### [address] Automated basophil %Ordered By: Monster Benitez on 01-15-2024 Basophils/100 WBC (Bld) 0.8 % Normal . F [facility] Comment on above: Performed By: #### C BC, PSAS, TSH3, CMP, LIPID #### [address] Automated basophil countOrde red By: Monster Benitez on 01-15-2024 Basophils (Bld) [#/Vol] 0.1 10*3/uL Normal 0.0-0.2 [facility] Comment on above: Result Comment: PERF ORMED BY: [address] [place] [address] PATHOLOGIST [employer] STRAIGHTENER SERGEI HERNANDEZ M.D. Performed By: #### C BC, PSAS, TSH3, CMP, LIPID #### [address] Automated blood monocyte cou ntOrdered By: Monster Benitez on 01-15-2024 Monocytes (Bld) [#/Vol] 0.9 10*3/uL High 0.0-0.8 [facility] Comment on above: Performed By: #### C BC, PSAS, TSH3, CMP, LIPID #### [address] Automated eosinophil %Ordere d By: Monster Benitez on 01-15-2024 Eosinophils/100 WBC (Bld) 3.2 % Normal . [facility] Comment on above: Performed By: #### C BC, PSAS, TSH3, CMP, LIPID #### [address] Automated eosinophil countOr dered By: Monster Benitez on 01-15-2024 Eosinophils (Bld) [#/Vol] 0.2 10*3/uL Normal 0.0-0.45 [facility] Comment on above: Performed By: #### C BC, PSAS, TSH3, CMP, LIPID #### [address] Automated monocyte %Ordered By: Monster Benitez on 01-15-2024 Monocytes/100 WBC (Bld) 12.5 % Normal . F [facility] Comment on above: Performed By: #### C BC, PSAS, TSH3, CMP, LIPID #### [address] Automated neutrophil %Ordere d By: Monster Benitez on 01-15-2024 Neutrophils/100 WBC (Bld) 42.3 % Normal . [facility] Comment on above: Performed By: #### C BC, PSAS, TSH3, CMP, LIPID #### [address] Bilirubin.total [Mass/volume ] in Serum or PlasmaOrdered By: Monster Andrewss on 01-15-2024 Bilirubin [Mass/Vol] 0.9 mg/dL Normal 0.3-1.0 [facility] Comment on above: Performed By: #### C BC, PSAS, TSH3, CMP, LIPID #### [facility] [address] [place] [address] [place] Calcium [Mass/volume] in Ser um or PlasmaOrdered By: Monster Andrewss on 01-15-2024 Calcium [Mass/Vol] 9.6 mg/dL Normal 8.6-10.3 [facility] Comment on above: Performed By: #### C BC, PSAS, TSH3, CMP, LIPID #### [address] Carbon dioxide, total [Moles /volume] in Serum or PlasmaOrdered By: Monster Sparrows on 01-15-2024 CO2 [Moles/Vol] 29.5 mmol/L Normal 21.0-31.0 [facility] Comment on above: Performed By: #### C BC, PSAS, TSH3, CMP, LIPID #### [facility] [address] [place] [address] [place] Chloride [Moles/volume] in S bautista or PlasmaOrdered By: Monstermalachi Sparrows on 01-15-2024 Chloride [Moles/Vol] 104 mmol/L Normal 98-107 [facility] Comment on above: Performed By: #### C BC, PSAS, TSH3, CMP, LIPID #### [place] [address] [place] Cholesterol [Mass/volume] in Serum or PlasmaOrdered By: Monster Andrewss on 01-15-2024 Cholesterol [Mass/Vol] 181 mg/dL Normal 140-200 [facility] Comment on above: Chol less than 200 m g/dl low riskChol 201-239 mg/dl borderline riskChol 240 mg/dl and greater high risk Result Comment: Chol less than 200 mg/dl low risk Chol 201-239 mg/dl borderline risk Chol 240 mg/dl and greater high risk Performed By: #### C BC, PSAS, TSH3, CMP, LIPID #### [facility] [address] Cholesterol in LDL Calc [Mas s/Vol]Ordered By: Monster Benitez on 01-15-2024 Cholesterol in LDL [Mass/Vol] 105 mg/dL High 0-100 [facility] Comment on above: LDL ATP III CLASSIFI CATIONLDL less than 100 mg/dL OptimalLDL 100-129 mg/dL Near or above optimalLDL 130-159 mg/dL Borderline highLDL 160-189 mg/dL HighLDL greater than 189 mg/dL Very high Cholesterol in VLDL Calc [Ma ss/Vol]Ordered By: Monster Benitez on 01-15-2024 Cholesterol in VLDL [Mass/Vol] 16 mg/dL [facility] Complete Blood Count Auto Di ffon 01-15-2024 Mean Corpuscular HGB Conc 33.2 g/dL Normal 32.5-35.6 [facility] Comment on above: Performed By: #### C BC, PSAS, TSH3, CMP, LIPID #### [address] NRBC% 0.2 /100{WBC} Normal 0-0.5 [facility] Comment on above: Performed By: #### C BC, PSAS, TSH3, CMP, LIPID #### [address] Comprehensive Metabolic Pane yovani 01-15-2024 Albumin [Mass/Vol] 4.2 g/dL Normal 3.5-5.7 [facility] Comment on above: Performed By: #### C BC, PSAS, TSH3, CMP, LIPID #### [facility] [address] [place] [address] [place] GFR/1.73 sq M.predicted MDRD (S/P/Bld) [Vol rate/Area] 36.151 mL/min/{1.73_m2} Normal [facility] Comment on above: Performed By: #### C BC, PSAS, TSH3, CMP, LIPID #### [place] [address] [place] Creatinine [Mass/volume] in Serum or PlasmaOrdered By: Monster Benitez on 01-15-2024 Creatinine [Mass/Vol] 1.84 mg/dL High 0.70-1.30 [facility] Comment on above: Performed By: #### C BC, PSAS, TSH3, CMP, LIPID #### [facility] [address] Erythrocyte distribution wid th [Ratio] by Automated countOrdered By: Monster Benitez on 01-15-2024 Erythrocyte distribution width (RBC) [Ratio] 14.1 % Normal 12.0-14.8 [facility] Comment on above: Performed By: #### C BC, PSAS, TSH3, CMP, LIPID #### [facility] [address] Erythrocytes [#/volume] in B lood by Automated countOrdered By: Monster Benitez on 01-15-2024 RBC (Bld) [#/Vol] 4.59 10*6/uL Normal 3.90-5.60 [facility] Comment on above: Performed By: #### C BC, PSAS, TSH3, CMP, LIPID #### [facility] [address] Glucose [Mass/volume] in Ser um or PlasmaOrdered By: Monster Benitez on 01-15-2024 Glucose [Mass/Vol] 90 mg/dL Normal 70-100 [facility] Comment on above: ADA recommended refe rence rangeRandom Glucose Reference Range is dependent on time and content of last meal. Glucose of more than 200 mg/dL in a nonstressed, ambulatory subject supports the diagnosis of Diabetes Mellitus. Result Comment: [place] [facility] Glucose Reference Range is dependent on time and content of last meal. Glucose of more than 200 mg/dL in a nonstressed, ambulatory subject supports the diagnosis of Diabetes Mellitus. ADA recommended reference range Performed By: #### C BC, PSAS, TSH3, CMP, LIPID #### [facility] [address] [id number] [place] Hematocrit [Volume Fraction] of Blood by Automated countOrdered By: Monster Benitez on 01-15-2024 Hematocrit (Bld) [Volume fraction] 45.2 % Normal 38.8-50.0 [facility] Comment on above: Performed By: #### C BC, PSAS, TSH3, CMP, LIPID #### [address] Hemoglobin [Mass/volume] in BloodOrdered By: Monster Benitez on 01-15-2024 Hemoglobin (Bld) [Mass/Vol] 15.0 g/dL Normal 13.0-17.0 [facility] Comment on above: Performed By: #### C BC, PSAS, TSH3, CMP, LIPID #### [address] Leukocytes [#/volume] correc joseph for nucleated erythrocytes in Blood by Automated counOrdered By: Monster Benitez on 01-15-2024 WBC corrected for nucl RBC Auto (Bld) [#/Vol] 7.5 10*3/uL 4.1-10.5 [facility] Leukocytes [#/volume] in Blo od by Automated countOrdered By: Monster Benitez on 01-15-2024 WBC (Bld) [#/Vol] 7.5 10*3/uL Normal 4.1-10.5 [facility] Comment on above: Performed By: #### C BC, PSAS, TSH3, CMP, LIPID #### [address] Lipid Panelon 01-15-2024 LDL Cholesterol,Calculated 105 mg/dL High 0-100 [facility] Comment on above: Result Comment: LDL ATP III CLASSIFICATION LDL less than 100 mg/dL Optimal LDL 100-129 mg/dL Near or above optimal LDL 130-159 mg/dL Borderline high LDL 160-189 mg/dL High LDL greater than 189 mg/dL Very high Performed By: #### C BC, PSAS, TSH3, CMP, LIPID #### [address] Triglyceride w/Reflex 83 mg/dL Normal 0-149 [facility] Comment on above: Result Comment: TRIG ATP III CLASSIFICATION TRIG less than 150 mg/dL Normal TRIG 150-199 mg/dL Borderline high TRIG 200-500 mg/dL High TRIG greater than 500 mg/dL Very high Standard traceable to the Center for Disease Conrtrol and Prevention (CDC) test method. Performed By: #### C BC, PSAS, TSH3, CMP, LIPID #### [address] VLDL CHOLESTEROL 16 mg/dL Normal [facility] Comment on above: Performed By: #### C BC, PSAS, TSH3, CMP, LIPID #### [address] Lymphocytes [#/volume] in Bl ood by Automated countOrdered By: Monster Benitez on 01-15-2024 Lymphocytes (Bld) [#/Vol] 3.1 10*3/uL Normal 1.00-4.8 [facility] Comment on above: Performed By: #### C BC, PSAS, TSH3, CMP, LIPID #### [address] Lymphocytes/100 leukocytes i n Blood by Automated countOrdered By: Monster Benitez on 01-15-2024 Lymphocytes/100 WBC (Bld) 41.2 % Normal . [facility] Comment on above: Performed By: #### C BC, PSAS, TSH3, CMP, LIPID #### [address] MCH [Entitic mass] by Automa joseph countOrdered By: Monster Benitez on 01-15-2024 MCH (RBC) [Entitic mass] 32.6 pg Normal 27.5-35.2 [facility] Comment on above: Performed By: #### C BC, PSAS, TSH3, CMP, LIPID #### [address] MCHC Auto (RBC) [Mass/Vol]Or dered By: Monster Benitez on 01-15-2024 MCHC (RBC) [Mass/Vol] 33.2 g/dL 32.5-35.6 [facility] MCV [Entitic volume] by Auto mated countOrdered By: Monster Benitez on 01-15-2024 MCV (RBC) [Entitic vol] 98.4 fL Normal 83.5-101 F [facility] Comment on above: Performed By: #### C BC, PSAS, TSH3, CMP, LIPID #### [facility] [address] Neutrophils [#/volume] in Bl ood by Automated countOrdered By: Monster Benitez on 01-15-2024 Neutrophils (Bld) [#/Vol] 3.2 10*3/uL Normal 1.8-7.7 [facility] Comment on above: Performed By: #### C BC, PSAS, TSH3, CMP, LIPID #### [address] No Panel InformationOrdered By: Monster Benitez on 01-15-2024 Estimated GFR (CKD-EPI) 36.151 mL/Min [facility] Creatinine Clearance (Chem N/A [facility] Nucleated erythrocytes [Pres ence] in Blood by Automated countOrdered By: Monster Benitez on 01-15-2024 Nucleated RBC Auto Ql (Bld) 0.2 /100{WBC} 0-0.5 [facility] PSA Screen (Yearly Only)on 0 01-15-2024 PSA Screen (Yearly Only) < 0.008 Normal 0.000-4.000 [facility] Comment on above: Order Comment: Is pa tient <50 yrs? Medicare does not pay <50.: N What is the date of the last PSA Screen?: 117167 Is Medicare the insurance?: Y Did you verify eligibility (Dx Time) check TestViewGp: YES TO ALL Result Comment: Seri al tumor marker results determined by assays using different manufacturers or methods may not be comparable. [facility] rotating equipment engineer and method: [employer] DXI, CHEMILUMINESCENT IMMUNOASSAY. PERFORMED BY: [place] [address] PATHOLOGIST BAND STRAIGHTENER SERGEI HERNANDEZ M.D. Performed By: #### C MP, CBC #### [address] Platelet mean volume [Entiti c volume] in Blood by Automated countOrdered By: Monster Benitez on 01-15-2024 Platelet mean volume (Bld) [Entitic vol] 9.1 fL Normal 6.6-10.1 [facility] Comment on above: Performed By: #### C BC, PSAS, TSH3, CMP, LIPID #### [facility] [address] Platelets [#/volume] in Bloo d by Automated countOrdered By: Monster Benitez on 01-15-2024 Platelets (Bld) [#/Vol] 274 10*3/uL Normal 150-450 [facility] Comment on above: Performed By: #### C BC, PSAS, TSH3, CMP, LIPID #### [facility] [address] Potassium [Moles/volume] in Serum or PlasmaOrdered By: Monster Benitez on 01-15-2024 Potassium [Moles/Vol] 4.9 mmol/L Normal 3.5-5.1 [facility] Comment on above: Performed By: #### C BC, PSAS, TSH3, CMP, LIPID #### [facility] [address] Prostate specific Ag [Mass/v olume] in Serum or PlasmaOrdered By: Monster Benitez on 01-15-2024 Prostate specific Ag [Mass/Vol] ng/mL 0.000-4.000 [facility] Comment on above: Serial tumor marker results determined by assays using different manufacturers or methods may not be comparable.[facility] rotating equipment engineer and method:[employer] DXI, CHEMILUMINESCENT IMMUNOASSAY. Protein [Mass/volume] in Ser um or PlasmaOrdered By: Monster Benitez on 01-15-2024 Protein [Mass/Vol] 6.7 g/dL Normal 6.4-8.9 [facility] Comment on above: Performed By: #### C BC, PSAS, TSH3, CMP, LIPID #### [address] Serum globulin measurement b y calculation (mass/volume)Ordered By: Monster Benitez on 08-16-2024 Globulin (S) [Mass/Vol] 2.5 g/dL Normal [facility] Comment on above: Performed By: #### C BC, PSAS, TSH3, CMP, LIPID #### [facility] [address] Serum or plasma albumin/glob ulin mass ratioOrdered By: Monster Benitez on 01-15-2024 Albumin/Globulin [Mass ratio] 1.7 {ratio} Normal [facility] Comment on above: Performed By: #### C BC, PSAS, TSH3, CMP, LIPID #### [address] Serum or plasma anion gap de terminationOrdered By: Monster Benitez on 01-15-2024 Anion gap [Moles/Vol] 11.4 mmol/L Normal 6.0-15.0 [facility] Comment on above: Performed By: #### C BC, PSAS, TSH3, CMP, LIPID #### [facility] [address] [place] [address] Serum or plasma high density lipoprotein (HDL) cholesterol measurementOrdered By: Monster Benitez on 01-15-2024 Cholesterol in HDL [Mass/Vol] 59 mg/dL Normal 23-92 [facility] Comment on above: HDL CHOL ATP-III CLA SSIFICATION Cardiovascular RiskHDL > or equal to 60 mg/dL LOWHDL < 40 mg/dL HIGH Result Comment: HDL CHOL ATP-III CLASSIFICATION Cardiovascular Risk HDL > or equal to 60 mg/dL LOW HDL < 40 mg/dL HIGH Performed By: #### C BC, PSAS, TSH3, CMP, LIPID #### [address] Serum or plasma total choles terol/high density lipoprotein (HDL) cholesterol mass ratOrdered By: Monster Benitez on 01-15-2024 Cholesterol.total/Aubree sterol in HDL [Mass ratio] 3.1 {ratio} Normal <5.0 [facility] Comment on above: Performed By: #### C BC, PSAS, TSH3, CMP, LIPID #### [facility] [address] [place] [address] Sodium [Moles/volume] in Ser um or PlasmaOrdered By: Monster Benitez on 01-15-2024 Sodium [Moles/Vol] 140 mmol/L Normal 136-145 [facility] Comment on above: Performed By: #### C BC, PSAS, TSH3, CMP, LIPID #### [facility] [address] Thyrotropin [Units/volume] i n Serum or PlasmaOrdered By: Monster Benitez on 01-15-2024 TSH Qn 1.53 m[IU]/L Normal 0.45-5.33 [facility] Comment on above: Result Comment: PERF ORMED BY: [place] [address] PATHOLOGIST BAND STRAIGHTENER SERGEI HERNANDEZ M.D. Performed By: #### C BC, PSAS, TSH3, CMP, LIPID #### [facility] [address] Triglyceride [Mass/volume] i n Serum or PlasmaOrdered By: Monster Benitez on 01-15-2024 Triglyceride [Mass/Vol] 83 mg/dL 0-149 [facility] Comment on above: TRIG ATP III CLASSIF ICATIONTRIG less than 150 mg/dL NormalTRIG 150-199 mg/dL Borderline highTRIG 200-500 mg/dL High TRIG greater than 500 mg/dL Very highStandard traceable to the Center for Disease Conrtrol and Prevention (CDC) test method. Urea nitrogen [Mass/volume] in Serum or PlasmaOrdered By: Monster Benitez on 01-15-2024 Urea nitrogen [Mass/Vol] 24 mg/dL Normal 7-25 [facility] Comment on above: Performed By: #### C BC, PSAS, TSH3, CMP, LIPID #### [facility] [address] Creatinine (Bld) [Mass/Vol]O rdered By: Monster Benitez on 09-04-2023 Creatinine [Mass/Vol] 1.7 mg/dL 0.6-1.3 [facility] Comment on above: ER/ESD physician is notified/shown all ISTAT results.Critical values may be confirmed by laboratory testing ifdeemed necessary by ER attending doctor. No Panel InformationOrdered By: Monster Benitez on 09-04-2023 Bedside Estimated GFR (eGFR) 39.752 [facility] Comprehensive Metabolic Pane yovani 05-20-2023 Albumin [Mass/Vol] 3.147659 g/dL Normal 3.4-5.0 g/dL N [facility] [employer] Other ALP [Catalytic activity/Vol] 86 U/L Normal 46-116 U/L [employer] Other ALT [Catalytic activity/Vol] 40 U/L Normal 16-63 U/L [employer] Other Anion gap [Moles/Vol] 13.4 mmol/L No rt [employer] Other AST [Catalytic activity/Vol] 31 U/L Normal 15-37 U/L [employer] Other Bilirubin [Mass/Vol] 0.2253459 mg/dL Normal 0.2- 1.0 mg/dL [employer] Other Calcium [Mass/Vol] 9.5467465 mg/dL Normal 8.5-10 .1 mg/dL [employer] Other Chloride [Moles/Vol] 102 mmol/L Normal 98-107 mmol/L [employer] Other CO2 [Moles/Vol] 30.74266990 mmol/L Normal 21.0-3 2.0 mmol/L [employer] Other Creatinine [Mass/Vol] 1.86428545 mg/dL High 0. 70-1.30 mg/dL [employer] Other Glucose [Mass/Vol] 97 mg/dL Normal 74-106 mg/dL [facility] [employer] Other Potassium [Moles/Vol] 4.40421018 mmol/L Normal 3 .5-5.1 mmol/L [employer] Other Protein [Mass/Vol] 7.585596 g/dL Normal 6.4-8.2 g/dL N [facility] [employer] Other Sodium [Moles/Vol] 141 mmol/L Normal 136-145 mmol/L [employer] Other Urea nitrogen [Mass/Vol] 29.2225861 mg/dL High 7.0-18.0 mg/dL [employer] Other Urea nitrogen/Creatinine [Mass ratio] 16.9 mg/mg [employer] Other Comprehensive Metabolic Panel 3.5 g/dL [employer] Other Comprehensive Metabolic Panel 1.0 [employer] Other Comprehensive Metabolic Panel see note [employer] Other Comprehensive Metabolic Panel 38 Low >=60 [employer] Other Comprehensive Metabolic Panel 46 Low >=60 [employer] Other MRI LSPINE WO CONon 10-09-19 23 MRI [...] by: SERENA GILL Date: 2022-10-08 13:32 Normal [facility] Alanine aminotransferase [En zymatic activity/volume] in Serum or PlasmaOrdered By: Monster Benitez on 10-06-2022 ALT [Catalytic activity/Vol] 30 U/L 7-52 [facility] Albumin [Mass/volume] in Ser um or Plasma by Bromocresol green (BCG) dye binding methoOrdered By: Monster Benitez on 10-06-2022 Albumin BCG dye [Mass/Vol] 4.2 g/dL 3.5-5.7 [facility] Alkaline phosphatase [Enzyma tic activity/volume] in Serum or PlasmaOrdered By: Monster Benitez on 10-06-2022 ALP [Catalytic activity/Vol] 68 U/L 34-104 [facility] Aspartate aminotransferase [ Enzymatic activity/volume] in Serum or PlasmaOrdered By: Monster Benitez on 10-06-2022 AST [Catalytic activity/Vol] 34 U/L 13-39 [facility] Bilirubin.total [Mass/volume ] in Serum or PlasmaOrdered By: Monster Benitez on 10-06-2022 Bilirubin [Mass/Vol] 1.0 mg/dL 0.3-1.0 [facility] Calcium [Mass/volume] in Ser um or PlasmaOrdered By: Monster Benitez on 10-06-2022 Calcium [Mass/Vol] 9.1 mg/dL 8.6-10.3 [facility] Carbon dioxide, total [Moles /volume] in Serum or PlasmaOrdered By: Monster Benitez on 10-06-2022 CO2 [Moles/Vol] 30.8 mmol/L 21.0-31.0 [facility] Chloride [Moles/volume] in S bautista or PlasmaOrdered By: Monster Benitez on 10-06-2022 Chloride [Moles/Vol] 104 mmol/L 98-107 [facility] Creatinine [Mass/volume] in Serum or PlasmaOrdered By: Monster Benitez on 10-06-2022 Creatinine [Mass/Vol] 1.48 mg/dL 0.70-1.30 [facility] Globulin Calc (S) [Mass/Vol] Ordered By: Monster Benitez on 10-06-2022 Globulin (S) [Mass/Vol] 2.5 g/dL [facility] Glucose [Mass/volume] in Ser um or PlasmaOrdered By: Monster Benitez on 10-06-2022 Glucose [Mass/Vol] 92 mg/dL 70-100 [facility] Comment on above: ADA recommended refe rence rangeRandom Glucose Reference Range is dependent on time and content of last meal. Glucose of more than 200 mg/dL in a nonstressed, ambulatory subject supports the diagnosis of Diabetes Mellitus. No Panel InformationOrdered By: Monster Benitez on 10-06-2022 Estimated GFR (CKD-EPI) 47.237 mL/Min [facility] Creatinine Clearance (Chem N/A [facility] Potassium [Moles/volume] in Serum or PlasmaOrdered By: Monster Benitez on 10-06-2022 Potassium [Moles/Vol] 4.6 mmol/L 3.5-5.1 [facility] Protein [Mass/volume] in Ser um or PlasmaOrdered By: Monster Benitez on 10-06-2022 Protein [Mass/Vol] 6.7 g/dL 6.4-8.9 [facility] Serum or plasma albumin/glob ulin mass ratioOrdered By: Monster Benitez on 10-06-2022 Albumin/Globulin [Mass ratio] 1.7 {ratio} [facility] Serum or plasma anion gap de terminationOrdered By: Monster Benitez on 10-06-2022 Anion gap [Moles/Vol] 9.8 mmol/L 6.0-15.0 [facility] Sodium [Moles/volume] in Ser um or PlasmaOrdered By: Monster Benitez on 10-06-2022 Sodium [Moles/Vol] 140 mmol/L 136-145 [facility] Urea nitrogen [Mass/volume] in Serum or PlasmaOrdered By: Monster Benitez on 10-06-2022 Urea nitrogen [Mass/Vol] 23 mg/dL 7-25 [facility] XR LSPINE 2_3 VIEWSon 2022 XR [...] ANUEL COVINGTON Date: 2022-09-16 16:02 Normal [facility] Albumin [Mass/volume] in Ser um or PlasmaOrdered By: Monster Benitez on 07-09-2022 Albumin [Mass/Vol] 3.7 g/dL 3.2-5.5 [facility] Basophils Auto (Bld) [#/Vol] Ordered By: Monster Benitez on 07-09-2022 Basophils (Bld) [#/Vol] 0.0 10*3/uL 0.0-0.2 [facility] Basophils/100 WBC Auto (Bld) Ordered By: Monster Benitez on 07-09-2022 Basophils/100 WBC (Bld) 0.5 % . F [facility] Cholesterol [Mass/volume] in Serum or PlasmaOrdered By: Monster Benitez on 07-09-2022 Cholesterol [Mass/Vol] 175 mg/dL 140-200 Fi [facility] Comment on above: Chol less than 200 m g/dl low riskChol 201-239 mg/dl borderline riskChol 240 mg/dl and greater high risk Cholesterol in LDL Calc [Mas s/Vol]Ordered By: Monster Benitez on 07-09-2022 Cholesterol in LDL [Mass/Vol] 105 mg/dL 0-100 [facility] Comment on above: LDL ATP III CLASSIFI CATIONLDL less than 100 mg/dL OptimalLDL 100-129 mg/dL Near or above optimalLDL 130-159 mg/dL Borderline highLDL 160-189 mg/dL HighLDL greater than 189 mg/dL Very high Cholesterol in VLDL Calc [Ma ss/Vol]Ordered By: Monster Benitez on 07-09-2022 Cholesterol in VLDL [Mass/Vol] 14 mg/dL [facility] Creatinine and Glomerular fi ltration rate.predicted panel (S/P/Bld)Ordered By: Monster Benitez on 07-09-2022 Creatinine [Mass/Vol] 1.61 mg/dL 0.64-1.27 [facility] Eosinophils Auto (Bld) [#/Vo l]Ordered By: Monster Benitez on 07-09-2022 Eosinophils (Bld) [#/Vol] 0.2 10*3/uL 0.0-0.45 [facility] Eosinophils/100 WBC Auto (Bl d)Ordered By: Monster Benitez on 07-09-2022 Eosinophils/100 WBC (Bld) 2.2 % . [facility] Erythrocyte distribution wid th Auto (RBC) [Ratio]Ordered By: Monster Benitez on 07-09-2022 Erythrocyte distribution width (RBC) [Ratio] 13.0 % 12.0-14.8 [facility] Estimated glomerular filtrat ion rate (GFR) non- AmericanOrdered By: Monster Benitez on 07-09-2022 GFR/1.73 sq M.predicted among non-blacks MDRD (S/P/Bld) [Vol rate/Area] 41 mL/Min [facility] Globulin Calc (S) [Mass/Vol] Ordered By: Monster Benitez on 07-09-2022 Globulin (S) [Mass/Vol] 2.5 g/dL F [facility] Hematocrit Auto (Bld) [Volum e fraction]Ordered By: Monster Benitez on 07-09-2022 Hematocrit (Bld) [Volume fraction] 45.2 % 38.8-50.0 [facility] Hemoglobin [Mass/volume] in BloodOrdered By: Monster Benitez on 07-09-2022 Hemoglobin (Bld) [Mass/Vol] 14.8 g/dL 13.0-17.0 [facility] Leukocytes [#/volume] correc joseph for nucleated erythrocytes in Blood by Automated counOrdered By: Monster Benitez on 07-09-2022 WBC corrected for nucl RBC Auto (Bld) [#/Vol] 7.2 10*3/uL 4.1-10.5 [facility] Lymphocytes Auto (Bld) [#/Vo l]Ordered By: Monster Benitez on 07-09-2022 Lymphocytes (Bld) [#/Vol] 2.5 10*3/uL 1.00-4.8 [facility] Lymphocytes/100 WBC Auto (Bl d)Ordered By: Monster Benitez on 07-09-2022 Lymphocytes/100 WBC (Bld) 34.8 % . [facility] MCH Auto (RBC) [Entitic mass ]Ordered By: Monster Benitez on 07-09-2022 MCH (RBC) [Entitic mass] 32.4 pg 27.5-35.2 [facility] MCHC Auto (RBC) [Mass/Vol]Or dered By: Monster Benitez on 07-09-2022 MCHC (RBC) [Mass/Vol] 32.8 g/dL 32.5-35.6 [facility] MCV Auto (RBC) [Entitic vol] Ordered By: Monster Benitez on 07-09-2022 MCV (RBC) [Entitic vol] 98.9 fL 83.5-101 F [facility] Monocytes Auto (Bld) [#/Vol] Ordered By: Monster Benitez on 07-09-2022 Monocytes (Bld) [#/Vol] 0.7 10*3/uL 0.0-0.8 [facility] Monocytes/100 WBC Auto (Bld) Ordered By: Monster Benitez on 07-09-2022 Monocytes/100 WBC (Bld) 10.3 % . F [facility] Neutrophils Auto (Bld) [#/Vo l]Ordered By: Monster Benitez on 07-09-2022 Neutrophils (Bld) [#/Vol] 3.7 10*3/uL 1.8-7.7 [facility] Neutrophils/100 WBC Auto (Bl d)Ordered By: Monster Benitez on 07-09-2022 Neutrophils/100 WBC (Bld) 52.2 % . [facility] No Panel InformationOrdered By: Monster Benitez on 07-09-2022 Estimated GFR () 50 mL/Min [facility] Comment on above: GFR estimated refere nce range: According to KDOQI guidelines, <60 ml/min/1.73m2 is sufficient to diagnose a patient with chronic kidney disease. Pharmacy Creatinine Clearance (Chem N/A [facility] Prostate Specific Antigen Screen < 0.008 ng/mL 0.000-4.000 [facility] Nucleated erythrocytes [Pres ence] in Blood by Automated countOrdered By: Monster Benitez on 07-09-2022 Nucleated RBC Auto Ql (Bld) 0.1 /100{WBC} 0-0.5 [facility] Platelet mean volume Auto (B ld) [Entitic vol]Ordered By: Monster Benitez on 07-09-2022 Platelet mean volume (Bld) [Entitic vol] 8.8 fL 6.6-10.1 [facility] Platelets Auto (Bld) [#/Vol] Ordered By: Monster Benitez on 07-09-2022 Platelets (Bld) [#/Vol] 279 10*3/uL 150-450 [facility] Protein [Mass/volume] in Ser um or PlasmaOrdered By: Monster Benitez on 07-09-2022 Protein [Mass/Vol] 6.2 g/dL 6.1-7.9 [facility] RBC Auto (Bld) [#/Vol]Ordere d By: Monster Benitez on 07-09-2022 RBC (Bld) [#/Vol] 4.57 10*6/uL 3.90-5.60 [facility] Serum or plasma alanine vasques otransferase measurement without P-5'-P (enzymatic activiOrdered By: Monster Benitez on 07-09-2022 ALT No additional P-5'-P [Catalytic activity/Vol] 29 U/L 10-60 [facility] Serum or plasma albumin/glob ulin mass ratioOrdered By: Monster Benitez on 07-09-2022 Albumin/Globulin [Mass ratio] 1.5 {ratio} [facility] Serum or plasma alkaline oliver sphatase measurement (enzymatic activity/volume)Ordered By: Monster Benitez on 07-09-2022 ALP [Catalytic activity/Vol] 62 U/L 32-92 [facility] Serum or plasma anion gap de terminationOrdered By: Monster Benitez on 07-09-2022 Anion gap [Moles/Vol] 11.6 mmol/L 6.0-15.0 [facility] Serum or plasma aspartate am inotransferase measurement (enzymatic activity/volume)Ordered By: Monster Benitez on 07-09-2022 AST [Catalytic activity/Vol] 32 U/L 10-42 [facility] Serum or plasma calcium alexis urement (mass/volume)Ordered By: Monster Benitez on 07-09-2022 Calcium [Mass/Vol] 9.5 mg/dL 8.2-10.2 [facility] Serum or plasma chloride damaris surement (moles/volume)Ordered By: Monster Benitez on 07-09-2022 Chloride [Moles/Vol] 103 mmol/L 95-114 [facility] Serum or plasma glucose alexis urement (mass/volume)Ordered By: Monster Benitez on 07-09-2022 Glucose [Mass/Vol] 86 mg/dL 70-100 [facility] Comment on above: ADA recommended refe rence rangeRandom Glucose Reference Range is dependent on time and content of last meal. Glucose of more than 200 mg/dL in a nonstressed, ambulatory subject supports the diagnosis of Diabetes Mellitus. Serum or plasma high density lipoprotein (HDL) cholesterol measurementOrdered By: Monster Benitez on 07-09-2022 Cholesterol in HDL [Mass/Vol] 56 mg/dL 29-71 [facility] Comment on above: HDL CHOL ATP-III CLA SSIFICATION Cardiovascular RiskHDL > or equal to 60 mg/dL LOWHDL < 40 mg/dL HIGH Serum or plasma potassium me asurement (moles/volume)Ordered By: Monster Benitez on 07-09-2022 Potassium [Moles/Vol] 4.6 mmol/L 3.5-5.1 [facility] Serum or plasma sodium measu rement (moles/volume)Ordered By: Monster Benitez on 07-09-2022 Sodium [Moles/Vol] 139 mmol/L 136-146 [facility] Serum or plasma total biliru bin measurement (mass/volume)Ordered By: Monster Benitez on 07-09-2022 Bilirubin [Mass/Vol] 0.8 mg/dL 0.3-1.2 [place] [facility] Serum or plasma total carbon dioxide measurement (moles/volume)Ordered By: Monster Benitez on 07-09-2022 CO2 [Moles/Vol] 29.0 mmol/L 22.0-30.0 [facility] Serum or plasma total choles terol/high density lipoprotein (HDL) cholesterol mass ratOrdered By: Monster Benitez on 07-09-2022 Cholesterol.total/Aubree sterol in HDL [Mass ratio] 3.1 {ratio} <5.0 [facility] Serum or plasma urea nitroge n measurement (mass/volume)Ordered By: Monster Benitez on 07-09-2022 Urea nitrogen [Mass/Vol] 21 mg/dL 9-23 [facility] TSH DL <= 0.005 mIU/L QnOrde red By: Monster Benitez on 07-09-2022 TSH Qn 2.82 m[IU]/L 0.45-5.33 [facility] Triglyceride [Mass/volume] i n Serum or PlasmaOrdered By: Monster Benitez on 07-09-2022 Triglyceride [Mass/Vol] 70 mg/dL 35-149 F [facility] Comment on above: TRIG ATP III CLASSIF ICATIONTRIG less than 150 mg/dL NormalTRIG 150-199 mg/dL Borderline highTRIG 200-500 mg/dL High TRIG greater than 500 mg/dL Very highStandard traceable to the Center for Disease Conrtrol and Prevention (CDC) test method. WBC Auto (Bld) [#/Vol]Ordere d By: Monster Benitez on 07-09-2022 WBC (Bld) [#/Vol] 7.2 10*3/uL 4.1-10.5 [facility] COVID Quick Testingon 2021 Result Negative [employer] Other Basophils Auto (Bld) [#/Vol] Ordered By: Monster Benitez on 01-06-2022 Basophils (Bld) [#/Vol] 0.0 10*3/uL 0.0-0.2 [facility] Basophils/100 WBC Auto (Bld) Ordered By: Monster Benitez on 01-06-2022 Basophils/100 WBC (Bld) 0.8 % . F [facility] Blood hemoglobin measurement (mass/volume)Ordered By: Monster Benitez on 01-06-2022 Hemoglobin (Bld) [Mass/Vol] 14.7 g/dL 13.0-17.0 [facility] Blood leukocytes automated c ount (number/volume)Ordered By: Monster Benitez on 01-06-2022 WBC (Bld) [#/Vol] 6.1 10*3/uL 4.5-11.0 [facility] Body fluid albumin measureme nt (mass/volume)Ordered By: Monster Benitez on 01-06-2022 Albumin (Body fld) [Mass/Vol] 3.7 g/dL 3.2-5.5 [facility] Cholesterol [Mass/volume] in Serum or PlasmaOrdered By: Monster Benitez on 01-06-2022 Cholesterol [Mass/Vol] 170 mg/dL 140-200 [facility] Comment on above: Chol less than 200 m g/dl low risk Chol 201-239 mg/dl borderline risk Chol 240 mg/dl and greater high risk Cholesterol in LDL Calc [Mas s/Vol]Ordered By: Monster Benitez on 01-06-2022 Cholesterol in LDL [Mass/Vol] 98 mg/dL 0-100 [facility] Comment on above: LDL ATP III CLASSIFI CATION LDL less than 100 mg/dL Optimal LDL 100-129 mg/dL Near or above optimal LDL 130-159 mg/dL Borderline high LDL 160-189 mg/dL High LDL greater than 189 mg/dL Very high Cholesterol in VLDL Calc [Ma ss/Vol]Ordered By: Monster Benitez on 01-06-2022 Cholesterol in VLDL [Mass/Vol] 9 mg/dL [facility] Creatinine and Glomerular fi ltration rate.predicted panel (S/P/Bld)Ordered By: Monster Benitez on 01-06-2022 Creatinine [Mass/Vol] 1.41 mg/dL 0.64-1.27 [facility] Eosinophils Auto (Bld) [#/Vo l]Ordered By: Monster Benitez on 01-06-2022 Eosinophils (Bld) [#/Vol] 0.2 10*3/uL 0.0-0.45 [facility] Eosinophils/100 WBC Auto (Bl d)Ordered By: Monster Benitez on 01-06-2022 Eosinophils/100 WBC (Bld) 3.8 % . [facility] Erythrocyte distribution wid th Auto (RBC) [Ratio]Ordered By: Monster Benitez on 01-06-2022 Erythrocyte distribution width (RBC) [Ratio] 13.8 % 12.0-14.8 [facility] Estimated glomerular filtrat ion rate (GFR) non- AmericanOrdered By: Monster Benitez on 01-06-2022 GFR/1.73 sq M.predicted among non-blacks MDRD (S/P/Bld) [Vol rate/Area] 48 mL/Min [facility] Globulin Calc (S) [Mass/Vol] Ordered By: Monster Benitez on 01-06-2022 Globulin (S) [Mass/Vol] 2.7 g/dL F [facility] Hematocrit Auto (Bld) [Volum e fraction]Ordered By: Monster Benitez on 01-06-2022 Hematocrit (Bld) [Volume fraction] 44.7 % 38.8-50.0 [facility] Laboratory - Hematology and Cell countsOrdered By: Monster Benitez on 01-06-2022 Nucleated RBC/100 WBC (Bld) [Ratio] 0.2 % 0-0.5 [facility] Lymphocytes Auto (Bld) [#/Vo l]Ordered By: Monster Benitez on 01-06-2022 Lymphocytes (Bld) [#/Vol] 1.6 10*3/uL 1.00-4.8 [facility] Lymphocytes/100 WBC Auto (Bl d)Ordered By: Monster Benitez on 01-06-2022 Lymphocytes/100 WBC (Bld) 25.9 % . [facility] MCH Auto (RBC) [Entitic mass ]Ordered By: Monster Benitez on 01-06-2022 MCH (RBC) [Entitic mass] 32.6 pg 27.5-35.2 [facility] MCHC Auto (RBC) [Mass/Vol]Or dered By: Monster Benitez on 01-06-2022 MCHC (RBC) [Mass/Vol] 33.0 g/dL 32.5-35.6 [facility] MCV Auto (RBC) [Entitic vol] Ordered By: Monster Benitez on 01-06-2022 MCV (RBC) [Entitic vol] 98.7 fL 83.5-101 F [facility] Monocytes Auto (Bld) [#/Vol] Ordered By: Monster Benitez on 01-06-2022 Monocytes (Bld) [#/Vol] 0.8 10*3/uL 0.0-0.8 [facility] Monocytes/100 WBC Auto (Bld) Ordered By: Monster Benitez on 01-06-2022 Monocytes/100 WBC (Bld) 14.0 % . F [facility] Neutrophils Auto (Bld) [#/Vo l]Ordered By: Monster Benitez on 01-06-2022 Neutrophils (Bld) [#/Vol] 3.4 10*3/uL 1.8-7.7 [facility] Neutrophils/100 WBC Auto (Bl d)Ordered By: Monster Benitez on 01-06-2022 Neutrophils/100 WBC (Bld) 55.5 % . [facility] No Panel InformationOrdered By: Monster Benitez on 01-06-2022 Estimated GFR () 59 mL/Min [facility] Comment on above: GFR estimated refere nce range: According to KDOQI guidelines, <60 ml/min/1.73m2 is sufficient to diagnose a patient with chronic kidney disease. Pharmacy Creatinine Clearance (Chem N/A [facility] Platelet mean volume Auto (B ld) [Entitic vol]Ordered By: Monster Benitez on 01-06-2022 Platelet mean volume (Bld) [Entitic vol] 9.3 fL 6.6-10.1 [facility] Platelets Auto (Bld) [#/Vol] Ordered By: Monster Benitez on 01-06-2022 Platelets (Bld) [#/Vol] 277 10*3/uL 150-450 [facility] Protein [Mass/volume] in Ser um or PlasmaOrdered By: Monster Benitez on 01-06-2022 Protein [Mass/Vol] 6.4 g/dL 6.1-7.9 [facility] RBC Auto (Bld) [#/Vol]Ordere d By: Monster Benitez on 01-06-2022 RBC (Bld) [#/Vol] 4.53 10*6/uL 3.90-5.60 [facility] Serum or plasma alanine vasques otransferase measurement without P-5'-P (enzymatic activiOrdered By: Monster Benitez on 01-06-2022 ALT No additional P-5'-P [Catalytic activity/Vol] 28 U/L 10-60 [facility] Serum or plasma albumin/glob ulin mass ratioOrdered By: Monster Benitez on 01-06-2022 Albumin/Globulin [Mass ratio] 1.4 {ratio} [facility] Serum or plasma alkaline oliver sphatase measurement (enzymatic activity/volume)Ordered By: Monster Benitez on 01-06-2022 ALP [Catalytic activity/Vol] 59 U/L 32-92 [facility] Serum or plasma aspartate am inotransferase measurement (enzymatic activity/volume)Ordered By: Monster Benitez on 01-06-2022 AST [Catalytic activity/Vol] 31 U/L 10-42 [facility] Serum or plasma calcium alexis urement (mass/volume)Ordered By: Monster Benitez on 01-06-2022 Calcium [Mass/Vol] 9.5 mg/dL 8.2-10.2 [facility] Serum or plasma chloride damaris surement (moles/volume)Ordered By: Monster Benitez on 01-06-2022 Chloride [Moles/Vol] 101 mmol/L 95-114 [facility] Serum or plasma glucose alexis urement (mass/volume)Ordered By: Monster Benitez on 01-06-2022 Glucose [Mass/Vol] 94 mg/dL 70-100 [facility] Comment on above: ADA recommended refe rence range Random Glucose Reference Range is dependent on time and content of last meal. Glucose of more than 200 mg/dL in a nonstressed, ambulatory subject supports the diagnosis of Diabetes Mellitus. Serum or plasma high density lipoprotein (HDL) cholesterol measurementOrdered By: Monster Benitez on 01-06-2022 Cholesterol in HDL [Mass/Vol] 63 mg/dL 29-71 [facility] Comment on above: HDL CHOL ATP-III CLA SSIFICATION Cardiovascular Risk HDL > or equal to 60 mg/dL LOW HDL < 40 mg/dL HIGH Serum or plasma potassium me asurement (moles/volume)Ordered By: Monster Benitez on 01-06-2022 Potassium [Moles/Vol] 4.2 mmol/L 3.5-5.1 [facility] Serum or plasma sodium measu rement (moles/volume)Ordered By: Monster Benitez on 01-06-2022 Sodium [Moles/Vol] 138 mmol/L 136-146 [facility] Serum or plasma total biliru bin measurement (mass/volume)Ordered By: Monster Benitez on 01-06-2022 Bilirubin [Mass/Vol] 0.9 mg/dL 0.3-1.2 [facility] Serum or plasma total carbon dioxide measurement (moles/volume)Ordered By: Monster Benitez on 01-06-2022 CO2 [Moles/Vol] 26.1 mmol/L 22.0-30.0 [facility] Serum or plasma total choles terol/high density lipoprotein (HDL) cholesterol mass ratOrdered By: Monster Benitez on 01-06-2022 Cholesterol.total/Aubree sterol in HDL [Mass ratio] 2.7 {ratio} <5.0 [facility] Serum or plasma urea nitroge n measurement (mass/volume)Ordered By: Monster Benitez on 01-06-2022 Urea nitrogen [Mass/Vol] 15 mg/dL 9-23 [facility] TSH DL <= 0.005 mIU/L QnOrde red By: Monster Benitez on 01-06-2022 TSH Qn 2.18 m[IU]/L 0.45-5.33 [facility] Triglyceride [Mass/volume] i n Serum or PlasmaOrdered By: Monster Benitez on 01-06-2022 Triglyceride [Mass/Vol] 47 mg/dL 35-149 F [facility] Comment on above: TRIG ATP III CLASSIF ICATION TRIG less than 150 mg/dL Normal TRIG 150-199 mg/dL Borderline high TRIG 200-500 mg/dL High TRIG greater than 500 mg/dL Very high Standard traceable to the Center for Disease Conrtrol and Prevention (CDC) test method. RAD - MISCon 08-12-2021 RAD - MISC [id number] 1.00CD:127 Normal [facility] Ambulatory Visit Summaryon 0 08-06-2021 Ambulatory [...] PVD (peripheral vascular disease) Renal insufficiency Normal [facility] Historical Records Officeon 07-26-2021 Historical Records Office [id number] .[id number]:127 Normal [facility] Physician Referralon 022 Physician Referral [id number] .00CD:127 [facility] Vital Signs Date Time Vital Sign Value Performing Clinician Facility 02-22-2025 13:00-0400 Body height 175.26 cm Monster Benitez [employer] Work Phone: [facility] 02-22-2025 13:00-0400 Body mass index (BMI) [Ratio] 31.3 kg/m2 Monster Kuns DO Work Phone: [facility] 02-22-2025 13:00-0400 Body weight 96.16 kg Monster Kuns DO Work Phone: [facility] 02-22-2025 13:00-0400 Diastolic blood pressure 65 mm[Hg] Monster Kuns DO Work Phone: [facility] 02-22-2025 13:00-0400 Heart rate 60 /min Monster Kuns DO Work Phone: [facility] 02-22-2025 13:00-0400 Respiratory rate 18 /min Monster Kuns DO Work Phone: [facility] 02-22-2025 13:00-0400 SaO2% (BldA) [Mass fraction] 96 % Monster Kuns DO Work Phone: [facility] 02-22-2025 13:00-0400 Systolic blood pressure 120 mm[Hg] Monster Kuns DO Work Phone: [facility] 10-14-2024 09:02-0400 Body height 175.26 cm Monster Kuns DO Work Phone: [facility] 10-14-2024 09:02-0400 Body mass index (BMI) [Ratio] 31.3 kg/m2 Monster Kuns DO Work Phone: [facility] 10-14-2024 09:02-0400 Body weight 96.16 kg Monster Kuns DO Work Phone: [facility] 08-16-2024 10:11-0400 Body height 177.8 cm Monster Kuns DO Work Phone: [facility] 08-16-2024 10:11-0400 Body mass index (BMI) [Ratio] 31.1 kg/m2 Monster Kuns DO Work Phone: [facility] 08-16-2024 10:11-0400 Body weight 98.42 kg Monster Kuns DO Work Phone: [facility] 08-16-2024 10:11-0400 Diastolic blood pressure 76 mm[Hg] Monster Kuns DO Work Phone: [facility] 08-16-2024 10:11-0400 Heart rate 44 /min Monster Kuns DO Work Phone: [facility] 08-16-2024 10:11-0400 Respiratory rate 18 /min Monster Kuns DO Work Phone: [facility] 08-16-2024 10:11-0400 SaO2% (BldA) [Mass fraction] 96 % Monster Kuns DO Work Phone: [facility] 08-16-2024 10:11-0400 Systolic blood pressure 128 mm[Hg] Monster Kuns DO Work Phone: [facility] 04-14-2024 13:06-0500 Body height 177.8 cm Monster Kuns DO Work Phone: [facility] 04-14-2024 13:06-0500 Body mass index (BMI) [Ratio] 30.9 kg/m2 Monster Kuns DO Work Phone: [facility] 04-14-2024 13:06-0500 Body weight 97.97 kg Monster Kuns DO Work Phone: [facility] 04-14-2024 13:06-0500 Diastolic blood pressure 70 mm[Hg] Monster Kuns DO Work Phone: [facility] 04-14-2024 13:06-0500 Heart rate 68 /min Monster Kuns DO Work Phone: [facility] 04-14-2024 13:06-0500 Respiratory rate 16 /min Monster Kuns DO Work Phone: [facility] 04-14-2024 13:06-0500 SaO2% (BldA) [Mass fraction] 92 % Monster Kuns DO Work Phone: [facility] 04-14-2024 13:06-0500 Systolic blood pressure 108 mm[Hg] Monster Kuns DO Work Phone: [facility] 04-13-2024 14:37-0500 Diastolic blood pressure 66 mm[Hg] Pravin Macedo MD Work Phone: [facility] 04-13-2024 14:37-0500 Systolic blood pressure 128 mm[Hg] Pravin Macedo MD Work Phone: [facility] 01-27-2024 14:17-0400 Body height 177.8 cm DO Monster Kuns Work Phone: [facility] 01-27-2024 14:17-0400 Body mass index (BMI) [Ratio] 29.2 kg/m2 DO Monster Kuns Work Phone: [facility] 01-27-2024 14:17-0400 Body weight 92.53 kg DO Monster Kuns Work Phone: [facility] 01-27-2024 14:17-0400 Diastolic blood pressure 65 mm[Hg] DO Monster Kuns Work Phone: [facility] 01-27-2024 14:17-0400 Heart rate 71 /min DO Monster Kuns Work Phone: [facility] 01-27-2024 14:17-0400 Respiratory rate 16 /min DO Monster Kuns Work Phone: [facility] 01-27-2024 14:17-0400 SaO2% (BldA) [Mass fraction] 95 % DO Monster Kuns Work Phone: [facility] 01-27-2024 14:17-0400 Systolic blood pressure 120 mm[Hg] DO Monster Kuns Work Phone: [facility] 11-03-2023 11:47-0400 Body height 177.8 cm DO Monster Kuns Work Phone: [facility] 11-03-2023 11:47-0400 Body mass index (BMI) [Ratio] 29.4 kg/m2 DO Monster Kuns Work Phone: [facility] 11-03-2023 11:47-0400 Body weight 92.98 kg DO Monster Kuns Work Phone: [facility] 11-03-2023 11:47-0400 Diastolic blood pressure 70 mm[Hg] DO Monster Kuns Work Phone: [facility] 11-03-2023 11:47-0400 Heart rate 83 /min DO Monster Kuns Work Phone: [facility] 11-03-2023 11:47-0400 Respiratory rate 18 /min DO Monster Kuns Work Phone: [facility] 11-03-2023 11:47-0400 SaO2% (BldA) [Mass fraction] 97 % DO Monster Kuns Work Phone: [facility] 11-03-2023 11:47-0400 Systolic blood pressure 136 mm[Hg] DO Monster Kuns Work Phone: [facility] 10-22-2023 10:18-0400 Diastolic blood pressure 88 mm[Hg] DO Monster Kuns Work Phone: [facility] 10-22-2023 10:18-0400 Heart rate 70 /min DO Monster Kuns Work Phone: [facility] 10-22-2023 10:18-0400 Systolic blood pressure 144 mm[Hg] DO Monster Kuns Work Phone: [facility] 10-22-2023 10:16-0400 Body height 177.8 cm DO Monster Kuns Work Phone: [facility] 10-22-2023 10:16-0400 Body weight 90.71 kg DO Monster Kuns Work Phone: [facility] 10-08-2023 14:130400 Body height 175.26 cm DO Monster Kuns Work Phone: [facility] 10-08-2023 14:13-0400 Body mass index (BMI) [Ratio] 30.4 kg/m2 DO Monster Kuns Work Phone: [facility] 10-08-2023 14:13-0400 Body weight 93.44 kg DO Monster Kuns Work Phone: [facility] 10-08-2023 14:13-0400 Diastolic blood pressure 80 mm[Hg] DO Monster Kuns Work Phone: [facility] 10-08-2023 14:13-0400 Heart rate 79 /min DO Monster Kuns Work Phone: [facility] 10-08-2023 14:13-0400 Respiratory rate 20 /min DO Monster Kuns Work Phone: [facility] 10-08-2023 14:13-0400 SaO2% (BldA) [Mass fraction] 96 % DO Monster Kuns Work Phone: [facility] 10-08-2023 14:13-0400 Systolic blood pressure 130 mm[Hg] DO Monster Kuns Work Phone: [facility] 10-05-2023 11:29-0400 Body height 175.26 cm DO Monster Kuns Work Phone: [facility] 10-05-2023 11:29-0400 Body mass index (BMI) [Ratio] 30.2 kg/m2 DO Monster Kuns Work Phone: [facility] 10-05-2023 11:29-0400 Body weight 92.98 kg DO Monster Kuns Work Phone: [facility] 10-05-2023 11:29-0400 Diastolic blood pressure 82 mm[Hg] DO Monster Kuns Work Phone: [facility] 10-05-2023 11:29-0400 Heart rate 81 /min DO Monster Kuns Work Phone: [facility] 10-05-2023 11:29-0400 Respiratory rate 18 /min DO Monster Kuns Work Phone: [facility] 10-05-2023 11:29-0400 SaO2% (BldA) [Mass fraction] 98 % DO Monster Kuns Work Phone: [facility] 10-05-2023 11:29-0400 Systolic blood pressure 138 mm[Hg] DO Monster Kuns Work Phone: [facility] 08-20-2023 10:15-0400 Body height 175.26 cm [facility] 08-20-2023 10:15-0400 Body mass index (BMI) [Ratio] 30.5 kg/m2 [facility] 08-20-2023 10:15-0400 Body weight 93.89 kg [facility] 08-20-2023 10:15-0400 Diastolic blood pressure 84 mm[Hg] [facility] 08-20-2023 10:15-0400 Heart rate 86 /min [facility] 08-20-2023 10:15-0400 Respiratory rate 16 /min [facility] 08-20-2023 10:15-0400 SaO2% (BldA) [Mass fraction] 96 % [facility] 08-20-2023 10:15-0400 Systolic blood pressure 138 mm[Hg] [facility] 04-21-2023 09:00-0500 Body height 175.26 cm [employer] Other [employer] [facility] [employer] Other 04-21-2023 09:00-0500 Body mass index (BMI) [Ratio] 30.48 kg/m2 [employer] Other [employer] Other 04-21-2023 09:00-0500 Body weight 93.62 kg Monster Kuns Other [employer] Other 04-21-2023 09:00-0500 Diastolic blood pressure 64 mm[Hg] Monster Kuns Other [employer] Other 04-21-2023 09:00-0500 Respiratory rate 16 /min Monster Kuns Other [employer] Other 04-21-2023 09:00-0500 SaO2% (BldA) [Mass fraction] 96 % Monster Kuns Other [employer] Other 04-21-2023 09:00-0500 Systolic blood pressure 112 mm[Hg] Monster Kuns Other [employer] Other 07-17-2022 10:00-0500 Body height 175.26 cm Monster Kuns Other [employer] Other 07-17-2022 10:00-0500 Body mass index (BMI) [Ratio] 31.45 kg/m2 Monster Kuns Other [employer] Other 07-17-2022 10:00-0500 Body weight 96.62 kg Monster Kuns Other [employer] Other 07-17-2022 10:00-0500 Diastolic blood pressure 82 mm[Hg] Monster Kuns Other [employer] Other 07-17-2022 10:00-0500 Respiratory rate 16 /min Monster Kuns Other [employer] Other 07-17-2022 10:00-0500 SaO2% (BldA) [Mass fraction] 98 % Monster Kuns Other [employer] Other 07-17-2022 10:00-0500 Systolic blood pressure 128 mm[Hg] Monster Kuns Other [employer] Other 09-03-2021 10:30-0400 Body height 175.26 cm Monster Kuns Other [employer] Other 09-03-2021 10:30-0400 Body mass index (BMI) [Ratio] 31.45 kg/m2 Monster Kuns Other [employer] Other 09-03-2021 10:30-0400 Body weight 96.62 kg Monster Kuns Other [employer] Other 09-03-2021 10:30-0400 Diastolic blood pressure 70 mm[Hg] Monster Kuns Other [employer] Other 09-03-2021 10:30-0400 Respiratory rate 16 /min Monster Kuns Other [employer] Other 09-03-2021 10:30-0400 SaO2% (BldA) [Mass fraction] 97 % Monster Kuns Other [employer] Other 09-03-2021 10:30-0400 Systolic blood pressure 116 mm[Hg] Monster Kuns Other [employer] Other 05-21-2021 11:30-0500 Body height 175.26 cm Monster Kuns Other [employer] Other 05-21-2021 11:30-0500 Body mass index (BMI) [Ratio] 31.16 kg/m2 Monster Andrewss Other [employer] Other 05-21-2021 11:30-0500 Body weight 95.71 kg Monster Andrewss Other [employer] Other 05-21-2021 11:30-0500 Diastolic blood pressure 76 mm[Hg] Monster Andrewss Other [employer] Other 05-21-2021 11:30-0500 Respiratory rate 16 /min Monstermalachi Spar[employer] Other [employer] Other 05-21-2021 11:30-0500 SaO2% (BldA) [Mass fraction] 96 % Monster Andrewss Other [employer] Other 05-21-2021 11:30-0500 Systolic blood pressure 152 mm[Hg] Monster Andrewss Other [employer] Other Encounters Encounter Date Encounter Type Care Provider Facility Start: 02-22-2025 End: 02-22-2025 ambulatory Monster Kuns DO Work Phone: [facility] Work Phone: Start: 02-22-2025 End: 02-22-2025 Patient encounter procedure Bib Zuleta DO -[facility] Work Phone: Start: 02-16-2025 End: 02-16-2025 ambulatory Monster Kuns DO Work Phone: [facility] Work Phone: Start: 02-16-2025 End: 02-16-2025 Patient encounter procedure Monster R Kuns DO -[facility] Work Phone: Start: 12-26-2024 End: 12-26-2024 ambulatory Monster Kuns DO Work Phone: [facility] Work Phone: Start: 12-26-2024 End: 12-26-2024 Patient encounter procedure Monster R Kuns DO -[facility] [place] Work Phone: Start: 11-17-2024 End: 11-17-2024 Patient encounter procedure Monster R Kuns DO -[facility] [place] Work Phone: Start: 11-08-2024 End: 11-08-2024 Patient encounter procedure Monster Kuns DO Work Phone: [facility] [place] Work Phone: Start: 11-08-2024 End: 11-08-2024 ambulatory Monster Kuns DO Work Phone: [facility] Work Phone: Start: 10-14-2024 End: 10-14-2024 Patient encounter procedure Monster Kuns DO Work Phone: [facility] Work Phone: Start: 08-16-2024 End: 08-16-2024 ambulatory Monster Kuns DO Work Phone: [facility] Work Phone: Start: 08-16-2024 End: 08-16-2024 Patient encounter procedure Monster Kuns DO Work Phone: [facility] [place] Work Phone: Start: 08-08-2024 End: 08-08-2024 Patient encounter procedure Monster Kuns DO Work Phone: [facility] [place] Work Phone: Start: 08-08-2024 End: 08-08-2024 ambulatory Monster Kuns DO Work Phone: [facility] Work Phone: Start: 08-04-2024 End: 08-04-2024 Bamboo flowsheet Viet Barraza DPM Work Phone: [facility] Start: 08-04-2024 End: 08-04-2024 Bamboo flowsheet Viet Barraza DPM Work Phone: [facility] Start: 08-04-2024 End: 08-04-2024 Office outpatient new 30 minutes Viet Barraza DPM Work Phone: [facility] Comment on above: Onychomycosis (Prima ry Dx); Pain in toes of both feet; Hammertoes of both feet; Callus Start: 08-04-2024 End: 08-04-2024 ambulatory VIET BARRAZA Not Available Start: 04-14-2024 End: 04-14-2024 ambulatory Monster Sparrows DO Work Phone: [facility] Work Phone: Start: 04-14-2024 End: 04-14-2024 Patient encounter procedure Monster Kuns DO Work Phone: [facility] [place] Work Phone: Start: 04-13-2024 End: 04-13-2024 Patient encounter procedure Pravin Macedo MD Work Phone: [facility] Comment on above: Basal cell carcinoma (BCC) of right preauricular region (Primary Dx); Actinic keratosis Start: 04-13-2024 End: 04-13-2024 ambulatory PRAVIN MCAEDO Not Available Start: 04-07-2024 End: 04-07-2024 Patient encounter procedure Monster Kuns DO Work Phone: [facility] [place] Work Phone: Start: 04-07-2024 End: 04-07-2024 ambulatory Monster Kuns DO Work Phone: [facility] Work Phone: Start: 04-05-2024 End: 04-05-2024 ambulatory SHANNON ALBERTS Not Available Start: 04-05-2024 End: 04-05-2024 Bamboo flowsheet Shannon Villalta Zahler DO Work Phone: [facility] Start: 04-05-2024 End: 04-05-2024 Bamboo flowsheet Shannon D Zahler DO Work Phone: [facility] Start: 03-31-2024 End: 03-31-2024 Bamboo flowsheet Keyona Jose Felter GRATING MACHINE OPERATOR-COOK CHILL TECHNICIAN Work Phone: [facility] Start: 03-31-2024 End: 03-31-2024 Bamboo flowsheet Keyona A Felter GRATING MACHINE OPERATOR-COOK CHILL TECHNICIAN Work Phone: [facility] Start: 03-31-2024 End: 03-31-2024 Office outpatient visit 15 minutes Keyona A Felter GRATING MACHINE OPERATOR-COOK CHILL TECHNICIAN Work Phone: [facility] Comment on above: Actinic keratosis; Seborrheic keratosis; Lentigines; History of dysplastic nevus; Neoplasm of unspecified behavior of bone, soft tissue, and skin Start: 03-31-2024 End: 03-31-2024 ambulatory KEYONA Jose FELTER Not Available Start: 03-15-2024 Non-patient / Non-visit Monster Kuns DO Work Phone: [facility] [place] Work Phone: Start: 03-14-2024 Non-patient / Non-visit Monster Kuns DO Work Phone: [facility] [place] Work Phone: Start: 02-15-2024 Non-patient / Non-visit Monster Kuns DO [facility] Phone[facility] Work Phone: Start: 01-27-2024 End: 01-27-2024 ambulatory DO Monster Kuns Work Phone: [facility] Work Phone: Start: 01-27-2024 End: 01-27-2024 Patient encounter procedure DO Monster Kuns Work Phone: [facility] [place] Work Phone: Start: 01-15-2024 End: 01-15-2024 Patient encounter procedure DO Monster Kuns Work Phone: [facility] [place] Work Phone: Start: 01-15-2024 End: 01-15-2024 ambulatory DO Monster Kuns Work Phone: [facility] Work Phone: Start: 11-13-2023 End: 11-13-2023 ambulatory SHANNON Ambar SANTIAGOER Not Available Start: 11-05-2023 Non-patient / Non-visit DO Maddi tt Kuns Work Phone: [facility] Work Phone: Start: 11-03-2023 End: 11-03-2023 ambulatory DO Monster Kuns Work Phone: [facility] Work Phone: Start: 11-03-2023 End: 11-03-2023 Patient encounter procedure DO Monster Kuns Work Phone: [facility] Work Phone: Start: 10-27-2023 End: 10-27-2023 ambulatory SHANNON D ZAHLER Not Available Start: 10-22-2023 End: 10-22-2023 ambulatory DO Monster Kuns Work Phone: [facility] Work Phone: Start: 10-22-2023 End: 10-22-2023 Patient encounter procedure DO Monster Kuns Work Phone: [facility] Work Phone: Start: 10-22-2023 Non-patient / Non-visit DO Maddi tt Kuns Work Phone: [facility] Work Phone: Start: 10-08-2023 End: 10-08-2023 ambulatory DO Monster Kuns Work Phone: [facility] Work Phone: Start: 10-08-2023 End: 10-08-2023 Patient encounter procedure DO Monster Kuns Work Phone: [facility] [place] Work Phone: Start: 10-05-2023 End: 10-05-2023 ambulatory DO Monster Kuns Work Phone: [facility] Work Phone: Start: 10-05-2023 End: 10-05-2023 Patient encounter procedure DO Monster Kuns Work Phone: [facility] Work Phone: Start: 09-04-2023 End: 09-04-2023 ambulatory DO Monster Kuns Work Phone: [facility] Work Phone: Start: 09-04-2023 End: 09-04-2023 Patient encounter procedure DO Monster Kuns Work Phone: [facility] [place] Work Phone: Start: 08-20-2023 End: 08-20-2023 ambulatory [facility] Work Phone: Start: 08-20-2023 End: 08-20-2023 Patient encounter procedure [facility] Work Phone: Start: 07-22-2023 Non-patient / Non-visit [facility] [employer] Work Phone: Start: 06-02-2023 End: 06-02-2023 ambulatory Monster Kuns Other [employer] Other Start: 06-02-2023 Telephone encounter Monster Kuns [facility] [place] Start: 05-15-2023 End: 05-15-2023 ambulatory Monster Kuns Other [employer] Other Start: 05-15-2023 Telephone encounter Monster Kuns [facility] [place] Start: 05-14-2023 End: 05-14-2023 ambulatory Monster Kuns Other [employer] Other Start: 05-14-2023 Telephone encounter Monster Kuns [facility] [place] Start: 05-06-2023 End: 05-06-2023 ambulatory Monster Kuns Other [employer] Other Start: 05-06-2023 Telephone encounter Monster Kuns [facility] [place] Start: 04-21-2023 End: 04-21-2023 ambulatory Monster Kuns Other [employer] Other Start: 04-21-2023 Office outpatient vi sit 25 minutes Monster Kuns [facility] Family [facility] [place] Start: 02-16-2023 End: 02-16-2023 ambulatory Monster Kuns Other [employer] Other Start: 02-16-2023 Telephone encounter Monster Kuns [facility] [place] Start: 10-14-2022 End: 10-15-2022 ambulatory NARENDRANATH LAKSHMIPATHY . Facility: Start: 10-08-2022 End: 10-09-2022 ambulatory NARENDRANATH LAKSHMIPATHY . Facility:[facility]1 Start: 10-06-2022 End: 10-06-2022 ambulatory DO Monster Kuns Work Phone: [facility] Work Phone: Start: 10-06-2022 End: 10-06-2022 Patient encounter procedure DO Monster Kuns Work Phone: [facility] [place] Work Phone: Start: 10-02-2022 End: 10-02-2022 ambulatory Monster Kuns Other [employer] Other Start: 10-02-2022 Telephone encounter Monster Kuns [facility] Start: 09-16-2022 End: 09-17-2022 ambulatory NARENDRANATH LAKSHMIPATHY . Facility:[facility] Start: 09-16-2022 End: 09-17-2022 ambulatory NARENDRANATH LAKSHMIPATHY . Facility:[facility] Start: 08-22-2022 End: 08-22-2022 ambulatory Monster Kuns Other [employer] Other Start: 08-22-2022 Telephone encounter Monster Kuns [facility] Start: 07-17-2022 End: 07-17-2022 ambulatory Monster Kuns Other [employer] Other Start: 07-17-2022 Patient encounter procedure Monster Kuns [facility] Start: 07-09-2022 End: 07-09-2022 ambulatory DO Monster Kuns Work Phone: [facility] Work Phone: Start: 07-09-2022 End: 07-09-2022 Patient encounter procedure DO Monster Kuns Work Phone: [facility] [place] Work Phone: Start: 05-07-2022 End: 05-07-2022 ambulatory Monster Kuns Other [employer] Other Start: 05-07-2022 Telephone encounter Monster Andrewss [facility] [place] Start: 03-10-2022 End: 03-10-2022 ambulatory Monster Kuns Other [employer] Other Start: 03-10-2022 Nursing evaluation o f patient and report Monster Kuns [facility] Start: 03-10-2022 Telephone encounter Monster Kuns [facility] Start: 01-06-2022 End: 01-06-2022 Patient encounter procedure DO Monster Andrewss Work Phone: [facility] [place] Start: 09-03-2021 End: 09-03-2021 ambulatory Monster Kuns Other [employer] Other Start: 09-03-2021 Office outpatient vi sit 25 minutes Monster Kuns [facility] Start: 07-25-2021 End: 07-25-2021 ambulatory Monster Kuns Other [employer] Other Start: 07-25-2021 Telephone encounter Monster Kuns [facility] Start: 05-21-2021 End: 05-21-2021 ambulatory Monster Kuns Other [employer] Other Start: 05-21-2021 Annual wellness visit Monster sotomayor Other [employer] Other Start: 05-21-2021 Patient encounter procedure Monster Kuns [facility] Start: 04-30-2021 End: 04-30-2021 ambulatory Monster Kuns Other [employer] Other Start: 04-30-2021 Telephone encounter Monster Benitez [facility] Start: 05-13-2017 Ambulatory MONSTERMALACHI BENITEZ Facility:[id number] Start: 05-13-2017 Ambulatory Facility:[id number] Procedures Date Procedure Procedure Detail Performing Clinician Start: 04-13-2024 CRYOTHERAPY SKIN LESION Pravin Macedo MD Work Phone: Start: 04-12-2024 MOHS SURGERY Pravin simeon MD Work Phone: Start: 04-05-2024 End: 04-05-2024 Oph medical xm&eval comprhnsv estab pt 1/> Posterior vitreous detachment of left eye Shannon Alberts DO Work Phone: Comment on above: Posterior vitreous d etachment of left eye (Primary Dx); Dry eyes; Blepharitis of upper and lower eyelids of both eyes, unspecified type; Bilateral posterior capsular opacification Start: 03-31-2024 End: 03-31-2024 SKIN / NAIL BIOPSY Keyona Justice GRATING MACHINE OPERATOR-COOK CHILL TECHNICIAN Work Phone: Start: 03-31-2024 CRYOTHERAPY SKIN LESION Keyona Justice GRATING MACHINE OPERATOR-COOK CHILL TECHNICIAN Work Phone: Start: 10-22-2023 Radionuclide myocard ial perfusion stress study DO Monster Sparrowсветлана Work Phone: Start: 09-04-2023 CT of thorax with contrast DO Monster John Work Phone: Plan of Treatment Date Care Activity Detail Author Start: 09-27-2024 End: 09-27-2024 Patient encounter procedure 09/27/2024 9:25 AM EDT Office Visit [facility] [address] [place] [phone] Keyona Justice, GRATING MACHINE OPERATOR-COOK CHILL TECHNICIAN [address] [place] [address] [facility] Start: 08-16-2024 Patient referral [facility] Work Phone: Start: 08-04-2024 End: 08-04-2024 Patient encounter procedure 08/04/2024 10:00 AM EST Office Visit [facility] [address] [place] [id number] Viet Barraza DPM [address] [place] [address] Arrived [facility] Comment on above: Arrived Start: 04-05-2024 End: 04-05-2024 Patient encounter procedure [facility] Comment on above: Arrived Start: 03-31-2024 End: 03-31-2024 Patient encounter procedure 03/31/2024 9:35 AM EDT Office Visit [facility] [address] [place] [id number] Keyona Justice, GRATING MACHINE OPERATOR-COOK CHILL TECHNICIAN [address] [place] [address] Arrived [facility] Comment on above: Arrived Start: 01-31-2024 Influenza vaccination Influenza Vaccine (#1) [facility] Start: 10-22-2023 Radionuclide myocardial perfusion stress study NM lesvia perf SPECT rest & str [facility] Start: 10-22-2023 SPECT Heart perfusion at rest and W stress and W radionuclide IV [facility] Start: 10-05-2023 [facility] Start: 08-20-2023 Patient referral [facility] Work Phone: Comprehensive metabo lic 1999 panel - Serum or Plasma [facility] Comprehensive metabo lic 1999 panel - Serum or Plasma [facility] Comprehensive metabo lic 1999 panel - Serum or Plasma [facility] Comprehensive metabo lic 1999 panel - Serum or Plasma [facility] CT Chest W contrast IV [facility] CT Chest W contrast IV [facility] Dermatopathology exam Dermatopat hology exam Pathology and Cytology Timed Neoplasm of unspecified behavior of bone, soft tissue, and skin Release Upon Ordering for 1 Occurrences starting 03/31/2024 [facility] Work Phone: Comment on above: Release Upon Ordering for 1 Occurrences starting 03/31/2024 Glucose measurement estimated from glycated hemoglobin [facility] Patient referral [facility] Work Phone: US Heart Transthoracic [facility] XR Chest 2 Views [facility] XR Lumbar spine 4 Views [facility] Immunizations Immunization Date Immunization Notes Care Provider Fa cili 04-14-2024 influenza, high dose seasonal, preservative-free Monster Kuns DO Work Phone: [facility] 04-17-2022 COVID-19 mRNA Bivalent Booster (Moderna) DO Monster Kuns Work Phone: [facility] 04-17-2022 influenza, injectable, quadrivalent, preservative free DO Monster Kuns Work Phone: [facility] 04-17-2022 influenza, seasonal, injectable Monster Kuns Other [facility] 04-17-2022 influenza virus vaccine, unspecified formulation Keyona Nicholsmoira GRATING MACHINE OPERATOR-COOK CHILL TECHNICIAN Work Phone: [facility] 05-20-2021 COVID-19 Vaccine Moderna - Documentation Purposes Only Monster Kuns Other [facility] 05-20-2021 Influenza vaccine, quadrivalent, adjuvanted DO Monster Kuns Work Phone: [facility] 05-20-2021 influenza, seasonal, injectable Monster Kuns Other [facility] 08-03-2020 COVID-19 mRNA-1273 (Moderna) DO Monster Kuns Work Phone: [facility] 07-06-2020 COVID-19 mRNA-1273 (Moderna) DO Monster Kuns Work Phone: [facility] 03-20-2020 Influenza vaccine, quadrivalent, adjuvanted DO Monster Kuns Work Phone: [facility] 03-20-2020 zoster vaccine recombinant Monster Kuns Other [facility] 03-20-2020 influenza, seasonal, injectable Monster Kuns Other [facility] 12-27-2019 zoster vaccine recombinant Monster Kuns Other [facility] 12-27-2019 pneumococcal conjugate vaccine, 13 valent Monster Kuns Other [facility] 12-27-2019 tetanus toxoid, reduced diphtheria toxoid, and acellular pertussis vaccine, adsorbed Monster Kuns Other [facility] 05-09-2019 influenza, seasonal, injectable Monster Kuns Other [facility] 05-17-2018 influenza virus vaccine, unspecified formulation [facility] 05-17-2018 influenza, high dose seasonal, preservative-free Monster Kuns Other [facility] 04-09-2017 influenza virus vaccine, unspecified formulation [facility] 04-09-2017 influenza, high dose seasonal, preservative-free Monster Kuns Other [facility] 04-03-2016 influenza virus vaccine, unspecified formulation [facility] 04-03-2016 influenza, high dose seasonal, preservative-free Monster Kuns Other [facility] 05-21-2015 influenza, seasonal, injectable Monster Kuns Other [facility] 03-18-2010 pneumococcal polysaccharide vaccine, 23 valent Monster Kuns Other [facility] 03-14-1999 pneumococcal polysaccharide vaccine, 23 valent Mosnter Kuns Other [facility] 03-14-1999 TD(adult) unspecifie d formulation DO Monster Benitez Work Phone: [facility] NEGATED: Highlighted row has not occurred!04-05-2019 pneumococcal polysaccharide vaccine, 23 valent Patient Objection Monster Benitez Other [facility] NEGATED: Highlighted row has not occurred!11-16-2018 pneumococcal conjugate vaccine, 13 valent Patient Objection Monster Benitez Other [facility] NEGATED: Highlighted row has not occurred!11-16-2018 pneumococcal polysaccharide vaccine, 23 valent Patient Objection Monster Benitez Other [facility] Payers Date Payer Category Payer Private Health Insurance [employer] [id number] 2024 Self-pay [id number] 2019 Medicare (Managed Care) [facility] [id number] 5 1959 Private Health Insurance [id number] 1941 Unknown [id number] .[id number] 1941 Unknown [id number] [id number] .2.593 1941 Unknown [id number] [id number] .2.593 1941 Unknown [id number] [id number] .2.593 1941 Unknown [id number] [id number] .2.1259 1941 Unknown [id number] [id number] .2.1259 1941 Unknown [id number] [id number] .2.1259 1941 Unknown [id number] [id number] .2.1259 1941 Unknown [id number] [id number] .2.1259 1941 Unknown [id number] [id number] .2.1259 Unknown [id number] [id number] .2.531 Unknown [id number] [id number] .2.531 Unknown [id number] [id number] .2.531 Unknown [id number] [id number] .2.531 Social History Date Type Detail Facility Unknown if ever smoked [employer] Other Start: 11-13-2023 End: 04-13-2024 Sex Assigned At [employer] Other Start: 1940 Sex Assigned At Male F [facility] Start: 07-17-2018 End: 11-03-2023 Tobacco smoking status NHIS Smoker (finding) [facility] Start: 03-31-2023 Tobacco smoking status NHIS Never smoked tobacco [facility] Start: 03-31-2023 End: 04-13-2024 Tobacco use and exposure Smokeless tobacco non-user [facility] Start: 11-13-2023 End: 04-13-2024 History of Social function [facility] Start: 1940 Sex assigned at Not on file [facility] Start: 04-08-2024 End: 11-09-2024 Sex Male (finding) [facility] Start: 11-03-2023 End: 04-13-2024 Tobacco smoking status KYIS Smokes tobacco daily [facility] History of tobacco use Pipe Smoker [facility] Clinical Notes 11-04-2011 to 12-26-2024 Note Date & Type Note Facility 12-26-2024 Evaluation note Diagnosis Onset Date Resolution Acute cough noneactive December 26 10:41am [facility] Work Phone: 1(328) 896-133707-28-2025 Evaluation note* Diagnosis Onset Date Resolution Status Admit Date Acute cough noneactive December 26 10:41am Back pain noneactive January 11:39am [facility] Work Phone: 1(264) 926-229905-16-2025 Evaluation note* Diagnosis Onset Date Resolution Status Admit Date Blood in stool acute October 14, 2024 8:56am Abnormal renal function acute J 2024 8:45am Blood in stool acute November 17, 2024 8:45am Exertional shortness of breath acute November 17, 2024 8:45am Hearing decreased acute November 172024 8:45am Osteoarthritis acute November 17, 2024 8:45am Acute cough noneactive December 26 10:41am [facility] Work Phone: 1(325) 603-331603-18-2025 Evaluation note* Author Marylou Hidalgo [facility] Authored August 16, 2024 10: 25am Sooner if needed, the ER if concerns,The above note written by Marylou Hidalgo LPN acting as human recorder, note dictated by Dr. Monster Benitez [facility] Work Phone: 1(647) 976-981303-06-2025 History of Present illness Narrative* Viet MccrackenValorieBrodie, RICHIE - 08/04/2024 10:00 AM EST [facility] VISIT CC: Fungal toenails HPI: This is a 84 y.o. male with PMH indicated below who presents for fungal nails. Patient states toenails are thickened and discolored. Patient Admits to pain in shoegear. Patient is unable to cut them. Patient admits to use of OTC antifungal medications in the past without improvement. Relates callus to bilateral foot but states these are not painful. Denies any other pedal complaints. PCP: Monster Benitez DO 04/14/24 Past Medical History: Diagnosis Date Actinic keratosis Atypical nevi Basal cell carcinoma Cataract Coronary artery disease (CMS/HCC) Hypercholesteremia (CMS/HCC) Hypertension (CMS/HCC) Prostate cancer (CMS/HCC) 2006 Prostatectomy Squamous cell skin cancer Current Outpatient Medications Medication Sig Dispense Refill amLODIPine (Norvasc) 5 MG tablet atorvastatin (Lipitor) 10 MG tablet 1 (one) time each day at the same time. betamethasone, augmented, (Diprolene) 0.05 % ointment Daily Cetirizine HCl 10 MG capsule Daily cyclobenzaprine (Flexeril) 10 MG tablet Take 10 mg by mouth as needed at bedtime. esomeprazole (NexIUM) [address] capsule 1 capsule 1 (one) time each day at the same time. ezetimibe (Zetia) 10 MG tablet fluticasone (Flonase) 50 MCG/ACT nasal spray 1 (one) time each day at the same time. losartan (Cozaar) 50 MG tablet 1 (one) time each day at the same time. metoprolol succinate XL (Toprol-XL) 25 MG 24 hr tablet Daily omeprazole (PriLOSEC) [address] capsule Take 20 mg by mouth in the morning. psyllium (Metamucil) 48.57 % powder rivaroxaban (Xarelto) 20 MG tablet Every evening amLODIPine (Norvasc) 10 MG tablet 1 (one) time each day at the same time (Patient not taking: Reported on 08/04/2024) Breo Ellipta 100-25 MCG/ACT aerosol powder (Patient not taking: Reported on 08/04/2024) budesonide-formoterol (Symbicort) 160-4.5 MCG/ACT inhaler every 12 (twelve) hours. (Patient not taking: Reported on 08/04/2024) cephalexin (Keflex) 500 MG capsule Take 1 capsule, by mouth, bid, 10 days (Patient not taking: Reported on 08/04/2024) 20 capsule 0 fentaNYL (Duragesic) 50 MCG/HR Place 1 patch on the skin every 3rd (third) day. (Patient not taking: Reported on 08/04/2024) hydrOXYzine HCl (Atarax) 25 MG tablet TAKE 1 OR 2 TABLETS BY MOUTH AT BEDTIME NEEDED (Patient not taking: Reported on 08/04/2024) methylPREDNISolone (Medrol Dospak) 4 MG tablets TAKE 6 TABLETS ON DAY 1 DIRECTED ON PACKAGE AND DECREASE BY 1 TAB EACH DAY FOR A TOTAL OF 6 DAYS (Patient not taking: Reported on 08/04/2024) omega-3 (Fish Oil) 1000 MG capsule 1 capsule 1 (one) time each day at the same time. (Patient not taking: Reported on 08/04/2024) oxyCODONE-acetaminophen (Percocet) 5-325 MG tablet Take 2 tablets by mouth every 6 (six) hours if needed. (Patient not taking: Reported on 08/04/2024) No current facility-administered medications for this visit. No Known Allergies No past surgical history on file. No family history on file. Social History Tobacco Use Smoking status: Every Day Types: Pipe Smokeless tobacco: Never Vaping Use Vaping status: Never Used Review of Systems: GENERAL: No weight loss, malaise or fevers. HEENT: Negative for frequent or significant headaches, vision changes, nose bleeds RESPIRATORY: Negative for cough, wheezing or shortness of breath. CARDIOVASCULAR: Negative for chest pain, leg swelling or palpitations. GI: Negative for abdominal discomfort, nausea, vomiting MUSCULOSKELETAL: +B/L foot pain SKIN: +Thick nails NEURO: Denies numbess, tingling or burning in feet Physical Exam: There were no vitals taken for this visit. On General Observation: Patient is a pleasant, cooperative, well developed 84 y.o. adult male. The patient is alert and oriented to time, place and person. Patient has normal affect and mood. Vascular: DP palpable, PT is non palpable. CFT less than 3 seconds to all digits bilateral. Skin temperature is warm to warm from proximal to distal bilateral. Hair growth is not noted. Mild pitting edema noted. No varicosities noted. Neuro: Light touch intact bilateral. Dermatological: Skin appears well hydrated and supple. Toenails 1,2,3,4,5 bilateral are discolored, elongated, thickened with subungual debris. Webspaces 1-4 are clean, dry, intact bilateral. No rashes, subcutaneousnodules, or open lesions noted. Hyperkeratotic tissue is noted medial 1st MTPJ B/L. Musculoskeletal/Orthopaedic: General foot morphology: Planus. +4/5 muscle strength Dorsiflexion, Plantarflexion, Inversion, Eversion B/L. ROM of the 1st MTPJ is limited without pain or crepitus bilateral. ROM of the MTJ/STJ is full without pain or crepitus b/l. Ankle joint ROM is decreased in dorsiflexion B/L. Hammertoes 2-4 B/L with adductovarus of B/L 5th digit. Pain to palpation of nails 1-5 B/L. Assessment: Encounter Diagnoses Name Primary? Onychomycosis Yes Pain in toes of both feet Plan: A comprehensive history and physical examination were preformed. The patient was educated on clinical and radiographic findings, diagnosis and treatment plans. Patient state that he understands all that has been explained and all questions were answered to his apparent satisfaction. Initial Office Visit Nails 1-5 were debrided in length and thickness by manual and mechanical means. Advised patient on continued proper foot care including daily monitoring of their feet for any new complaints or concerns that may arise. Continue supportive shoe gear and avoid barefoot walking. Discussed use of Aquaphor, Gold Aquino, or Eucerin Cream to callus with home maintenance using pumicestone. Patient expressed understanding. Callus x2 pared without incident. RTC: 9-12 weeks or as needed if problems arise. Viet Barraza DPM documented in this encounterMissouri Baptist Medical [id number] History of Present illness Narrative* Pravin Macedo MD - 04/13/2024 1:00 PM EST Images from the original note were not included. Mohs Surgery Location: Right preauricular area Date of biopsy: 03/31/2024 Diagnosis: Basal Cell Carcinoma Lesions: Location: Right cheek Duration: months Quality: denies bleeding Associated symptoms: red, rough Treatments: none All pertinent medical history, medications, and allergies were reviewed. General Exam: alert, oriented to person, place, and time, normal affect, well appearing A focused exam completed based on patient reported problems, see below: 1. 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 Mohs surgery Consent obtained: written (The rationale for Mohs as well as the risks, benefits, and alternatives.The risks of infection, scarring, bleeding, prolonged wound healing, incomplete removal, allergy toanesthesia or meds, nerve injury, and recurrence were addressed.) [place] Protocol: Procedure explained and questions answered to patient or proxy's satisfaction: Yes Test results available and properly labeled: Yes Pathology report reviewed: Yes Photo or diagram used for site identification: Yes Site/side marked: Yes Anticoagulation: Is the patient taking prescription anticoagulant and/or aspirin prescribed/recommended by a physician? Yes (Xarelto) Was the anticoagulation regimen changed prior to Mohs? No Anesthesia: Anesthesia method: local infiltration Local anesthetic: lidocaine 1% WITH epi and sodium bicarbonate Procedure Details: Biopsy accession number: [id number] Biopsy lab: [facility] Date of biopsy: 03/31/2024 Frozen section biopsy performed: Yes Specimen debulked: No Pre-Op diagnosis: basal cell carcinoma BCC subtype: nodular MohsAIQ Surgical site (if tumor spans multiple areas, please select predominant area): cheek (including jawline) Surgery side: right Surgical site (from skin exam): Right Preauricular Area Pre-operative length (cm): 0.8 Pre-operative width (cm): 0.7 Indications for Mohs surgery: anatomic location where tissue conservation is critical Previously treated? No Mohs Appropriate Use Criteria Score: 8 Details of micrographic surgery: Mohs accession number: [id number] Micrographic Surgery Details: Post-operative length (cm): 2 Post-operative width (cm): 1.5 Number of Mohs stages: 2 Stage 1 Comments: The area was prepped with Betadine, draped in a sterile fashion, and infiltrated with local anesthetic. Sterile technique was used throughout the procedure. The marked area of clinical tumor with a small rim of clinically normal surrounding skin was removed using Mohs technique with beveled edges. Hash sung were placed for orientation of the specimen. Hemostasis was achieved with electrodessication. After hemostasis, the defect was measured and recorded, a temporary sterile dressing was placed over the wound, and the patient was escorted to the waiting area. The specimen was oriented, mapped, and if necessary, divided into sections. A Mohs map was prepared. The specimen was placed in a labeled ric dish and was taken to the Mohs lab where it was chromacoded and processed. Mohssections were prepared with serial tissue sections, stained, and evaluated by Dr. Macedo for interpretation of deep and peripheral margins. The Mohs map was marked accordingly. Amount of lidocaine used: 2.5 cc Estimated blood loss: < 1.0 cc Defect size: 1.6 x 1.5 cm Number of blocks per stage: 1 Number of positive blocks: 1 Tumor features identified on Mohs section: basal carcinoma Tumor features identified on Mohs section comment: nodular pattern Depth of defect after stage: dermis Stage 2 Comments: The patient returned to the procedure room, the dressing was removed, the tumor area was re-prepped and draped, and anesthesia was assessed and augmented as necessary. A layer of tissue around the positive margin(s) was removed, and the tissue was oriented, mapped, and processed in an identical fashion as for Stage 1. Hemostasis was achieved and dressing placed as in Stage 1. The patient was escorted to the waiting area. As with Stage 1, Mohs sections were prepared with serial tissue sections, stained, and evaluated by Dr. Macedo for interpretation of deep and peripheral margins. The Mohs map was updated. Assistants: Ena Thompson LPN Amount of lidocaine used: 2.5 cc Estimated blood loss: < 1.0 cc Defect size: 2.0 x 1.5 cm Number of blocks: 1 Number of positive blocks: 0. Tumor free margins were obtained and the Mohs procedure was considered complete. Tumor features identified on Mohs section: no tumor identified Depth of defect after stage: dermis Patient tolerance of procedure: tolerated well, no immediate complications Reconstruction: Was the defect reconstructed?: No Antibiotics: Were antibiotics given on the day of surgery? Yes When were antibiotics given? post-operative cephalexin (Keflex) 500 MG capsule Take 1 capsule, by mouth, bid, 10 days Mohs Post Operative Type of repair: Patient presented with the options of healing by secondary intention vs. repair. Reviewed benefits, risks, and possible outcomes of both options. Patient informed that the area may berepaired at a later date if the outcome after healing by secondary intention if not acceptable. Patient will discuss this with his and he will call back if he decides he wants to see Dr. Mak Wound Care: A dressing was placed on the surgical wound. Post-operative instructions were given in writing and were reviewed with the patient. A follow- up appointment was made, and instructions were given to follow-up sooner if necessary. 2. Actinic keratosis (7) Right Parotid Area, Right Zygomatic Area (4), Right parotid (2) Erythematous scaly papules Patient was counseled regarding these sun-induced growths that can develop into squamous cell carcinoma if left untreated. Discussed treatment with cryotherapy. It was emphasized that any treated lesions that fail to resolve should be re- evaluated. Cryotherapy performed today; see procedure note Diagnosis: Actinic keratosis Indication: Precancerous Location: see skin exam Consent: Verbal consent was obtained and risks were discussed, including, but not limited to risks of scarring, darker or rope laying machine operator pigmentary changes, recurrence, incomplete removal and infection. Method: Liquid nitrogen was used to treat the lesion(s) with two 5-10 second freeze-thaw cycles. Number of lesions treated: 7 Post-procedure instructions: Instructions were given verbally. The office will be contacted if the lesion fails to resolve despite treatment, or if a side effect develops such as abnormal crusting, scabbing, redness or tenderness Cryotherapy, skin lesion - Right Parotid Area, Right Zygomatic Area (4), Right parotid (2) Next visit: 09/27/2024 documented in this encounterMissouri Baptist Medical [id number] History of Present illness Narrative* Shannon Alberts, DO - 04/05/2024 2:45 PM EST Images from the original note were not included. Assessment/Plan Diagnoses and all orders for this visit: Posterior vitreous detachment of left eye - PVD: The patient has a posterior viterous detachment (PVD) in their affected eye (s). Patient wascautioned to call our office immediately if they experience a substantial change in their symptoms such as an increase in floaters, persistent flashes, loss of visual field (may appear as a shadow ora curtain) or decrease in visual acuity as these may indicate a retinal tear or detachment. Dry eyes - Dry Eyes OU -- Environmental changes to minimize dryness and exposure and the use of artificial tears were recommended. Blepharitis of upper and lower eyelids of both eyes, unspecified type - Blepharitis, posterior type OU - The patient exhibits inspissated meibomian glands. Warm compresses, lid massage and lid scrubs were recommended. Bilateral posterior capsular opacification - PCO OU: (Posterior Capsule Opacification) Can be observed without intervention if PCO is not visually significant. Nd:YAG laser capsulotomy may be considered if impairment of vision rises to a level that dose not meet the patient's functional needs or interferes with activities of daily living. Risks, benefits and alternatives to the procedure will be reviewed. If the patient has undergone Nd:YAG laser capsulotomy, they are to notify their rotary swaging machine operator promptly if they have a significant change in symptoms, such as flashes of light (photopsia), an increase in floaters, loss of visual field or decrease in visual acuity. documented in this encounterMissouri Baptist Medical [id number] History of Present illness Narrative* Keyona Justice, [employer] TECHNICIAN - 03/31/2024 9:35 AM EDT Images from the original note were not included. Skin Check Location: Patient requests a skin examination from the waist up Dermatologic history: history of Actinic Keratosis, history of Basal Cell Carcinoma, history of Squamous Cell Carcinoma, history of atypical mole(s) Last visit: 1 year ago Established patient Lesions: Location: right side face Duration: months Quality: itchy Modifying factors: aggravated by shaving Associated symptoms: non-healing, red, rough Treatments: none Lesion # 2: Location: right arm Duration: months Quality: denies pain, denies itch, denies bleeding Modifying factors: none Associated symptoms: darkening Treatments: none All pertinent medical history, medications, and allergies were reviewed. General Exam: alert, oriented to person, place, and time, normal affect, well appearing uses a cane Unaccompanied Areas not examined despite medical recommendation: From the waist down Scalp, Examined Head, Face Examined Neck Examined Chest Examined Back Examined Abdomen Examined Right arm Examined Left arm Examined Hands Examined Digits,nails: Examined Lymphatics: Not examined 1. Actinic keratosis (20) Left Forearm - Posterior, Left Hand - Posterior (2), Left Parotid Area, Left Scaphoid Fossa, Left Superior [place], Left Upper Arm - Posterior (2), Left Zygomatic Area, Right Forearm - Posterior (5), Right Parotid Area (2), Right Postauricular Area, Right Superior [place], Right Zygomatic Area (2) Erythematous scaly papules Patient was counseled regarding these sun-induced growths that can develop into squamous cell carcinoma if left untreated. Discussed treatment with cryotherapy. It was emphasized that any treated lesions that fail to resolve should be re- evaluated. Cryotherapy performed today; see procedure note Diagnosis: Actinic keratosis Indication: Precancerous Location: see skin exam Consent: Verbal consent was obtained and risks were discussed, including, but not limited to risks of scarring, darker or rope laying machine operator pigmentary changes, recurrence, incomplete removal and infection. Method: Liquid nitrogen was used to treat the lesion(s) with two 5-10 second freeze-thaw cycles. Eyes were shielded using cotton pad during procedure Number of lesions treated: 20 Post-procedure instructions: Instructions were given orally and in writing. The office will be contacted if the lesion fails to resolve despite treatment, or if a side effect develops such as abnormal crusting, scabbing, redness or tenderness Cryotherapy, skin lesion - Left Forearm - Posterior, Left Hand - Posterior (2), Left Parotid Area, Left Scaphoid Fossa, Left Superior [place], Left Upper Arm - Posterior (2), Left Zygomatic Area, RightForearm - Posterior (5), Right Parotid Area (2), Right Postauricular Area, Right Superior [place], Right Zygomatic Area (2) 2. Seborrheic keratosis (3) Arms, Head, Trunk Stuck on verrucous, variably pigmented papules and plaques. Patient was counseled regarding these benign growths. Removal is normally not necessary, but they may be removed if they are symptomatic or for cosmetic reasons. 3. Lentigines (3) Arms, Head - Anterior (Face), Trunk Scattered hay macules in sun-exposed areas. The patient was informed that lentigines are benign pigmented lesions that occur on sun-exposed andsun-damaged skin. No treatment is necessary. Recommended regular use of broad spectrum sunscreen SPF 30 or higher 4. History of dysplastic nevus Left Lower Back 5. Neoplasm of unspecified behavior of bone, soft tissue, and skin (2) Right Upper Arm - Posterior Irregularly pigmented papule Lesion biopsy Type of biopsy: tangential Informed consent: discussed and consent obtained Informed consent comment: The risks and benefits of the biopsy were discussed. Risks include but are not limited to bleeding, infection, scarring, pain, and nerve damage. An opportunity to ask questions prior to the procedure was permitted and all questions were answered. Patient was prepped and draped in usual sterile fashion: area cleansed with alcohol. Anesthesia: the lesion was anesthetized in a standard fashion Anesthetic: 1% lidocaine w/ epinephrine 1-100,000 buffered w/ 8.4% NaHCO3 Instrument used: DermaBlade Hemostasis achieved with: electrodesiccation Outcome: patient tolerated procedure well Outcome comment: The specimen was placed in a prelabeled formalin container to be sent for pathology Post-procedure details: sterile dressing applied and wound care instructions given Post-procedure details comment: Emphasized need to contact clinic for any signs of infection, uncontrollable bleeding, or complications. Dressing type: bandage Additional details: Photo taken Amount of lidocaine used: 0.6 cc Right Preauricular Area Hyperkeratotic papule Lesion biopsy Type of biopsy: tangential Informed consent: discussed and consent obtained Informed consent comment: The risks and benefits of the biopsy were discussed. Risks include but are not limited to bleeding, infection, scarring, pain, and nerve damage. An opportunity to ask questions prior to the procedure was permitted and all questions were answered. Patient was prepped and draped in usual sterile fashion: area cleansed with alcohol. Anesthesia: the lesion was anesthetized in a standard fashion Anesthetic: 1% lidocaine w/ epinephrine 1-100,000 buffered w/ 8.4% NaHCO3 Instrument used: DermaBlade Hemostasis achieved with: electrodesiccation Outcome: patient tolerated procedure well Outcome comment: The specimen was placed in a prelabeled formalin container to be sent for pathology Post-procedure details: sterile dressing applied and wound care instructions given Post-procedure details comment: Emphasized need to contact clinic for any signs of infection, uncontrollable bleeding, or complications. Dressing type: bandage Additional details: Photo taken Amount of lidocaine used: 0.4 cc Next Visit: 1 year skin check documented in this encounterMissouri Baptist Medical [id number] Evaluation note* Author [facility] Authored January 27, 2024 1: 27pm The above note written by Rolando DUNN acting as human recorder, note dictated by Dr. Monster Benitez. [facility] Work Phone: 1(323) 859-383108-28-2024 Evaluation note* Author [facility] Authored January 27, 2024 1: 27pm The above note written by Rolando DUNN acting as human recorder, note dictated by Dr. Monster Benitez. Author [facility] Authored April 14, 2024 1:33pm The above note written by MONA Negrete acting as human recorder, note dictated by Dr.Brett Benitez. [facility] Work Phone: 1(374) 504-123303-21-2024 Evaluation note* Author [facility] Authored August 20, 2023 11: 06am The above note written by Lona Woodruff LPN, acting as human recorder, note dictated by Dr. Monster Benitez. [facility] Work Phone: 1(392) 592-751303-21-2024 Evaluation note* Author [facility] Authored August 20, 2023 11: 06am The above note written by Lona Woodruff LPN, acting as human recorder, note dictated by Dr. Monster Benitez. Author Rhona Babb [facility] Authored October 08, 2023 3:04pm Sooner if needed, ER if conc erns. The above note was written by Rhona Babb LPN , acting as human recorder, note dictated by Dr. Monster Benitez. [facility] Work Phone: 1(756) 800-187201-02-2024 Evaluation note* Encounter Date Diagnosis Assessment Notes Treatment Notes Treatment Clinical Notes Jun, Situational anxiety (ICD-10 - F41.8) [facility] [employer] Other 12-15-2023 Evaluation note* Encounter Date Diagnosis Assessment Notes Treatment Notes Treatment Clinical Notes May, Renal insufficiency (ICD-10 - N28.9) 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 [employer] Other 11-21-2023 Evaluation note* Encounter Date Diagnosis [...] The patient is in agreement and prefers [facility], orders faxed. The patient advised he may call the office for results. Apr, Weight loss (ICD-10 - R63.4) [employer] Other 09-18-2023 Evaluation note* Encounter Date Diagnosis Assessment Notes Treatment Notes Treatment Clinical Notes Jan, Hyperlipidemia (ICD-10 - E78.5) [employer] Other 04-18-2023 NoteCONSULTATION CONSULTATION DATE: 09/16/2022 TO: [...] our patients to inform us about any [id number] medications or herbal remedies/nutritional supplements/alternative remedies. 2. [...] treatment options with their primary care provider.[facility] [id number] Evaluation note * Encounter Date Diagnosis Assessment [...] Encouraged patient to continue with their efforts. [employer] Other 12-07-2022 Evaluation note* Encounter Date Diagnosis Assessment Notes Treatment Notes Treatment Clinical Notes May, Hypertension (ICD-10 - I10) [employer] Other 10-10-2022 Evaluation note* Encounter Date Diagnosis Assessment Notes Treatment Notes Treatment Clinical Notes Mar, Sinus congestion (ICD-10 - R09.81) In house covid test was negative. 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 Document reviewed and amended [...] medication and we will continue to monitor. [employer] Other 11-30-2021 Evaluation note* Encounter Date Diagnosis Assessment Notes Treatment Notes Treatment Clinical Notes Apr, Shortness of breath (ICD-10 - R06.02) [employer] Other 06-05-2012 History general Narrative - Reported* Type Description Date Medical History Path Report (11-04-11) Medical History Colonoscopy - dr reveles (11/2010 ) Medical History X-ray lumbar (03/2013) Medical History stress test, echocardiogram 12/31 Medical History 11/2016 AAA, Carotid Medical History 12/13/2019 PSA ( .008) Surgical History RIGHT HIP SURGERY Surgical History PROSTATE SURGERY Surgical History lumbar surgery 04/2013 Surgical History right ear lesion excision with flap closure 08/02/18 Hospitalization History SEE ABOVE [employer] Other Evaluation noteNo Information[facility] [employer] Other Evaluation noteNo assessment information available [facility] Work Phone: Evaluation note* Author Paola Woodruff [facility] Authored August 20, 2023 11: 06am The above note written by Lona Woodruff LPN, acting as human recorder, note dictated by Dr. Monster Benitez. [facility] Work Phone: Evaluation note* Diagnosis Onset Date Resolution Status Atypical chest pain acute Essential (primary) hypertension acute New onset atrial fibrillation acute [facility] Work Phone: Evaluation note* Author Britta Posada [facility] Authored January 27, 2024 2: 27pm The above note written by Rolando DUNN acting as human recorder, note dictated by Dr. Monster Benitez. [facility] Work Phone: Evaluation note* Diagnosis Actinic keratosis Seborrheic keratosis Lentigines History of dysplastic nevus Neoplasm of unspecified behavior of bone, soft tissue, and skin documented in this encounter [facility] HealthcareEvaluation note* Diagnosis Posterior vitreous detachment of left eye- Primary Vitreous degeneration Dry eyes Unspecified tear film insufficiency Blepharitis of upper and lower eyelids of both eyes, unspecified type Bilateral posterior capsular opacification Unspecified after-cataract documented in this encounter [facility] HealthcareEvaluation note* Diagnosis 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 Monster Benitez [facility] Work Phone: Hospital Discharge instructionsAmbulatory Orders* Referral to Cardiology Location: None [facility] Work Phone: Hospital Discharge instructionsAmbulatory Orders* Referral to Gastroenterology Time Frame: 08/16/24, Location: None [facility] Work Phone: Reason for referral (narrative)No reason for referral information available[facility] Work Phone: Summary Purpose Family History [...] Advance Directives Yes June 23, 2023 11:52am Advance Directive Response Recorded Date/ Time Advance Directives Yes June 23, 2023 10:52am Chief Complaint and Reason for Visit Chief [...] prostate cancer Medicare annual wellness visit, subsequent Chief Complaint Admit Date Subseq. MCW exam January 27, 2024 1: 43pm Amb Documentation March 14, 2024 7 :14am Amb Documentation March 15, 2024 8 :38am Reason for Visit Admit Date Abnormal renal function January 26 1:43pm Cardiomegaly January 27, 2024 1: 43pm Essential (primary) hypertension January 27, 2024 1:43pm Granulomatous disease January 27, 2024 1:43pm Ground glass opacity present on imaging of lung January 27, 2024 1:43pm Hyperlipidemia January 27, 2024 1: 43pm Lung nodule January 27, 2024 1: 43pm New onset atrial fibrillation December 1:43pm Screening for prostate cancer December 1:43pm Medicare annual wellness visit, subseque nt January 27, 2024 1:43pm Chief Complaint Admit Date Subseq. MCW exam January 27, 2024 1: 43pm Amb Documentation March 14, 2024 7 :14am Amb Documentation March 15, 2024 8 :38am E78.5 April 07, 2024 7 :30am 3 month f/u April 14, 2024 12:52pm Reason for Visit Admit Date Abnormal renal function January 26 1:43pm Cardiomegaly January 27, 2024 1: 43pm Essential (primary) hypertension January 27, 2024 1:43pm Granulomatous disease January 27, 2024 1:43pm Ground glass opacity present on imaging of lung January 27, 2024 1:43pm Hyperlipidemia January 27, 2024 1: 43pm Lung nodule January 27, 2024 1: 43pm New onset atrial fibrillation December 1:43pm Screening for prostate cancer December 1:43pm Medicare annual wellness visit, subseque nt January 27, 2024 1:43pm Abnormal renal function April 14, 2 024 12:52pm Basal cell carcinoma April 14, 2024 12:52pm Ground glass opacity present on imaging of lung April 14, 2024 12:52pm Needs flu shot April 14, 2024 12:52pm Otitis externa in other dise ases classified elsewhere, left ear April 14, 2024 12:52pm Chief Complaint Admit Date C44.319 N28.9 August 08, 2024 6:4 0am Chief Complaint Admit Date C44.319 N28.9 August 08, 2024 6:4 0am 4 month f/u labs August 16, 2024 9:4 7am Reason for Visit Admit Date Abnormal renal function August 16, 2024 9:47am Blood in stool August 16, 2024 9:4 7am Exertional shortness of breath July 9:47am Granulomatous disease August 16, 2024 9 :47am Lower extremity edema August 16, 2024 9 :47am Persistent atrial fibrillation July 9:47am Chief Complaint Admit Date 4 month f/u labs August 16, 2024 9:4 7am Refer: melena October 14, 2024 8:56a m Reason for Visit Admit Date Abnormal renal function August 16, 2024 9:47am Basal cell carcinoma August 16, 2024 9: 47am Blood in stool August 16, 2024 9:4 7am Exertional shortness of breath July 9:47am Granulomatous disease August 16, 2024 9 :47am Lower extremity edema August 16, 2024 9 :47am Persistent atrial fibrillation July 9:47am Blood in stool October 14, 2024 8:56a m Chief Complaint Admit Date Refer: melena October 14, 2024 8:56a m N28.9 E78.5 November 08, 2024 6:29 am 3 month f/u labs November 17, 2024 8:45 am coming in- RSV, Covid December 26, 2024 10 :41am Reason for Visit Admit Date Blood in stool October 14, 2024 8:56a m Abnormal renal function November 17, 2024 8:45am Blood in stool November 17, 2024 8:45 am Exertional shortness of breath October 8:45am Hearing decreased November 17, 2024 8:45 am Osteoarthritis November 17, 2024 8:45 am Acute cough December 26, 2024 10:4 1am Chief Complaint Admit Date coming in- RSV, Covid December 26, 2024 10 :41am L Flank Pain February 16, 2025 11:39am Reason for Visit Admit Date Acute cough December 26, 2024 10:4 1am Chief Complaint Admit Date coming in- RSV, Covid December 26, 2024 10 :41am L Flank Pain February 16, 2025 11:39am ongoing back pain February 22, 2025 1:00pm Reason for Visit Admit Date Acute cough December 26, 2024 10:4 1am Back pain February 16, 2025 11:39am Reason for Referral Reason 07/28/22 @ 10:00am consult and treat with Dr.Todd Sinclair in [place] Diagnosis 1 Left inguinal hernia (K40.90) Referral Organization [facility] [place] Referring Provider First Name Monster Referring Provider Last Name John Referring Provider [facility] tomás Referred Organization [facility] Referred Provider Julien Sinclair Referred Address [address] [place], [place],[address] Referred Provider Specialty Surgery Referral Priority Routine Referral Appointment Date 2022-07-28 [facility] 10:32:29 AM >Received today and waiting for office notes to be locked before sending referral [facility] 07/18/2022 10:58:26 AM >Referral was fax. They will review and call patient [facility] 07/25/2022 08:58:28 AM >Fax letter for appt update [facility] 07/25/2022 10:00:37 AM >Received letter back with appt [facility] 07/30/2022 09:59:04 AM >Fax letter for appt update or consult notes [facility] 07/30/2022 12:53:38 PM >Received consult notes Clinical Notes Office [phone] Additional Source Comments (unrecognized sect ion and content) No Status Records FoundNo Status Records FoundNo Status Records FoundNo Status Records FoundNo Status Records FoundNo Status Records Found INFORMATION SOURCE (unrecogn ized section and content) DATE CREATED AUTHOR 11/24/2017 [facility] DATE CREATED AUTHOR AUTHOR'S ORGANIZ ATION 11/24/2017 [facility] DATE CREATED AUTHOR AUTHOR'S ORGANIZ ATION 08/18/2021 [facility] DATE CREATED AUTHOR AUTHOR'S ORGANIZ ATION 10/15/2022 [facility] DATE CREATED AUTHOR AUTHOR'S ORGANIZ ATION 08/06/2024 [facility] EPIC DATE CREATED AUTHOR AUTHOR'S ORGANIZ ATION 11/24/2024 [facility] REASON FOR VISIT (unrecogniz ed section and content) Reason Comments Skin Check Reason Comments Eye Problem Reason Comments Mohs Micrographic Surgery Care Teams (unrecognized sec tion and content) Team Status: Active Member Role Status James Benitez DO Primary Care Provider Active Team [...] Role Status James Benitez DO Primary Care Provider, Attending Provi [...] Member Role Status Dates Clovis Singh MD Performance Engineer Active Monster Benitez DO Primary Care Provider [...] 2024 Team Status: Inactive Member Role Status James Benitez DO Primary Care Provide r, Attending Provider Active Start: January 27, 2024 End: January 27, 2024 Forex Trader Relationship Specialty Start Date End Date Monster Benitez DO [address] [place] [address] PCP - General Family Medicine 10/27/23 [employer] Tr[employer] Relationship Specialty Start Date End Date Monster Benitez DO [address] [place] [facility] [address] PCP - General Family Medicine 10/27/23 Fore[employer] Trader Relationship Specialty Start Date End Date Monster Benitez DO [address] [place] [facility] [address] PCP - General Family Medicine 10/27/23 Team Status: Active Member Role Status Dates Monster Benitez DO Primary Care Provide r, Attending Provider Active Start: February 15, 2024 Team Status: Active Member Role Status Dates Monster Benitez DO Primary Care Provider Active Sta rt: March 14, 2024 MONA Liz Attending Provider Active Start: March 14, 2024 Team Status: Active Member Role Status Dates Monster Benitez DO Primary Care Provider Active Sta rt: March 15, 2024 MONA Liz Attending Provider Active Start: March 15, 2024 Team Status: Inactive Member Role Status Dates Monster Benitez DO Primary Care Provide r, Attending Provider Active Start: April 07, 2024 End: April 07, 2024 Team Status: Inactive Member Role Status Dates Monster Benitez DO Primary Care Provide r, Attending Provider Active Start: April 14, 2024 End: April 14, 2024 Forex Trader Relationship Specialty Start Date End Date Monster Benitez DO [address] [place] [facility] [address] PCP - General Family Medicine 10/27/23 Team Status: Inactive Member Role Status Dates Monster Benitez DO Primary Care Provide r, Attending Provider Active Start: August 08, 2024 End: August 08, 2024 Team Status: Inactive Member Role Status Dates Monster Benitez DO Primary Care Provide r, Attending Provider Active Start: August 16, 2024 End: August 16, 2024 Team Status: Inactive Member Role Status Dates Monster Benitez DO Primary Care Provider Active Sta rt: October 14, 2024 End: October 14, 2024 Trudy Villanueva DO Attending Provider Active St art: October 14, 2024 End: October 14, 2024 Team Status: Inactive Member Role Status Dates Monster Benitez DO Primary Care Provide r, Attending Provider Active Start: November 08, 2024 End: November 08, 2024 Team Status: Inactive Member Role Status Dates Monster Benitez , DO Primary Care Provider Active Sta rt: November 08, 2024 End: November 08, 2024 Monster Benitez , DO Attending Provider Active Start: November 08, 2024 End: November 08, 2024 Team Status: Inactive Member Role Status Dates Monster Benitez , Primary Care Provider Active Sta rt: November 17, 2024 End: November 17, 2024 Monster Benitez , DO Attending Provider Active Start: November 17, 2024 End: November 17, 2024 Team Status: Inactive Member Role Status Dates Monster Benitez , Primary Care Provider Active Sta rt: December 26, 2024 End: December 26, 2024 Monster Benitez , DO Attending Provider Active Start: December 26, 2024 End: December 26, 2024 Team Status: Inactive Member Role Status Dates Monster Benitez , Primary Care Provider Active Sta rt: February 16, 2025 End: February 16, 2025 Monster Benitez , DO Attending Provider Active Start: February 16, 2025 End: February 16, 2025 Team Status: Inactive Member Role Status James Benitez , Primary Care Provider Active Sta rt: February 22, 2025 End: February 22, 2025 Bib Zuleta DO Attending Provider Active St art: February 22, 2025 End: February 22, 2025 Goals (unrecognized section and content) Goals may [...] BE BASED ON THE PRIMARY CLINICAL RECORDS. [facility] [employer] [facility]. provides no warranty or guarantee of the accuracy or completeness of information in this document.
--- NOTE | 2025-02-23 09:51 | XR_ITS ---
The [address] [address] Patient Name: ILYA BENITEZ MRN: [id number] date: 1940 Sex: M Assigned Patient Location: [facility] Current Patient Location: [facility] Accession/Order Number: [id number] Exam Date: 02/23/2025 10:05 Report Date: 02/23/2025 10:44 At the request of: NON-STAFF PHYSICIAN MD Procedure: XR lumbar spine min 4V LUMBAR SPINE -4 views: CLINICAL HISTORY: Low back pain radiating to the hips for the past couple weeks. No reported injury. M54.50 COMPARISON: 2022 and MRI 10/08/2022 AP and lateral views in neutral, flexion and extension were obtained. There is osteopenia. Slight thoracolumbar dextroscoliotic curvature is present. There is prior fusion at L4-5 with a posterior erica and pedicle screws on the right as well as an interbody fusion device. The hardware appears intact and unchanged from the prior. There is no acute compression fracture. There is still approximately 5 mm of retrolisthesis of L2 on L3 as well as minor anterolisthesis of L4 with respect to the adjacent vertebra. There is no significant change in alignment with flexion or extension. There is disc space narrowing L1-2, L2-3 and the lumbosacral junction. There is endplate sclerosis at L2-3. Endplate spurring and lower lumbar facet hypertrophy are again noted. The SI joints are intact and show mild sclerosis. No paraspinal soft tissue abnormalities are seen. There is minor atherosclerotic disease. XR/XR lumbar spine min 4V IMPRESSION: OSTEOPENIA, SUBTLE SCOLIOSIS, POSTOPERATIVE AND DEGENERATIVE CHANGES. NO ACUTE BONY FINDINGS. Impression dictated by: Anh Coello M.D. 02/23/2025 10:44 AM Dictation Location: [place] [address] Electronically authenticated by: [id number] Y Date: 02/23/2025 10:44
== END 2025-02-23 09:44 | disposition home or self-care (01) ==
LOC: RAD 09:44
PROVIDERS: PCP Family Medicine
DX: M54.50 Low back pain, unspecified (principal); M85.88 Other specified disorders of bone density and structure, other site; M41.86 Other forms of scoliosis, lumbar region; Z98.890 Other specified postprocedural states
CPT/HCPCS: 72110